=== PATIENT | female | born 2005 | race Caucasian/White ===

== ENCOUNTER 2025-05-15 12:20 | Emergency (ER) | payer MEDICAID, SELFPAY ==
[2025-05-15 12:20] VITALS: BP 133/92; PULSE 106; RESP 14; TEMP 36.6; O2SAT 98; BMI 38.2
--- NOTE | 2025-05-15 12:46 | EX.ED.DYSGE1 ---
HPI History of Present Illness Chief Complaint: Complaint Detail of Chief Complaint: Abdominal pain and dysuria Informant: patient Narrative Narrative: Patient presents to the emergency department complaint of abdominal pain that started 2 days ago while having intercourse with her fianc?. She describes pain to the right side of her abdomen. She denies vaginal bleeding associated with this. She denies abnormal vaginal discharge. Patient states that she had similar episode last October and went to the ER and was told that maybe her ovaries had twisted and she remembers having a CAT scan at that time. She did not require any type of intervention or surgery. Patient states that she has had 4 miscarriages and is currently trying to get . Her last menstrual period was May 02. No history of kidney stones. She does describe some dysuria. She has been having nausea and vomiting x [address] [facility] Medical History (Updated 05/15/25 @ 15:[address] 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) Social History Smoking Status: Unknown if ever smoked ROS ROS ED Review of Systems ROS Unobtainable: other Constitutional Constitutional ED: Reports lethargy; Denies chills, fever(s), sweats or weight loss Eyes Eyes: Denies blurry vision, change in vision or diplopia ENT ENT ED: Denies rhinorrhea or sore throat Cardiovascular Cardiovascular: Denies chest pain, orthopnea or racing heartbeat Respiratory/Chest Respiratory/Chest: Denies cough, dyspnea, dyspnea on exertion, orthopnea or sputum Gastrointestinal Gastrointestinal: Reports abdominal pain, nausea and vomiting; Denies diarrhea Genitourinary Genitourinary ED: Reports dysuria; Denies hematuria or urinary frequency Musculoskeletal Musculoskeletal: Denies arthralgias, back pain, myalgias or neck pain Integumentary Denies abscess, Abrasions or rash Neurologic Neurologic: Denies headache(s) or weakness Psychiatric Psychiatric: Denies anxiety, depression or suicidal thoughts Endocrine Endocrinology: Denies polydipsia, polyphagia or polyuria Hematologic/Lymphatic Hematologic/Lymphatic: Denies easy bleeding, easy bruising or lymphadenopathy Allergic/Immunologic Allergic/Immunologic ED: Denies mouth swelling, tongue swelling or urticaria EXAM Physical Exam Const Vital Signs: 05/15/25 12:20 Temperature 98 F Temperature Source Temporal Pulse Rate 106 H Respiratory Rate 14 Blood Pressure 133/92 H Blood Pressure Mean 105 Pulse Ox 98 Oxygen Delivery Method Room Air Positive well nourished and well developed General Appearance ED: well developed and NAD HEENT Reports TM's clear and moist mucous membranes normocephalic and atraumatic; Negative for trauma or tenderness Tympanic Membrane ED: Yes TM's clear Eyes PERRL and EOMs intact bilaterally General Eye ED: Negative for pale conjunctiva or scleral icterus Neck no lymphadenopathy, supple and no JVD General: Negative for tenderness Chest Wall inspection of chest normal and palpation of chest normal Chest: Negative for tenderness Resp normal respiratory effort and clear to auscultation bilaterally Effort and Inspection: Negative for respiratory distress or pain with movement Auscultation: Negative for rhonchi, wheezes or diminished lung sounds Cardio regular rate, regular rhythm, S1 normal heart sound, S2 normal heart sound and no murmurs Peripheral Pulses: pulses 2+ throughout GI normal to inspection, nondistended, normoactive bowel sounds, soft to palpation, non-distended and no masses GI Narrative: Tenderness palpation over the right lower quadrant and suprapubic region. There are some mild guarding. There is no rebound or rigidity. No masses palpated. Back/Spine no CVA tenderness and no thoracic nor lumbar tenderness Extremity normal to inspection General Extremety ED: Negative for edema General Extremity: Negative for edema Neuro oriented x3, CN's II-XII intact bilaterally, no sensory deficits noted and gait normal Sensorium / Orientation: awake, alert, oriented to person, oriented to place and oriented to time Motor Exam: strength 5/5 throughout and strength abnormal Psych mental status grossly normal Skin no rashes or lesions noted and no wounds MDM MDM MDM Narrative Medical decision making narrative: Patient presents with right-sided abdominal pain after intercourse. Similar pain in the past and was told she might have torsion and apparently. She states she did not require any surgery. Clinically she looks well. IV line established. CBC with differential obtained showing a 7.0 with hemoglobin 11.2 and platelet count of 290. Chemistries unremarkable. LFTs were normal. hCG was negative. Urinalysis was normal. CT scan of the abdomen pelvis showed an enlarged right ovary otherwise nothing acute and they recommended obtaining ultrasound. I did order an ultrasound of the pelvis and discussed results with technologist which did show a right ovarian cyst with no evidence of torsion. Discussed results with patient. Will refer to [facility] on-call. Patient will use ibuprofen for discomfort as she had good pain relief here with Toradol. Lab Data Attestation: I reviewed the patient's lab results. Labs: Laboratory Results - last 24 hr 05/15/25 05/15/25 13:02 13:41 WBC 7.0 RBC 3.83 L Hgb 11.2 L Hct 33.7 L MCV 88.0 MCH 29.2 MCHC 33.2 RDW Std Deviation 45.6 H RDW Coeff of Edu 14.2 Plt Count 290 MPV 9.6 Immature Gran % (Auto) 0.300 Neut % (Auto) 56.3 Lymph % (Auto) 34.2 [place] % (Auto) 7.8 Eos % (Auto) 1.0 Baso % (Auto) 0.4 Absolute Neuts (auto) 3.9 Absolute Lymphs (auto) 2.38 Nucleated RBC % 0 Sodium 139 Potassium 3.8 Chloride 104 Carbon Dioxide 23.9 Anion Gap 11 BUN 11 Creatinine 0.59 L Estim Creat Clear Calc 156.94 Est GFR (MDRD) Non-Af 132 BUN/Creatinine Ratio 17.8 Glucose 93 Lactic Acid 1.0 Calcium 9.1 Total Bilirubin 0.38 AST 15 ALT 11 Alkaline Phosphatase 70 Total Protein 7.1 Albumin 4.1 Globulin 3.0 Albumin/Globulin Ratio 1.4 Serum , Qual NEGATIVE Urine Color Yellow Urine Clarity Clear Urine pH 7.0 Ur Specific [place] 1.010 Urine Protein Negative Urine Glucose (UA) Normal Urine Ketones Negative Urine Occult Blood Negative Urine Nitrite Negative Urine Bilirubin Negative Urine Urobilinogen Normal Ur Leukocyte Esterase 100 H Urine RBC 0 SEEN Urine WBC 0-5 SEEN Ur Squamous Epith Cells 0-5 SEEN Urine Bacteria RARE Urine Mucus 0 SEEN Radiography Diagnostic Testing: Clinical Impression(s) from Imaging Studies Abdomen/Pelvis CT 05/15/25 13:40 IMPRESSION: I suspect an enlarged right ovary. Correlation ultrasound recommended. Reading Location: [place] [address] Discharge Plan Triage Chief Complaint: Complaint ED Provider: Lawrence Finnegan Dx/Rx/DC Orders Clinical Impression: Cyst of right ovary Instructions: ED Ovarian Cyst Primary Care Provider: Care Physician,No Primary Referrals: Alba Hadley MD [Med Staff - Active Staff] - 3-5 Days Care Physician,No Primary [Primary Care Provider] - Print Language: Omani Disposition Disposition: Home, Self Care
[2025-05-15] MEDS: 0.9% Normal Saline (1000mL) 1,000 ML 125 ML IV (12:58)
[2025-05-15] MEDS: Ketorolac 15 MG/ML Vial IV (12:58)
[2025-05-15] MEDS: Ondansetron 4 MG/2 ML Vial IV (12:58)
[2025-05-15 13:16] LABS: Absolute Lymphocyte Count 2.38 X10^3/uL (0.83-4.51); Absolute Neutrophil Count 3.9 X10^3/uL (2.0-7.7); Basophil# 0.03 X10^3/uL; Basophil% 0.4 % (0-1); Eosinophil# 0.07 X10^3/uL; Hematocrit 33.7 % (37-47); Hemoglobin 11.2 g/dL (12.0-15.0); Lymphocyte # 2.38 X10^3/ul (0.83-4.51); Lymphocyte % 34.2 % (19-41); Mean Corp Hgb Conc 33.2 g/dL (32-36); Mean Corpuscular Hgb 29.2 pg (27.0-32.0); Mean Platelet Vol. 9.6 fl (6.2-12.0); Monocyte# 0.54 X10^3/uL; Monocyte% 7.8 % (0-10); NRBC Flagged by Analyzer 0 % (0-5); Neutrophil # 3.92 X10^3/uL (2.7-7.7); Neutrophil % 56.3 % (47-70); Platelet Count 290 K/mm3 (150-450); RBC Distribution Width CV 14.2 % (11.6-14.6); RBC Distribution Width SD 45.6 fl (35.1-43.9); Red Blood Count 3.83 M/mm3 (4.2-5.4)
[2025-05-15 13:29] LABS: Internal QC Validated? YES +Cl - CLEAR BKGD; Pregnancy, Serum, hCG Quali. NEGATIVE Negative
[2025-05-15 13:38] LABS: ALB/GLOB Ratio 1.4 RATIO (0.9-2.4); AST(SGOT) 15 U/L (<=31); Alanine Aminotransfer ALT/SGPT 11 U/L (<=34); Albumin, Serum 4.1 g/dL (3.5-5.0); Alkaline Phosphatase 70 U/L (35-104); Anion Gap 11 (5-15); BUN 11 mg/dL (4-19); BUN/Creat Ratio 17.8 RATIO (10-20); Calcium,Total 9.1 mg/dL (7.6-11.0); Carbon Dioxide 23.9 mmol/L (21.0-32.0); Chloride 104 mmol/L (98-108); Creatinine, Serum 0.59 mg/dL (0.70-1.20); EST Glomerular Filtration Rate 132 (>60); Estimated Creatinine Clearance 156.94 ml/min (50-250); Glucose 93 mg/dL (70-99); Potassium 3.8 mmol/L (3.3-5.1); Protein, Total 7.1 g/dL (5.9-8.4); Sodium Level 139 mmol/L (133-145); Total Bilirubin 0.38 mg/dL (0.00-1.30)
--- NOTE | 2025-05-15 13:40 | CT_ITS ---
PROCEDURE: ABDOMEN/PELVIS WITHOUT CONT 05/15/2025 REASON FOR EXAM: RLQ ABDOMINAL PAIN TECHNIQUE: ABDOMEN/PELVIS WITHOUT CONT Noncontrast technique limits evaluation of the abdominal and pelvic viscera. Coronal and Sagittal reconstruction series were provided. One or more dose reduction techniques were used (e.g., Automated exposure control, adjustment of the mA and/or kV according to patient size, use of iterative reconstruction technique). Dose report: CTDI L volume 16.9. DLP: 897.94 ORAL CONTRAST TYPE: None. COMPARISON: None FINDINGS: Lung bases: Unremarkable Liver: Normal size. No obvious mass. Gallbladder: Mildly distended gallbladder. No definite gallstone is seen. Spleen: Normal size. Pancreas: Normal size. No surrounding inflammation. Adrenals: Unremarkable Kidneys: No urolithiasis. No hydronephrosis. Bladder: Unremarkable Reproductive Organs: I suspect an enlarged right ovary. Correlation with ultrasound recommended. Bowel: Mild degree of sigmoid diverticulosis. Appendix: Unremarkable Lymph nodes: Unremarkable. Vasculature: The abdominal aorta and IVC contours are normal. Noncontrast technique limits evaluation. Peritoneum / Retroperitoneum: Unremarkable Bones: Unremarkable CT/Abdomen/Pelvis without Cont IMPRESSION: I suspect an enlarged right ovary. Correlation ultrasound recommended. Reading [facility]
[2025-05-15 13:46] LABS: Mucous, Urine 0 SEEN /hpf (<or=2+); Red Blood Cells-Urine 0 SEEN /hpf (0-5)
[2025-05-15 13:47] LABS: Color, Urine Yellow (Yellow); Glucose, Dipstick Normal (Normal); Ketone-Dipstick Negative (Negative); Leukocyte Esterase-Dipstick 100 /ul (Negative); Nitrite-Dipstick Negative (Negative); Occult Blood-Urine Negative /ul (Negative); Protein-Dipstick Negative (Negative); Urine Bilirubin Dipstick Negative (Negative); Urine Clarity Clear (Clear); Urine Urobilinogen Normal (Normal)
[2025-05-15 13:54] LABS: Bacteria RARE /hpf (None Seen); Squamous Epithelial Cells - UA 0-5 SEEN /hpf (5-10); White Blood Cells 0-5 SEEN /hpf (0-5)
--- NOTE | 2025-05-15 14:03 | US_ITS ---
PROCEDURE: TRANSVAGINAL NON- 05/15/2025 REASON FOR EXAM: RIGHT LOWER ABD PAIN, RULE OUT TORSION TECHNIQUE: TRANSVAGINAL NON- COMPARISON: CT abdomen pelvis today. FINDINGS: Measurements: Uterus: 9.1 cm x 4.1 cm AP x 5.6 cm T Endometrial Thickness: 7 mm Right Ovary: 3.6 cm x 2.6 cm x 3.4 cm Left Ovary: 3.2 cm x 2.7 cm x 1.1 cm Uterus: Unremarkable. Endometrium: Unremarkable. Ovarian blood flow: Bilateral arterial and venous waveforms and normal color Doppler. Normal follicles are present. Other: Trace fluid in the cul-de-sac, most frequently physiologic, but nonspecific US/Transvaginal Non- IMPRESSION: No evidence of torsion. Reading [facility]
[2025-05-15 15:44] VITALS: BP 110/70; PULSE 73; RESP 14; TEMP 36.4; O2SAT 94
== END 2025-05-15 15:48 | disposition home or self-care (01) ==
PROVIDERS: Emergency Provider Emergency Medicine; Visit Provider Emergency Medicine
DX: N83.201 Unspecified ovarian cyst, right side (principal); R30.0 Dysuria; R10.9 Unspecified abdominal pain
CPT/HCPCS: 74176; 76830; 80053; 81001; 83605; 84703; 85025; 96361; 96374; 96375; 99283; A4216; J2405

== ENCOUNTER 2025-07-30 15:18 | Emergency (ER) | payer MEDICAID, SELFPAY ==
[2025-07-30 15:19] VITALS: BP 124/82; PULSE 89; RESP 18; TEMP 36.6; O2SAT 98; BMI 38.4
--- NOTE | 2025-07-30 15:54 | EDS_ITS ---
HPI HPI - URI History of Present Illness Chief Complaint: Cold Sx Informant: patient Narrative Narrative: 3-4 days of cough, runny nose, congestion, and wheezing/asthma symptoms in this 20-year-old female she states she has 3 kids, none of which are sick right now, but she feels like she has a cold and would have been fine if she had an inhaler but she cannot find it. She feels like it is making her asthma worse. She denies any major headaches although she has a mild one, no nausea or vomiting. Mild sore throat/odynophagia but she can eat soft foods and liquids without difficulty. ROS ROS ED Constitutional Constitutional ED: Reports fatigue and malaise; Denies chills or fever(s) ENT ENT ED: Reports headache(s), loss taste/smell, nasal congestion, rhinorrhea and sore throat; Denies ear pain or vertigo Cardiovascular Cardiovascular: Denies chest pain or palpitations Respiratory/Chest Respiratory/Chest: Reports cough, dyspnea and wheezing Gastrointestinal Gastrointestinal: Denies abdominal pain, diarrhea, nausea or vomiting Genitourinary Genitourinary ED: Denies dysuria or hematuria Musculoskeletal Musculoskeletal: Denies myalgias or neck pain Integumentary Denies abscess or rash Neurologic Neurologic: Reports headache(s); Denies paresthesias or weakness Psychiatric Psychiatric: Denies depression or suicidal thoughts Endocrine Endocrinology: Denies polydipsia or polyuria [facility] Medical History (Updated 07/30/25 @ 17:[address] Alexis Mejia MD) Marijuana use Asthma Physical exam, pre-employment Miscarriage Ovarian torsion Home Medications ?Medication ?Instructions ?Recorded ?Last Taken ?Type acetaminophen 325 mg tablet 650 mg PO Q4H PRN fever or pain 07/30/25 Unknown History (Aminofen) albuterol sulfate 90 mcg/actuation 1 - 2 puff inhalati on Q4H PRN PRN 07/30/25 Unknown Rx aerosol inhaler (Ventolin HFA) Wheezing ##1 prednisone 20 mg tablet 40 mg (2 x 20 mg) PO DAILY 5 days 07/30/25 Unknown Rx #10 tabs Allergy/AdvReac Type Severity Reaction Status Date / Time lavender (Lavandula Allergy Anaphylaxis Verified 07/30/25 15:20 angustifolia) Social History Smoking Status: Current every day smoker tobacco type: cigarettes and e- cigarettes Smokeless tobacco user: other alcohol intake: current alcohol intake frequency: other Alcohol type: hard liquor EXAM Physical Exam Const Vital Signs: 07/30/25 15:19 07/30/25 15:59 07/30/25 16:31 Temperature 97.8 F Temperature Source Temporal Pulse Rate 89 82 Respiratory Rate 18 14 Respiratory Effort Normal Non-Labored Respiratory Pattern Normal Blood Pressure 124/82 H 116/70 Blood Pressure Mean 96 85 Pulse Ox 98 99 Oxygen Delivery Method Room Air Room Air Positive well nourished and well developed General Appearance ED: well developed and NAD HEENT Reports moist mucous membranes normocephalic and atraumatic Face and Sinus: Negative for sinus tenderness Throat: Negative for tonsils abnormal or posterior oropharynx abnormal Eyes PERRL and EOMs intact bilaterally Neck no lymphadenopathy, supple and no meningeal signs Resp normal respiratory effort Resp Narrative: Conversive in full sentences. Very mild end-expiratory wheezes otherwise lungs clear. Cardio no murmurs Rate: regular rate Rhythm: regular rhythm Neuro oriented x3, CN's II-XII intact bilaterally and no sensory deficits noted Sensorium / Orientation: alert Motor Exam: strength 5/5 throughout Psych mental status grossly normal Skin Lesions: no lesions Rashes: no rashes MDM MDM MDM Narrative Medical decision making narrative: Given the patient has had loss of taste and smell with this, I recommend testing for COVID so that she knows. She is amenable to that we will, and it returned negative for all. Also given an inhaler with 4 puffs, she declined an aerosol, that helped and she was given the inhaler to use at home for rescue. She was also offered a prescription for short course of prednisone for her asthma exacerbation. Do not think she needs antibiotics here, do not think she has pneumonia her oxygen levels are 90% on room air lungs are clear and her vital signs are normal. Discharge Plan Triage Chief Complaint: Cold Sx ED Provider: Alexis Mejia Dx/Rx/DC Orders Clinical Impression: Acute asthma exacerbation, Viral URI with cough Instructions: ED Asthma, Acute (Adult), ED URI, Viral, No Abx (Adult) Prescriptions: New prednisone 20 mg tablet 40 mg PO DAILY 5 Days Qty: 10 0RF albuterol sulfate [Ventolin HFA] 90 mcg/actuation HFA aerosol inhaler 1 - 2 puff inhalation Q4H PRN PRN (Reason: Wheezing) Qty: 1 0RF No Action acetaminophen [Aminofen] 325 mg tablet 650 mg PO Q4H PRN (Reason: fever or pain) Primary Care Provider: Care Physician,No Primary Referrals: Doctor,Your [Non-Staff] - 1 Week if not improving Print Language: Japanese Disposition Disposition: Home, Self Care
[2025-07-30] MEDS: Albuterol Sulfate 8 gm Inhaler (60 puffs) 4 PUFF INHALATION (15:57)
[2025-07-30 16:31] VITALS: BP 116/70; PULSE 82; RESP 14; O2SAT 99
[2025-07-30 17:43] VITALS: BP 110/60; PULSE 71; RESP 14; TEMP 36.6; O2SAT 99
--- OUTSIDE RECORDS SUMMARY | 2025-07-30 23:31 | XMS RPT_ITS | CCD ---
Author Organization [facility] CliniSyoh Care Team Providers Care Bioinformatics Team Member Name Role Phone EZ DEJESUS Unavailable Unavailable SHANIKA HUGGINS Unavailable UnavailELIZABETH Obregon Attending Unavail able NATHANAEL LOVING Attending Unavailable KAYLA VILLARREAL Attending Unavaila ble Shivers, R Ignacia Primary Care Unavailable SHIVERS, R IGNACIA Consulting Unavailable HERMILLECINDI Brito Attending Unavailable Shivers, R Ignacia Primary Care Unavailable HERMILLECINDI Brito Attending Unavailable Shivers, R Ignacia Primary Care Unavailable HERMKARON, CINDI Brito Attending Unavailable Shivers, R Ignacia Primary Care Unavailable Shivers, R Ignacia Primary Care Unavailable NATHANAEL LOVING Attending Unavailable HERMILLER, CINDI Brito Attending Unavailable Shivers, R Ignacia Primary Care Unavailable Guerda Dotson Attending Unava ilable Shivers, Daryl Ignacia Primary Care Unavailable Shivers, R Ignacia Primary Care Unavailable Tye Anders Attending Unavailable SHIVERS, R IGNACIA Consulting Unavailable Siva Rincon Primary Care Provider Unavailable Primary Care Provider UnavailSiva Fernandez Primary Care Provider Unavailable Primary Care Provider Unavailabl e Daryl Huggins [facility] Keisha Primary Care Provider Unavailable Primary Care Provider Unavailvicky weeks [facility] Referring Unavailable [facility] KEISHA Referring Unavailable [facility] Referring Unavailable [facility] Referring Unavailable Katrin Olson APRN, CNP Primary Care Pro vider Katrin Olson APRN, CNP Primary Care Pro vider Katrin Olson APRN, CNP Primary Care Pro vider KATRIN DUPONT Primary Care Unavailable ALEX DAWSON Referring Unavailable LISA GANN Referring Unavailable KATRIN DUPONT Primary Care Unavailable KATRIN DUPONT Primary Care Unavailable LISA GANN Referring Unavailable KATRIN DUPONT Primary Care Unavailable KATRIN DUPONT Referring Unavailable KATRIN DUPONT Primary Care Unavailable KATRIN DUPONT Referring Unavailable PCP, No Primary Care Unavailable Octaviano Whittaker Attending Unavailable Cresencio ALUMINUM MOLDING MACHINE OPERATOR - SUPERVISOR PUMPING STATIONKatrin Primary Care Pro vider AKTRIN DUPONT Primary Care Unavailable MELVIN LEON Attending Unavailable Pcp ALUMINUM MOLDING MACHINE OPERATOR, No Primary Care Provider Unavailabl e Pcp ALUMINUM MOLDING MACHINE OPERATOR, No Primary Care Provider Unavailabl e SELF Referring Unavailable CLARA SINGH Attending Unavailable Unavailable Primary Care Provider Unavailabl e Dr. Lawrence Finnegan DO Emergency Provider Care Physician, No Primary Primary Care Provider Unavailable Dr. Lawrence Finnegan DO Attending Provider Care Physician, No Primary Referring Provider Un available Rosa Birch Attending Provider Rosa Birch Referring Provider Rudy Sousa Attending Provider Oswald RIDDLE, Dr. Carrasco Attending Provider Rudy Sousa Attending Unavailable Care Physician, No Primary Referring Unava ilable Care Physician, No Primary Primary Care Unava ilable Danilo Akers Attending Unavailable Care Physician, No Primary Primary Care Unava ilable Rudy Sousa Attending Unavailable Care Physician, No Primary Referring Unava ilable Care Physician, No Primary Primary Care Unava ilable Rosa Birch Attending Unavailable Rosa Birch Referring Unavailable Care Physician, No Primary Primary Care Unava ilable Rudy Sousa Attending Unavailable Care Physician, No Primary Referring Unava ilable Care Physician, No Primary Primary Care Unava ilable Lawrence Finnegan Attending Unavailable Care Physician, No Primary Primary Care Unava ilable Rosa Birch Attending Unavailable Care Physician, No Primary Primary Care Unava ilable Care Physician, No Primary Referring Unava ilable Care Physician, No Primary Referring Unava ilable Care Physician, No Primary Primary Care Rosa Caban Unavailable Roberto RIDDLE, Dr. Espinoza Emergency Provider Allergies Allergy Classification Reported Allergen(s) Allergy Type Date of Onset Reaction(s) Facility Lactose (3 sources) Lactose (non-medical use) Food Allergy 0 [facility] Work Phone: (1 source) No Known Medication Allergies; Translations: [No Known Medication Allergies] Propensity to adverse reactions to drug (disorder) [facility] Repository (16 sources) Lactose (non-medical use) Allergy to substance 0 [facility] Work Phone: (4 sources) Seasonal allergy Allergy to substance 1 Seasonal allergies [facility] Work Phone: (1 source) Lactose Drug Allergy 0 [facility] Repository (14 sources) Lavender (Lavandula Angustifolia); Translations: [LAVENDER (LAVANDULA ANGUSTIFOLIA)] Drug Allergy 4 [facility] (1 source) lavender (Lavandula angustifolia) Drug allergy (disorder) 5 [facility] Repository Medications Current Medications Medication Drug Class(es) Dates Sig (Normalized) Sig (Original) acetaminophen 325 mg oral tablet (5 sources) Start: 07-30-2025 Acetaminophen (Aminofen) 325 mg tablet Active 650 mg PO Q4H as needed for fever or pain July 30, 2025 12:00am Start: 09-03-2021 Tylenol 325 MG Oral Tablet 09/03/2021 Provider: [id number] 200 actuat albuterol 0.09 mg/actuat metered dose inhaler (1 source) beta2-Adrenergic Agonist Start: 07-30-2025 Albuterol Sulfate (Ventolin Hfa) 90 mcg/actuation HFA aerosol inhaler Active 1 - 2 NMA INHALATION EVERY 4 HOURS NEEDED as needed for Wheezing 1 0 July 30, 2025 12:00am amphetamine sulfate 10 mg oral tablet (16 sources) Central Nervous System Stimulant Start: 09-17-2020 Amphetamine Sulfate 10 MG Oral Tablet 09/17/2020 Provider: cephalexin 500 mg oral capsule (4 sources) Cephalosporin Antibacterial Start: 12-28-2024 End: 01-02-2025 take 1 capsule by mouth twice daily cephALEXin (KEFLEX) 500 mg capsule Take 1 capsule by mouth two times a day for 5 days. 10 capsule 12/28/2024 01/02/2025 Active Start: 09-09-2024 End: 12-28-2024 take 1 capsule by mouth three times daily cephALEXin (KEFLEX) 500 mg capsule Take 1 capsule by mouth three times a day. 15 capsule 09/09/2024 12/28/2024 Discontinued (Course of therapy completed) Start: 07-05-2022 End: 07-12-2022 take 1 capsule by mouth in the morning cephALEXin (KEFLEX) 500 MG capsule Take 1 capsule by mouth in the morning and 1 capsule before bedtime. Do all this for 7 days. 14 capsule 0 07/05/2022 07/12/2022 Active cetirizine hydrochloride 10 mg oral capsule (20 sources) Histamine-1 Receptor Antagonist Start: 03-21-2023 End: 03-20-2024 Cetirizine HCl (ZYRTEC ALLERGY) 10 MG CAPS Indications: Seasonal allergies Take 10 mg by mouth as needed (allergy symptoms) 30 capsule 5 03/21/2023 03/20/2024 Active Start: 03-05-2020 End: 09-03-2021 Cetirizine HCl 10 MG Oral Ta blet 03/02/2021 - 09/03/2021 Provider: Keisha Tapia PA-C Start: 02-28-2020 End: 02-28-2020 Cetirizine HCl 10 MG Oral Ta blet 02/28/2020 - 02/28/2020 Provider: Cetirizine HCl ( ZYRTEC ALLERGY) 10 MG CAPS Take by mouth as needed 0 Active clotrimazole 10 mg/ml vaginal cream (1 source) Azole Antifungal Start: 09-17-2022 End: 09-24-2022 clotrimazole (GYNE-LOTRIMIN) 1 % vaginal cream Place vaginally 2 times daily. 45 g 1 09/17/2022 09/24/2022 Active EQL Vitamin D3 125 MCG (5000 UT) Oral Capsule (1 source) Start: 03-02-2021 EQL Vitamin D3 125 MCG (5000 UT) Oral Capsule 03/02/2021 Provider: FLUoxetine 40 mg oral capsule (20 sources) Serotonin Reuptake Inhibitor Start: 09-17-2020 End: 09-03-2021 FLUoxetine HCl 40 MG Oral Capsule 09/03/2021 Provider: Start: 03-05-2020 End: 06-26-2020 PROzac 40 MG Oral Capsule - 06/26/2020 Provider: Siva Rincon MD Start: 02-28-2020 End: 02-28-2020 PROzac 40 MG Oral Capsule - 02/28/2020 Provider: hydrOXYzine hydrochloride 25 mg oral tablet (20 sources) Antihistamine Start: 09-17-2020 End: 09-03-2021 hydrOXYzine HCl 25 MG Oral Tablet 09/03/2021 Provider: ibuprofen 600 mg oral tablet (5 sources) Nonsteroidal Anti-inflammatory Drug take 1 tablet by mouth every six hours as needed for pain ibuprofen (ADVIL;MOTRIN) 600 MG tablet Take 1 tablet by mouth every 6 hours as needed for Pain 0 Active lisdexamfetamine dimesylate 50 mg oral capsule (20 sources) Central Nervous System Stimulant Start: 03-02-2021 Vyvanse 50 MG Oral Capsule 03/02/2021 Provider: Start: 03-02-2021 End: 03-02-2021 Vyvanse 40 MG Oral Capsule 0 03/02/2021 - 03/02/2021 Provider: 1 ml medroxyPROGESTERone acetate 150 mg/ml injection (20 sources) Progestin Start: 03-21-2023 medroxyPROGEST ERone (DEPO-PROVERA) injection 150 mg Start: 03-11-2023 End: 09-08-2024 medroxyPROGESTERone (DEPO-NM OVERA) 150 MG/ML injection Indications: Menorrhagia with irregular cycle Inject 1 mL into the muscle every 3 months 1 mL 1 09/08/2023 09/08/2024 Active Start: 08-13-2022 medroxyPROGEST ERone (DEPO-PROVERA) 150 MG/ML injection Indications: Menorrhagia with irregular cycle Inject 1 mL into the muscle every 3 months 1 mL 1 08/13/2022 Active Start: 03-11-2022 medroxyPROGEST ERone (DEPO-PROVERA) 150 MG/ML injection Indications: Menorrhagia with irregular cycle Inject 1 mL into the muscle every 3 months 1 mL 1 03/11/2022 Active Start: 06-26-2020 Depo-Provera 1 50 MG/ML IM SUSP 12/10/2020 Keisha Tapia PA-C Comment on above: Patient tolerated th erapy well. No signs or symptoms of adverse reactions. Patient tolerated th erapy well. No signs or symptoms of adverse reactions. Patient waited in clinic for 15 minutes after administration. melatonin 3 mg oral tablet (20 sources) Start: 03-11-2022 take 3 tablets by mouth once daily melatonin 3 MG TABS tablet Indications: Difficulty sleeping Take 3 tablets by mouth daily 270 tablet 1 03/11/2022 Active Start: 09-17-2020 End: 09-03-2021 [facility] Melatonin 3 MG Oral Tabl et 09/03/2021 Provider: Metamucil Fiber 51.7% Oral Packet (1 source) Start: 03-02-2021 Metamucil Fiber 51.7% Oral Packet 03/02/2021 Provider: Keisha Tapia PA-C ondansetron 4 mg disintegrating oral tablet (1 source) Serotonin-3 Receptor Antagonist Start: 03-12-2025 take 1 tablet by mouth every eight hours as needed ondansetron orally disintegrating (ZOFRAN ODT) 4 mg disintegrating tablet Take 1 tablet by mouth every 8 hours as needed for nausea/vomiting. 9 tablet 03/12/2025 Active phenazopyridine hydrochloride 200 mg delayed release oral tablet (15 sources) Start: 07-05-2022 End: 07-07-2022 take 1 tablet by mouth three times daily as needed for pain phenazopyridine (PYRIDIUM) 200 MG tablet Take 1 tablet by mouth 3 times daily as needed for Pain 6 tablet 0 07/05/2022 07/07/2022 Active Start: 11-10-2020 End: 11-26-2020 Phenazopyridine HCl 100 MG O ral Tablet 11/10/2020 - 11/26/2020 Provider: Keisha Tapia PA-C prazosin 2 mg oral capsule (20 sources) alpha-Adrenergic Jennifer Start: 02-11-2023 take 1 capsule by mouth once daily prazosin (MINIPRESS) 2 MG capsule Take 1 capsule by mouth nightly 0 02/11/2023 Active Start: 09-03-2021 Prazosin HCl 1 MG Oral Capsule 09/03/2021 Provider: Start: 09-17-2020 End: 09-03-2021 Prazosin HCl 2 MG Oral Capsu le 09/17/2020 - 09/03/2021 Provider: Start: 03-05-2020 End: 06-26-2020 Prazosin HCl 2 MG Oral Capsu le 03/05/2020 - 06/26/2020 Provider: Siva Rincon MD Start: 02-28-2020 End: 02-28-2020 Prazosin HCl 2 MG Oral Capsu le 02/28/2020 - 02/28/2020 Provider: predniSONE 20 mg oral tablet (1 source) Start: 07-30-2025 take 2 tablets by mouth once daily Prednisone 20 mg tablet Active 40 mg PO DAILY 10 5 0 July 30, 2025 12:00am QUEtiapine 25 mg oral tablet (16 sources) Atypical Antipsychotic Start: 02-11-2023 take 1 tablet by mouth once daily in the morning QUEtiapine (SEROQUEL) 25 MG tablet Take 1 tablet by mouth every morning 0 02/11/2023 Active Start: 03-02-2021 SEROquel 100 M G Oral Tablet 03/02/2021 Provider: QUEtiapine Fumar ate 150 MG TABS Take by mouth 0 Active Up4 Probiotics Womens Oral Capsule (4 sources) Start: 11-26-2020 Up4 Probiotics Womens Oral Capsule 11/26/2020 Provider: valACYclovir 1000 mg oral tablet (7 sources) Herpesvirus Nucleoside Analog DNA Polymerase Inhibitor, Herpes Simplex Virus Nucleoside Analog DNA Polymerase Inhibitor, Herpes Zoster Virus Nucleoside Analog DNA Polymerase Inhibitor Start: 05-12-2021 Valtrex 1 GM Oral Tablet 05/12/2021 Provider: Keisha Tapia PA-C Completed/Discontinued Medications Medication Drug Class(es) Dates Sig (Normalized) Sig (Original) Acidophilus Probiotic Blend Oral Capsule (20 sources) Start: 03-05-2020 End: 04-07-2020 Acidophilus Probiotic Blend Oral Capsule 03/05/2020 - 04/07/2020 Provider: Siva Rincon MD Start: 03-05-2020 Acidophilus Pr obiotic Blend Oral Capsule 03/05/2020 Provider: Siva Rincon MD Start: 02-28-2020 End: 02-28-2020 Acidophilus Probiotic Blend Oral Capsule 02/28/2020 - 02/28/2020 Provider: Start: 02-28-2020 Acidophilus Pr obiotic Blend Oral Capsule 02/28/2020 Provider: Acidophilus Probiotic Blend Oral Capsule (14 sources) Start: 03-05-2020 End: 04-07-2020 Acidophilus Probiotic Blend Oral Capsule 03/05/2020 - 04/07/2020 Provider: Siva Rincon MD Start: 02-28-2020 End: 02-28-2020 Acidophilus Probiotic Blend Oral Capsule 02/28/2020 - 02/28/2020 Provider: amoxicillin 875 mg / clavulanate 125 mg oral tablet (12 sources) Penicillin-class Antibacterial Start: 09-03-2021 End: 10-16-2021 Amoxicillin-Pot Clavulanate 875-125 MG Oral Tablet 09/03/2021 - 10/16/2021 Provider: Keisha Tapia PA-C Start: 03-02-2021 End: 05-12-2021 Amoxicillin-Pot Clavulanate 875-125 MG Oral Tablet 03/02/2021 - 05/12/2021 Provider: Keisha Tapia PA-C ARIPiprazole 2 mg oral tablet (20 sources) Atypical Antipsychotic Start: 03-05-2020 End: 06-26-2020 Abilify 2 MG Oral Tablet 03/05/2020 - 06/26/2020 Provider: Siva Rincon MD Start: 02-28-2020 End: 02-28-2020 Abilify 2 MG Oral Tablet 12/2019 - 02/28/2020 Provider: azithromycin 500 mg oral tablet (7 sources) Macrolide Antimicrobial Start: 05-12-2021 End: 09-03-2021 Azithromycin 500 MG Oral Tablet 05/12/2021 - 09/03/2021 Provider: Keisha Tapia PA-C carbamide peroxide 65 mg/ml otic solution (8 sources) Start: 03-02-2021 Debrox 6.5% OT SOLN 03/02/2021 Keisha Tapia PA-C Comment on above: Patient tolerated th erapy well. No signs or symptoms of adverse reactions. ciprofloxacin 500 mg oral tablet (14 sources) Quinolone Antimicrobial Start: 11-10-2020 End: 11-26-2020 Ciprofloxacin HCl 500 MG Oral Tablet 11/10/2020 - 11/26/2020 Provider: Keisha Tapia PA-C Dairy Digest Fast Acting 9000 UNIT Oral Tablet (20 sources) Start: 02-28-2020 End: 09-17-2020 Dairy Digest Fast Acting 9000 UNIT Oral Tablet 02/28/2020 - 09/17/2020 Provider: Start: 02-28-2020 Dairy Digest F ast Acting 9000 UNIT Oral Tablet 02/28/2020 Provider: Dairy Digest Fast Acting 900 0 UNIT Oral Tablet (7 sources) Start: 02-28-2020 End: 09-17-2020 Dairy Digest Fast Acting 900 0 UNIT Oral Tablet 02/28/2020 - 09/17/2020 Provider: Dialyvite Vitamin D 5000 125 MCG (5000 UT) Oral Capsule (20 sources) Start: 05-19-2020 End: 11-15-2020 Dialyvite Vitamin D 5000 125 MCG (5000 UT) Oral Capsule 05/19/2020 - 11/15/2020 Provider: Siva Rincon MD Start: 03-05-2020 End: 05-19-2020 Dialyvite Vitamin D 5000 125 MCG (5000 UT) Oral Capsule 03/05/2020 - 05/19/2020 Provider: Siva Rincon MD Start: 03-05-2020 Dialyvite Hedy min D 5000 125 MCG (5000 UT) Oral Capsule 03/05/2020 Provider: Siva Rincon MD Start: 02-28-2020 End: 02-28-2020 Dialyvite Vitamin D 5000 125 MCG (5000 UT) Oral Capsule 02/28/2020 - 02/28/2020 Provider: Start: 02-28-2020 Dialyvite Hedy min D 5000 125 MCG (5000 UT) Oral Capsule 02/28/2020 Provider: Dialyvite Vitamin D 5000 125 MCG (5000 UT) Oral Capsule (20 sources) Start: 05-19-2020 End: 05-12-2021 Dialyvite Vitamin D 5000 125 MCG (5000 UT) Oral Capsule 05/19/2020 - 05/12/2021 Provider: Siva Rincon MD Start: 03-05-2020 End: 05-19-2020 Dialyvite Vitamin D 5000 125 MCG (5000 UT) Oral Capsule 03/05/2020 - 05/19/2020 Provider: Siva Rincon MD Start: 02-28-2020 End: 02-28-2020 Dialyvite Vitamin D 5000 125 MCG (5000 UT) Oral Capsule 02/28/2020 - 02/28/2020 Provider: doxycycline monohydrate 100 mg oral tablet (4 sources) Tetracycline-class Drug Start: 09-09-2024 End: 03-12-2025 take 1 tablet by mouth twice daily doxycycline monohydrate 100 mg tablet Take 1 tablet by mouth two times a day. 20 tablet 09/09/2024 03/12/2025 Discontinued (Course of therapy completed) EQL Vitamin D3 125 MCG (5000 UT) Oral Capsule (7 sources) Start: 03-02-2021 End: 10-16-2021 EQL Vitamin D3 125 MCG (5000 UT) Oral Capsule 03/02/2021 - 10/16/2021 Provider: Start: 03-02-2021 EQL Vitamin D3 125 MCG (5000 UT) Oral Capsule 03/02/2021 Provider: {21 (ethinyl estradiol 0.035 MG / norgestimate 0.25 MG Oral Tablet) / 7 (inert ingredients 1 MG Oral Tablet) } Pack [Sprintec 28 Day] (20 sources) Progestin, Estrogen Start: 06-17-2020 End: 06-26-2020 Sprintec 28 0.25-35 MG-MCG Oral Tablet 06/17/2020 - 06/26/2020 Provider: Siva Rincon MD Start: 02-28-2020 End: 06-26-2020 Sprintec 28 0.25-35 MG-MCG O ral Tablet 02/28/2020 - 06/26/2020 Provider: Start: 02-28-2020 Sprintec 28 0. 25-35 MG-MCG Oral Tablet 02/28/2020 Provider: fluconazole 150 mg oral tablet (4 sources) Azole Antifungal Start: 09-03-2021 End: 10-16-2021 Diflucan 150 MG Oral Tablet 09/03/2021 - 10/16/2021 Provider: Keisha Tapia PA-C lactase 9000 unt oral tablet (16 sources) Start: 09-17-2020 End: 09-03-2021 take 1 tablet by mouth every twenty-four hours Lactase 9000 UNIT Oral Tablet 09/17/2020 - 09/03/2021 Provider: lurasidone hydrochloride 120 mg oral tablet (20 sources) Atypical Antipsychotic Start: 09-17-2020 End: 03-02-2021 Latuda 120 MG Oral Tablet 09/17/2020 - 03/02/2021 Provider: Start: 03-05-2020 End: 09-17-2020 Latuda 80 MG Oral Tablet 06/2020 - 09/17/2020 Provider: Siva Rincon MD Start: 03-05-2020 End: 09-17-2020 Latuda 20 MG Oral Tablet 06/2020 - 09/17/2020 Provider: Siva Rincon MD Start: 02-28-2020 End: 02-28-2020 Latuda 80 MG Oral Tablet 12/2019 - 02/28/2020 Provider: Start: 02-28-2020 End: 02-28-2020 Latuda 20 MG Oral Tablet 12/2019 - 02/28/2020 Provider: Metamucil Fiber 51.7% Oral Packet (7 sources) Start: 03-02-2021 End: 09-03-2021 Metamucil Fiber 51.7% Oral Packet 03/02/2021 - 09/03/2021 Provider: Keisha Tapia PA-C Start: 03-02-2021 Metamucil Fibe r 51.7% Oral Packet 03/02/2021 Provider: Keisha Tapia PA-C metroNIDAZOLE 500 mg oral tablet (16 sources) Nitroimidazole Antimicrobial Start: 05-12-2021 End: 09-03-2021 Flagyl 500 MG Oral Tablet 05/12/2021 - 09/03/2021 Provider: Keisha Tapia PA-C Start: 12-12-2020 End: 03-02-2021 Flagyl 500 MG Oral Tablet - 03/02/2021 Provider: Keisha Tapia PA-C nitrofurantoin, macrocrystals 25 mg / nitrofurantoin, monohydrate 75 mg oral capsule (2 sources) Nitrofuran Antibacterial Start: 09-09-2021 End: 10-16-2021 Macrobid 100 MG Oral Capsule 09/09/2021 - 10/16/2021 Provider: Renu Fournier HYDROLOGY TEACHER sulfamethoxazole 800 mg / trimethoprim 160 mg oral tablet (14 sources) Dihydrofolate Reductase Inhibitor Antibacterial, Sulfonamide Antimicrobial Start: 10-21-2020 End: 11-10-2020 Bactrim DS 800-160 MG Oral Tablet 10/21/2020 - 11/10/2020 Provider: traZODone hydrochloride 150 mg oral tablet (20 sources) Serotonin Reuptake Inhibitor Start: 06-26-2020 End: 09-17-2020 traZODone HCl 150 MG Oral Tablet 06/26/2020 - 09/17/2020 Provider: Start: 03-05-2020 End: 06-26-2020 traZODone HCl 100 MG Oral Ta blet 03/05/2020 - 06/26/2020 Provider: Siva Rincon MD Start: 02-28-2020 End: 02-28-2020 traZODone HCl 100 MG Oral Ta blet 02/28/2020 - 02/28/2020 Provider: triamcinolone acetonide 1 mg/ml topical cream (4 sources) Corticosteroid Start: 06-03-2021 End: 10-16-2021 Triamcinolone Acetonide 0.1% External Cream 06/03/2021 - 10/16/2021 Provider: Keisha Tapia PA-C Up4 Probiotics Womens Oral Capsule (7 sources) Start: 11-26-2020 End: 09-03-2021 Up4 Probiotics Womens Oral Capsule 11/26/2020 - 09/03/2021 Provider: Start: 11-26-2020 Up4 Probiotics Womens Oral Capsule 11/26/2020 Provider: Problems Active Problems Problem Classification Problem Date Documented Da te Episodic/Chronic Abdominal pain (20 sources) Renal angle tenderness; Translations: [Unspecified abdominal pain] Onset: 11-13-2020 Resolved: 03-02-2021 Episodic Administrative/social admission (2 sources) Encounter for pre-employment examination; Translations: [Encounter for pre-employment examination] Onset: 06-11-2025 Episodic Anxiety disorders (20 sources) Posttraumatic stress disorder; Translations: [Post-traumatic stress disorder, unspecified] Onset: 02-28-2020 Chronic Asthma (1 source) Exacerbation of asthma; Translations: [Unspecified asthma with (acute) exacerbation] 07-30-2025 Chronic Esophageal disorders (20 sources) Gastro-esophageal reflux disease without esophagitis; Translations: [Gerd] Onset: 11-26-2020 Chronic Immunizations and screening for infectious disease (20 sources) Exposure to communicable disease; Translations: [Contact with and (suspected) exposure to other viral communicable diseases] Onset: 09-09-2020 Episodic Menstrual disorders (18 sources) Menorrhagia; Translations: [Excessive or frequent menstruation] Onset: 06-26-2020 Chronic Mood disorders (20 sources) Depressive disorder; Translations: [Recurrent major depression] Onset: 02-28-2020 Chronic Nausea and vomiting (1 source) Nausea and vomiting; Translations: [Nausea with vomiting, unspecified] 03-12-2025 Episodic Nutritional deficiencies (3 sources) Vitamin deficiency; Translations: [Unspecified vitamin deficiency] Onset: 12-02-2021 Chronic Other female genital disorders (1 source) Vaginal bleeding; Translations: [Abnormal uterine and vaginal bleeding, unspecified] 12-26-2024 Chronic Other female genital disorders (1 source) Abnormal uterine and vaginal bleeding, unspecified; Translations: [Vaginal bleeding] Onset: 12-26-2024 Chronic Other female genital disorders (1 source) Vaginal discharge; Translations: [Other specified noninflammatory disorders of vagina] Episodic Other gastrointestinal disorders (16 sources) Diarrhea; Translations: [Diarrhea] Onset: 08-15-2020 Episodic Other lower respiratory disease (20 sources) Cough; Translations: [Cough] Onset: 08-15-2020 Episodic Other nutritional; endocrine; and metabolic disorders (20 sources) Lactose intolerance, unspecified; Translations: [Lactose Intolerance] Onset: 03-18-2020 Chronic Other nutritional; endocrine; and metabolic disorders (20 sources) Simple obesity ; 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] Onset: 03-18-2020 Chronic Other nutritional; endocrine; and metabolic disorders (14 sources) Body mass index (BMI) pediatric, 85th percentile to less than 95th percentile for age; Translations: [Assessment of Bmi Percentile = 85% To < 95% For Age Z68.53] Onset: 03-02-2021 Episodic Other upper respiratory disease (3 sources) Seasonal allergy; Translations: [Other seasonal allergic rhinitis] Onset: 03-21-2023 03-21-2023 Chronic Other upper respiratory infections (1 source) Viral upper respiratory tract infection; Translations: [Acute upper respiratory infection, unspecified] 07-30-2025 Episodic Otitis media and related conditions (3 sources) Acute left otitis media; Translations: [Unspecified otitis media] Onset: 09-03-2021 Episodic Ovarian cyst (8 sources) Cyst of ovary; Translations: [Unspecified ovarian cyst, right side] 05-15-2025 Episodic Residual codes; unclassified (1 source) Body mass index (BMI) pediatric, 5th percentile to less than 85th percentile for age; Translations: [Assessment of Bmi Percentile = 5% To < 85% For Age Z68.52] Onset: 12-02-2021 Episodic Residual codes; unclassified (11 sources) Patient encounter status; Translations: [Procedure and treatment not carried out due to patient leaving prior to being seen by health care provider] 05-11-2024 Episodic Residual codes; unclassified (1 source) Procedure and treatment not carried out due to patient leaving prior to being seen by health care provider; Translations: [Procedure and treatment not carried out due to patient leaving prior to being seen by health care provider] Onset: 05-11-2024 Episodic Superficial injury; contusion (13 sources) Right lower leg contusion; Translations: [Contusion of right lower leg, initial encounter] Onset: 07-25-2025 07-04-2025 Episodic Unclassified (20 sources) Adolescent care; Translations: [Routine History and Physical Adolescent (12 - 17 Yrs)] Onset: 02-28-2020 Unclassified (13 sources) Surveillance of depot contraception; Translations: [Visit For: Surveillance of Injectable Contraceptive] Onset: 09-17-2020 Past or Other Problems Problem Classification Problem Date Documented Da te Episodic/Chronic Allergic reactions (8 sources) Allergic contact dermatitis; Translations: [Allergic contact dermatitis, unspecified cause] Onset: 06-03-2021 Episodic Contraceptive and procreative management (20 sources) Surveillance of depot contraception; Translations: [Encounter for surveillance of injectable contraceptive] Onset: 12-10-2020 Episodic Fever of unknown origin (15 sources) Fever symptoms; Translations: [Fever, unspecified] Onset: 09-09-2020 Episodic Genitourinary symptoms and ill-defined conditions (18 sources) Hematuria syndrome; Translations: [Hematuria, unspecified] Onset: 11-13-2020 Episodic Inflammatory diseases of female pelvic organs (11 sources) Bacterial vaginosis; Translations: [Vaginitis and vulvovaginitis, unspecified] Onset: 12-12-2020 Episodic Mood disorders (20 sources) Mood disorders; Translations: [Questionnaires Phq-9 Total Score] Onset: 02-28-2020 Other female genital disorders (10 sources) Vaginal odor; Translations: [Other specified symptoms associated with female genital organs] Onset: 12-10-2020 Episodic Other female genital disorders (1 source) Other specified noninflammatory disorders of vagina; Translations: [Other specified noninflammatory disorders of vagina] Onset: 07-05-2022 Episodic Other gastrointestinal disorders (16 sources) Constipation; Translations: [Constipation, unspecified] Onset: 03-02-2021 Episodic Other nutritional; endocrine; and metabolic disorders (20 sources) Body mass index (BMI) pediatric, greater than or equal to 95th percentile for age; Translations: [Assessment of Bmi Percentile => 95% For Age Z68.54] Onset: 02-28-2020 Episodic Residual codes; unclassified (3 sources) Difficulty sleeping ; Translations: [Sleep disorder, unspecified] Onset: 03-21-2023 03-21-2023 Episodic Spondylosis; intervertebral disc disorders; other back problems (20 sources) Lumbar ache - renal; Translations: [Renal angle tenderness] Onset: 11-10-2020 Episodic Unclassified (20 sources) Patient status finding; Translations: [Assessment [use For S.o.a.p. Note Free Text]] Onset: 03-18-2020 Unclassified (20 sources) Finding of body mass index; Translations: [Body Mass Index] Onset: 03-18-2020 Unclassified (11 sources) Covid-19; Translations: [Covid-19] Onset: 08-15-2020 Urinary tract infections (13 sources) Pyelonephritis; Translations: [Pyelonephritis, unspecified] Onset: 11-10-2020 Episodic Viral infection (3 sources) COVID-19; Translations: [Covid-19] Onset: 08-15-2020 Results Test Name Value Interpretation Reference Range Facility Influenza virus A and B and SARS-CoV-2 (COVID-19) and Respiratory syncytial virus RNAOrdered By: Alexis Mejia on 07-30-2025 SARS-CoV-2 (COVID-19) RNA TICO+probe Ql (Unsp spec) [facility] Urgent Care Visit Reporton 0 07-25-2025 Urgent Care Visit Report [facility] [address] , [address] [place], [place] [id number] OFFICE VISIT Date of Service: 07/25/25 MR#: [id number] Acct: [id number] Name: ADRIANA GREGG Rep #: [id number] : 2005 Provider: [place] Gabriel Age/Sex: 19/F Location: [facility] Status: Signed Intake Vital Signs 07/04/25 08:08 07/25/25 15:18 Height 5 ft 1 in BP 112/60 Blood Pressure Location Lt brachial Position Sitting Respiration 16 Pulse 110 H Pulse Source NIBP Temp 98.4 F Temp Source Oral Pulse Oximetry (%) 98 Oxygen Delivery Method room air Intake Visit Reasons: BWC- Right ankle Chief Complaint: WC f/u right ankle Preschool Director Required: No Allergies lavender (Lavandula angustifolia) Allergy (Verified 07/25/25 15:19) Anaphylaxis Medications ???Medication ???Instructions ???Recorded ???Confirmed ???Type NK 06/11/25 07/25/25 History Is last menstrual period known: No Post menopausal: No Patient : No Have you fallen in the past year?: Yes PFSH Medical History (Updated 07/04/25 @ 08:07 by OH Owens) Physical exam, pre-employment Miscarriage Ovarian torsion Social History (Updated 06/11/25 @ 14:18 by Cathy Singh MA) Smoking Status: Current every day smoker Smokeless tobacco user: other alcohol intake: current alcohol intake frequency: other Alcohol type: hard liquor HPI HPI Chief Complaint: WC f/u right ankle Details: ADRIANA GREGG, is a 19 F who presents to the office today for follow-up of a right ankle injury. Patient was seen here on 07/04/2025 after having a food cart hit her in the back of the right ankle. Patient states that her right ankle pain has mostly resolved other than every once in a while she gets a sharp pain and wears the boot thereafter. Patient states she is able to do all of her normal tasks without issue. Patient is not wearing the boot during the visit today. She denies numbness, tingling or loss of range of motion to the ankle or foot. Patient states she is no longer working for the [employer] that this occurred. No other associated symptoms or alleviating/aggravating factors. ROS Const Constitutional: No other (6 system ROS completed with pertinent findings in the HPI otherwise normal.) Exam Const General: cooperative and healthy appearing Neuro General: patient alert Extrem General: full ROM and capillary refill normal Other: Patient in normal shoes without pain to palpation of right ankle with no ecchymosis or deformity upon palpation. Psych Appearance: grossly normal Mental Status: mental status grossly normal Coding Level of Care Code Off vis,est,level 3 Diagnoses Contusion of right lower leg, initial encounter S80.11XA Assessment and Plan Assessment and Plan (1) Contusion of right lower leg, initial encounter: Status: Acute Plan: [employer] 14 filled out releasing patient back without restrictions. Patient given a ankle brace for when she does have pain. Patient advised about home stretching exercises and to use ibuprofen or Tylenol as needed for pain unless contraindicated. Patient advised to no longer needs to follow-up. Unless she is to have exacerbation of symptoms or new concerns. Patient verbalized understanding and agreement with all the above. Clinical Quality Measures Falls Risk Screening/Assistive Devices Have you fallen in the past year?: Yes 07/25/25 1545 Date Rudy CASIANO [facility] Signature: Date (if applicable) CC: Normal [facility] Office Visit Reporton 2024 Office Visit Report [facility] [address] 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/[facility] Allergies lavender (Lavandula angustifolia) Allergy (Verified 07/04/25 08:09) Anaphylaxis Office Procedures [facility] Billing Sheet Testing Post-Accident NON-DOT Drug Screen in [facility]: Yes 07/11/25 4400 Date Rudy CASIANO Cosigner Signature: Date (if applicable) CC: Normal [facility] Ankle min 3 Viewson 07-04-20 25 Ankle min 3 Views [facility] [address] [place], [place] [address] Ankle min 3 Views MR#: [id number] Acct: [id number] Name: ADRIANA GREGG MONTSERRAT Rep #: [id number] : 2005 F 19 From: Manuel Theodore PCP: Care Physician,No Primary Status: DEP AMB Study: Ankle min 3 Views Date of Exam: 07/04/25 Exam# [id number] Ordering Dr: Rudy Franco PROCEDURE: ANKLE MIN 3 VIEWS; TIBIA FIBULA 2 VIEWS 07/04/2025 REASON FOR EXAM: RIGHT HEEL PAIN, PT GOT BACK OF HEEL CAUGHT UNDER A CART TECHNIQUE: ANKLE MIN 3 VIEWS; TIBIA FIBULA 2 VIEWS COMPARISON: None. RAD/Ankle min 3 Views IMPRESSION: No radiopaque foreign body is seen. On lateral views, normal contour of the Achilles tendon is noted. No ankle joint effusion is seen. Satisfactory osseous alignment is seen throughout. No fracture, dislocation, or other significant osseous or joint space abnormality is seen. If clinical concern persists, short-term follow-up imaging may be obtained to rule out a currently occult fracture. Reading Location: [facility] CC: [place] Gabriel; No Primary Care Physician Green Building Energy Engineer: Signed Normal [facility] Tibia Fibula 2 Viewson 07-04 Tibia Fibula 2 Views [facility] [address] [place], [place] [address] Tibia Fibula 2 Views MR#: [id number] Acct: [id number] Name: ADRIANA GREGG Rep #: [id number] : 2005 F 19 From: Manuel Theodore PCP: Care Physician,No Primary Status: DEP AMB Study: Tibia Fibula 2 Views Date of Exam: 07/04/25 Exam# [id number] Ordering Dr: Rudy Franco PROCEDURE: ANKLE MIN 3 VIEWS; TIBIA FIBULA 2 VIEWS 07/04/2025 REASON FOR EXAM: RIGHT HEEL PAIN, PT GOT BACK OF HEEL CAUGHT UNDER A CART TECHNIQUE: ANKLE MIN 3 VIEWS; TIBIA FIBULA 2 VIEWS COMPARISON: None. RAD/Tibia Fibula 2 Views IMPRESSION: No radiopaque foreign body is seen. On lateral views, normal contour of the Achilles tendon is noted. No ankle joint effusion is seen. Satisfactory osseous alignment is seen throughout. No fracture, dislocation, or other significant osseous or joint space abnormality is seen. If clinical concern persists, short-term follow-up imaging may be obtained to rule out a currently occult fracture. Reading Location: [place] [address] CC: OH Gabriel; No Primary Care Physician Green Building Energy Engineer: Signed Normal [facility] Urgent Care Visit Reporton 0 07-04-2025 Urgent Care Visit Report [facility] [address], [address] [place] [address] OFFICE VISIT Date of Service: 07/04/25 MR#: [id number] Acct: [id number] Name: ADRIANA GREGG Rep #: [id number] : 2005 Provider: [place] Gabriel Age/Sex: 19/F Location: [facility] Status: Signed Intake Vital Signs 05/15/25 12:20 07/04/25 07:56 07/04/25 08:10 Height 5 ft 1 in 5 ft 1 in BP 102/68 Position Sitting Respiration 18 Pulse 90 Temp 98.1 F Temp Source Oral Pulse Oximetry (%) 98 Oxygen Delivery Method room air Intake Visit Reasons: PA/R BACK HEEL/[facility] Accompanied by: Self Is patient in pain?: Yes Pain scale (1-10): 8 Allergies lavender (Lavandula angustifolia) Allergy (Verified 07/04/25 08:09) Anaphylaxis Medications ???Medication ???Instructions ???Recorded ???Confirmed ???Type NK 06/11/25 07/04/25 History Nurse's Note: Patient here for [facility]. Patient hurt her Right heal. [facility] Medical History (Updated 07/04/25 @ 08:07 by OH Owens) Physical exam, pre-employment Miscarriage Ovarian torsion Social History (Updated 06/11/25 @ 14:18 by Cathy Singh MA) Smoking Status: Current every day smoker Smokeless tobacco user: other alcohol intake: current alcohol intake frequency: other Alcohol type: hard liquor HPI HPI Details: ADRIANA GREGG, is a 19 F who presents to the office today for complaint of right lower leg/heel pain. Patient states that she ran over her foot with a cart yesterday hitting her right heel. She states that since then she has had 8-10 out of 10 pain to the area. She denies numbness, tingling or loss of range of motion however states that range of motion of the ankle makes the pain worse. She denies any previous injuries to the same. No other associated symptoms or alleviating/aggravating factors. ROS Const Constitutional: No other (6 system ROS completed with pertinent findings in the HPI otherwise normal.) Exam Const General: cooperative and healthy appearing Neuro General: patient alert Extrem Other: Pain to palpation right posterior heel without deformity upon palpation. Achilles appears to be intact without disruption. Psych Appearance: grossly normal Mental Status: mental status grossly normal Coding Level of Care Code Off vis,new,level 4 Diagnoses Contusion of right lower leg, initial encounter S80.11XA Assessment and Plan Assessment and Plan (1) Contusion of right lower leg, initial encounter: Status: Acute Plan: Three-view x-ray of the right ankle and 2 view x-ray of the right tibia and fibula read and interpreted by myself find no acute osseous abnormalities, awaiting radiology interpretation at time of patient discharge. First report of injury form as well as [employer] 14 filled out releasing patient back to work with restrictions of seated duties only tomorrow with the rest of the shift off today. Form C9 filled out requesting orthopedic referral. Patient placed in a walking boot. Advised to use ibuprofen or Tylenol as needed for pain was contraindicated. Patient advised of RICE techniques. Patient advised other symptomatic management techniques as well as potential red flags and when appropriate to report to the ED. Patient advised to follow-up with orthopedics once the authorization has been given to follow-up. Orders: Orders Ankle min 3 Views Today S80.11XA - Contusion of right lower leg, initial encounter Tibia Fibula 2 Views Today S80.11XA - Contusion of right lower leg, initial encounter 07/04/25 1003 Date Rudy Posada Signature: Date (if applicable) CC: Normal [facility] Office Visit Reporton 2024 Office Visit Report [facility] [address] [place] [address] OFFICE VISIT Date of Service: 06/11/25 MR#: [id number] Acct: [id number] Patient: ADRIANA GREGG Rep #: [id number] : 2005 Provider: [place] Arredondo Age/Sex: 19/F Location: [facility] Status: Signed Intake Vital Signs 05/15/25 12:20 Height 5 ft 1 in Weight: 202 lb 2.622 oz BMI 38.2 BP 133/92 H Respiration 14 Pulse 106 H Temp 98 F Temp Source Temporal Pulse Oximetry (%) 98 Intake Visit Reasons: QUANTIFERON, FIT TEST Allergies lavender (Lavandula angustifolia) Allergy (Verified 06/11/25 14:31) Anaphylaxis Office Procedures [facility] Billing Sheet Testing Pre-Employment PE: Yes Respirator Fit Testing: Yes Occquant-Quantiferon: Yes 06/24/25 06 Date Rosa Posada Signature: Date (if applicable) CC: Normal [facility] Quantiferon TB-Gold+on 06-13 QFT MITOGEN JOJO > 10.00 Normal . [facility] Comment on above: Performed By: #### L 3400.8000 ####[facility] [address] [place], [place], [address] QFT NIL VALUE 0.05 IU/mL Normal . [facility] Comment on above: Performed By: #### L 3400.8000 ####[facility] [address] [place], [place], [id number] QFT TB GOLD+ Comment Normal . [facility] Comment on above: Result Comment: Kirby tiFERON-TB Gold Plus is a qualitative indirect test for M tuberculosis infection (including disease) and is intended for use in conjunction with risk assessment, radiography, and other medical and diagnostic evaluations. The QuantiFERON-TB Gold Plus result is determined by subtracting the Nil value from either TB antigen (Ag) value. The Mitogen tube serves as a control for the test. Performed By: #### L 3400.8000 ####[facility] [address] [place], [place], [address] QFT TB POS CRIT Negative Normal Negative [facility] Comment on above: Result Comment: No r esponse to M tuberculosis antigens detected. Infection with M tuberculosis is unlikely, but high risk individuals should be considered for additional testing (ATS/IDSA/CDC Clinical Practice Guidelines, 2017). The reference range is an Antigen minus Nil result of <0.35 IU/mL. The specimen received for QuantiFERON testing was incubated by the ordering institution. Specific procedures outlined in our Directory of Services and in the package insert for the QuantiFERON Gold (In Tube) test must be followed to enable for proper stimulation of cells for the production of interferon gamma. Chemiluminescence immunoassay methodology Performed at: [address] [id number] [employer] Director: Gagandeep Lynn PhD, Phone: [phone] Performed By: #### L 3400.8000 ####[facility] [address] [place], [place], [address] QFT TB1+ AG JOJO 0.07 IU/mL Normal . [facility] Comment on above: Performed By: #### L 3400.8000 ####[facility] [address] [place], [address] QFT TB2+ AG JOJO 0.09 IU/mL Normal . [facility] Comment on above: Performed By: #### L 3400.8000 ####[facility] [address] [place], [address] Qualitative QuantiFERON-TB g old in tube testOrdered By: Rosa Orta on 06-11-2025 M. tuberculosis tuberculin stim IFN-g Ql (Bld) 0.07 IU/mL . [facility] Urgent Care Visit Reporton 0 06-11-2025 Urgent Care Visit Report [facility] [address], [address] [place], [place] [id number] OFFICE VISIT Date of Service: 06/11/25 MR#: [id number] Acct: [id number] Name: ADRIANA GREGG Rep #: [id number] : 2005 Provider: [place] Arredondo Age/Sex: 19/F Location: [facility] Status: Signed Intake Vital Signs 05/15/25 12:20 Height 5 ft 1 in Intake Visit Reasons: PE NON DOT PHYSICAL/ [place] [place] Accompanied by: Self Allergies lavender (Lavandula angustifolia) Allergy (Verified 06/11/25 14:31) Anaphylaxis Medications ???Medication ???Instructions ???Recorded ???Confirmed ???Type NK 06/11/25 06/11/25 History Nurse's Note: Patient here for a [facility] physical. [facility] Medical History (Updated 06/11/25 @ 15:25 by OH Thompson) Physical exam, pre-employment Miscarriage Ovarian torsion Social History (Updated 06/11/25 @ 14:18 by Cathy Singh MA) Smoking Status: Current every day smoker Smokeless tobacco user: other alcohol intake: current alcohol intake frequency: other Alcohol type: hard liquor HPI HPI Details: ADRIANA GREGG is a 19 F who presents to the office today for Office Procedures Physical Exam Coding PE Coding Pre-employment PE: Yes Coding Level of Care Code Attention Edger Liner Diagnoses Physical exam, pre-employment Z02.1 Assessment and Plan Assessment and Plan (1) Physical exam, pre-employment: Status: Acute Orders: Orders Quantiferon TB-Gold+ Today Z02.1 - Encounter for pre-employment examination, Z11.1 - Encounter for screening for respiratory tuberculosis 06/11/25 1526 Date Rosa Posada Signature: Date (if applicable) CC: Normal [facility] Abdomen/Pelvis without Conto n 05-15-2025 Abdomen/Pelvis without Cont [facility] [address] [place] [id number] Abdomen/Pelvis without Cont MR#: [id number] Acct: [id number] Name: ADRIANA GREGG Rep #: [id number] : 2005 F 19 From: Randy hale MD PCP: Care Physician,No Primary Status: REG ER Study: Abdomen/Pelvis without Cont Date of Exam: 04/28 07/22 Exam# [id number] Ordering Dr: Lawrence Finnegan DO PROCEDURE: ABDOMEN/PELVIS WITHOUT CONT 05/15/2025 REASON FOR EXAM: RLQ ABDOMINAL PAIN TECHNIQUE: ABDOMEN/PELVIS WITHOUT CONT Noncontrast technique limits evaluation of the abdominal and pelvic viscera. Coronal and Sagittal reconstruction series were provided. One or more dose reduction techniques were used (e.g., Automated exposure control, adjustment of the mA and/or kV according to patient size, use of iterative reconstruction technique). Dose report: CTDI L volume 16.9. DLP: 897.94 ORAL CONTRAST TYPE: None. COMPARISON: None FINDINGS: Lung bases: Unremarkable Liver: Normal size. No obvious mass. Gallbladder: Mildly distended gallbladder. No definite gallstone is seen. Spleen: Normal size. Pancreas: Normal size. No surrounding inflammation. Adrenals: Unremarkable Kidneys: No urolithiasis. No hydronephrosis. Bladder: Unremarkable Reproductive Organs: I suspect an enlarged right ovary. Correlation with ultrasound recommended. Bowel: Mild degree of sigmoid diverticulosis. Appendix: Unremarkable Lymph nodes: Unremarkable. Vasculature: The abdominal aorta and IVC contours are normal. Noncontrast technique limits evaluation. Peritoneum / Retroperitoneum: Unremarkable Bones: Unremarkable CT/Abdomen/Pelvis without Cont IMPRESSION: I suspect an enlarged right ovary. Correlation ultrasound recommended. Reading Location: [place] [address] CC: Dr. Lawrence Finnegan DO; No Primary Care Physician Green Building Energy Engineer: Signed Normal [facility] Absolute lymphocyte countOrd ered By: Lawrence Finnegan on 05-15-2025 Lymphocytes Auto (Unsp spec) [#/Vol] 2.38 10*3/uL 0.83-4.51 [facility] Absolute neutrophil countOrd ered By: Lawrence Finnegan on 05-15-2025 Neutrophils (Bld) [#/Vol] 3.9 10*3/uL 2.0-7.7 [facility] Anion gap in Serum or Plasma Ordered By: Lawrence Finnegan on 05-15-2025 Anion gap [Moles/Vol] 11 mmol/L 5-15 [place] Automated lymphocyte count a s percentage of total leukocytesOrdered By: Lawrence Finnegan on 05-15-2025 Lymphocytes/100 WBC Auto (Unsp spec) 34.2 % 19-41 [facility] BUN/creatinine ratioOrdered By: Lawrence Finnegan on 05-15-2025 Urea nitrogen/Creatinine [Mass ratio] 17.8 mg/mg 10-20 [facility] Basophil percentageOrdered B y: Lawrence Finnegan on 05-15-2025 Basophils/100 WBC (Bld) 0.4 % 0-1 [facility] Bilirubin Test strip Ql (U)O rdered By: Lawrence Finnegan on 05-15-2025 Bilirubin Ql (U) Negative Negative [facility] Bilirubin, totalOrdered By: Lawrence Artjing on 05-15-2025 Bilirubin [Mass/Vol] 0.38 mg/dL 0.00-1.30 [facility] CBC W/Diff, Automatedon 04-28 Absolute Lymph 2.38 X10 3/uL Normal 0.83-4.51 [facility] Comment on above: Performed By: #### L 100.0100, L503.6005, L500.4050, L700.6800 #### [facility] [address] [place], [address] Absolute Neut 3.9 X10 3/uL Normal 2.0-7.7 [facility] Comment on above: Performed By: #### L 100.0100, L503.6005, L500.4050, L700.6800 #### [facility] [address] [place], [address] Basophils/100 WBC (Bld) 0.4 % Normal 0-1 [facility] Comment on above: Performed By: #### L 100.0100, L503.6005, L500.4050, L700.6800 #### [facility] [address] [place], [address] Eosinophils/100 WBC (Bld) 1.0 % Normal 0-5 [facility] Comment on above: Performed By: #### L 100.0100, L503.6005, L500.4050, L700.6800 #### [facility] [address] [place], [address] Erythrocyte distribution width (RBC) [Ratio] 14.2 % Normal 11.6-14.6 [facility] Comment on above: Performed By: #### L 100.0100, L503.6005, L500.4050, L700.6800 #### [facility] [address] [place], [address] Hematocrit (Bld) [Volume fraction] 33.7 % Low 37-47 [facility] Comment on above: Performed By: #### L 100.0100, L503.6005, L500.4050, L700.6800 #### [facility] [address] [place], [address] Hemoglobin (Bld) [Mass/Vol] 11.2 g/dL Low 12.0-15.0 [facility] Comment on above: Performed By: #### L 100.0100, L503.6005, L500.4050, L700.6800 #### [facility] [address] [place], [address] IG% 0.300 Normal 0.0-0.9 [facility] Comment on above: Result Comment: IG% - Immature Granulocytes (promyelocytes, myelocytes and metamyelocytes) > 1% indicates that a LEFT SHIFT is Present. Performed By: #### L 100.0100, L503.6005, L500.4050, L700.6800 #### [facility] [address] [place], [address] Lymphocytes/100 WBC (Bld) 34.2 % Normal 19-41 [facility] [facility] Comment on above: Performed By: #### L 100.0100, L503.6005, L500.4050, L700.6800 #### [facility] [address] [place], [address] MCH (RBC) [Entitic mass] 29.2 pg Normal 27.0-32.0 [facility] Comment on above: Performed By: #### L 100.0100, L503.6005, L500.4050, L700.6800 #### [facility] [address] [place], [address] MCHC (RBC) [Mass/Vol] 33.2 g/dL Normal 32-36 [place] Comment on above: Performed By: #### L 100.0100, L503.6005, L500.4050, L700.6800 #### [facility] [address] [place], [address] MCV (RBC) [Entitic vol] 88.0 fL Normal 81-99 [facility] Comment on above: Performed By: #### L 100.0100, L503.6005, L500.4050, L700.6800 #### [facility] [address] [place], [address] Monocytes/100 WBC (Bld) 7.8 % Normal 0-10 [facility] Comment on above: Performed By: #### L 100.0100, L503.6005, L500.4050, L700.6800 #### [facility] [address] [place], [address] Neutrophils/100 WBC (Bld) 56.3 % Normal 47-70 [facility] Comment on above: Performed By: #### L 100.0100, L503.6005, L500.4050, L700.6800 #### [facility] [address] [place], [address] Nucleated RBC (Bld) [#/Vol] 0 10*3/uL Normal 0-5 [facility] Comment on above: Performed By: #### L 100.0100, L503.6005, L500.4050, L700.6800 #### [facility] [address] [place], [address] Platelet mean volume (Bld) [Entitic vol] 9.6 fL Normal 6.2-12.0 [facility] Comment on above: Performed By: #### L 100.0100, L503.6005, L500.4050, L700.6800 #### [facility] [address] [place], [address] Platelets (Bld) [#/Vol] 290 10*3/uL Normal 150-450 [facility] Comment on above: Performed By: #### L 100.0100, L503.6005, L500.4050, L700.6800 #### [facility] [address] [place], [address] RBC (Bld) [#/Vol] 3.83 10*6/uL Low 4.2-5.4 [place] Comment on above: Performed By: #### L 100.0100, L503.6005, L500.4050, L700.6800 #### [facility] [address] [place], [address] RDW SD 45.6 fl High 35.1-43.9 [facility] Comment on above: Performed By: #### L 100.0100, L503.6005, L500.4050, L700.6800 #### [facility] [address] [place], [address] WBC (Bld) [#/Vol] 7.0 10*3/uL Normal 4.4-11.0 [facility] Comment on above: Performed By: #### L 100.0100, L503.6005, L500.4050, L700.6800 #### [facility] [address] [place], [address] Carbon dioxide, total [Moles /volume] in Central venous bloodOrdered By: Lawrence Finnegan on 05-15-2025 CO2 [Moles/Vol] 23.9 mmol/L 21.0-32.0 [facility] Chloride assayOrdered By: Jenae Finnegan on 05-15-2025 Chloride [Moles/Vol] 104 mmol/L 98-108 [facility] Comprehensive Metabolic Prof ilon 05-15-2025 Albumin [Mass/Vol] 4.1 g/dL Normal 3.5-5.0 [facility] Comment on above: Performed By: #### L 100.0100, L503.6005, L500.4050, L700.6800 #### [facility] [address] [place], [address] Albumin/Globulin [Mass ratio] 1.4 {ratio} Normal 0.9-2.4 [facility] Comment on above: Performed By: #### L 100.0100, L503.6005, L500.4050, L700.6800 #### [facility] [address] [place], [address] ALK PHOS 70 U/L Normal 35-104 [facility] Comment on above: Performed By: #### L 100.0100, L503.6005, L500.4050, L700.6800 #### [facility] [address] [place], [address] ALT [Catalytic activity/Vol] 11 U/L Normal <=34 [facility] Comment on above: Performed By: #### L 100.0100, L503.6005, L500.4050, L700.6800 #### [facility] [address] [place], [address] AST [Catalytic activity/Vol] 15 U/L Normal <=31 [facility] Comment on above: Performed By: #### L 100.0100, L503.6005, L500.4050, L700.6800 #### [facility] [address] [place], [address] Bilirubin [Mass/Vol] 0.38 mg/dL Normal 0.00-1.30 [facility] Comment on above: Performed By: #### L 100.0100, L503.6005, L500.4050, L700.6800 #### [facility] [address] [place], [address] BUN/CRE 17.8 RATIO Normal 10-20 [facility] Comment on above: Performed By: #### L 100.0100, L503.6005, L500.4050, L700.6800 #### [facility] [address] [place], [address] Calcium [Mass/Vol] 9.1 mg/dL Normal 7.6-11.0 [facility] Comment on above: Performed By: #### L 100.0100, L503.6005, L500.4050, L700.6800 #### [facility] [address] [place], [address] Chloride [Moles/Vol] 104 mmol/L Normal 98-108 [facility] Comment on above: Performed By: #### L 100.0100, L503.6005, L500.4050, L700.6800 #### [facility] [address] [place], [address] CO2 [Moles/Vol] 23.9 mmol/L Normal 21.0-32.0 [facility] Comment on above: Performed By: #### L 100.0100, L503.6005, L500.4050, L700.6800 #### [facility] [address] [place], [address] Creatinine [Mass/Vol] 0.59 mg/dL Low 0.70-1.20 [place] Comment on above: Performed By: #### L 100.0100, L503.6005, L500.4050, L700.6800 #### [facility] [address] [place], [address] ECRCL 156.94 ml/min Normal 50-250 [facility] Comment on above: Performed By: #### L 100.0100, L503.6005, L500.4050, L700.6800 #### [facility] [address] [place], [address] GAP 11 Normal 5-15 [facility] Comment on above: Performed By: #### L 100.0100, L503.6005, L500.4050, L700.6800 #### [facility] [address] [place], [address] GFR/1.73 sq M.predicted among non-blacks MDRD (S/P/Bld) [Vol rate/Area] 132 mL/min/{1.73_m2} Normal >60 [facility] Comment on above: Result Comment: mL/m in/1.73m2 CKD-EPI Creatinine Equation (2020) Performed By: #### L 100.0100, L503.6005, L500.4050, L700.6800 #### [facility] [address] [place], [address] Globulin (S) [Mass/Vol] 3.0 g/dL Normal 2.2-4.2 [facility] Comment on above: Performed By: #### L 100.0100, L503.6005, L500.4050, L700.6800 #### [facility] [address] [place], [address] Glucose [Mass/Vol] 93 mg/dL Normal 70-99 [facility] Comment on above: Performed By: #### L 100.0100, L503.6005, L500.4050, L700.6800 #### [facility] [address] [place], [address] Potassium [Moles/Vol] 3.8 mmol/L Normal 3.3-5.1 [place] Comment on above: Performed By: #### L 100.0100, L503.6005, L500.4050, L700.6800 #### [facility] [address] [place], [address] Sodium [Moles/Vol] 139 mmol/L Normal 133-145 [facility] Comment on above: Performed By: #### L 100.0100, L503.6005, L500.4050, L700.6800 #### [facility] [address] [place], [address] T PROT 7.1 g/dL Normal 5.9-8.4 [facility] Comment on above: Performed By: #### L 100.0100, L503.6005, L500.4050, L700.6800 #### [facility] [address] [place], [address] Urea nitrogen [Mass/Vol] 11 mg/dL Normal 4-19 [facility] Comment on above: Performed By: #### L 100.0100, L503.6005, L500.4050, L700.6800 #### [facility] [address] [place], [address] Emergency Department Summary on 05-15-2025 Emergency Department Summary [facility] Medical Records Department [address] [place] [address] Emergency Department Summary 05/15/25 MR#: [id number] Acct: [id number] Name: ADRIANA GREGG Rep #: [id number] : 2005 19 From: Lawrence Finnegan DO PCP: Care Physician,No Primary Status:REG ER Location: ED HPI History of Present Illness Chief Complaint: Complaint Detail of Chief Complaint: Abdominal pain and dysuria Informant: patient Narrative Narrative: Patient presents to the emergency department complaint of abdominal pain that started 2 days ago while having intercourse with her fianc???. She describes pain to the right side of her abdomen. She denies vaginal bleeding associated with this. She denies abnormal vaginal discharge. Patient states that she had similar episode last October and went to the ER and was told that maybe her ovaries had twisted and she remembers having a CAT scan at that time. She did not require any type of intervention or surgery. Patient states that she has had 4 miscarriages and is currently trying to get . Her last menstrual period was May 02 through . No history of kidney stones. She does describe some dysuria. She has been having nausea and vomiting x 2 today. [facility] Medical History (Updated 05/15/25 @ 15:[address] 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 12:21 angustifolia) Social History Smoking Status: Unknown if ever smoked ROS ROS ED Review of Systems ROS Unobtainable: other Constitutional Constitutional ED: Reports lethargy; Denies chills, fever(s), sweats or weight loss Eyes Eyes: Denies blurry vision, change in vision or diplopia ENT ENT ED: Denies rhinorrhea or sore throat Cardiovascular Cardiovascular: Denies chest pain, orthopnea or racing heartbeat Respiratory/Chest Respiratory/Chest: Denies cough, dyspnea, dyspnea on exertion, orthopnea or sputum Gastrointestinal Gastrointestinal: Reports abdominal pain, nausea and vomiting; Denies diarrhea Genitourinary Genitourinary ED: Reports dysuria; Denies hematuria or urinary frequency Musculoskeletal Musculoskeletal: Denies arthralgias, back pain, myalgias or neck pain Integumentary Denies abscess, Abrasions or rash Neurologic Neurologic: Denies headache(s) or weakness Psychiatric Psychiatric: Denies anxiety, depression or suicidal thoughts Endocrine Endocrinology: Denies polydipsia, polyphagia or polyuria Hematologic/Lymphatic Hematologic/Lymphatic: Denies easy bleeding, easy bruising or lymphadenopathy Allergic/Immunologic Allergic/Immunologic ED: Denies mouth swelling, tongue swelling or urticaria EXAM Physical Exam Const Vital Signs: 05/15/25 12:20 Temperature 98 F Temperature Source Temporal Pulse Rate 106 H Respiratory Rate 14 Blood Pressure 133/92 H Blood Pressure Mean 105 Pulse Ox 98 Oxygen Delivery Method Room Air Positive well nourished and well developed General Appearance ED: well developed and NAD HEENT Reports TM's clear and moist mucous membranes normocephalic and atraumatic; Negative for trauma or tenderness Tympanic Membrane ED: Yes TM's clear Eyes PERRL and EOMs intact bilaterally General Eye ED: Negative for pale conjunctiva or scleral icterus Neck no lymphadenopathy, supple and no JVD General: Negative for tenderness Chest Wall inspection of chest normal and palpation of chest normal Chest: Negative for tenderness Resp normal respiratory effort and clear to auscultation bilaterally Effort and Inspection: Negative for respiratory distress or pain with movement Auscultation: Negative for rhonchi, wheezes or diminished lung sounds Cardio regular rate, regular rhythm, S1 normal heart sound, S2 normal heart sound and no murmurs Peripheral Pulses: pulses 2+ throughout GI normal to inspection, nondistended, normoactive bowel sounds, soft to palpation, non-distended and no masses GI Narrative: Tenderness palpation over the right lower quadrant and suprapubic region. There are some mild guarding. There is no rebound or rigidity. No masses palpated. Back/Spine no CVA tenderness and no thoracic nor lumbar tenderness Extremity normal to inspection General Extremety ED: Negative for edema General Extremity: Negative for edema Neuro oriented x3, CN's II-XII intact bilaterally, no sensory deficits noted and gait normal Sensorium / Orientation: awake, alert, oriented to person, oriented to place and oriented to time Motor Exam: strength 5/5 throughout and strength abnormal Psych mental status grossly normal Skin no rashes or lesions noted and no wounds MDM MDM MDM Narrative Medical decision making narrative: Patient presents with right-sided ab (more content not included)... Normal [facility] Eosinophil percentageOrdered By: Lawrence Finnegan on 05-15-2025 Eosinophils/100 WBC (Bld) 1.0 % 0-5 [facility] Erythrocyte distribution wid th ratioOrdered By: Lawrence Finnegan on 05-15-2025 Erythrocyte distribution width (RBC) [Ratio] 14.2 % 11.6-14.6 [facility] Erythrocyte distribution wid th standard deviationOrdered By: Lawrence Finnegan on 05-15-2025 Erythrocyte distribution width (RBC) [Ratio] 45.6 fl High 35.1-43.9 [facility] Glomerular filtration rate ( GFR) estimation/1.73 sq m using serum, plasma, or whole bOrdered By: Lawrence Finnegan on 05-15-2025 GFR/1.73 sq M.predicted among non-blacks MDRD (S/P/Bld) [Vol rate/Area] 132 mL/min/{1.73_m2} >60 [facility] Comment on above: mL/min/1.73m2 CKD-EP I Creatinine Equation (2020) Hematocrit Auto (Bld) [Volum e fraction]Ordered By: Lawrence Finnegan on 05-15-2025 Hematocrit (Bld) [Volume fraction] 33.7 % Low 37-47 [facility] Hemoglobin measurementOrdere d By: Lawrence Finnegan on 05-15-2025 Hemoglobin (Bld) [Mass/Vol] 11.2 g/dL Low 12.0-15.0 [facility] Immature granulocytes/100 WB C Auto (Bld)Ordered By: Lawrence Finnegan on 05-15-2025 Immature granulocytes/100 WBC (Bld) 0.300 % 0.0-0.9 [facility] Comment on above: IG% - Immature Granu locytes (promyelocytes, myelocytes and metamyelocytes) > 1% indicates that a LEFT SHIFT is Present. Ketones Test strip Ql (U)Ord ered By: Lawrence Finnegan on 05-15-2025 Ketones Ql (U) Negative Negative [facility] - Chemistry and C hemistry - challengeOrdered By: Lawrence Finnegan on 05-15-2025 AST [Catalytic activity/Vol] 15 U/L <32 [facility] Lactic Acidon 05-15-2025 Lactate [Moles/Vol] 1.0 mmol/L Normal 0.0-2.0 [place] Comment on above: Order Comment: Y Performed By: #### L 100.0100, L503.6005, L500.4050, L700.6800 #### [facility] [address] [place], [place] [address]. [place], [place], [id number] Lactic acid measurementOrder ed By: Lawrence Finnegan on 05-15-2025 Lactate [Moles/Vol] 1.0 mmol/L 0.0-2.0 [place] MCV (mean corpuscular volume ) determinationOrdered By: Lawrence Finnegan on 05-15-2025 MCV (RBC) [Entitic vol] 88.0 fL 81-99 [facility] Mean corpuscular hemoglobin (MCH) determinationOrdered By: Lawrence Finnegan on 05-15-2025 MCH (RBC) [Entitic mass] 29.2 pg 27.0-32.0 [facility] Mean corpuscular hemoglobin concentration (MCHC) determinationOrdered By: Lawrence Finnegan on 05-15-2025 MCHC (RBC) [Mass/Vol] 33.2 g/dL 32-36 [place] Mean platelet volume determi nationOrdered By: Lawrence Finnegan on 05-15-2025 Platelet mean volume (Bld) [Entitic vol] 9.6 fL 6.2-12.0 [facility] Microscopic analysis of urin e for red blood cells (RBC)Ordered By: Lawrence Finnegan on 05-15-2025 Microscopic analysis of urine for red blood cells (RBC) 0 SEEN /hpf 0-5 [facility] Monocyte percentageOrdered B y: Lawrence Finnegan on 05-15-2025 Monocytes/100 WBC (Bld) 7.8 % 0-10 [facility] Mucus LM Ql (Urine sed)Order ed By: Lawrence Finnegan on 05-15-2025 Mucus Ql (Urine sed) 0 SEEN /hpf [place] Neutrophil percentageOrdered By: Lawrence Finnegan on 05-15-2025 Neutrophils/100 WBC (Bld) 56.3 % 47-70 [facility] Nitrite Test strip Ql (U)Ord ered By: Lawrence Finnegan on 05-15-2025 Nitrite Ql (U) Negative Negative [facility] Nucleated red blood cell per centageOrdered By: Lawrence Finnegan on 05-15-2025 Nucleated RBC/100 WBC (Bld) [Ratio] 0 % 0-5 [facility] Platelet countOrdered By: Jenae Finnegan on 05-15-2025 Platelets (Bld) [#/Vol] 290 10*3/uL 150-450 [facility] Potassium measurement (mass/ volume)Ordered By: Lawrence Finnegan on 05-15-2025 Potassium (Unsp spec) [Mass/Vol] 3.8 mmol/L 3.3-5.1 [facility] ,Serum,hCG Quali.on 05-15-2025 HCG, SERUM QUAL Negative Normal [facility] Comment on above: Performed By: #### L 100.0100, L503.6005, L500.4050, L700.6800 #### [facility] [address] [place], [address] Protein Test strip Ql (U)Ord ered By: Lawrence Finnegan on 05-15-2025 Protein Ql (U) Negative Negative [facility] RBC Auto (Bld) [#/Vol]Ordere d By: Lawrence Finnegan on 05-15-2025 RBC (Bld) [#/Vol] 3.83 10*6/uL Low 4.2-5.4 [place] Serum beta-hCG test, qualita tiveOrdered By: Lawrence Finnegan on 05-15-2025 Beta HCG ( test) Ql Negative [facility] Serum creatinine measurement (mass/volume)Ordered By: Lawrence Finnegan on 05-15-2025 Creatinine [Mass/Vol] 0.59 mg/dL Low 0.70-1.20 [place] Serum globulin measurementOr dered By: Lawrence Finnegan on 05-15-2025 Globulin (S) [Mass/Vol] 3.0 g/dL 2.2-4.2 [facility] Serum glucose measurement (m ass/volume)Ordered By: Lawrence Finnegan on 05-15-2025 Glucose [Mass/Vol] 93 mg/dL 70-99 [facility] Serum or plasma alanine felton otransferase (ALT) measurementOrdered By: Lawrence Finnegan on 05-15-2025 ALT [Catalytic activity/Vol] 11 U/L <35 [facility] Serum or plasma albumin estephania urement (mass/volume)Ordered By: Lawrence Finnegan on 05-15-2025 Albumin [Mass/Vol] 4.1 g/dL 3.5-5.0 [facility] Serum or plasma albumin/glob ulin mass ratioOrdered By: Lawrence Finnegan on 05-15-2025 Albumin/Globulin [Mass ratio] 1.4 {ratio} 0.9-2.4 [facility] Serum or plasma alkaline pearl sphatase measurementOrdered By: Lawrence Finnegan on 05-15-2025 ALP [Catalytic activity/Vol] 70 U/L 35-104 [facility] Serum or plasma calcium estephania urement (mass/volume)Ordered By: Lawrence Finnegan on 05-15-2025 Calcium [Mass/Vol] 9.1 mg/dL 7.6-11.0 [facility] Serum or plasma urea nitroge n measurement (mass/volume)Ordered By: Lawrence Finnegan on 05-15-2025 Urea nitrogen [Mass/Vol] 11 mg/dL 4-19 [facility] Sodium levelOrdered By: Naida Finnegan on 05-15-2025 Sodium [Moles/Vol] 139 mmol/L 133-145 [facility] Squamous epithelial cells de tection in urine sediment by light microscopyOrdered By: Lawrence Finnegan on 05-15-2025 Epithelial cells.squamous LM Ql (Urine sed) 0-5 SEEN /hpf 5-10 [facility] Total proteinOrdered By: Viky Finnegan on 05-15-2025 Protein [Mass/Vol] 7.1 g/dL 5.9-8.4 [facility] Transvaginal Non-on 05-15-2025 Transvaginal Non- [facility] [address] [place], [place] [address] Transvaginal Non- MR#: [id number] Acct: [id number] Name: ADRIANA GREGG Rep #: [id number] : 2005 F 19 From: Fawad Sumner DO PCP: Care Physician,No Primary Status: ON LICENSE OF [facility] Study: Transvaginal Non- Date of Exam: Exam# [id number] Ordering Dr: Lawrence Finnegan DO PROCEDURE: TRANSVAGINAL NON- 05/15/2025 REASON FOR EXAM: RIGHT LOWER ABD PAIN, RULE OUT TORSION TECHNIQUE: TRANSVAGINAL NON- COMPARISON: CT abdomen pelvis today. FINDINGS: Measurements: Uterus: 9.1 cm x 4.1 cm AP x 5.6 cm T Endometrial Thickness: 7 mm Right Ovary: 3.6 cm x 2.6 cm x 3.4 cm Left Ovary: 3.2 cm x 2.7 cm x 1.1 cm Uterus: Unremarkable. Endometrium: Unremarkable. Ovarian blood flow: Bilateral arterial and venous waveforms and normal color Doppler. Normal follicles are present. Other: Trace fluid in the cul-de-sac, most frequently physiologic, but nonspecific US/Transvaginal Non- IMPRESSION: No evidence of torsion. Reading [facility] CC: Dr. Lawrence Finnegan, DO; No Primary Care Physician [employer] Engineer: Signed Normal [facility] Urinalysis, Completeon 05-15 BACTERIA RARE Normal None Seen [facility] Comment on above: Order Comment: CLEAN CATCH Performed By: #### L 400.0001 #### [facility] [address] [place], [address] EPI,SQUAMOUS 0-5 SEEN Normal 5-10 [facility] Comment on above: Order Comment: CLEAN CATCH Performed By: #### L 400.0001 #### [facility] [address] [place], [address] WBC 0-5 SEEN Normal 0-5 [facility] Comment on above: Order Comment: CLEAN CATCH Performed By: #### L 400.0001 #### [facility] [address] [place], [address] Mucus Ql (Urine sed) 0 SEEN Normal [facility] Comment on above: Order Comment: CLEAN CATCH Performed By: #### L 400.0001 #### [facility] [address] [place], [address] RBC 0 SEEN Normal 0-5 [facility] Comment on above: Order Comment: CLEAN CATCH Performed By: #### L 400.0001 #### [facility] [address] [place], [address] Urine clarityOrdered By: Viky Finnegan on 05-15-2025 Clarity (U) Clear Clear [facility] Urine color determinationOrd ered By: Lawrence Finnegan on 05-15-2025 Color (U) Yellow Yellow [facility] Urine glucose detectionOrder ed By: Lawrence Finnegan on 05-15-2025 Glucose Ql (U) Normal mg/dl Normal [facility] Urine leukocyte esterase det ection by dipstickOrdered By: Lawrence Finnegan on 05-15-2025 Leukocyte esterase Test strip Ql (U) 100 /ul High Negative [facility] Urine pHOrdered By: Lawrence Un gur on 05-15-2025 pH (U) 7.0 [pH] 5.0 - 8.0 [facility] Urine sediment bacteria coun t by microscopy (number/high power field)Ordered By: Lawrence Finnegan on 05-15-2025 Bacteria LM.HPF (Urine sed) [#/Area] RARE /hpf None Seen [facility] Urine specific gravity measu rementOrdered By: Lawrence Finnegan on 05-15-2025 Specific gravity (U) [Rel density] 1.010 1.002-1.030 [facility] Urine urobilinogen measureme ntOrdered By: Lawrence Finnegan on 05-15-2025 Urobilinogen Ql (U) Normal mg/dl Normal [place] White blood cell (WBC) count Ordered By: Lawrence Finnegan on 05-15-2025 WBC (Bld) [#/Vol] 7.0 10*3/uL 4.4-11.0 [facility] White blood cell countOrdere d By: Lawrence Finnegan on 05-15-2025 White blood cell count 0-5 SEEN /hpf 0-5 [facility] CNOVon 03-12-2025 CN Office Visit (WSTR ) ----- ADRIANA GREGG ([id number]) 3 F Date Time Provider Department 03/12/25 6:30 PM ZOFIA SMITH [facility] During your visit today, we recorded the following information about you: Temperature Pulse Respiration Blood pressure 98.4 degrees 105/minute 14/minute 118/72 Weight Last Period 91.2 kg 02/18/25 Zofia Smith, PA 03/12/2025 6:40 PM Signed [facility] Subjective Adriana Gregg is a 19 year old female. Patient presents with: Vomiting: Nausea x 1 week HPI 19-year-old female presents for nausea and vomiting x 1 week. Patient states she is been nauseous and had vomiting on and off for the past week. Last episode of vomiting was this afternoon. She has had 2 episodes of vomiting total today. She denies any GERD symptoms or indigestion. No diarrhea. No abdominal pain. She is still passing gas and having normal BMs. States she recently started a second job, unsure if the nausea/vomiting is from stress and overworking. She has no sick contacts at home. Did not eat anything out of the ordinary prior to symptoms starting. She has not had fevers, cough or congestion. She is still able to keep down fluids. She has not taken anything for symptoms. She has no dysuria or hematuria. LMP was last month sometime, patient thinks around 02/18. She is unsure if any concern for . No other complaint. No past medical history on file. No past surgical history on file. ALLERGIES Lavender (Lavandula Angustifolia) MEDICATIONS No prescriptions on file. No family history on file. Social History Tobacco Use Smoking status: Never Smokeless tobacco: Never Vaping Use Vaping status: current everyday user Substances: Nicotine Substance Use Topics Alcohol use: Yes Review of Systems Constitutional: Negative for chills and fever. HENT: Negative for congestion, ear pain and sore throat. Respiratory: Negative for cough and shortness of breath. Cardiovascular: Negative for chest pain. Gastrointestinal: Positive for nausea and vomiting. Negative for abdominal pain, blood in stool, constipation and diarrhea. Objective BP 118/72 Pulse 105 Temp 36.9 ?C (98.4 ?F) (Tympanic) Resp 14 Wt 91.2 kg (201 lb 1 oz) LMP 02/18/2025 (Approximate) SpO2 99% BMI 35.06 kg/m? Physical Exam Vitals and nursing note reviewed. Constitutional: General: She is not in acute distress. Appearance: Normal appearance. She is not toxic-appearing. HENT: Nose: Nose normal. Mouth/Throat: Mouth: Mucous membranes are moist. Eyes: Conjunctiva/sclera: Conjunctivae normal. Cardiovascular: Rate and Rhythm: Normal rate and regular rhythm. Pulmonary: Effort: Pulmonary effort is normal. Breath sounds: Normal breath sounds. Abdominal: General: Abdomen is flat. Palpations: Abdomen is soft. Tenderness: There is no abdominal tenderness. There is no guarding or rebound. Skin: General: Skin is warm and dry. Neurological: Mental Status: She is alert. {ASSESSMENT/PLAN: 1. Nausea and vomiting, unspecified vomiting type - ICD9: 787.01, ICD10: R11.2 - UA DIP,URINE HCG (POC)- negative - Rx for Zofran -Broome diet, follow-up with PCP for persistent symptoms Diagnosis and treatment plan were discussed and questions were answered to the patient's satisfaction. Pt acknowledged understanding of concepts and follow up plan. Specific signs and symptoms that would indicate the need for higher level of care were discussed in detail warranting prompt ER evaluation. [place] Valadez History and Record Review External record(s) reviewed: prior outpatient record. Differential Diagnoses - Nausea/vomiting is more likely for the following reason(s): suggested by HANDP - is less likely for the following reason(s): laboratory studies not suggestive - Acute surgical abdomen is less likely for the following reason(s): HANDP not suggestive Disposition The patient was discharged. Procedures Allergies As of Date: 03/12/2025 Noted Allergy Reaction LAVENDER (LAVANDULA ANGUSTIFOLIA) 09/09/2024 4 - Hives Date Reviewed: 03/12/2025 Reviewed by: Lizbeth Nails MA - Fully Assessed Reason for Visit: Vomiting [120] Cmt: Nausea x 1 week Primary Visit Diagnosis:Nausea and vomiting, unspecified vomiting type [R11.2] Order(s):UA DIP,URINE HCG (POC) [[id number]] Order #: [id number]. #:[id number] ondansetron orally disintegrating (ZOFRAN ODT) 4 mg disintegrating tabletTake 1 tablet by mouth every 8 hours as needed for nausea/vomiting.Disp: 9 tabletRfl: 0 Prescriptions as of 03/12/2025 - ondansetron orally disintegrating (ZOFRAN ODT) 4 mg disintegrating tablet Take 1 tablet by mouth every 8 hours as needed for nausea/vomiting. Problem List As Of Date: 03/12/2025 (None) Prescriptions ordered this encounter Disp Refills Start End OND (more content not included)... 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 [place] ----- ADRIANA GREGG ([id number]) 3 F Date Time Provider Department 01/08/25 YVETTE CLEMENTS NIGEL During your visit today, we recorded the following information about you: Kassandra Bryant MA 01/08/2025 12:49 PM Signed Patient did call back in since she received a letter in the mail. I gave her the results and also told her a med at that time was sent to the pharmacy but I was unsure if the pharmacy would still have it. She was going to call the pharmacy. Kassandra Bryant MA Allergies As of Date: 01/08/2025 Noted Allergy Reaction LAVENDER (LAVANDULA ANGUSTIFOLIA) 09/09/2024 4 - Hives Date Reviewed: 12/26/2024 Reviewed by: Gail Dong MA - Fully Assessed Reason for Visit: Results [95] Prescriptions as of 01/08/2025 - doxycycline monohydrate 100 mg tablet Take 1 tablet by mouth two times a day. Problem List As Of Date: 01/08/2025 (None) Encounter Status:Closed by KASSANDRA BRYANT on 01/08/25 [facility] 12-28-2024 [facility] ([facility] ----- ADRIANA GREGG ([id number]) 3 F Date Time Provider Department 12/28/24 YVETTE CLEMENTS During your visit today, we recorded the following information about you: Yvette Clements APRN.[employer]PER[employer] 12/28/2024 12:47 PM Signed Please let the patient know her urine culture shows a small amount of E.Coli bacterial growth. Keflex has been sent to [facility] in [facility] for treatment. Begin taking as prescribed and follow up with PCP if symptoms persist. Adina Suero MLT 12/29/2024 10:21 AM Signed Said phone is not in service KAVITA Maki Wendi J, MLT 12/29/2024 11:09 AM Signed Again not a working number. Needs a letter sent out KAVITA Maki Lisa, MA 12/31/2024 3:26 PM Signed I generated a letter to be sent to the patient by mail. Kassandra Bryant MA Allergies As of Date: 12/28/2024 Noted Allergy Reaction LAVENDER (LAVANDULA ANGUSTIFOLIA) 09/09/2024 4 - Hives Date Reviewed: 12/26/2024 Reviewed by: Gail Dong MA - Fully Assessed Reason for Visit: Results [95] Order(s):cephALEXin (KEFLEX) 500 mg capsuleTake 1 capsule by mouth two times a day for 5 days.Disp: 10 capsuleRfl: 0 Prescriptions as of 12/31/2024 - cephALEXin (KEFLEX) 500 mg capsule Take 1 capsule by mouth two times a day for 5 days. - doxycycline monohydrate 100 mg tablet Take 1 tablet by mouth two times a day. Problem List As Of Date: 12/28/2024 (None) Prescriptions ordered this encounter Disp Refills Start End CEPHALEXIN 500 MG CAPSULE 10 c* 0 12/28/2024 01/02/2025 Route: ORAL Sig: Take 1 capsule by mouth two times a day for 5 days. Medications Discontinued During This Encounter Prescriptions - cephALEXin (KEFLEX) 500 mg capsule (Discontinued) Reported on 12/26/2024 Letter Text Encounter Status:Closed by YVETTE CLEMENTS on 12/28/24 [facility] Bacteria Ur Culton Bacteria identified Cx Nom (U) ORGANISM ID: 1 10,000 -<50,000 CFU/ml Escherichia coli ORGANISM ID: 2 >=100,000 CFU/ml Normal urogenital sma ORGANISM ID: 1 (ESCHERICHIA COLI) ANTIBIOTIC INTERPRETATION ISAIAH STATUS REFERENCE RANGE Ampicillin S <=2 F Susceptible <=8 , Intermediate >8 , Resistant >16 Cefazolin S <=4 F Susceptible 0-16 , Intermediate <0 or >16 , Resistant >16 For uncomplicated urinary tract infections, cefazolin results can be used to predict susceptibility or resistance to cephalexin. Ceftriaxone S <=1 F Susceptible <=1 , Intermediate >1 , Resistant >=4 Cefepime S <=1 F Susceptible <=2 , Susceptible-Dose Dependent >2 , Resistant >=16 Ertapenem S <=0.5 F Susceptible <=0.5 , Intermediate >.5 , Resistant >1 Meropenem S <=0.25 F Susceptible <=1 , Intermediate >1 , Resistant >2 Ampicillin/Sulbact S <=2 F Susceptible <=8 , Intermediate >8 , Resistant >16 Piperacillin/Tazobac S <=4 F Susceptible <16 , Susceptible-Dose Dependent >=16 , Resistant >=32 Gentamicin S <=1 F Susceptible <=2 , Intermediate >2 , Resistant >=8 Tobramycin S <=1 F Susceptible <4 , Intermediate >=4 , Resistant >=8 Trimeth sulfameth S <=20 F Susceptible <=40 , Resistant >40 Ciprofloxacin S <=0.25 F Susceptible <0.5 , Intermediate >=.5 , Resistant >=1 Nitrofurantoin S <=16 F Susceptible <=32 , Intermediate >32 , Resistant >64 [facility] Comment on above: Performed By: #### 6 30-4 #### [facility] CLIA [id number] [address] [place] [address] [place] CNOVon 12-26-2024 [facility] Office Visit ([facility] ) ----- ADRIANA GREGG ([id number]) 3 F Date Time Provider Department 12/26/24 8:35 AM CLARA SINGH During your visit today, we recorded the following information about you: Temperature Pulse Respiration Blood pressure 98.3 degrees 117/minute 14/minute 122/71 Weight Last Period 90 kg 11/27/24 Clara Singh, QUE.[employer]PER[employer] 12/26/2024 9:05 AM Signed December 26, 2024 Subjective Chief Complaint: test request (Pt is requesting a test for . Pt vomited this morning and it had blood in it and slight vaginal blood. Pt has concern for miscarriage ) HPI: Adriana Gregg is a 19 year old female who presents today for concern for . Patient states she has abnormal menses and has her period every other week. States she was supposed to start her period on November 27 but didn't. States she took 3 home tests. Two were faint positive but the one yesterday was definetly positive. Reports that she has had morning sickness. Today, started having vaginal bleeding. Concern for miscarriage. 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 No fever. No cold/flu like symptoms. History reviewed. No pertinent past medical history. History reviewed. No pertinent surgical history. History reviewed. No pertinent family history. Social History Tobacco Use Smoking status: Never Smokeless tobacco: Never Vaping Use Vaping status: current everyday user Substances: Nicotine Substance Use Topics Alcohol use: Yes ALLERGIES Allergen Reactions Lavender (Lavandula* Hives There is no immunization history on file for this patient. Current Medications: cephALEXin (KEFLEX) 500 mg capsule Take 1 capsule by mouth three times a day. (Patient not taking: Reported on 12/26/2024) doxycycline monohydrate 100 mg tablet Take 1 tablet by mouth two times a day. (Patient not taking: Reported on 12/26/2024) Review of Systems Constitutional: Negative. HENT: Negative. Eyes: Negative. Respiratory: Negative. Cardiovascular: Negative. Gastrointestinal: Positive for vomiting. Negative for abdominal pain and diarrhea. Genitourinary: +vaginal bleeding Skin: Negative. Objective BP 123/83 Pulse 117 Temp (Src) 98.3 (Oral) Resp 14 Wt 198 lb 6.6 oz (90.0kg) SpO2 97% LMP 11/27/2024 Physical Exam Vitals reviewed. Constitutional: General: She is not in acute distress. Appearance: Normal appearance. She is obese. She is not ill-appearing, toxic-appearing or diaphoretic. HENT: Head: Normocephalic and atraumatic. Cardiovascular: Rate and Rhythm: Regular rhythm. Tachycardia present. Heart sounds: Normal heart sounds. No murmur heard. No friction rub. No gallop. Pulmonary: Effort: Pulmonary effort is normal. No respiratory distress. Breath sounds: Normal breath sounds. No stridor. No wheezing, rhonchi or rales. Chest: Chest wall: No tenderness. Skin: General: Skin is warm and dry. Capillary Refill: Capillary refill takes less than 2 seconds. Neurological: Mental Status: She is alert and oriented to person, place, and time. Psychiatric: Mood and Affect: Affect is tearful. ASSESSMENT/PLAN: 1. Vaginal bleeding - ICD9: 623.8, ICD10: N93.9 -If you start having more vomiting - go to Emergency Department -Your urine test completed at [facility] [place] today is Negative -Local [employer] office with [facility] is [phone] - UA DIP,URINE HCG (POC) - UA DIP, URINE (POC) - BACTERIAL CULTURE, URINE Clara Singh APRN.CNP The above reflects my independent exam and review of the patient's medical record. I saw and examined the patient myself personally. Parts of the HPI, ROS, exam, impression/plan, and testing results may have been copied from the current or previous clinical notes and remain pertinent to today's visit. Current changes have been made and documented today. Other parts or data may have been deleted if not relevant for today. Plan as outlined above. Patient advised if symptoms do not improve or if symptoms worsen sooner, to contact their primary care physician. Potential red flag symptoms discussed with the patient. Reviewed appropriate action plan to take if red flag symptoms occur. Patient agreeable to treatment plan. Voice recognition software utilized. Minor grammatical and/or spelling errors may exist. Portions of this note have been entered by ancillary staff. I have reviewed and when necessary edited, so that they are an adequate record of my encounter with this patient. Clara Singh APRN.CARLOS 12/26/2024 8:58 AM Addendum -If you start having more vomiting - go to Emergency Department -Your urine test completed at [facility] today is Negative -Local [employer] office with [facility] is [phone] Referring Provider: SELF [200] Allergies As of Date: 12/26/2024 Noted (more content not included)... Normal [facility] [place] [place] UA DIP, URINE (POC)on 2024 BILIRUBIN UA (POCT) Negative Negative [facility] CLARITY UA (POCT) Cloudy [facility] COLOR UA (POCT) Yellow [facility] GLUCOSE UA (POCT) Negative Negative mg/dL [facility] Hemoglobin Ql (U) Negative Negative [facility] Interpretation and review of laboratory results Abnormal [facility] KETONE UA (POCT) 15 mg/dL Abnormal Negative [facility] LEUKOCYTES UA (POCT) Small Abnormal Negative [facility] NITRITE UA (POCT) Negative Negative [facility] PH UA (POCT) 5.5 4.5 - 8.0 [facility] Protein Ql (U) Negative Negative mg/dL [facility] SPECIFIC GRAVITY UA (POCT) >=1.030 1.005 - 1.030 [facility] UROBILINOGEN UA (POCT) 1.0 Daisy l E.U./dL [facility] Location:[facility], [address] [place] [address], [address] [place] [address] POINT OF CARE [facility] UA DIP,URINE HCG (POC)on Beta HCG ( test) Ql (U) Negative Negative [facility] Comment on above: Location:[facility], [address] [place] [address], [facility] Laundry [employer] Dry Clean[employer] Counter Clerk (POCT) Internal QC [place] [facility] Location:[facility], [address] [place] [address], [address] [place] [address] POINT OF CARE [facility] CBC W Auto Differential pane l (Bld)on 09-09-2024 Basophils (Bld) [#/Vol] 0.03 10*3/uL Normal <0.[address] [facility] [place] [place] Comment on above: Order Comment: Speci men Type: BLOOD SPECIMENOrdering Facility: [facility] Address: [address] [place] [address] Performed By: #### 5 7021-8 ####[facility] [id number] [place] [address] [place] Basophils/100 WBC (Bld) 0.4 % Normal [facility] [place] Comment on above: Order Comment: Speci men Type: BLOOD SPECIMENOrdering Facility: [facility] Address: [address] [place] [address] Performed By: #### 5 7021-8 ####[facility] LABCLIA [id number] [place] [address] [place] Differential cell count method Nom (Bld) Auto Normal [facility] [place] Comment on above: Order Comment: Speci men Type: BLOOD SPECIMENOrdering Facility: [facility] Address: [address] [place] [address] Performed By: #### 5 7021-8 ####[facility] LABCLIA [id number] [place] [address] [place] Eosinophils (Bld) [#/Vol] 0.17 10*3/uL Normal <0.[address] [facility] [place] Comment on above: Order Comment: Speci men Type: BLOOD SPECIMENOrdering Facility: [facility] Address: [address] [place] [address] Performed By: #### 5 7021-8 ####[facility]IA [id number] [place] [address] [place] Eosinophils/100 WBC (Bld) 2.5 % Normal [facility] [place] Comment on above: Order Comment: Speci men Type: BLOOD SPECIMENOrdering Facility: [facility] Address: [address] [place] [address] Performed By: #### 5 7021-8 ####[facility] [id number] [place] [address] [place] Erythrocyte distribution width (RBC) [Ratio] 12.6 % Normal 11.5-15.[address] [facility] [place] [place] Comment on above: Order Comment: Speci men Type: BLOOD SPECIMENOrdering Facility: [facility] Address: [address] [place] [address] Performed By: #### 5 7021-8 ####[facility] [id number] [place] [address] [place] Hematocrit (Bld) [Volume fraction] 33.4 % Low 36.0-46.[address] [facility] [place] [place] Comment on above: Order Comment: Speci men Type: BLOOD SPECIMENOrdering Facility: [facility] Address: [address] [place] [address] Performed By: #### 5 7021-8 ####[facility]IA [id number] [place] [address] [place] Hemoglobin (Bld) [Mass/Vol] 11.0 g/dL Low 11.5-15.[address] [facility] [place] Comment on above: Order Comment: Speci men Type: BLOOD SPECIMENOrdering Facility: [facility] Address: [address] [place] [address] Performed By: #### 5 7021-8 ####[facility]IA [id number] [place] [address] [place] Immature granulocytes (Bld) [#/Vol] 10*3/uL Normal <0.[address] [facility] [place] Comment on above: Order Comment: Speci men Type: BLOOD SPECIMENOrdering Facility: [facility] Address: [address] [place] [address] Performed By: #### 5 7021-8 ####[facility] LABIA [id number] [place] [address] [place] Immature granulocytes/100 WBC (Bld) 0.1 % Normal [facility] [place] [place] Comment on above: Order Comment: Speci men Type: BLOOD SPECIMENOrdering Facility: [facility] Address: [address] [place] [address] Performed By: #### 5 7021-8 ####[facility] [id number] [place] [address] [place] Lymphocytes (Bld) [#/Vol] 2.91 10*3/uL Normal 1.00-4.[address] [facility] [place] Comment on above: Order Comment: Speci men Type: BLOOD SPECIMENOrdering Facility: [facility] Address: [address] [place] [address] Performed By: #### 5 7021-8 ####[facility] [id number] [address] [place] Lymphocytes/100 WBC (Bld) 42.4 % Normal [facility] [place] Comment on above: Order Comment: Speci men Type: BLOOD SPECIMENOrdering Facility: [facility] Address: [address] [place] [address] Performed By: #### 5 7021-8 ####[facility] LABIA [id number] [place] [address] [place] MCH (RBC) [Entitic mass] 28.6 pg Normal 26.0-34.[address] [facility] [place] Comment on above: Order Comment: Speci men Type: BLOOD SPECIMENOrdering Facility: [facility] Address: [address] [place] [address] Performed By: #### 5 7021-8 ####[facility] [id number] [place] [address] [place] MCHC (RBC) [Mass/Vol] 32.9 g/dL Normal 30.5-36.0 [facility] Comment on above: Order Comment: Speci men Type: BLOOD SPECIMENOrdering Facility: [facility] Address: [address] [place] [address] Performed By: #### 5 7021-8 ####[facility] [id number] [address] MCV (RBC) [Entitic vol] 86.8 fL Normal 80.0-100.[address] [facility] [place] Comment on above: Order Comment: Speci men Type: BLOOD SPECIMENOrdering Facility: [facility] Address: [address] [place] [address] Performed By: #### 5 7021-8 ####[facility] [id number] [place] [address] [place] Monocytes (Bld) [#/Vol] 0.55 10*3/uL Normal <0.[address] [facility] [place] Comment on above: Order Comment: Speci men Type: BLOOD SPECIMENOrdering Facility: [facility] Address: [address] [place] [address] Performed By: #### 5 7021-8 ####[facility] [id number] [address] Monocytes/100 WBC (Bld) 8.0 % Normal [facility] [place] Comment on above: Order Comment: Speci men Type: BLOOD SPECIMENOrdering Facility: [facility] Address: [address] [place] [address] Performed By: #### 5 7021-8 ####[facility] [id number] [address] [place] Neutrophils (Bld) [#/Vol] 3.19 10*3/uL Normal 1.45-7.[address] [facility] [place] Comment on above: Order Comment: Speci men Type: BLOOD SPECIMENOrdering Facility: [facility] Address: [address] [place] [address] Performed By: #### 5 7021-8 ####[facility] LABCLIA [id number] [place] [address] [place] Neutrophils/100 WBC (Bld) 46.6 % Normal [facility] [place] Comment on above: Order Comment: Speci men Type: BLOOD SPECIMENOrdering Facility: [facility] Address: [address] [place] [address] Performed By: #### 5 7021-8 ####[facility]IA [id number] [place] [address] [place] Nucleated RBC (Bld) [#/Vol] 10*3/uL Normal <0.[address] [facility] [place] [place] Comment on above: Order Comment: Speci men Type: BLOOD SPECIMENOrdering Facility: [facility] Address: [address] [place] [address] Performed By: #### 5 7021-8 ####[facility] [id number] [place] [address] [place] Nucleated RBC/100 WBC (Bld) [Ratio] 0.0 /[address] [facility] [place] Comment on above: Order Comment: Speci men Type: BLOOD SPECIMENOrdering Facility: [facility] Address: [address] [place] [address] Performed By: #### 5 7021-8 ####[facility] [id number] [place] [address] [place] Platelet mean volume (Bld) [Entitic vol] 9.0 fL Normal 9.0-12.[address] [facility] [place] Comment on above: Order Comment: Speci men Type: BLOOD SPECIMENOrdering Facility: [facility] Address: [address] [place] [address] Performed By: #### 5 7021-8 ####[facility] [id number] [place] [address] [place] Platelets (Bld) [#/Vol] 460 10*3/uL High 150-[address] [facility] [place] Comment on above: Order Comment: Speci men Type: BLOOD SPECIMENOrdering Facility: [facility] Address: [address] [place] [address] Performed By: #### 5 7021-8 ####[facility] [facility] [id number] [place] [address] [place] RBC (Bld) [#/Vol] 3.85 10*6/uL Low 3.90-5.[address] [facility] Comment on above: Order Comment: Speci men Type: BLOOD SPECIMENOrdering Facility: [facility] Address: [address] [place] [address] Performed By: #### 5 7021-8 ####[facility]IA [id number] [place] [address] [place] WBC (Bld) [#/Vol] 6.86 10*3/uL Normal 3.70-11.[address] [facility] [place] Comment on above: Order Comment: Speci men Type: BLOOD SPECIMENOrdering Facility: [facility] Address: [address] [place] [address] Performed By: #### 5 7021-8 ####[facility]IA [id number] [place] [address] [employer] OF [place] CT ABD/PEL W IVCONon 10-13-[address] ABD/PEL W IVCON * * *Final Report* * * DATE OF EXAM: Sep 09 2024 9:42PM [facility] 0530 - CT ABD/PEL W IVCON / PROCEDURE REASON: Abdominal pain, acute, nonlocalized * * * * Physician Interpretation * * * * EXAMINATION: CT CHEST W IVCON PE, CT ABD/PEL W IVCON CLINICAL HISTORY: LEFT lower quadrant abdominal pain. Elevated d-dimer. TECHNIQUE: Spiral CT acquisition of the chest from the thoracic inlet to the upper abdomen following IV contrast. Axial 1 and 3 mm thick slices plus coronal and sagittal reformatted images. MQ: CTCP_[address] of the abdomen and pelvis was performed using standard technique, scanning from just above the dome of the diaphragm to the symphysis pubis. MQ: CTAP_3 Contrast: IV: 100 ml of Omnipaque 350 CT Radiation dose: Integrated Dose-length product (DLP) for this visit = 309.8 496.1 mGy*cm. CT Dose Reduction Employed: Automated exposure control(AEC) and iterative recon COMPARISON: None. RESULT: Limitations: Moderately degraded by respiratory motion artifact. Pulmonary arteries: No large central pulmonary embolism identified within limitation of moderate respiratory motion artifact. Lines, tubes, and devices: None. Lungs and Pleura: Mild bibasilar atelectasis. Mediastinum: Unremarkable. Liver/Biliary: Hydropic gallbladder without gallbladder thickening or pericholecystic edema. No radiopaque cholelithiasis. Pancreas and Spleen: Normal. Kidneys and Adrenals: Normal. GI tract/Mesentery/Peritoneu m: No bowel wall thickening or dilated bowel. Normal appendix. Retroperitoneum and Lymph Nodes: No lymphadenopathy. Vasculature: Unremarkable. Pelvis: Tubular fluid-filled structure in the LEFT adnexa measuring 7.4 x 4.6 x 4.0 cm. Bones/Soft Tissues: No significant finding. Localizer images: No significant findings. IMPRESSION: 1. No large central pulmonary embolism identified within limitation of moderate respiratory motion artifact. 2. Tubular fluid-filled structure in the LEFT adnexa favoring hydrosalpinx. Recommend pelvic ultrasound if there is clinical concern for ovarian torsion or tubo-ovarian abscess. Green Building Energy Engineer: PSCTrae Transcribe Date/Time: Sep 09 2024 10:37P Dictated by : ROSA MENDOZA MD This examination was interpreted and the report reviewed and electronically signed by: ROSA MENDOZA MD on Sep 09 2024 10:41PM EST [id number] [facility] CT CHEST W IVCON PEon 2023 CT CHEST W IVCON PE * * *Final Report* * * DATE OF EXAM: Sep 09 2024 9:42PM [facility] 0540 - CT CHEST W IVCON PE / PROCEDURE REASON: Pulmonary embolism (PE) suspected, high prob * * * * Physician Interpretation * * * * EXAMINATION: CT CHEST W IVCON PE, CT ABD/PEL W IVCON CLINICAL HISTORY: LEFT lower quadrant abdominal pain. Elevated d-dimer. TECHNIQUE: Spiral CT acquisition of the chest from the thoracic inlet to the upper abdomen following IV contrast. Axial 1 and 3 mm thick slices plus coronal and sagittal reformatted images. MQ: CTCP_[address] of the abdomen and pelvis was performed using standard technique, scanning from just above the dome of the diaphragm to the symphysis pubis. MQ: CTAP_3 Contrast: IV: 100 ml of Omnipaque 350 CT Radiation dose: Integrated Dose-length product (DLP) for this visit = 309.8 496.1 mGy*cm. CT Dose Reduction Employed: Automated exposure control(AEC) and iterative recon COMPARISON: None. RESULT: Limitations: Moderately degraded by respiratory motion artifact. Pulmonary arteries: No large central pulmonary embolism identified within limitation of moderate respiratory motion artifact. Lines, tubes, and devices: None. Lungs and Pleura: Mild bibasilar atelectasis. Mediastinum: Unremarkable. Liver/Biliary: Hydropic gallbladder without gallbladder thickening or pericholecystic edema. No radiopaque cholelithiasis. Pancreas and Spleen: Normal. Kidneys and Adrenals: Normal. GI tract/Mesentery/Peritoneu m: No bowel wall thickening or dilated bowel. Normal appendix. Retroperitoneum and Lymph Nodes: No lymphadenopathy. Vasculature: Unremarkable. Pelvis: Tubular fluid-filled structure in the LEFT adnexa measuring 7.4 x 4.6 x 4.0 cm. Bones/Soft Tissues: No significant finding. Localizer images: No significant findings. IMPRESSION: 1. No large central pulmonary embolism identified within limitation of moderate respiratory motion artifact. 2. Tubular fluid-filled structure in the LEFT adnexa favoring hydrosalpinx. Recommend pelvic ultrasound if there is clinical concern for ovarian torsion or tubo-ovarian abscess. Green Building Energy Engineer: LAZ Transcribe Date/Time: Sep 09 2024 10:37P Dictated by : ROSA MENDOZA MD This examination was interpreted and the report reviewed and electronically signed by: ROSA MENDOZA MD on Sep 09 2024 10:41PM EST [id number] Normal [facility] Comprehensive metabolic 2000 panelon 09-09-2024 Albumin [Mass/Vol] 3.9 g/dL Normal 3.9-4.[address] [facility] Comment on above: Order Comment: Speci men Type: BLOOD SPECIMEN [facility] Address: [address] [place] [address] Performed By: #### 3 040-3, 94402-1, [id number] #### [facility] CLIA [id number] [address] [place] [address] [place] ALP [Catalytic activity/Vol] 75 U/L Normal 34-[address] [facility] [place] Comment on above: Order Comment: Speci men Type: BLOOD SPECIMEN [facility] Address: [address] [place] [address] Performed By: #### 3 040-3, 71914-8, [id number] #### [facility] CLIA [id number] [address] [place] [address] [place] ALT [Catalytic activity/Vol] 7 U/L Normal 7-[address] [facility] [place] Comment on above: Order Comment: Speci men Type: BLOOD SPECIMEN [facility] Address: [address] [place] [address] Performed By: #### 3 040-3, , [id number] #### [facility] CLIA [id number] [address] [place] [address] [place] Anion gap [Moles/Vol] 17 mmol/L High 8-15 [facility] Comment on above: Order Comment: Speci men Type: BLOOD SPECIMEN [facility] Address: [address] [place] [address] Performed By: #### 3 040-3, , [id number] #### [facility] CLIA [id number] [address] [place] [address] [place] AST [Catalytic activity/Vol] 12 U/L Low 13-[address] [facility] [place] Comment on above: Order Comment: Speci men Type: BLOOD SPECIMEN [facility] Address: [address] [place] [address] Performed By: #### 3 040-3, 14829-4, [id number] #### [facility] CLIA [id number] [address] [place] [address] [place] Bilirubin [Mass/Vol] 0.3 mg/dL Normal 0.2-1.3 [facility] Comment on above: Order Comment: Speci men Type: BLOOD SPECIMEN [facility] Address: [address] [place] [id number] Performed By: #### 3 040-3, , [id number] #### [facility] CLIA [id number] [address] [place] [address] [place] Calcium [Mass/Vol] 9.3 mg/dL Normal 8.5-10.[address] [facility] Comment on above: Order Comment: Speci men Type: BLOOD SPECIMEN [facility] Address: [address] [place], [place] [address] [address] Performed By: #### 3 040-3, , [id number] #### [facility] CLIA [id number] [address] [place] [address] [place] Chloride [Moles/Vol] 103 mmol/L Normal 98-107 [facility] Comment on above: Order Comment: Speci men Type: BLOOD SPECIMEN [facility] Address: [facility] [place] [address] Performed By: #### 3 040-3, , [id number] #### [facility] CLIA [id number] [address] [place] [address] [place] CO2 [Moles/Vol] 25 mmol/L Normal 22-[address] [facility] [place] Comment on above: Order Comment: Speci men Type: BLOOD SPECIMEN [facility] Address: [facility] [place] [address] Performed By: #### 3 040-3, , [id number] #### [facility] CLIA [id number] [address] [place] [address] [place] Creatinine [Mass/Vol] 0.64 mg/dL Normal 0.58-0.96 [facility] Comment on above: Order Comment: Speci men Type: BLOOD SPECIMEN [facility] Address: [facility] [place] [address] Performed By: #### 3 040-3, 39113-4, [id number] #### [facility] CLIA [id number] [address] [place] [address] [place] Creatinine and Glomerular filtration rate.predicted panel (S/P/Bld) 130 mL/min/1.73m??? Normal >=[address] [facility] Comment on above: Order Comment: Octavia sanchez Type: BLOOD SPECIMEN [facility]: [facility] Address: [address] [place] [address] Result Comment: Sunshine mated Glomerular Filtration Rate (eGFR) is calculated using the 2020 CKD-EPI creatinine equation. This equation utilizes serum creatinine, sex, and age as parameters. The creatinine assay has traceable calibration to isotope dilution-mass spectrometry. Refer to KDIGO guidelines for clinical interpretation. In patients with unstable renal function, e.g. those with acute kidney injury, the eGFR may not accurately reflect actual GFR. Performed By: #### 3 040-3, 44082-5, [id number] #### [facility] CLIA [id number] [address] [place] [address] [place] Glucose [Mass/Vol] 115 mg/dL High 74-[address] [facility] [place] Comment on above: Order Comment: Octavia sanchez Type: BLOOD SPECIMEN [facility] Address: [address] [place] [address] Result Comment: The [place] Diabetes Association (ADA) provides guidance for cutoff values for fasting glucose and random glucose. The ADA defines fasting as no caloric intake for at least 8 hours. Fasting plasma glucose results between 100 to 125 mg/dL indicate increased risk for diabetes (prediabetes). Fasting plasma glucose results greater than or equal to 126 mg/dL meet the criteria for diagnosis of diabetes. In the absence of unequivocal hyperglycemia, results should be confirmed by repeat testing. In a patient with classic symptoms of hyperglycemia or hyperglycemic crisis, random plasma glucose results greater than or equal to 200 mg/dL meet the criteria for diagnosis of diabetes. Reference: Standards of Medical Care in Diabetes 2016, [place] Diabetes Association. Diabetes Care. 2016.39(Suppl 1). Performed By: #### 3 040-3, 63061-0, [id number] #### [facility] CLIA [id number] [address] [place] [address] [place] Potassium [Moles/Vol] 3.7 mmol/L Normal 3.7-5.1 [facility] Comment on above: Order Comment: Speci men Type: BLOOD SPECIMEN [facility] Address: [address] [place] [address] Performed By: #### 3 040-3, 78451-8, [id number] #### [facility] CLIA [id number] [address] [place] [address] [place] Protein [Mass/Vol] 8.2 g/dL High 6.3-8.[address] [facility] [place] Comment on above: Order Comment: Speci men Type: BLOOD SPECIMEN [facility] Address: [address] [place] [address] Performed By: #### 3 040-3, , [id number] #### [facility] CLIA [id number] [address] [place] [address] [place] Sodium [Moles/Vol] 145 mmol/L High 136-[address] [facility] Comment on above: Order Comment: Speci men Type: BLOOD SPECIMEN [facility] Address: [address] [place] [address] Performed By: #### 3 040-3, , [id number] #### [facility] CLIA [id number] [address] [place] [address] [place] Urea nitrogen [Mass/Vol] 8 mg/dL Normal 7-[address] [facility] Comment on above: Order Comment: Speci men Type: BLOOD SPECIMEN [facility] Address: [address] [place] [address] Performed By: #### 3 040-3, 76494-0, [id number] #### [facility] CLIA [id number] [address] [place] [address] [place] ECG COMPLETEon 09-09-2024 ECG COMPLETE Ventricular Rate : 8 6 BPM Atrial Rate : 86 BPM P-R Interval : 120 ms QRS Duration : 76 ms Q-T Interval : 364 ms QTC Calculation(Bazett) : 435 ms Calculated P [place] : 18 degrees Calculated R [place] : 63 degrees Calculated T [place] : 8 degrees Normal sinus rhythm Normal ECG No previous ECGs available Confirmed by ANGELICA LUNDBERG MD ([id number]) on 09/11/2024 7:31:34 AM NAME : ADRIANA GREGG PID : [id number] : 2005 Gender : Female Race : Other ORD : [id number] Procedure Date : Sep 09 2024 19:49:56 Edit Date : Sep 11 2024 07:31:38 Diagnosis: Normal sinus rhythm Normal ECG No previous ECGs available Confirmed by ANGELICA LUNDBERG MD ([id number]) on 09/11/2024 7:31:34 AM Test Reason : HCS Location : 3 : ED ED Overread By : ANGELICA LUNDBERG MD Edited By : ANGELICA LUNDBERG MD Referred By : , Acquired by : GINGER CACERES [facility] ED NOTEon 09-09-2024 ED NOTE HNO ID: [id number] Author: JEMIMA TOSCANO RN Service: ? Author Type: Registered Nurse Type: ED Notes Filed: 09/09/2024 23:23 Note Text: Patient leaving AMA, ED provider discussed risks/benefits to patient, patient verbalized understanding. Patient signed AMA form. Patient given paperwork/work note and instructed on medications she needs to get filled. Patient alert and oriented and self ambulatory upon leaving. [facility] ED NOTE HNO ID: [id number] Author: GINGER CACERES CT Service: ? Author Type: Clinical Coffee Sampler Type: ED Notes Filed: 09/09/2024 22:27 Note Text: THIS TECH ASSISTED PT TO AMBULATE TO AND FROM THE RESTROOM W/O INCIDENT. PT BACK IN BED RESTING, ON THE HEART MONITOR, CALL LIGHT IN REACH. [facility] ED PROV NOTEon 09-09-2024 ED PROV NOTE HNO ID: [id number] Author: SETH ROCHA DO Service: ? Author Type: Physician Type: ED Provider Notes Filed: 09/09/2024 23:06 Note Text: ED Provider Note Patient Name: Adriana Gregg : 2005 SERVICE DATE: 09/09/24 History Patient presents with: Back Pain Vomiting: Patient states that she noticed bruising to left ribs and back pain within the last week. She states she is a week late on her period and has vaginal discharge that is not normal. Also started with vomiting up blood clots yesterday. Patient is a 19-year-old female presenting to the emergency department with multiple complaints. First patient states yesterday she was vomiting blood. She states that happened about 3 times yesterday. She states that has not happened again. She denies any blood in her stools. She is not on any blood thinners. She denies any fevers or chills. She does admit to some occasional alcohol use. She does not drink alcohol daily. She denied any stomach pain. She says that also she has a couple weeks late on her menstrual cycle. She states she has had some thin clear vaginal discharge as well. She states she has no concern for STDs. She denies any pelvic pain. She also states that she has got some pain around her left ribs . Patient states that hurts to lie on that side it hurts to move, she denies any known injury. She states a few weeks ago the entire right side of her body hurt however her boyfriend massaged it and it got better but the pain now moved to the left side of her body. She states that this pain on the left side has been for a couple weeks. She denies any injury. She states she did have some bruising on her left ribs a few days ago but says that they are not there any longer. She denies any falls. 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 No past surgical history on file. No family history on file. Social History Tobacco Use Smoking status: Not on file Smokeless tobacco: Not on file Substance and Sexual Activity Alcohol use: Not on file Drug use: Not on file Sexual activity: Not on file ALLERGIES Allergen Reactions Lavender (Lavandula* Hives Review of Systems All other systems reviewed and are negative. Physical Exam Vitals [09/09/241925] BP Pulse Temp Temp src Resp SpO2 Weight Height 134/78 (!) 95 36.8 ?C (98.3 ?F) Oral 18 97 % 89.5 kg (197 lb 5 oz) 1.613 m (5' 3.5) Physical Exam Vitals and nursing note reviewed. Constitutional: General: She is not in acute distress. Appearance: Normal appearance. She is not ill-appearing, toxic-appearing or diaphoretic. HENT: Head: Normocephalic and atraumatic. Mouth/Throat: Mouth: Mucous membranes are moist. Pharynx: Oropharynx is clear. Eyes: General: No scleral icterus. Conjunctiva/sclera: Conjunctivae normal. Cardiovascular: Rate and Rhythm: Normal rate and regular rhythm. Pulses: Normal pulses. Heart sounds: No murmur heard. No gallop. Pulmonary: Effort: Pulmonary effort is normal. Breath sounds: Normal breath sounds. No stridor. No wheezing or rhonchi. Abdominal: General: Abdomen is flat. There is no distension. Palpations: Abdomen is soft. Tenderness: There is abdominal tenderness. There is no guarding or rebound. Comments: Left-sided tenderness to palpation. Musculoskeletal: General: No swelling. Cervical back: No rigidity. Right lower leg: No edema. Left lower leg: No edema. Comments: Diffuse left-sided tenderness to palpation along the ribs low back as well as the left side of her abdomen. Patient states the entire left side hurts. The pain seems to be very reproducible. No midline tenderness or vertebral step-offs. Worse with movement, there is no bruising over the ribs no hepatosplenomegaly. The abdomen is soft. Patient had tenderness to very light touch Skin: General: Skin is warm and dry. Capillary Refill: Capillary refill takes less than 2 seconds. Findings: No rash. Neurological: General: No focal deficit present. Mental Status: She is alert. Mental status is at baseline. Psychiatric: Mood and Affect: Mood normal. Behavior: Behavior normal. Diagnostic Testing ED Labs Ordered and Reviewed COMPREHENSIVE METABOLIC PANEL - Abnormal; Notable for the following components: Result Value Ref Range Protein, Total 8.2 (*) 6.3 - 8.0 g/dL AST 12 (*) 13 - 35 U/L Glucose 115 (*) 74 - 99 mg/dL Sodium 145 (*) 136 - 144 mmol/L Anion Gap 17 (*) 8 - 15 mmol/L All other components within normal limits D-DIMER - Abnormal; Notable for the following components: D Dimer 901 (*) <=230 ng/mL DDU All other components within normal limits Narrative: The cut-off level recommended for the exclusion of pulmonary embolism (PE) or deep vein thrombosis (DVT) is <= 230 ng/mL DDU. COMPLETE BLOOD COUNT AND DIFFERENTIAL - Abnormal; Notable for the following components: RBC 3.85 (* (more content not included)... Normal [facility] Fibrin D-dimer FEU (PPP) [Ma ss/Vol]on 09-09-2024 Fibrin D-dimer DDU IA (Bld) [Mass/Vol] 901 ng/mL DDU High <=[address] [facility] [place] Comment on above: Order Comment: Speci men Type: BLOOD SPECIMENOrdering Facility: [facility] Address: [address] [place] [address] Performed By: #### 4 8065-7 ####[facility] [id number] [place] [address] [place] HCG QUALITATIVEon 09-09-2024 HCG, QUALITATIVE Negative Normal Negative [facility] Comment on above: Order Comment: Speci men Type: BLOOD SPECIMENOrdering Facility: [facility] Address: [address] [place] [address] Performed By: #### H CG ####[facility] [id number] [place] [address] [place] HIGH SENSITIVITY TROPONIN T (INITIAL)on 09-09-2024 Troponin T.cardiac High sensitivity method [Mass/Vol] <6 Normal <[address] [facility] Comment on above: Order Comment: Speci men Type: BLOOD SPECIMEN [facility] Address: [address] [place] [address] Performed By: #### 3 040-3, 28769-2, [id number] #### [facility] CLIA [id number] [address] [place] HIGH SENSITIVITY TROPONIN T (SECOND)on 09-09-2024 Troponin T.cardiac High sensitivity method [Mass/Vol] <6 Normal <[address] [facility] Comment on above: Order Comment: Speci men Type: BLOOD SPECIMENOrdering Facility: [facility] Address: [address] [place] [address] Performed By: #### L [id number] ####[facility] [id number] [place] [address] [place] Lipase SerPl-cCncon 09-09-20 24 Lipase [Catalytic activity/Vol] 22 U/L Normal 16-[address] [facility] Comment on above: Order Comment: Speci men Type: BLOOD SPECIMEN [facility] Address: [address] [place] [address] Performed By: #### 3 040-3, 17215-1, [id number] #### [facility] CLIA [id number] [address] [place] [address] [place] Urinalysis complete panel (U )on 09-09-2024 Bacteria LM.HPF (Urine sed) [#/Area] Moderate Abnormal None Seen [facility] Comment on above: Order Comment: Speci men Type: URINE SPECIMEN [facility] Address: [address] [place] [address] Performed By: #### 2 4356-8 #### [facility] CLIA [id number] [address] [place] [address] [place] [facility] CLIA [id number] [address] [place] [address] [place] Bilirubin Ql (U) Negative Normal Negative [facility] Comment on above: Order Comment: Speci men Type: URINE SPECIMEN [facility] Address: [address] [place] [address] Performed By: #### 2 4356-8 #### [facility] CLIA [id number] [address] [place] [address] [place] [facility] CLIA [id number] [address] [place] [address] [place] Clarity (Unsp spec) Slightly Cloudy Abnormal Clear [facility] Comment on above: Order Comment: Speci men Type: URINE SPECIMEN [facility] Address: [address] [place] [address] Performed By: #### 2 4356-8 #### [facility] CLIA [id number] [address] [place] [address] [place] [facility] CLIA [id number] [address] [place] [address] [place] Color (U) Yellow Normal Yellow [facility] [facility] [place] Comment on above: Order Comment: Speci men Type: URINE SPECIMEN Ordering Facility: [facility] Address: [address] [place] [address] Performed By: #### 2 4356-8 #### [facility] CLIA [id number] [address] [place] [address] [place] [facility] CLIA [id number] [address] [place] [address] [place] Epithelial cells LM.HPF (Urine sed) [#/Area] Moderate Normal [facility] [place] Comment on above: Order Comment: Speci men Type: URINE SPECIMEN Ordering Facility: [facility] Address: [address] [place] [address] Performed By: #### 2 4356-8 #### [facility] CLIA [id number] [address] [place] [address] [place] [facility] CLIA [id number] [address] [place] [address] [place] Glucose Test strip (U) [Mass/Vol] Negative Normal Negative [facility] [place] Comment on above: Order Comment: Speci men Type: URINE SPECIMEN Ordering Facility: [facility] Address: [address] [place] [address] Performed By: #### 2 4356-8 #### [facility] CLIA [id number] [address] [place] [address] [place] [facility] CLIA [id number] [address] [place] [address] [place] Hemoglobin Ql (U) 3+ Abnormal Negative [facility] [place] Comment on above: Order Comment: Speci men Type: URINE SPECIMEN Ordering Facility: [facility] Address: [address] [place] [address] Performed By: #### 2 4356-8 #### [facility] CLIA [id number] [address] [place] [address] [place] [facility] CLIA [id number] [address] [place] [address] [place] Ketones Ql (U) Negative Normal Negative [facility] [place] Comment on above: Order Comment: Speci men Type: URINE SPECIMEN Ordering Facility: [facility] Address: [address] [place] [address] Performed By: #### 2 4356-8 #### [facility] CLIA [id number] [address] [place] [address] [place] [facility] CLIA [id number] [address] [place] [address] [place] Leukocyte esterase Test strip Ql (U) 1+ Abnormal Negative [facility] [place] Comment on above: Order Comment: Speci men Type: URINE SPECIMEN Ordering Facility: [facility] Address: [address] [place] [address] Performed By: #### 2 4356-8 #### [facility] CLIA [id number] [address] [place] [address] [place] [facility] CLIA [id number] [address] [place] [address] [place] Nitrite Ql (U) Positive Abnormal Negative [facility] [place] Comment on above: Order Comment: Speci men Type: URINE SPECIMEN Ordering Facility: [facility] Address: [address] [place] [address] Performed By: #### 2 4356-8 #### [facility] CLIA [id number] [address] [place] [address] [place] [facility] CLIA [id number] [address] [place] [address] [place] pH (U) 7.5 [pH] Normal 5.0-8.[address] [facility] [place] Comment on above: Order Comment: Speci men Type: URINE SPECIMEN Ordering Facility: [facility] Address: [address] [place] [address] Performed By: #### 2 4356-8 #### [facility] CLIA [id number] [address] [place] [address] [place] [facility] CLIA [id number] [address] [place] [address] [place] Protein (U) [Mass/Vol] 1+ Abnormal Negative [facility] Comment on above: Order Comment: Speci men Type: URINE SPECIMEN Ordering Facility: [facility] Address: [address] [place] [address] Performed By: #### 2 4356-8 #### [facility] CLIA [id number] [address] [place] [address] [place] [facility] CLIA [id number] [address] [place] [address] [place] RBC LM.HPF (Urine sed) [#/Area] 11-25 /HPF Abnormal 0-3 /HPF [facility] [place] Comment on above: Order Comment: Speci men Type: URINE SPECIMEN Ordering Facility: [facility] Address: [address] [place] [address] Performed By: #### 2 4356-8 #### [facility] CLIA [id number] [address] [place] [address] [place] [facility] CLIA [id number] [address] [place] [address] [place] Specific gravity (U) [Rel density] 1.025 Normal 1.005-1.[address] [facility] [place] Comment on above: Order Comment: Speci men Type: URINE SPECIMEN Ordering Facility: [facility] Address: [address] [place] [address] Performed By: #### 2 4356-8 #### [facility] CLIA [id number] [address] [place] [address] [place] [facility] CLIA [id number] [address] [place] [address] [place] Urobilinogen Ql (U) 1.0 EU/dL Normal 0.2-1.0 EU/dL [facility] [place] Comment on above: Order Comment: Speci men Type: URINE SPECIMEN Ordering Facility: [facility] Address: [address] [place] [address] Performed By: #### 2 4356-8 #### [facility] CLIA [id number] [address] [place] [address] [place] [facility] CLIA [id number] [address] [place], [place] [address] [place] [address] [place] WBC LM.HPF (Urine sed) [#/Area] 11-25 /HPF Abnormal 0-5 /HPF [facility] [place] Comment on above: Order Comment: Speci men Type: URINE SPECIMEN Ordering Facility: [facility] Address: [address] [place] [address] Performed By: #### 2 4356-8 #### [facility] CLIA [id number] [address] [place] [address] [place] [facility] CLIA [id number] [address] [place] [address] [place] Urinalysis complete pnl Uron 09-09-2024 Urinalysis complete panel (U) COLOR: Yellow CLARITY: Slightly Cloudy GLUCOSE, URINE: Negative BILIRUBIN, URINE: Negative KETONES, URINE: Negative SPECIFIC GRAVITY, UR: 1.025 HEMOGLOBIN/BLOOD, UR: 3+ PH, URINE: 7.5 PROTEIN, URINE: 1+ UROBILINOGEN: 1.0 EU/dL NITRITES: Positive LEUKEST: 1+ WBC, URINE: 11-25 /HPF RBC, URINE: 11-25 /HPF BACTERIA: Moderate SQUAMOUS EPITHELIAL CELLS: Moderate CULTURE, URINE: Mixed microbiota, including predominantly: ORGANISM ID: 1 50,000-<100,000 CFU/ml Escherichia coli ORGANISM ID: 1 (ESCHERICHIA COLI) ANTIBIOTIC INTERPRETATION ISAIAH STATUS REFERENCE RANGE Ampicillin R >=32 F Susceptible <=8 , Intermediate >8 , Resistant >16 Cefazolin S <=4 F Susceptible 0-16 , Intermediate <0 or >16 , Resistant >16 For uncomplicated urinary tract infections, cefazolin results can be used to predict susceptibility or resistance to cephalexin. Ceftriaxone S <=1 F Susceptible <=1 , Intermediate >1 , Resistant >=4 Cefepime S <=1 F Susceptible <=2 , Susceptible-Dose Dependent >2 , Resistant >=16 Ertapenem S <=0.5 F Susceptible <=0.5 , Intermediate >.5 , Resistant >1 Meropenem S <=0.25 F Susceptible <=1 , Intermediate >1 , Resistant >2 Ampicillin/Sulbact R >=32 F Susceptible <=8 , Intermediate >8 , Resistant >16 Piperacillin/Tazobac S <=4 F Susceptible <16 , Susceptible-Dose Dependent >=16 , Resistant >=32 Gentamicin S <=1 F Susceptible <=2 , Intermediate >2 , Resistant >=8 Tobramycin S <=1 F Susceptible <4 , Intermediate >=4 , Resistant >=8 Trimeth sulfameth R >=320 F Susceptible <=40 , Resistant >40 Ciprofloxacin S <=0.25 F Susceptible <0.5 , Intermediate >=.5 , Resistant >=1 Nitrofurantoin S <=16 F Susceptible <=32 , Intermediate >32 , Resistant >[address] [facility] [place] Comment on above: Order Comment: Speci men Type: URINE SPECIMEN Ordering Facility: [facility] Address: [address] [place] [address] Performed By: #### 2 4356-8 #### [facility] CLIA [id number] [address] [place] [address] [place] [facility] CLIA [id number] [address] [facility] [address] [place] XR RIB/CHST 3V AP RIB/OBL/CH ST Ja 09-09-2024 XR RIB/CHST 3V AP RIB/OBL/CHST L * * *Final Report* * * DATE OF EXAM: Sep 09 2024 8:32PM UDX 5243 - XR RIB/CHST 3V AP RIB/OBL/CHST L / PROCEDURE REASON: Other * * * * Physician Interpretation * * * * HISTORY: pt states generalized LT rib pain x 2 weeks. RESULT: Frontal view of the chest and frontal and oblique views of the left ribs. Three images are provided for interpretation. The frontal chest shows diminished lung volumes and streaky opacities in the lung bases, suggestive of atelectasis. No pneumothorax is appreciated. Frontal and oblique views of the left ribs show no acute fracture. IMPRESSION: Diminished lung volumes, with basilar atelectasis. No acute osseus injury demonstrated in the left ribs. Green Building Energy Engineer: LAZ Transcribe Date/Time: Sep 09 2024 9:14P Dictated by : GAGANDEEP SHIRLEY MD This examination was interpreted and the report reviewed and electronically signed by: GAGANDEEP SHIRLEY MD on Sep 09 2024 9:15PM EST [id number] [facility] Urine Cultureon 10-28-2023 Bacteria identified Cx Nom (U) Urine Culture STASAPStaphylococcus saprophyticusStaphylococc us saprophyticus CCColony Count >100,000 ORGANISM ID: 1.1 ANTIBIOTIC INTERPRETATION ISAIAH STATUS S <=0.5 F S <=0.12 F - NEG F S 0.5 F S <=0.5 F S 0.5 F S <=16 F R 2 F S <=0.5 F S <=1 F S <=10 F S <=0.5 F Normal [facility] Comment on above: Performed By: #### U R #### ML , EDon 10-26-2023 ED [facility] [address] [place] [id number] Emergency Department Note Signed Patient Name: Adriana Gregg Medical Recor d #: [id number] Date of : 2005 Account #: [id number] Age/Sex: 18 / F Location: ED Attending physician: HPI - General Adult General Date of Visit: 10/26/23 Chief complaint: Abdominal Pain Time Seen by Provider: 10/26/23 14:29 History of Present Illness HPI narrative: The patient is a 18 year old F who presented to the Emergency Department with the complaint of lower back pain. States that it started couple days ago when she woke up. Denies any injury, denies any numbness or tingling, denies any radiation of symptoms. Denies any urinary symptoms, denies any . Denies chest pain shortness of breath fevers or chills Mode of Arrival: Ambulatory Home Meds and Allergies Home Medications Medication Instructions Recorded Confirmed fluoxetine 40 mg capsule 40 mg PO DAILY 10/26/23 10/26/23 prazosin 2 mg capsule 2 mg PO BEDTIME 10/26/23 10/26/23 quetiapine 100 mg tablet 150 mg PO BEDTIME 10/26/23 10/26/23 quetiapine 25 mg tablet 25 mg PO DAILY 10/26/23 10/26/23 Previous Rx's Medication Instructions Recorded cyclobenzaprine 10 mg tablet 10 mg PO BEDTIME PRN muscle spasm 10/26/23 #7 tabs ibuprofen 800 mg tablet 800 mg PO Q8H PRN pain #14 tabs 10/26/23 Allergies Allergy/AdvReac Type Severity Reaction Status Date / Time lactose Allergy Unknown Verified 11/13/20 14:06 Review of Systems Status of ROS: Reports: 10 or more systems reviewed and unremarkable except as noted in History and below History PFSH Social History Preferred Language: Kenyan Usual Living Arrangement: With Spouse/Significant Other Smoking Status: Never Smoker Other Form of Tobacco Used: Never Used Second Hand Tobacco Smoke Exposure: No How Often do you Have a Drink Containing Alcohol: Never How Many Standard Drinks Containing Alcohol do you Have on a Typical Day: None How Often do you Have Six or More Drinks on One Occasion: Never AUDIT-C Alcohol Total Score: 0 Non-Prescribed Substance Use: Denies Use Has Patient Ever Been Admitted to Treatment Facility for Alcohol/Drug Abuse: No History of Physical Abuse: No History of Emotional Abuse: No History of Sexual Abuse: No Suspect/Identified Abuse: No Provider Notified of Abuse or Suspected Abuse: No Physical Exam Narrative: Vital signs, click to edit/add: Vital Signs - 24 hr 10/26/23 14:07 Temperature 97.9 F Pulse Rate [Left] 88 Respiratory Rate 18 Blood Pressure [Le ft Arm] 124/74 Pulse Oximetry 98 Oxygen Delivery Me thod Room Air Constitutional: Alert, oriented x 4, vital signs reviewed HENT: Normocephalic, atraumatic, nose is midline, external ears normal Eyes: equal, round and reactive, extra ocular muscles intact Neck: full range of motion Respiratory: No distress, clear to auscultation bilaterally Cardiovascular: regular rhythm and rate, no extra heart sounds, cap refill less than 3 seconds GI: Non-tender, non-distended, no rebound or guarding. Skin: no rashes or concerning lesions on exposed skin Neuro: Cranial nerves II through X intact, gag reflex not tested Musculoskeletal: Full range of motion all extremities, no deformity noted. Patient is ambulatory, able to stand on toes and heels. There is a mild tenderness palpation bilateral paraspinal muscles of the lumbar spine Medical Decision Making MDM Narrative Medical decision making narrative: Patient presents with low back pain axial, will discharge with muscle relaxers and anti- inflammatories. Instructed on heating pad and following up with family doctor. Lab Data Abnormal Labs: Abnormal Labs 10/26/23 15:20 Urine Protein 30 (1+) A Urine Occult Blood Small (1+) A Prot Sulfosalicylic Acd 1+ A Ur Leukocyte Esterase Small (1+) A Labs: Lab Results 10/26/23 Range/Units 15:20 Urine Color Yellow (YELLOW) Urine Appearance Cloudy (CLEAR) Urine pH 8.0 (5.5-8.0) Ur Specific [place] 1.025 (1.005-1.030) Urine Protein 30 (1+) A (Negative) mg/dL Urine Glucose (UA) Negative (Negative) mg/dL Urine Ketones Negative (Negative) mg/dL Urine Occult Blood Small (1+) A (Negative) Urine Nitrite Negative (Negative) Urine Bilirubin Negative (Negative) Prot Sulfosalicylic Acd 1+ A (Negative) Urine Urobilinogen 0.2 (0.2-1.0) EU/dL Ur Leukocyte Esterase Small (1+) A (Negative) Ur Microscopic Not Reportable Urine RBC 6-10 /hpf Urine WBC 21-50 /hpf Urine Bacteria 1+ /hpf Urine Test Negative 10/26/23 15:20 Urine Culture - Pending Urine,Clean Catch Procedures Procedural Sedation Performed Procedural Sedation P (more content not included)... Normal [facility] ED [facility] [address] [place] [address] Emergency Department Note Signed Patient Name: Adriana Gregg Recor d #: [id number] Date of : 2005 Account #: [id number] Age/Sex: 18 / F Location: ED Attending physician: EQUITY DIRECTOR/PA Attestation MDM Narrative Date of Visit: 10/26/23 Chief Complaint: Abdominal Pain Medical decision making narrative: I performed a history and physical examination of the patient and discussed management with the EQUITY DIRECTOR/PA. I reviewed the EQUITY DIRECTOR/PA's note and agree with the documented findings and plan of care. Any areas of disagreement are noted on the chart. I was personally present for the redd portions of any procedures. I have documented in the chart those procedures where I was not present during the redd portions. I have reviewed the emergency nurses triage note. I agree with the chief complaint, past medical history, past surgical history, allergies, medications, social and family history as documented unless otherwise noted below. Documentation of the HPI, Physical Exam and Medical Decision Making performed by the EQUITY DIRECTOR/PA is based on my personal performance of the HPI, PE and MDM. For EQUITY DIRECTOR/PA cases/ documentation I have personally evaluated this patient and have completed at least one if not all redd elements of the E/M (history, physical exam, and MDM). Patient presents with low back pain. No trauma. She arrived via EMS. No neurologic symptoms. Benign exam other than some mild lower paraspinal tenderness. Neurologic exam is within normal notes. Ambulating appropriately. Will disposition based on workup Discharge Plan Discharge (Provider) Referrals: PCP,No [Primary Care Provider] - ` Dictated By: Octaviano Whittaker DO 10/26/23 1504 Signed By: 10/26/23 1504 Cosigned By (if applicable): [id number] cc: Normal [facility] UA with Reflex Cultureon Bacteria Urine 1+ /hpf Normal [facility] Comment on above: Performed By: #### U PREG, UAREFLEX #### [facility] [address] [place] [address] RBC Urine 6-10 Normal [facility] Comment on above: Performed By: #### U PREG, UAREFLEX #### [facility] [address] [place] [address] WBC Urine 21-50 Normal [facility] Comment on above: Performed By: #### U PREG, UAREFLEX #### [facility] [address] [place] [address] Sulfosalicylic Acid Urine 1+ Abnormal Negative [facility] Comment on above: Performed By: #### U PREG, UAREFLEX #### [facility] [address] [place] [address] Appearance (U) CLOUDY Normal CLEAR [facility] Comment on above: Performed By: #### U PREG, UAREFLEX #### [facility] [address] [place] [address] Bilirubin Urine Negative Normal Negative [facility] Comment on above: Performed By: #### U PREG, UAREFLEX #### [facility] [address] [place] [address] Color (U) YELLOW Normal YELLOW [facility] Comment on above: Performed By: #### U PREG, UAREFLEX #### [facility] [address] [place] [address] Glucose Urine UA Negative Normal Negative [facility] Comment on above: Performed By: #### U PREG, UAREFLEX #### [facility] [address] [place] [address] Ketones Ql (U) Negative Normal Negative [facility] Comment on above: Performed By: #### U PREG, UAREFLEX #### [facility] [address] [place] [address] Leukocyte esterase Test strip Ql (U) Small (1+) Abnormal Negative [facility] Comment on above: Performed By: #### U PREG, UAREFLEX #### [facility] [address] [place] [address] Nitrite Urine Negative Normal Negative [facility] Comment on above: Performed By: #### U PREG, UAREFLEX #### [facility] [address] [place] [address] Occult Blood Urine Small (1+) Abnormal Negative [facility] Comment on above: Performed By: #### U PREG, UAREFLEX #### [facility] [address] [place] [place] [address] pH (U) 8.0 [pH] Normal 5.5-8.0 [facility] Comment on above: Performed By: #### U PREG, UAREFLEX #### [facility] [address] [place] [address] Protein Urine (Multistix) 30 (1+) Abnormal Negative [facility] Comment on above: Performed By: #### U PREG, UAREFLEX #### [facility] [address] [place] [address] Specific [place] Urine 1.025 Normal 1.005-1.030 [facility] Comment on above: Performed By: #### U PREG, UAREFLEX #### [facility] [address] [place] [address] Urobilinogen Urine 0.2 EU/dL Normal 0.2-1.0 [facility] Comment on above: Performed By: #### U PREG, UAREFLEX #### [facility] [address] [place] [address] Urine Teston 10-26 HCG ( test) Ql (U) Negative Normal [facility] Comment on above: Performed By: #### U PREG, UAREFLEX #### [facility] [address] [place] [address] Basic Metabolic Profon 03-22 Anion gap [Moles/Vol] 11 mmol/L Normal 9-17 [facility] Comment on above: Performed By: #### A HCV, VD25, HIVCMB, BMP #### [facility] [address] [place], [place] [id number] Children'S Ministry Director: Storm Selby MD Calcium [Mass/Vol] 9.5 mg/dL Normal 8.6-10.4 [facility] Comment on above: Performed By: #### A HCV, VD25, HIVCMB, BMP #### [employer] [address] [place] [address] Children'S Ministry Director: Storm Selby MD Chloride [Moles/Vol] 109 mmol/L High 98-107 [facility] Comment on above: Performed By: #### A HCV, VD25, HIVCMB, BMP #### [facility] [address] [place] [address] Children'S Ministry Director: Storm Selby MD CO2 [Moles/Vol] 22 mmol/L Normal 20-31 [facility] Comment on above: Performed By: #### A HCV, VD25, HIVCMB, BMP #### [facility] [address] [place] [address] Children'S Ministry Director: Storm Selby MD Creatinine [Mass/Vol] 0.61 mg/dL Normal 0.50-0.90 [facility] Comment on above: Performed By: #### A HCV, VD25, HIVCMB, BMP #### [facility] [address] [place] [address] Children'S Ministry Director: Storm Selby MD GFR/1.73 sq M.predicted among non-blacks MDRD (S/P/Bld) [Vol rate/Area] mL/min/{1.73_m2} Normal >60 [facility] Comment on above: Result Comment: These results are not intended for use in patients <18 years of age. eGFR results are calculated without a race factor using the 2020 CKD-EPI equation. Careful clinical correlation is recommended, particularly when comparing to results calculated using previous equations. The CKD-EPI equation is less accurate in patients with extremes of muscle mass, extra-renal metabolism of creatine, excessive creatine ingestion, or following therapy that affects renal tubular secretion. Performed By: #### A HCV, VD25, HIVCMB, BMP #### [address] [address] Children'S Ministry Director: Storm Selby MD Glucose [Mass/Vol] 83 mg/dL Normal 70-99 [facility] Comment on above: Performed By: #### A HCV, VD25, HIVCMB, BMP #### [address] [address] Children'S Ministry Director: Storm Selby MD Potassium [Moles/Vol] 4.4 mmol/L Normal 3.7-5.3 [facility] Comment on above: Performed By: #### A HCV, VD25, HIVCMB, BMP #### [address] [address] Children'S Ministry Director: Storm Selby MD Sodium [Moles/Vol] 142 mmol/L Normal 135-144 [facility] Comment on above: Performed By: #### A HCV, VD25, HIVCMB, BMP #### [address] [address] Children'S Ministry Director: Storm Selby MD Urea nitrogen [Mass/Vol] 11 mg/dL Normal 6-20 [facility] Comment on above: Performed By: #### A HCV, VD25, HIVCMB, BMP #### [address] [address] Children'S Ministry Director: Storm Selby MD Chlamydia/GC DNA, Uron 03-22 Chlamydia Probe, Ur Negative Normal NEG [facility] Comment on above: Result Comment: CHLA MYDIA TRACHOMATIS DNA not detected by nucleic acid amplification. This test is intended for medical purposes only and is not valid for the evaluation of suspected sexual abuse or for other forensic purposes. In certain contexts, culture may be required to meet applicable laws and regulations for diagnosis of C. trachomatis and N. gonorrhoeae infections. Per 2014 CDC recommendations, this test does not include confirmation of positive results by an alternative nucleic acid target. Performed By: #### U CGP #### [address] [id number] Children'S Ministry Director: Storm Selby MD Gonorrhea Probe, Ur Negative Normal NEG [facility] Comment on above: Result Comment: NEIS SERIA GONORRHOEAE DNA not detected by nucleic acid amplification. This test is intended for medical purposes only and is not valid for the evaluation of suspected sexual abuse or for other forensic purposes. In certain contexts, culture may be required to meet applicable laws and regulations for diagnosis of C. trachomatis and N. gonorrhoeae infections. Per 2014 CDC recommendations, this test does not include confirmation of positive results by an alternative nucleic acid target. Performed By: #### U CGP #### [address] [address] [employer] Director: Storm Selby MD HIV Ag/Abon 03-22-2023 HIV Ag/Ab Non-Reactive Normal NR [facility] Comment on above: Result Comment: No l aboratory evidence of HIV infection. If acute HIV infection is suspected, consider testing for HIV-1 RNA. Performed By: #### A HCV, VD25, HIVCMB, BMP #### [address] [id number] [employer] Director: Storm Selby MD Hep C Abon 03-22-2023 Hep C Ab Non-Reactive Normal NR [facility] Comment on above: Result Comment: The hepatitis C procedure used in our laboratory is a Chemiluminescent test specific for three recombinant HCV antigens. A negative anti-HCV result indicates that the antibodies to hepatitis C virus are not present at this time. Individuals with reactive anti-HCV should be considered infected and infectious until proven otherwise. Confirmation of all equivocal or reactive results is recommended by ordering HCV RNA by PCR. Performed By: #### A HCV, VD25, HIVCMB, BMP #### [address] [id number] [employer] Director: Storm Selby MD Hepatitis C Antibodyon 03-22 HCV Ab Ql (S) Non-Reactive NONREACTIVE [facility] Comment on above: The hepatitis C procedure used in our laboratory is a Chemiluminescent test specific for three recombinant HCV antigens. A negative anti-HCV result indicates that the antibodies to hepatitis C virus are not present at this time. Individuals with reactive anti-HCV should be considered infected and infectious until proven otherwise. Confirmation of all equivocal or reactive results is recommended by ordering HCV RNA by PCR. [facility] Vitamin D 25 OHon 03-22-2023 Vitamin D 25 OH 24.9 ng/mL Low >29.9 [facility] Comment on above: Result Comment: Reference Range: Vitamin D status Range Deficiency <20 ng/mL Mild Deficiency 20-30 ng/mL Sufficiency 30-100 ng/mL Toxicity >100 ng/mL Performed By: #### A HCV, VD25, HIVCMB, BMP #### [facility] [address] [place] [address] [employer] Director: Storm Selby MD Basic Metabolic Panelon 02-27 Anion gap [Moles/Vol] 11 mmol/L 9 - 17 mmol/L [facility] Calcium [Mass/Vol] 9.5 mg/dL 8.6 - 10. 4 mg/dL [facility] [employer] Chloride [Moles/Vol] 109 mmol/L High 98 - 10 7 mmol/L [facility] CO2 [Moles/Vol] 22 mmol/L 20 - 31 mmol/L [facility] [employer] Creatinine [Mass/Vol] 0.61 mg/dL 0.50 - 0.90 mg/dL [facility] GFR/1.73 sq M.predicted MDRD (S/P/Bld) [Vol rate/Area] - PINF [facility] [employer] Comment on above: These results are not intended for use in patients <18 years of age. eGFR results are calculated without a race factor using the 2020 CKD-EPI equation. Careful clinical correlation is recommended, particularly when comparing to results calculated using previous equations. The CKD-EPI equation is less accurate in patients with extremes of muscle mass, extra-renal metabolism of creatine, excessive creatine ingestion, or following therapy that affects renal tubular secretion. Glucose [Mass/Vol] 83 mg/dL 70 - 99 mg/dL [facility] Interpretation and review of laboratory results Abnormal [facility] [employer] [facility] Potassium [Moles/Vol] 4.4 mmol/L 3.7 - 5.3 mmol/L [facility] Sodium [Moles/Vol] 142 mmol/L 135 - 144 mmol/L [facility] Urea nitrogen [Mass/Vol] 11 mg/dL 6 - 20 mg/dL [facility] HIV Screenon 03-21-2023 HIV 1+2 Ab+HIV1 p24 Ag IA Ql Non-Reactive NONREACTIVE [facility] Comment on above: No laboratory eviden ce of HIV infection. If acute HIV infection is suspected, consider testing for HIV-1 RNA. [facility] Vitamin D 25 Hydroxyon 03-21 25-hydroxyvitamin D3 [Mass/Vol] 24.9 ng/mL Low 29.9 - PINF ng/mL [facility] Comment on above: Reference Range: Vitamin D status Range Deficiency <20 ng/mL Mild Deficiency 20-30 ng/mL Sufficiency 30-100 ng/mL Toxicity >100 ng/mL Interpretation and review of laboratory results Abnormal [facility] Cult,Urineon 03-10-2023 Cult,Urine Specimen Description .CLEAN CATCH URINE Culture NO SIGNIFICANT GROWTH Report Status FINAL 03/10/2023 Normal [facility] Comment on above: Performed By: #### U CGP #### [facility] [address] [place] [address] [employer] Director: Storm Selby MD Vaginitis DNA Probeon 2022 Diego Negative Normal NEG [facility] Comment on above: Result Comment: for Diego sp. Method of testing is a DNA probe intended for detection and identification of Diego species, Gardnerella vaginalis, and Trichomonas vaginalis nucleic acid in vaginal fluid specimens from patients with symptoms of vaginitis/vaginosis. Performed By: #### V AGP #### [facility] [address] [place], [place] [id number] [employer]: Storm Selby MD Gardnerella Negative Normal NEG [facility] Comment on above: Result Comment: for Gardnerella vaginalis Performed By: #### V AGP #### [address] [address] [employer] Director: Storm Selby MD Trichomonas Negative Normal NEG [facility] Comment on above: Result Comment: for Trichomonas Vaginalis Performed By: #### V AGP #### [address] [address] [employer] Director: Storm Selby MD Source .VAGINAL SWAB Normal [facility] Comment on above: Performed By: #### V AGP #### [address] [phone] [employer] Director: Storm Selby MD Cult,Genitalon 09-20-2022 Cult,Genital Specimen Description .VAGINA Culture STREPTOCOCCI, BETA HEMOLYTIC GROUP B LIGHT GROWTH NORMAL URO-GENITAL SAM NEGATIVE FOR NEISSERIA GONORRHOEAE Report Status FINAL 09/20/2022 Abnormal [facility] Comment on above: Performed By: #### G EC #### [address] [address] [employer] Director: Storm Selby MD Vaginitis DNA Probeon 2021 Diego Negative Normal NEG [facility] Comment on above: Result Comment: for Diego sp. Method of testing is a DNA probe intended for detection and identification of Diego species, Gardnerella vaginalis, and Trichomonas vaginalis nucleic acid in vaginal fluid specimens from patients with symptoms of vaginitis/vaginosis. Performed By: #### V AGP #### [address] [address] [employer] Director: Storm Selby MD Gardnerella Negative Normal NEG [facility] Comment on above: Result Comment: for Gardnerella vaginalis Performed By: #### V AGP #### [address] [address] [employer] Director: Stomr Selby MD Trichomonas Negative Normal NEG [facility] Comment on above: Result Comment: for Trichomonas Vaginalis Performed By: #### V AGP #### [facility] [place] [address] [employer] Director: Storm Selby MD Source .VAGINAL SWAB Normal [facility] Comment on above: Performed By: #### V AGP #### [facility] [place], [place] [phone] [employer] Director: Storm Selby MD Cult,Urineon 07-07-2022 Cult,Urine Specimen Description .CLEAN CATCH URINE Culture ESCHERICHIA COLI >190900 CFU/ML STREPTOCOCCI, BETA HEMOLYTIC GROUP B <37249 CFU/ML Group B strep is identified at any colony count in a female who could potentially be based on age only. Group B strep isolated in urine at any colony count is considered a surrogate for vaginal rectal colonization in the context of determining jaclyn-darrin therapy. Treatment for UTI or asymptomatic bacteriuria should be based on colony count and clinical symptoms and not on the presence of the organism alone. Report Status FINAL 07/07/2022 SUSCEPTIBILITY Organism ESCHERICHIA COLI Method ISAIAH Ampicillin 8 SUSCEPTIBLE Aztreonam <=1 SUSCEPTIBLE Cefazolin <=4 SUSCEPTIBLE Cefazolin sensitivity results can be used to predict the effectiveness of oral cephalosporins (eg. Cephalexin) in uncomplicated Urinary Tract Infections due to E. coli, K. pneumoniae, and P. mirabilis Ceftriaxone <=1 SUSCEPTIBLE Ciprofloxacin <=0.25 SUSCEPTIBLE ESBL NEGATIVE Gentamicin <=1 SUSCEPTIBLE Nitrofurantoin <=16 SUSCEPTIBLE Tobramycin <=1 SUSCEPTIBLE Trimethoprim/Sulfa <=20 SUSCEPTIBLE Piperacillin/Tazobactam <=4 SUSCEPTIBLE Susceptible [facility] Comment on above: Performed By: #### U RC #### [facility] [place], [place] [address] [employer]: Storm Selby MD Vaginitis DNA Probeon 2021 Diego Negative Normal NEG [facility] Comment on above: Result Comment: for Diego sp. Method of testing is a DNA probe intended for detection and identification of Diego species, Gardnerella vaginalis, and Trichomonas vaginalis nucleic acid in vaginal fluid specimens from patients with symptoms of vaginitis/vaginosis. Performed By: #### V AGP #### [address] [place] [address] [employer] Director: Storm Selby MD Gardnerella Negative Normal NEG [facility] Comment on above: Result Comment: for Gardnerella vaginalis Performed By: #### V AGP #### [address] [address] [employer] Director: Storm Selby MD Trichomonas Negative Normal NEG [facility] Comment on above: Result Comment: for Trichomonas Vaginalis Performed By: #### V AGP #### [address] [address] [employer] Director: Storm Selby MD Vaginitis DNA Probeon 2021 Source .VAGINAL SWAB Normal [facility] Comment on above: Performed By: #### V AGP #### [address] [address] [employer] Director: Storm Selby MD Comp Metabolic Profon 2021 AST [Catalytic activity/Vol] 22 U/L Normal <32 [facility] Comment on above: Performed By: #### T DEVON DUARTE, VD25 #### [address] [address] [employer] Director: Storm Selby MD (cont.) Normal [facility] Comment on above: Result Comment: Aver age GFR for <20 years old not available. Chronic Kidney Disease: <60 mL/min/1.73sq m Kidney failure: <15 mL/min/1.73sq m eGFR calculated using average adult body mass. Additional eGFR calculator available at: http://www.Sqoot.com/multiple_crcl_2012.htm Performed By: #### T GERALD CP, VD25 #### [facility] [address] [place] [phone] [employer] Director: Storm Selby MD Albumin [Mass/Vol] 4.7 g/dL High 3.2-4.5 [facility] Comment on above: Performed By: #### T MARIA ISABELX, CP, VD25 #### [facility] [address] [place] [address] [employer] Director: Storm Selby MD Albumin/Glob Ratio 1.5 Normal 1.0-2.5 [facility] Comment on above: Performed By: #### T SHX, CP, VD25 #### [facility] [address] [place] [address] [employer] Director: Storm Selby MD Alkaline Phos 85 U/L Normal 47-119 [facility] Comment on above: Performed By: #### T MARIA ISABELX, CP, VD25 #### [facility] [address] [place] [address] [employer] Director: Storm Selby MD ALT [Catalytic activity/Vol] 17 U/L Normal 5-33 [facility] Comment on above: Performed By: #### T MARIA ISABELX, CP, VD25 #### [facility] [address] [place] [address] [employer] Director: Storm Selby MD Anion gap [Moles/Vol] 18 mmol/L High 9-17 [facility] Comment on above: Performed By: #### T MARIA ISABELX, CP, VD25 #### [facility] [address] [place] [address] [employer] Director: Storm Selby MD Bilirubin [Mass/Vol] 0.48 mg/dL Normal 0.3-1.2 [facility] Comment on above: Performed By: #### T SHX, CP, VD25 #### [facility] [address] [place] [address] [employer] Director: Storm Selby MD Calcium [Mass/Vol] 9.8 mg/dL Normal 8.4-10.2 [facility] Comment on above: Performed By: #### T SHX, CP, VD25 #### [facility] [address] [place] [address] [employer] Director: Storm Selby MD Chloride [Moles/Vol] 103 mmol/L Normal 98-107 [facility] Comment on above: Performed By: #### T SHX, CP, VD25 #### [address] [address] [employer] Director: Storm Selby MD CO2 [Moles/Vol] 19 mmol/L Low 20-31 [facility] Comment on above: Performed By: #### T MARIA ISABELX CP, VD25 #### [facility] [address] [place] [address] [employer] Director: Storm Selby MD Creatinine [Mass/Vol] 0.51 mg/dL Normal 0.50-0.90 [facility] Comment on above: Performed By: #### T MARIA ISABELX CP, VD25 #### [facility] [address] [place] [address] [employer] Director: Storm Selby MD GFR,non Amer Pediatric GFR requi res additional information. Refer to NKDEP website for Normal >60 [facility] Comment on above: Result Comment: calc ulator. Performed By: #### T GERALD, CP, VD25 #### [facility] [address] [place] [address] [employer] Director: Storm Selby MD Glucose [Mass/Vol] 84 mg/dL Normal 60-100 [facility] Comment on above: Performed By: #### T MARIA ISABELX, CP, VD25 #### [facility] [address] [place] [address] [employer] Director: Storm Selby MD Potassium [Moles/Vol] 4.5 mmol/L Normal 3.6-4.9 [facility] Comment on above: Performed By: #### T SHX, CP, VD25 #### [facility] [address] [place] [address] [employer] Director: Storm Selby MD Protein [Mass/Vol] 7.8 g/dL Normal 6.0-8.0 [facility] Comment on above: Performed By: #### T DEVON DUARTE, VD25 #### [facility] [address] [place] [address] [employer] Director: Storm Selby MD Sodium [Moles/Vol] 140 mmol/L Normal 135-144 [facility] Comment on above: Performed By: #### Jose Antonio DUARTE CP, VD25 #### [facility] [address] [place] [address] [employer] Director: Storm Selby MD Urea nitrogen [Mass/Vol] 13 mg/dL Normal 5-18 [facility] Comment on above: Performed By: #### Jose Antonio DUARTE CP, VD25 #### [facility] [address] [place] [address] [employer] Director: Storm Selby MD Comprehensive Metabolic Pane [facility] 12-03-2021 Albumin [Mass/Vol] 4.7 g/dL High 3.2 - 4.5 g/dL [facility] Albumin/Globulin [Mass ratio] 1.5 {ratio} [facility] ALP (Bld) [Catalytic activity/Vol] 85 U/L 47 - 119 U/L [facility] ALT [Catalytic activity/Vol] 17 U/L 5 - 33 U/L [facility] Anion gap [Moles/Vol] 18 mmol/L High 9 - 17 mmol/L [facility] AST [Catalytic activity/Vol] 22 U/L <32 [facility] Bilirubin [Mass/Vol] 0.48 mg/dL 0.3 - 1 .2 mg/dL [facility] Calcium [Mass/Vol] 9.8 mg/dL 8.4 - 10. 2 mg/dL [facility] Chloride [Moles/Vol] 103 mmol/L 98 - 10 7 mmol/L [facility] CO2 [Moles/Vol] 19 mmol/L Low 20 - 31 mmol/L [facility] Creatinine [Mass/Vol] 0.51 mg/dL 0.50 - 0.90 mg/dL [facility] Free PSA/Total PSA [Mass fraction] 7.8 g/dL 6.0 - 8.0 g/dL [facility] GFR NOT REPORTED >60 mL/min [facility] GFR Non- Pediatric GFR requires additional information. Refer to NKDEP website for calculator. >60 mL/min [facility] GFR/1.73 sq M.predicted MDRD (S/P/Bld) [Vol rate/Area] [facility] Comment on above: Average GFR for <20 years old not available. Chronic Kidney Disease: <60 mL/min/1.73sq m Kidney failure: <15 mL/min/1.73sq m eGFR calculated using average adult body mass. Additional eGFR calculator available at: http://www.Encap/multiple_crcl_2012.htm GFR/1.73 sq M.predicted MDRD (S/P/Bld) [Vol rate/Area] NOT REPORTED [facility] Glucose [Mass/Vol] 84 mg/dL 60 - 100 mg/dL [facility] Interpretation and review of laboratory results Abnormal [facility] Potassium [Moles/Vol] 4.5 mmol/L 3.6 - 4.9 mmol/L [facility] Sodium [Moles/Vol] 140 mmol/L 135 - 144 mmol/L [facility] Urea nitrogen (BldV) [Mass/Vol] 13 mg/dL 5 - 18 mg/dL [facility] Urea nitrogen/Creatinine (Bld) [Mass ratio] NOT REPORTED [facility] TSH w/reflex to FT4on 2021 TSH Qn 2.76 m[IU]/L Normal 0.30-5.00 [facility] Comment on above: Performed By: #### T GERALD, DEVON, VD25 #### [facility] [address] [place] [address] [employer] Director: Storm Selby MD TSH with Reflexon 12-03-2021 TSH Qn 2.76 m[IU]/L [facility] Vitamin D 25 Hydroxyon 12-03 Vit D, 25-Hydroxy 56.9 ng/mL 30.0 - 100 .0 ng/mL [facility] Comment on above: Reference Range: Vitamin D status Range Deficiency <20 ng/mL Mild Deficiency 20-30 ng/mL Sufficiency 30-100 ng/mL Toxicity >100 ng/mL [facility] Vitamin D 25 OHon 12-03-2021 Vitamin D 25 OH 56.9 ng/mL Normal 30.0-100.0 [facility] Comment on above: Result Comment: Reference Range: Vitamin D status Range Deficiency <20 ng/mL Mild Deficiency 20-30 ng/mL Sufficiency 30-100 ng/mL Toxicity >100 ng/mL Performed By: #### V AGDNA #### [address] [address] [employer] Director: Sotrm Selby MD Comp Metabolic Profon 2021 BUN/CRE Ratio NOT REPORTED Normal 08-17 [facility] Comment on above: Performed By: #### T SHX, CP, VD25 #### [address] [address] [employer] Director: Storm Selby MD GFR, Amer NOT REPORTED Normal >60 [facility] Comment on above: Performed By: #### T SHX, CP, VD25 #### [facility] [address] [place] [address] [employer] Director: Storm Selby MD Staging: NOT REPORTED Normal [facility] Comment on above: Performed By: #### T SHX, CP, VD25 #### [facility] [address] [place] [address] [employer] Director: Storm Selby MD UA w/Reflex Cultureon 2020 Bilirubin, SemiQt,Ur Negative Normal NEG [facility] Comment on above: Performed By: #### U MICAO, UAX #### [address] [address] [employer] Director: Storm Selby MD Blood, Urine Negative Normal NEG [facility] Comment on above: Performed By: #### U MICAO, UAX #### [address] [address] [employer] Director: Storm Selby MD Clarity (U) Clear Normal CLEAR [facility] Comment on above: Performed By: #### U MICAO, UAX #### [address] [address] [employer] Director: Storm Selby MD Color (U) Yellow Normal YEL [facility] Comment on above: Performed By: #### U MICAO, UAX #### [address] [address] [employer] Director: Storm Selby MD Glucose Ql (U) Negative Normal NEG [facility] Comment on above: Performed By: #### U MICAO, UAX #### [address] [address] [employer] Director: Storm Selby MD Ketones Ql (U) Negative Normal NEG [facility] Comment on above: Performed By: #### U MICAO, UAX #### [address] [address] [employer] Director: Storm Selby MD Leukocyte esterase Test strip Ql (U) SMALL Abnormal NEG [facility] Comment on above: Performed By: #### U MICAO, UAX #### [address] [address] [employer] Director: Storm Selby MD Nitrite,Ur Negative Normal NEG [facility] Comment on above: Performed By: #### U MICAO, UAX #### [address] [address] [employer] Director: Storm Selby MD PH,Ur 6.5 Normal 5.0-8.0 [facility] Comment on above: Performed By: #### U MICAO, UAX #### [facility] [address] [place] [address] [employer] Director: Storm Selby MD Protein Ql (U) Negative Normal NEG [facility] Comment on above: Performed By: #### U MICAO, UAX #### [facility] [address] [place] [address] [employer] Director: Storm Selby MD Spec. [place],Ur 1.016 Normal 1.005-1.030 [facility] Comment on above: Performed By: #### U MICAO, UAX #### [facility] [address] [place] [address] [employer] Director: Storm Selby MD Urobilinogen,Ur Normal Normal NORM [facility] Comment on above: Performed By: #### U MICAO, UAX #### [facility] [address] [place] [phone] [employer] Director: Storm Selby MD Comment NOT REPORTED Normal [facility] Comment on above: Performed By: #### U MICAO, UAX #### [facility] [address] [place] [address] [employer] Director: Storm Selby MD Urinalysis,Microon 1 ----- Normal [facility] Comment on above: Performed By: #### U MICAO, UAX #### [facility] [address] [place] [address] [employer] Director: Storm Selby MD Bacteria MODERATE Abnormal NONE [facility] Comment on above: Performed By: #### U MICAO, UAX #### [facility] [address] [place] [address] [employer] Director: Storm Selby MD Casts 5 TO 10 HYALINE Normal 0-8 [facility] Comment on above: Result Comment: Refe rence range defined for non-centrifuged specimen. Performed By: #### U MICAO, UAX #### [facility] [address] [place] [phone] [employer] Director: Storm Selby MD Epithelial cells LM Ql (Urine sed) 5 TO 10 Normal 0-5 [facility] Comment on above: Performed By: #### U MICAO, UAX #### [facility] [address] [place] [address] [employer] Director: Storm Selby MD Urine RBC's 0 TO 2 Normal 0-4 [facility] Comment on above: Result Comment: Refe rence range defined for non-centrifuged specimen. Performed By: #### U MICAO, UAX #### [address] [address] [employer] Director: Storm Selby MD Urine WBC's 5 TO 10 Normal 0-5 [facility] Comment on above: Performed By: #### U MICAO, UAX #### [address] [address] [employer] Director: Storm Selby MD Amorphous sediment LM Ql (Urine sed) NOT REPORTED Normal NONE [facility] Comment on above: Performed By: #### U MICAO, UAX #### [facility] [address] [place] [phone] [employer]: Storm Selby MD Crystals LM Nom (Urine sed) NOT REPORTED Normal NONE [facility] Comment on above: Performed By: #### U MICAO, UAX #### [facility] [address] [place] [phone] Children'S Ministry Director: Storm Selby MD Epithelial, Renal NOT REPORTED Normal 0 [facility] Comment on above: Performed By: #### U MICAO, UAX #### [facility] [address] [place] [phone] Children'S Ministry Director: Storm Selby MD Mucus Strands NOT REPORTED Normal NONE [facility] Comment on above: Performed By: #### U MICAO, UAX #### [facility] [address] [place] [phone] Children'S Ministry Director: Storm Selby MD Other Observations NOT REPORTED Normal NREQ [facility] Comment on above: Performed By: #### U MICAO, UAX #### [facility] [address] [place] [phone] Children'S Ministry Director: Storm Selby MD Trichomonas NOT REPORTED Normal NONE [facility] Comment on above: Performed By: #### U MICAO, UAX #### [facility] [address] [place] [address] Children'S Ministry Director: Storm Selby MD Yeast NOT REPORTED Normal NONE [facility] Comment on above: Performed By: #### U MICAO, UAX #### [facility] [address] [place] [phone] Children'S Ministry Director: Storm Selby MD Laboratory - Chemistry and C hemistry - challengeOrdered By: Keisha Tapia on 10-16-2021 Ketones Ql (U) Negative (NEG ) [facility] Work Phone: Comment on above: Note: Responsible Ob meteorological observer: SETH ANSARI ([id number]) Laboratory - Microbiology an d Antimicrobial susceptibilityOrdered By: Keisha Tapia on 10-16-2021 Bacteria identified Cx Nom (Unsp spec) MODERATE Abnormal (NONE ) [facility] Work Phone: Comment on above: Note: Responsible Ob meteorological observer: SETH ANSARI ([id number]) Laboratory - Specimen inform ationOrdered By: Keisha Tapia on 10-16-2021 Clarity (U) Clear (CLEAR ) [facility] Work Phone: Comment on above: Note: Responsible Ob meteorological observer: SETH ANSARI ([id number]) Color (U) Yellow (YEL ) [facility] Work Phone: Comment on above: Note: Responsible Ob meteorological observer: SETH ANSARI ([id number]) Laboratory - UrinalysisOrder ed By: Keisha Tapia on 10-16-2021 Amorphous sediment LM Ql (Urine sed) NOT REPORTED (NONE ) [facility] Work Phone: Crystals LM Nom (Urine sed) NOT REPORTED /HPF (NONE ) [facility] Work Phone: Epithelial cells LM Ql (Urine sed) 5 TO 10 /HPF (0-5 ) [facility] Work Phone: Comment on above: Note: Responsible Ob meteorological observer: SETH ANSARI ([id number]) Yeast LM Ql (Urine sed) NOT REPORTED (NONE ) [facility] Work Phone: Microscopic Urinalysison - IT MOVES IT Amorphous, UA NOT REPORTED None IT MOVES IT Bacteria, UA MODERATE Abnormal None IT MOVES IT Casts UA 5 TO 10 HYALINE Refe rence range defined for non-centrifuged specimen. IT MOVES IT Crystals, UA NOT REPORTED None /HPF IT MOVES IT Epithelial Cells UA 5 TO 10 IT MOVES IT Interpretation and review of laboratory results Abnormal IT MOVES IT Mucus, UA NOT REPORTED None IT MOVES IT Other Observations UA NOT REPORTED NOT REQ. [facility] RBC, UA 0 TO 2 IT MOVES IT Comment on above: Reference range defi lyle for non-centrifuged specimen. Renal Epithelial, UA NOT REPORTED 0 /HPF [facility] Trichomonas, UA NOT REPORTED None IT MOVES IT WBC, UA 5 TO 10 IT MOVES IT Yeast, UA NOT REPORTED None [facility] No Panel InformationOrdered By: Keisha Tapia on 10-16-2021 ----- See Note [facility] Work Phone: Comment on above: Note: Responsible Ob meteorological observer: SETH ANSARI ([id number]) Bilirubin, SemiQt,Ur Negative (NEG ) [facility] Work Phone: Comment on above: Note: Responsible Ob meteorological observer: SETH ANSARI (306) Blood, Urine Negative (NEG ) [facility] Work Phone: Comment on above: Note: Responsible Ob meteorological observer: SETH ANSARI ([id number]) Casts 5 TO 10 HYALINE /LPF (0-8 ) [facility] Work Phone: Comment on above: Note: Reference rang e defined for non-centrifuged specimen.Responsible Observer: SETH ANSARI ([id number]) Comment NOT REPORTED [facility] Work Phone: Epithelial, Renal NOT REPORTED /HPF (0 ) [facility] Work Phone: Glucose,Semi-qnt,Ur Negative (NEG ) [facility] Work Phone: Comment on above: Note: Responsible Ob meteorological observer: SETH ANSARI ([id number]) Leuckocyte Esterase SMALL Abnormal (NEG ) [facility] Work Phone: Comment on above: Note: Responsible Ob meteorological observer: SETH ANSARI (306) Mucus Strands NOT REPORTED (NONE ) [facility] Work Phone: Nitrite,Ur Negative (NEG ) [facility] Work Phone: Comment on above: Note: Responsible Ob meteorological observer: SETH ANSARI (306) Other Observations NOT REPORTED (NREQ ) [facility] Work Phone: PH,Ur 6.5 (5.0-8.0 ) [facility] Work Phone: Comment on above: Note: Responsible Ob meteorological observer: SETH ANSARI (306) Protein, Semi-qnt,Ur Negative (NEG ) [facility] Work Phone: Comment on above: Note: Responsible Ob meteorological observer: SETH ANSARI ([id number]) Reported Physicians See Note [facility] Work Phone: Comment on above: Note: Reported Physi cians:Ordering: Keisha TapiaAttending: Keisha TapiaReferring: Keisha Tapia Spec. [place],Ur 1.016 (1.005-1.03 0 ) [facility] Work Phone: Comment on above: Note: Responsible Ob meteorological observer: SETH ANSARI ([id number]) Trichomonas NOT REPORTED (NONE ) [facility] Work Phone: Urine RBC's 0 TO 2 /HPF (0-4 ) [facility] Work Phone: Comment on above: Note: Reference rang e defined for non-centrifuged specimen.Responsible Observer: SETH ANSARI ([id number]) Urine WBC's 5 TO 10 /HPF (0-5 ) [facility] Work Phone: Comment on above: Note: Responsible Ob meteorological observer: SETH ANSARI ([id number]) Urobilinogen,Ur Normal (NORM ) [facility] Work Phone: Comment on above: Note: Responsible Ob meteorological observer: SETH ANSARI ([id number]) Urinalysis Reflex to Culture on 10-16-2021 Bilirubin Urine Negative NEGATIVE IT MOVES IT Color, UA Yellow Yellow IT MOVES IT Glucose, Ur Negative NEGATIVE IT MOVES IT Interpretation and review of laboratory results Abnormal [facility] Ketones Ql (U) Negative NEGATIVE IT MOVES IT Leukocyte esterase Test strip Ql (U) SMALL Abnormal NEGATIVE [facility] Nitrite, Urine Negative NEGATIVE [facility] pH, UA 6.5 [facility] Protein, UA Negative NEGATIVE [facility] Specific [place], UA 1.016 [facility] Turbidity UA Clear Clear [facility] Urinalysis Comments NOT REPORTED [facility] Urine Hgb Negative NEGATIVE [facility] Urobilinogen, Urine Normal Normal [facility] - Chemistry and C hemistry - challengeOrdered By: Keisha Tapia on 09-03-2021 Ketones Ql (U) SMALL Abnormal (NEG ) [facility] Work Phone: Comment on above: Note: Responsible Ob meteorological observer: EITAN WILLSON ([id number]) Laboratory - Microbiology an d Antimicrobial susceptibilityOrdered By: Keisha Tapia on 09-03-2021 Bacteria identified Cx Nom (Unsp spec) MODERATE Abnormal (NONE ) [facility] Work Phone: Comment on above: Note: Responsible Ob meteorological observer: EITAN WILLSON ([id number]) Laboratory - Specimen inform ationOrdered By: Keisha Tapia on 09-03-2021 Clarity (U) Turbid Abnormal (CLEAR ) [facility] Work Phone: Comment on above: Note: Responsible Ob meteorological observer: EITAN WILLSON ([id number]) Color (U) Yellow (YEL ) [facility] Work Phone: Comment on above: Note: Responsible Ob meteorological observer: EITAN WILLSON ([id number]) Laboratory - UrinalysisOrder ed By: Keisha Tapia on 09-03-2021 Amorphous sediment LM Ql (Urine sed) 3+ Abnormal (NONE ) [facility] Work Phone: Comment on above: Note: Responsible Ob meteorological observer: EITAN WILLSON ([id number]) Crystals LM Nom (Urine sed) CALCIUM OXALATE /HPF Abnormal (NONE ) [facility] Work Phone: Comment on above: Note: FEWResponsible Observer: EITAN WILLSON ([id number]) Epithelial cells LM Ql (Urine sed) 20 TO 50 /HPF (0-5 ) [facility] Work Phone: Comment on above: Note: Responsible Ob meteorological observer: EITAN WILLSON ([id number]) Yeast LM Ql (Urine sed) NOT REPORTED (NONE ) [facility] Work Phone: Microscopic UrinalysisOrdere d By: Keisha Tapia on 09-03-2021 - [facility] Phone: Amorphous, UA 3+ Abnormal None [facility] Phone: Bacteria, UA MODERATE Abnormal None [facility] Phone: Casts UA NOT REPORTED [facility] Phone: Crystals, UA CALCIUM OXALATE Abnormal None /HPF [facility] Phone: Crystals, UA FEW Abnormal None /HPF [facility] Phone: Epithelial Cells UA 20 TO 50 [facility] Work Phone: Interpretation and review of laboratory results Abnormal [facility] Phone: Mucus, UA 2+ Abnormal None [facility] Work Phone: Other Observations UA NOT REPORTED NOT REQ. [facility] Work Phone: RBC, UA 2 TO 5 [facility] Phone: Renal Epithelial, UA NOT REPORTED 0 /HPF [facility] Work Phone: Trichomonas, UA NOT REPORTED None [facility] Phone: WBC, UA 5 TO 10 [facility] Phone: Yeast, UA NOT REPORTED None [facility] Work Phone: [facility]: No Panel InformationOrdered By: Keisha Tapia on 09-03-2021 ----- See Note [facility] Work Phone: Comment on above: Note: Responsible Ob meteorological observer: EITAN WILLSON ([id number]) Bilirubin, SemiQt,Ur Negative (NEG ) [facility] Work Phone: Comment on above: Note: Responsible Ob meteorological observer: EITAN WILLSON ([id number]) Blood, Urine Negative (NEG ) [facility] Work Phone: Comment on above: Note: Responsible Ob meteorological observer: EITAN WILLSON ([id number]) Casts NOT REPORTED /LPF (0-2 ) [facility] Work Phone: Comment NOT REPORTED [facility] Work Phone: Epithelial, Renal NOT REPORTED /HPF (0 ) [facility] Work Phone: Glucose,Semi-qnt,Ur Negative (NEG ) [facility] Work Phone: Comment on above: Note: Responsible Ob meteorological observer: EITAN WILLSON ([id number]) Leuckocyte Esterase TRACE Abnormal (NEG ) [facility] Work Phone: Comment on above: Note: Responsible Ob meteorological observer: EITAN WILLSON ([id number]) Mucus Strands 2+ Abnormal (NONE ) [facility] Work Phone: Comment on above: Note: Responsible Ob meteorological observer: EITAN WILLSON ([id number]) Nitrite,Ur Negative (NEG ) [facility] Work Phone: Comment on above: Note: Responsible Ob meteorological observer: EITAN WILLSON ([id number]) Other Observations NOT REPORTED (NREQ ) [facility] Work Phone: PH,Ur 6.5 (5.0-8.0 ) [facility] Work Phone: Comment on above: Note: Responsible Ob meteorological observer: EITAN WILLSON ([id number]) Protein, Semi-qnt,Ur TRACE Abnormal (NEG ) [facility] Work Phone: Comment on above: Note: Responsible Ob meteorological observer: EITAN WILLSON ([id number]) Reported Physicians See Note [facility] Work Phone: Comment on above: Note: Reported Physi cians:Ordering: Keisha TapiaAttending: Keisha TapiaReferring: Keisha Tapia Spec. [place],Ur 1.028 (1.005-1.03 0 ) [facility] Work Phone: Comment on above: Note: Responsible Ob meteorological observer: EITAN WILLSON ([id number]) Trichomonas NOT REPORTED (NONE ) [facility] Work Phone: Urine RBC's 2 TO 5 /HPF (0-2 ) [facility] Work Phone: Comment on above: Note: Responsible Ob meteorological observer: EITAN CORNELLGUILLERMINAJanna ([id number]) Urine WBC's 5 TO 10 /HPF (0-5 ) [facility] Work Phone: Comment on above: Note: Responsible Ob meteorological observer: EITAN ANAMIKA ([id number]) Urobilinogen,Ur Normal (NORM ) [facility] Work Phone: Comment on above: Note: Responsible Ob meteorological observer: EITAN WILLSON ([id number]) UA w/Reflex Cultureon 2020 Bilirubin, SemiQt,Ur Negative Normal NEG [facility] Comment on above: Performed By: #### U SADIO, UAX #### [facility] [address] [place] [address] [phone] Children'S Ministry Director: Storm Selby MD Blood, Urine Negative Normal NEG [facility] Comment on above: Performed By: #### U MICAO, UAX #### [facility] [address] [place] [address] [phone] Children'S Ministry Director: Storm Selby MD Clarity (U) Turbid Abnormal CLEAR [facility] Comment on above: Performed By: #### U MICAO, UAX #### [facility] [address] [place] [address] [phone] Children'S Ministry Director: Storm Selby MD Color (U) Yellow Normal YEL [facility] Comment on above: Performed By: #### U MICAO, UAX #### [facility] [address] [place] [address] 73729 Children'S Ministry Director: Storm Selby MD Glucose Ql (U) Negative Normal NEG [facility] Comment on above: Performed By: #### U MICAO, UAX #### [facility] [address] [place] [address] Children'S Ministry Director: Storm Selby MD Ketones Ql (U) SMALL Abnormal NEG [facility] Comment on above: Performed By: #### U MICAO, UAX #### [facility] [address] [place] [phone] Children'S Ministry Director: Storm Selby MD Leukocyte esterase Test strip Ql (U) TRACE Abnormal NEG [facility] Comment on above: Performed By: #### U MICAO, UAX #### [facility] [address] [place] [phone] Children'S Ministry Director: Storm Selby MD Nitrite,Ur Negative Normal NEG [facility] Comment on above: Performed By: #### U MICAO, UAX #### [address] [address] Children'S Ministry Director: Storm Selby MD PH,Ur 6.5 Normal 5.0-8.0 [facility] Comment on above: Performed By: #### U MICAO, UAX #### [address] [address] Children'S Ministry Director: Storm Selby MD Protein Ql (U) TRACE Abnormal NEG [facility] Comment on above: Performed By: #### U MICAO, UAX #### [facility] [address] [place] [address] 8[address]81 Children'S Ministry Director: Storm Selby MD Spec. [place],Ur 1.028 Normal 1.005-1.030 [facility] Comment on above: Performed By: #### U MICAO, UAX #### [facility] [address] [place] [phone] Children'S Ministry Director: Storm Selby MD Urobilinogen,Ur Normal Normal NORM [facility] Comment on above: Performed By: #### U MICAO, UAX #### [facility] [address] [place] [address] Children'S Ministry Director: Storm Selby MD Comment NOT REPORTED Normal [facility] Comment on above: Performed By: #### U MICAO, UAX #### [facility] [address] [place], [place] [phone] Children'S Ministry Director: Storm Selby MD Urinalysis Reflex to Culture Ordered By: Keisha Tapia on 09-03-2021 Bilirubin Urine Negative NEGATIVE [facility] Work Phone: Color, UA Yellow Yellow [facility] Work Phone: Glucose, Ur Negative NEGATIVE [facility] Work Phone: Interpretation and review of laboratory results Abnormal [facility] Work Phone: Ketones Ql (U) SMALL Abnormal NEGATIVE [facility] Work Phone: Leukocyte esterase Test strip Ql (U) TRACE Abnormal NEGATIVE [facility] Work Phone: Nitrite, Urine Negative NEGATIVE [facility] Work Phone: pH, UA 6.5 [facility] Work Phone: [phone] Protein, UA TRACE Abnormal NEGATIVE [facility] Work Phone: Specific [place], UA 1.028 [employer] Work Phone: Turbidity UA Turbid Abnormal Clear [facility] Work Phone: Urinalysis Comments NOT REPORTED [facility] Work Phone: Urine Hgb Negative NEGATIVE [facility] Work Phone: Urobilinogen, Urine Normal Normal [facility] Work Phone: [facility] Work Phone: Urinalysis,Microon 1 ----- Normal [facility] Comment on above: Performed By: #### U MICAO, UAX #### [facility] [address] [place] [phone] Children'S Ministry Director: Storm Selby MD Amorphous sediment LM Ql (Urine sed) 3+ Abnormal NONE [facility] Comment on above: Performed By: #### U MICAO, UAX #### [facility] [address] [place] [phone] Children'S Ministry Director: Storm Selby MD Bacteria MODERATE Abnormal NONE [facility] Comment on above: Performed By: #### U MICAO, UAX #### [facility] [address] [place] [phone] Children'S Ministry Director: Sotrm Selby MD Crystals LM Nom (Urine sed) CALCIUM OXALATE Abnormal NONE [facility] Comment on above: Result Comment: FEW Performed By: #### U MICAO, UAX #### [facility] [address] [place] [address] Children'S Ministry Director: Storm Selby MD Epithelial cells LM Ql (Urine sed) 20 TO 50 Normal 0-5 [facility] Comment on above: Performed By: #### U MICAO, UAX #### [facility] [address] [place] [phone] Children'S Ministry Director: Storm Selby MD Mucus Strands 2+ Abnormal [facility] Comment on above: Performed By: #### U MICAO, UAX #### [facility] [address] [place] [address] Children'S Ministry Director: Storm Selby MD Urine RBC's 2 TO 5 Normal 0-2 [facility] Comment on above: Performed By: #### U MICAO, UAX #### [facility] [address] [place] [address] Children'S Ministry Director: Storm Selby MD Urine WBC's 5 TO 10 Normal 0-5 [facility] Comment on above: Performed By: #### U MICAO, UAX #### [facility] [place] [address] Children'S Ministry Director: Storm Selby MD Casts NOT REPORTED Normal 0-2 [facility] Comment on above: Performed By: #### U MICAO, UAX #### [facility] [address] [place] [phone] Children'S Ministry Director: Storm Selby MD Epithelial, Renal NOT REPORTED Normal 0 [facility] Comment on above: Performed By: #### U MICAO, UAX #### [facility] [address] [place] [phone] Children'S Ministry Director: Storm Selby MD Other Observations NOT REPORTED Normal NREQ [facility] Comment on above: Performed By: #### U MICAO, UAX #### [facility] [address] [place] [address] Children'S Ministry Director: Storm Selby MD Trichomonas NOT REPORTED Normal NONE [facility] Comment on above: Performed By: #### U MICAO, UAX #### [facility] [address] [place] [phone] Children'S Ministry Director: Storm Selby MD Yeast NOT REPORTED Normal NONE [facility] Comment on above: Performed By: #### U MICAO, UAX #### [facility] [address] [place] [address] Children'S Ministry Director: Storm Selby MD Chlamydia/GC,DNA Ampon 05-13 Chlamydia Probe Negative Normal NEG [facility] Comment on above: Result Comment: CHLA MYDIA TRACHOMATIS DNA not detected by nucleic acid amplification. This test is intended for medical purposes only and is not valid for the evaluation of suspected sexual abuse or for other forensic purposes. In certain contexts, culture may be required to meet applicable laws and regulations for diagnosis of C. trachomatis and N. gonorrhoeae infections. Per 2014 CDC recommendations, this test does not include confirmation of positive results by an alternative nucleic acid target. Performed By: #### S WCGP #### [address] [address] Children'S Ministry Director: Storm Selby MD Gonorrhea Probe Negative Normal NEG [facility] Comment on above: Result Comment: NEIS SERIA GONORRHOEAE DNA not detected by nucleic acid amplification. This test is intended for medical purposes only and is not valid for the evaluation of suspected sexual abuse or for other forensic purposes. In certain contexts, culture may be required to meet applicable laws and regulations for diagnosis of C. trachomatis and N. gonorrhoeae infections. Per 2014 CDC recommendations, this test does not include confirmation of positive results by an alternative nucleic acid target. Performed By: #### S WCGP #### [address] [address] Children'S Ministry Director: Storm Selby MD Herpes 1+2 Molecularon 05-13 HSV-1, NAAT Negative Normal NEG [facility] Comment on above: Result Comment: HSV- 1 DNA not detected by nucleic acid amplification Performed By: #### H SVDNA #### [facility] [address] [place] [phone] Children'S Ministry Director: Storm Selby MD HSV-2, NAAT Negative Normal [facility] Comment on above: Result Comment: HSV- 2 DNA not detected by nucleic acid amplification Performed By: #### H SVDNA #### [address] [address] Children'S Ministry Director: Storm Selby MD Cult,Aerobeon 05-12-2021 Cult,Aerobe Specimen Description .CERVIX Special Requests NOT REPORTED Direct Exam NOT REPORTED Culture DUE TO THE SPECIMEN TYPE, THE ORDER WAS CANCELED AND REORDERED. PLEASE REFER TO: HERPES 1+2 MOLECULAR Report Status FINAL 05/12/2021 [facility] Comment on above: Performed By: #### M ISCU #### [address] [address] Children'S Ministry Director: Storm Selby MD Culture, AerobicOrdered By: Keisha Tapia on 05-12-2021 Bacteria identified Cx Nom (Unsp spec) DUE TO THE SPECIMEN TYPE, THE ORDER WAS CANCELED AND REORDERED. PLEASE REFER TO: HERPES 1+2 MOLECULAR [facility] Work Phone: Direct Exam NOT REPORTED [facility] Phone: Special Requests NOT REPORTED [facility] Phone: Specimen Description .CERVIX [facility] Work Phone: [facility] Work Phone: Herpes 1+2 Molecularon 05-12 Source: .CERVIX Normal [facility] Comment on above: Performed By: #### H SVDNA #### [facility] [place], [place] [phone] Children'S Ministry Director: Storm Selby MD No Panel InformationOrdered By: Keisha Tapia on 05-12-2021 HSV-1, NAAT Negative (NEG ) [facility] Work Phone: Comment on above: Note: HSV-1 DNA not detected by nucleic acid amplificationResponsible Observer: BETTY ROMERO ([id number]) HSV-2, NAAT Negative (NEG ) [facility] Work Phone: Comment on above: Note: HSV-2 DNA not detected by nucleic acid amplificationResponsible Observer: BETTY ROMERO ([id number]) Reported Physicians See Note [facility] Work Phone: Comment on above: Note: Reported Physi cians:Ordering: Keisha TapiaAttending: Keisha TapiaReferring: Keisha Tapia Source: .CERVIX [facility] Work Phone: Comment on above: Note: Responsible Ob meteorological observer: ALFONSO ROCHA ([id number]) Chlamydia Probe Negative (NEG ) [facility] Work Phone: Comment on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 3.8 mmol/L (3.5-5.1) Chloride Level 105 mmol/L (98-107) Carbon Dioxide Level 20 mmol/L (22-29) Anion Gap 11 mEq/L (5-13) Blood Urea Nitrogen 7 mg/dL (7-18) Creatinine 0.82 mg/dL Estimat Glomerular Filtration Rate Glucose Level 134 mg/dL (70-99) Calcium Level 8.9 mg/dL (8.4-10.2) Total Bilirubin 0.5 mg/dL (0.0-1.0) Aspartate Amino Transf (AST/SGOT) 19 U/L (5-34) Alanine Aminotransferase (ALT/SGPT) 21 U/L (0-55) Alkaline Phosphatase 90 U/L (40-150) Total Protein 7.7 g/dL (6.4-8.2) Albumin 4.2 g/dL (3.2-4.5) Lipase 16 U/L (8-78) Serum Test, Qualitative Negative (NEG) Microbiology Date/Time Source Procedure Growth Status 11/13/20 13:30 Nasopharyngeal Coronavirus COVID-19 PCR (ISAIAH) Pending Received Abnormal Results Test 11/13/20 13:24 Mean Corpuscular Volume 81.5 fL Mean Corpuscular Hemoglobin 26.9 pg Absolute Basophils (auto) 0.0 10'3/uL Carbon Dioxide Level 20 mmol/L Glucose Level 134 mg/dL Radiology/CT/US CT Exams: Abdomen/Pelvis CT - Interpretation: Radiologist - Final Progress #1 Repeat Vital Signs Vital Signs Date Time Temp Pulse Resp B/P (MAP) Pulse Ox O2 Delivery O2 Flow Rate FiO2 11/13/20 15:32 98.1 64 20 134/82 (99) 97 Room Air 11/13/20 13:40 18 11/13/20 13:10 18 11/13/20 13:00 96.7 130 18 130/78 (95) 97 Room Air Departure Departure Disposition: Home Diagnosis: Primary Impression: Abdominal pain Qualified Codes: R10.84 - Generalized abdominal pain Additional Impression: Back pain Qualified Codes: M54.5 - Low back pain Condition: Improved Patient Instructions: Abdominal Pain (ED) Additional Instructions: Please call your doctor for close follow-up appointment. If symptoms worsen or new concerns develop return to emergency room Referrals: UNKNOWN (PCP) 2-3 Days Home Medications: Reviewed, No Changes JOSEFINA CHADWICK C.N.P. Nov 13, 2020 13:39 (Please note that portions of this note were completed with a voice recognition program. Efforts were made to edit the dictations but occasionally words are mis-transcribed.) Electronically Signed by: JOSEFINA CHADWICK C.N.P. 11/13/20 1820 JOSEFINA CHADWICK C.N.P. [phone] cc: UNKNOWN Normal [facility] LIPASEon 11-13-2020 Lipase [Catalytic activity/Vol] 16 U/L Normal 8-78 [facility] Comment on above: Performed By: #### C M, LIP, PREG #### [facility] CLIA # [id number] [address] [place] [address] TESTon 11-13-2020 TEST Negative Normal NEG [facility] Comment on above: Result Comment: THE MONOCLONAL ANTIBODY BASED IMMUNOASSAY USED BY OUR LABORATORY FOR THE QUALITATIVE DETECTION OF hCG HAS BEEN SHOWN TO HAVE A 99.5% SENSITIVITY SPECIFICITY FOR hCG. PLEASE NOTE THAT HCG LEVELS MAY CONTINUE TO BE DETECTED FOLLOWING , NORMAL DELIVERY, OR . IN THE EVENT OF A NEGATIVE TEST WHEN CLINICAL INDICATIONS STRONGLY SUGGEST , THE PHYSICIAN IS ENCOURAGED TO REQUEST A QUANTITATIVE B-HCG TITER. Performed By: #### C M, LIP, PREG #### [facility] CLIA # [id number] [address] [place] [address] Otheron 11-10-2020 Cult,Urine See Note [facility] Work Phone: Comment on above: Note: Specimen Descr iption .CLEAN CATCH URINESpecial Requests NOT REPORTEDCulture NO SIGNIFICANT GROWTHReport Status FINAL 11/12/2020Responsible Observer: LYNSEY CHÁVEZ (1915) OtherOrdered By: Keisha guido on 11-10-2020 Reported Physicians See Note [facility] Work Phone: Comment on above: Note: Reported Physi cians:Ordering: Keisha TapiaAttending: Keisha TapiaReferring: Keisha Tapia UrinalysisOrdered By: Keisha Tapia on 11-10-2020 Bacteria identified Cx Nom (U) See Note [facility] Work Phone: Comment on above: Note: Specimen Descr iption .CLEAN CATCH URINESpecial Requests NOT REPORTEDCulture NO SIGNIFICANT GROWTHReport Status FINAL 11/12/2020Responsible Observer: LYNSEY CHÁVEZ (1915) Laboratory - Microbiology an d Antimicrobial susceptibilityOrdered By: Idalmis Dong on 10-28-2020 SARS-CoV-2 (COVID-19) RNA TICO+probe Ql (Resp) Not detected (Not Detected ) [facility] Work Phone: Comment on above: Note: This nucleic a steff amplification test was developed and itsperformance characteristics determined by [employer]. Nucleic acid amplification tests include PCRand TMA. This test has not been FDA cleared or approved.This test has been authorized by FDA under an Emergency UseAuthorization (EUA). This test is only authorized forthe duration of time the declaration that circumstancesexist justifying the authorization of the emergency use ofin vitro diagnostic tests for detection of SARS-CoV-2 virusand/or diagnosis of COVID-19 infection under mhqdqok439(b)(1) of the Act, 21 U.S.C. 360bbb-3(b) (1), unless theauthorization is terminated or revoked sooner.When diagnostic testing is negative, the possibility of afalse negative result should be considered in the contextof a patient's recent exposures and the presence ofclinical signs and symptoms consistent with COVID-19. Anindividual without symptoms of COVID-19 and who is notshedding SARS-CoV-2 virus would expect to have a negative(not detected) result in this assay. Otheron 10-28-2020 SARS-CoV-2, TICO Not Detected (Not Detected) [facility] Work Phone: Comment on above: Note: This nucleic a steff amplification test was developed and itsperformance characteristics determined by [employer]. Nucleic acid amplification tests include PCRand TMA. This test has not been FDA cleared or approved.This test has been authorized by FDA under an Emergency UseAuthorization (EUA). This test is only authorized forthe duration of time the declaration that circumstancesexist justifying the authorization of the emergency use ofin vitro diagnostic tests for detection of SARS-CoV-2 virusand/or diagnosis of COVID-19 infection under nvifctp438(b)(1) of the Act, 21 U.S.C. 360bbb-3(b) (1), unless theauthorization is terminated or revoked sooner.When diagnostic testing is negative, the possibility of afalse negative result should be considered in the contextof a patient's recent exposures and the presence ofclinical signs and symptoms consistent with COVID-19. Anindividual without symptoms of COVID-19 and who is notshedding SARS-CoV-2 virus would expect to have a negative(not detected) result in this assay. Laboratory - Microbiology an d Antimicrobial susceptibilityOrdered By: Paula Lockett on 09-09-2020 SARS-CoV-2 (COVID-19) RNA TICO+probe Ql (Resp) Not detected (Not Detected ) [facility] Work Phone: Comment on above: Note: This nucleic a stfef amplification test was developed and itsperformance characteristics determined by [employer]. Nucleic acid amplification tests include PCRand TMA. This test has not been FDA cleared or approved.This test has been authorized by FDA under an Emergency UseAuthorization (EUA). This test is only authorized forthe duration of time the declaration that circumstancesexist justifying the authorization of the emergency use ofin vitro diagnostic tests for detection of SARS-CoV-2 virusand/or diagnosis of COVID-19 infection under (b)(1) of the Act, 21 U.S.C. 360bbb-3(b) (1), unless theauthorization is terminated or revoked sooner.When diagnostic testing is negative, the possibility of afalse negative result should be considered in the contextof a patient's recent exposures and the presence ofclinical signs and symptoms consistent with COVID-19. Anindividual without symptoms of COVID-19 and who is notshedding SARS-CoV-2 virus would expect to have a negative(not detected) result in this assay. Otheron 09-09-2020 SARS-CoV-2, TICO Not Detected (Not Detected) [facility] Work Phone: Comment on above: Note: This nucleic a steff amplification test was developed and itsperformance characteristics determined by [employer]. Nucleic acid amplification tests include PCRand TMA. This test has not been FDA cleared or approved.This test has been authorized by FDA under an Emergency UseAuthorization (EUA). This test is only authorized forthe duration of time the declaration that circumstancesexist justifying the authorization of the emergency use ofin vitro diagnostic tests for detection of SARS-CoV-2 virusand/or diagnosis of COVID-19 infection under spdpioi967(b)(1) of the Act, 21 U.S.C. 360bbb-3(b) (1), unless theauthorization is terminated or revoked sooner.When diagnostic testing is negative, the possibility of afalse negative result should be considered in the contextof a patient's recent exposures and the presence ofclinical signs and symptoms consistent with COVID-19. Anindividual without symptoms of COVID-19 and who is notshedding SARS-CoV-2 virus would expect to have a negative(not detected) result in this assay. POC GLUCOSE LABon 08-30-2020 Glucose [Mass/Vol] 96 mg/dL Normal 70-100 [facility] Comment on above: Performed By: #### [id number] #### [facility] [address] [place] [address], [facility] LIPID PROFILEon 08-28-2020 Cholesterol [Mass/Vol] 150 mg/dL Normal 120-170 [facility] Comment on above: Order Comment: No: D o not add to previous draw Result Comment: CHOL ESTEROL REFERENCE RANGE: 20 YEARS AND OLDER CARDIOVASCULAR RISK Less than 200 mg/dl Low Risk 200 to 239 mg/dl Borderline Risk 240 mg/dl and greater High Risk Performed By: #### [id number] #### [facility] [address] [place] [address], [facility] Cholesterol in HDL [Mass/Vol] 41 mg/dL Normal 23-92 [facility] Comment on above: Order Comment: No: D o not add to previous draw Result Comment: Slig ht variation in normal range could be due to gender and/or age. HDL CHOLESTEROL REFERENCE RANGE: 20 years and older Cardiovascular Risk > or =60 mg/dL Desirable 40 TO 59 mg/dL Low Risk <40 mg/dL High Risk Performed By: #### [id number] #### [facility] [address] [place] [address], [facility] Cholesterol in LDL [Mass/Vol] 90 mg/dL Normal 0-130 [facility] Comment on above: Order Comment: No: D o not add to previous draw Result Comment: LDL IS A CALCULATION LDL IS ONLY VALID IF THE TRIG IS LESS THAN 400. Performed By: #### 4 [id number] #### [facility] [address] [place] [address], [facility] Cholesterol.total/Chol esterol in HDL [Mass ratio] 3.7 {ratio} Normal 0.0-4.5 [facility] Comment on above: Order Comment: No: D o not add to previous draw Performed By: #### [id number] #### [facility] [address] [place] [address], [facility] NON-HDL CHOLESTEROL 109 mg/dL Normal [facility] Comment on above: Order Comment: No: D o not add to previous draw Performed By: #### 4 [id number] #### [facility] [address] [place] [address], [facility] Triglyceride [Mass/Vol] 97 mg/dL Normal 37-148 [facility] Comment on above: Order Comment: No: D o not add to previous draw Result Comment: TRIG LYCERIDE REFERENCE RANGE: 20 YEARS AND OLDER CARDIOVASCULAR RISK LESS THAN 150 mg/dl LOW RISK 150 TO 199 mg/dl BORDERLINE RISK 200 mg/dl AND GREATER HIGH RISK Performed By: #### 4 [id number] #### [facility] [address] [place] [address], [facility] VLDL CHOL 19 mg/dL Normal 0-40 [facility] Comment on above: Order Comment: No: D o not add to previous draw Performed By: #### 4 [id number] #### [facility] [address] [place] [address], [place] ACETAMINOPHEN LEVELon 2019 Acetaminophen [Mass/Vol] < 1.0 Low 10.0-30.0 [facility] Comment on above: Order Comment: Colle cted by Care Area? Y Performed By: #### S AL, TSH, ALC, FT4, TUP, ACTM, CM #### [facility] CLIA # [id number] [address] [place] [address] ALCOHOL LEVEL (MEDICAL)on ALCOHOL LEVEL (MEDICAL) < 10.0 Normal 0-199 [facility] Comment on above: Order Comment: Colle cted by Care Area? Y Result Comment: BLOOD ALCOHOL INTERPRETATIONS 10 - 50 mg/dl ............NO EFFECT TO MILD EUPHORIA 50 - 100 mg/dl ...........MILD INFLUENCE ON VISION 100 - 150 mg/dl ..........EUPHORIA; PROLONGED REACTIONS 150 - 200 mg/dl ..........INTOXICATION; MODERATE POISONING 200 - 250 mg/dl ..........INTOXICATION; SEVERE POISONING 250 - 400 mg/dl ..........DEEP COMA POSSIBLE > 400 mg/dl ..............POSSIBLE FATAL CONCENTRATION Performed By: #### S AL, TSH, ALC, FT4, TUP, ACTM, CM #### [facility] CLIA # [id number] [address] [place] [place] [address] COMPLETE BLOOD COUNT W/DIFFo n 08-27-2020 Basophils (Bld) [#/Vol] 0.0 10'3/uL Low 0.1-0.2 [facility] Comment on above: Performed By: #### KENDALL Yoon PREG #### [facility] CLIA # [id number] [address] [place] [address] Basophils/100 WBC (Bld) 0.3 % Normal 0.0-1.7 [facility] Comment on above: Performed By: #### KENDALL Yoon PREG #### [facility] CLIA # [id number] [address] [place] [address] Eosinophils (Bld) [#/Vol] 0.0 10'3/uL Normal 0.0-0.4 [facility] Comment on above: Performed By: #### KENDALL Yoon, PREG #### [facility] CLIA # [id number] [address] [place] [address] Eosinophils/100 WBC (Bld) 0.1 % Normal 0.0-6.4 [facility] Comment on above: Performed By: #### KENDALL Yoon PREG #### [facility] CLIA # [id number] [address] [place] [address] Erythrocyte distribution width (RBC) [Ratio] 13.2 % Normal 12.2-15.8 [facility] Comment on above: Performed By: #### KENDALL Yoon PREG #### [facility] CLIA # [id number] [address] [place] [address] Hematocrit (Bld) [Volume fraction] 36.6 % Normal 36.0-46.0 [facility] Comment on above: Performed By: #### KENDALL Yoon PREG #### [facility] CLIA # [id number] [address] [place] [address] Hemoglobin (Bld) [Mass/Vol] 12.1 g/dL Normal 12.0-16.0 [facility] Comment on above: Performed By: #### KENDALL Yoon PREG #### [facility] CLIA # [id number] [address] [place] [address] Lymphocytes (Bld) [#/Vol] 1.7 10'3/uL Normal 0.5-3.5 [facility] Comment on above: Performed By: #### KENDALL Yoon, PREG #### [facility] CLIA # [id number] [address] [place] [address] Lymphocytes/100 WBC (Bld) 23.1 % Normal 17.4-45.9 [facility] Comment on above: Performed By: #### KENDALL Yoon, PREG #### [facility] CLIA # [id number] [address] [place] [address] MCH (RBC) [Entitic mass] 33.1 g/dL Normal 32.7-34.8 [facility] Comment on above: Performed By: #### KENDALL Yoon, PREG #### [facility] CLIA # [id number] [address] [place] [address] MCH (RBC) [Entitic mass] 27.4 pg Low 27.8-33.2 [facility] Comment on above: Performed By: #### KENDALL Yoon, PREG #### [facility] CLIA # [id number] [address] [place] [address] MCV (RBC) [Entitic vol] 83.0 fL Normal 83.0-97.4 [facility] Comment on above: Performed By: #### KENDALL Yoon, PREG #### [facility] CLIA # [id number] [address] [place] [address] Monocytes (Bld) [#/Vol] 0.7 10'3/uL Normal 0.2-0.8 [facility] Comment on above: Performed By: #### KENDALL Yoon, PREG #### [facility] CLIA # [id number] [address] [place] [address] Monocytes/100 WBC (Bld) 8.8 % Normal 4.4-12.0 [facility] Comment on above: Performed By: #### Nilsa Hoff, LIP, PREG #### [facility] CLIA # [id number] [address] [place] [address] Neutrophils (Bld) [#/Vol] 5.1 10'3/uL Normal 1.5-5.6 [facility] Comment on above: Performed By: #### Nilsa Hoff LIP, PREG #### [facility] CLIA # [id number] [address] [place] [address] Neutrophils/100 WBC (Bld) 67.7 % Normal 41.2-72.1 [facility] Comment on above: Performed By: #### Nilsa Hoff LIP, PREG #### [facility] CLIA # [id number] [address] [place] [address] Platelet mean volume (Bld) [Entitic vol] 9.0 fL Normal 7.6-10.6 [facility] Comment on above: Performed By: #### KENDALL Yoon, PREG #### [facility] CLIA # [id number] [address] [place] [address] Platelets (Bld) [#/Vol] 313 10'3/uL Normal 122-359 [facility] Comment on above: Performed By: #### KENDALL Yoon, PREG #### [facility] CLIA # [id number] [address] [place] [address] RBC (Bld) [#/Vol] 4.41 10'6/uL Normal 3.85-4.88 [facility] Comment on above: Performed By: #### Nilsa Hoff LIP, PREG #### [facility] CLIA # [id number] [address] [place] [address] WBC (Bld) [#/Vol] 7.5 10'3/uL Normal 3.2-9.3 [facility] Comment on above: Performed By: #### C M, LIP, PREG #### [facility] CLIA # [id number] [address] [place] [address] COMPREHENSIVE METABOLIC PROF on 08-27-2020 Albumin [Mass/Vol] 4.2 g/dL Normal 3.2-4.5 [facility] Comment on above: Order Comment: Colle cted by Care Area? Y Performed By: #### S AL, TSH, ALC, FT4, TUP, ACTM, CM #### [facility] CLIA # [id number] [address] [place] [address] ALP [Catalytic activity/Vol] 88 U/L Normal 40-150 [facility] Comment on above: Order Comment: Colle cted by Care Area? Y Performed By: #### S AL, TSH, ALC, FT4, TUP, ACTM, CM #### [facility] CLIA # [id number] [address] [place] [address] ALT/SGPT 57 U/L High 0-55 [facility] Comment on above: Order Comment: Colle cted by Care Area? Y Performed By: #### S AL, TSH, ALC, FT4, TUP, ACTM, CM #### [facility] CLIA # [id number] [address] [place] [address] Anion gap [Moles/Vol] 11 mmol/L Normal 5-[address] [facility] Comment on above: Order Comment: Colle cted by Care Area? Y Performed By: #### S AL, TSH, ALC, FT4, TUP, ACTM, CM #### [facility] CLIA # [id number] [address] [place] [address] AST/SGOT 45 U/L High 5-34 [facility] Comment on above: Order Comment: Colle cted by Care Area? Y Performed By: #### S AL, TSH, ALC, FT4, TUP, ACTM, CM #### [facility] CLIA # [id number] [address] [place] [address] Bilirubin [Mass/Vol] 0.7 mg/dL Normal 0.0-1.[address] [facility] Comment on above: Order Comment: Colle cted by Care Area? Y Performed By: #### S AL, TSH, ALC, FT4, TUP, ACTM, CM #### [facility] CLIA # [id number] [address] [place] [address] Calcium [Mass/Vol] 9.2 mg/dL Normal 8.4-10.2 [facility] Comment on above: Order Comment: Colle cted by Care Area? Y Performed By: #### S AL, TSH, ALC, FT4, TUP, ACTM, CM #### [facility] CLIA # [id number] [address] [place] [address] Chloride [Moles/Vol] 109 mmol/L High 98-[address] [facility] Comment on above: Order Comment: Colle cted by Care Area? Y Performed By: #### S AL, TSH, ALC, FT4, TUP, ACTM, CM #### [facility] CLIA # [id number] [address] [place] [address] CO2 [Moles/Vol] 20 mmol/L Low 22-29 [facility] Comment on above: Order Comment: Colle cted by Care Area? Y Performed By: #### S AL, TSH, ALC, FT4, TUP, ACTM, CM #### [facility] CLIA # [id number] [address] [place] [address] Creatinine [Mass/Vol] 0.81 mg/dL Normal [facility] Comment on above: Order Comment: Colle cted by Care Area? Y Performed By: #### S AL, TSH, ALC, FT4, TUP, ACTM, CM #### [facility] CLIA # [id number] [address] [place] [address] Glucose [Mass/Vol] 84 mg/dL Normal 70-99 [facility] Comment on above: Order Comment: Colle cted by Care Area? Y Performed By: #### S AL, TSH, ALC, FT4, TUP, ACTM, CM #### [facility] CLIA # [id number] [address] [place] [address] Potassium [Moles/Vol] 3.9 mmol/L Normal 3.5-5.[address] [facility] Comment on above: Order Comment: Colle cted by Care Area? Y Performed By: #### S AL, TSH, ALC, FT4, TUP, ACTM, CM #### [facility] CLIA # [id number] [address] [place] [address] Protein [Mass/Vol] 7.7 g/dL Normal 6.4-8.2 [facility] Comment on above: Order Comment: Colle cted by Care Area? Y Performed By: #### S AL, TSH, ALC, FT4, TUP, ACTM, CM #### [facility] CLIA # [id number] [address] [place] [address] Sodium [Moles/Vol] 140 mmol/L Normal 136-145 [facility] Comment on above: Order Comment: Colle cted by Care Area? Y Performed By: #### S AL, TSH, ALC, FT4, TUP, ACTM, CM #### [facility] CLIA # [id number] [address] [place] [address] Urea nitrogen [Mass/Vol] 12 mg/dL Normal 7-18 [facility] Comment on above: Order Comment: Colle cted by Care Area? Y Performed By: #### S AL, TSH, ALC, FT4, TUP, ACTM, CM #### [facility] CLIA # [id number] [address] [place] [address] FREE,T4on 08-27-2020 Free T4 [Mass/Vol] 0.91 ng/dL Normal 0.59-1.17 [facility] Comment on above: Order Comment: Colle cted by Care Area? Y Performed By: #### C M, LIP, PREG #### [facility] CLIA # [id number] [address] [place] [address] HISTORY PRESENT ILLNESSon HISTORY PRESENT ILLNESS Name: ADRIANA GREGG : 2005 Unit #: [id number] Age: 15 Family Physician: Pt Location: ER Arrival Date 08/27/20820 ER Physician: OCTAVIANO MEDINA M.D.-[facility] [facility] History of Present Illness History of Present Illness Time Seen: 08:34 History of Present Illness The patient is a 15 year old female who presented to the Emergency Department with the complaint of Suicidal thoughts. Patient with extensive history of depression, anxiety and PTSD presents for evaluation of threats to harm herself. Foster Mom notes that the child went away from school today with and older individual necessitating police involvement, refusal by the patient to return to school and threats to harm herself. She does have a history of suicidal ideation and some self harm. She uses medications but does not feel that they are helpful. She denies the use of illicit drugs. Past Medical History Past Medical History Pertinent Medical History: Allergies, Depression Pertinent Surgical History: No surgical history Family History Significant Family Medical Hx: No Significant History Social History Marital Status S Single Living Arrangments: Family Employment Status: Student Smoking Status: Never Smoker Alcohol Use: Denies Drug Use: Denies Allergies Allergies: Coded Allergies: lactose (Verified Allergy, Unknown, 08/27/20) Home Medications Home Medications See Reconcile Meds Review of Systems Review of Systems All Other Systems: Reviewed and Negative Constitutional: Fatigue, Weight gain Skin: Denies: Change in color, Lesions ENT: Denies: Sore throat, Hoarseness, Dysphagia Respiratory: Denies: Cough, Dyspnea Cardiovascular: Denies: Chest pain, Irregular heart rate Gastrointestinal: Denies: Constipation, Diarrhea, Nausea, Vomiting Musculoskeletal: Denies: Muscle cramps, Muscle pain Neurological: Denies: Headache Psychiatric: See HPI Endocrine: Other - First DepoProvera 1 - 2 months ago; was told TSH abnormal last eval, repeat labs done, results unk Physical Exam Physical Exam Initial Vital Signs Vital Signs Date Time Temp Pulse Resp B/P (MAP) Pulse Ox O2 Delivery O2 Flow Rate FiO2 08/27/20 09:00 97.5 94 16 113/57 (75) 98 Room Air General Appearance: No apparent distress HEENT: No acute lesions: eyelids, No acute lesions: face Neck: Normal Inspection, No Tenderness, No Thyromegaly, Trachea Midline Respiratory: Normal inspection, Easy effort, No rales, No rhonchi, No wheezes Cardiovascular: Regular rate and rhythm, No murmur Gastrointestinal: Soft, Non-tender, Active bowel sounds Musculoskeletal: No calf tenderness, No edema Neurologic/Psychiatric: Alert, Intact language/cognition, Other - Mostly cooperative. Answers most questions with, I don't know Skin: Normal color, Warm/dry Course of Treatment Nursing Notes Assessments Nursing Notes/Assessments: Reviewed Medical Decision Making Medical Decision Making Patient with history of depression, self harm and recent hospitalization for the same presents with threats of self harm. Plan for clearance and [facility] eval. Laboratory Labs Laboratory Tests Test 08/27/20 09:16 08/27/20 09:35 White Blood Count 7.5 10'3/uL (3.2-9.3) Red Blood Count 4.41 10'6/uL (3.85-4.88) Hemoglobin 12.1 g/dL (12.0-16.0) Hematocrit 36.6 % (36.0-46.0) Mean Corpuscular Volume 83.0 fL (83.0-97.4) Mean Corpuscular Hemoglobin 27.4 pg (27.8-33.2) Mean Corpuscular Hgb Concent Diff 33.1 g/dL (32.7-34.8) Red Cell Distribution Width 13.2 % (12.2-15.8) Platelet Count 313 10'3/uL (122-359) Mean Platelet Volume 9.0 fL (7.6-10.6) Neutrophils (%) (Auto) 67.7 % (41.2-72.1) Absolute Neutrophils (auto) 5.1 10'3/uL (1.5-5.6) Absolute Lymphocytes (auto) 1.7 10'3/uL (0.5-3.5) Absolute Monocytes (auto) 0.7 10'3/uL (0.2-0.8) Absolute Eosinophils (auto) 0.0 10'3/uL (0.0-0.4) Absolute Basophils (auto) 0.0 10'3/uL (0.1-0.2) Lymphocytes % 23.1 % (17.4-45.9) Monocytes % 8.8 % (4.4-12.0) Eosinophils % 0.1 % (0.0-6.4) Basophils % 0.3 % (0.0-1.7) Sodium Level 140 mmol/L (136-145) Potassium Level 3.9 mmol/L (3.5-5.1) Chloride Level 109 mmol/L (98-107) Carbon Dioxide Level 20 mmol/L (22-29) Anion Gap 11 mEq/L (5-13) Blood Urea Nitrogen 12 mg/dL (7-18) Creatinine 0.81 mg/dL Estimat Glomerular Filtration Rate Glucose Level 84 mg/dL (70-99) Calcium Level 9.2 mg/dL (8.4-10.2) Total Bilirubin 0.7 mg/dL (0.0-1.0) Aspartate Amino Transf (AST/SGOT) 45 U/L (5-34) Alanine Aminotransferase (ALT/SGPT) 57 U/L (0-55) Alkaline Phosphatase 88 U/L (40-150) Total Protein 7.7 g/dL (6.4-8.2) Albumin 4.2 g/dL (3.2-4.5) Free Thyroxine 0.91 ng/dL (0.59-1.17) Triiodothyronine (T3) Uptake 0.87 UNITS (0.69-1.41) TSH 3rd Generation 3.838 uIU/mL (0.463-3.98) Salicylates Level < 5.0 mg/dL (1.7-20.0) Acetaminophen Level < 1.0 ug/mL (10.0-30.0) Ethyl Alcohol Level < 10.0 mg/dL (0-199) Urine Color Yellow (YELLOW) Urine Appearance Sl cloudy (CLEAR) Urine pH 6.0 (5.5 - 8.0) Urine Specific [place] >= 1.030 (1.005-1.030) Urine Protein Negative mg/dL (NEGATIVE) Urine Glucose (UA) Negative g/dL (NEGATIVE) Urine Ketones Negative mg/dL (NEGATIVE) Urine Occult Blood Negative (NEGATIVE) Urine Nitrite Negative (NEGATIVE) Urine Bilirubin Negative (NEGATIVE) Urine Urobilinogen 0.2 EU/dl (0.1 - 1.0) Urine Leukocyte Esterase Negative (NEGATIVE) Microscopic Urinalysis (T) Urine Microscopic WBC Occasional /hpf (0) Urine Squamous Epithelial Cells 4+ /lpf (0) Urine Bacteria 1+ /hpf (0) Urine Mucus Occasional /lpf (OCC) Urine Test Negative (NEG) Urine Opiates Screen Negative QUAL. Urine Barbiturates Screen Negative QUAL. Phencyclidine (PCP) Screen Negative QUAL. Amphetamines Screen Negative QUAL. Benzodiazepines Screen Negative QUAL. Urine Cocaine Screen Negative QUAL. Marijuana (THC) Screen Negative QUAL. Abnormal Results Test 08/27/20 09:16 08/27/20 09:35 Mean Corpuscular Hemoglobin 27.4 pg Absolute Basophils (auto) 0.0 10'3/uL Chloride Level 109 mmol/L Carbon Dioxide Level 20 mmol/L Aspartate Amino Transf (AST/SGOT) 45 U/L Alanine Aminotransferase (ALT/SGPT) 57 U/L Acetaminophen Level < 1.0 ug/mL Laboratory Tests Test 08/27/20 09:16 08/27/20 09:35 White Blood Count 7.5 10'3/uL (3.2-9.3) Red Blood Count 4.41 10'6/uL (3.85-4.88) Hemoglobin 12.1 g/dL (12.0-16.0) Hematocrit 36.6 % (36.0-46.0) Mean Corpuscular Volume 83.0 fL (83.0-97.4) Mean Corpuscular Hemoglobin 27.4 pg (27.8-33.2) Mean Corpuscular Hgb Concent Diff 33.1 g/dL (32.7-34.8) Red Cell Distribution Width 13.2 % (12.2-15.8) Platelet Count 313 10'3/uL (122-359) Mean Platelet Volume 9.0 fL (7.6-10.6) Neutrophils (%) (Auto) 67.7 % (41.2-72.1) Absolute Neutrophils (auto) 5.1 10'3/uL (1.5-5.6) Absolute Lymphocytes (auto) 1.7 10'3/uL (0.5-3.5) Absolute Monocytes (auto) 0.7 10'3/uL (0.2-0.8) Absolute Eosinophils (auto) 0.0 10'3/uL (0.0-0.4) Absolute Basophils (auto) 0.0 10'3/uL (0.1-0.2) Lymphocytes % 23.1 % (17.4-45.9) Monocytes % 8.8 % (4.4-12.0) Eosinophils % 0.1 % (0.0-6.4) Basophils % 0.3 % (0.0-1.7) Sodium Level 140 mmol/L (136-145) Potassium Level 3.9 mmol/L (3.5-5.1) Chloride Level 109 mmol/L (98-107) Carbon Dioxide Level 20 mmol/L (22-29) Anion Gap 11 mEq/L (5-13) Blood Urea Nitrogen 12 mg/dL (7-18) Creatinine 0.81 mg/dL Estimat Glomerular Filtration Rate Glucose Level 84 mg/dL (70-99) Calcium Level 9.2 mg/dL (8.4-10.2) Total Bilirubin 0.7 mg/dL (0.0-1.0) Aspartate Amino Transf (AST/SGOT) 45 U/L (5-34) Alanine Aminotransferase (ALT/SGPT) 57 U/L (0-55) Alkaline Phosphatase 88 U/L (40-150) Total Protein 7.7 g/dL (6.4-8.2) Albumin 4.2 g/dL (3.2-4.5) Free Thyroxine 0.91 ng/dL (0.59-1.17) Triiodothyronine (T3) Uptake 0.87 UNITS (0.69-1.41) TSH 3rd Generation 3.838 uIU/mL (0.463-3.98) Salicylates Level < 5.0 mg/dL (1.7-20.0) Acetaminophen Level < 1.0 ug/mL (10.0-30.0) Ethyl Alcohol Level < 10.0 mg/dL (0-199) Urine Color Yellow (YELLOW) Urine Appearance Sl cloudy (CLEAR) Urine pH 6.0 (5.5 - 8.0) Urine Specific [place] >= 1.030 (1.005-1.030) Urine Protein Negative mg/dL (NEGATIVE) Urine Glucose (UA) Negative g/dL (NEGATIVE) Urine Ketones Negative mg/dL (NEGATIVE) Urine Occult Blood Negative (NEGATIVE) Urine Nitrite Negative (NEGATIVE) Urine Bilirubin Negative (NEGATIVE) Urine Urobilinogen 0.2 EU/dl (0.1 - 1.0) Urine Leukocyte Esterase Negative (NEGATIVE) Microscopic Urinalysis (T) Urine Microscopic WBC Occasional /hpf (0) Urine Squamous Epithelial Cells 4+ /lpf (0) Urine Bacteria 1+ /hpf (0) Urine Mucus Occasional /lpf (OCC) Urine Test Negative (NEG) Urine Opiates Screen Negative QUAL. Urine Barbiturates Screen Negative QUAL. Phencyclidine (PCP) Screen Negative QUAL. Amphetamines Screen Negative QUAL. Benzodiazepines Screen Negative QUAL. Urine Cocaine Screen Negative QUAL. Marijuana (THC) Screen Negative QUAL. Abnormal Results Test 08/27/20 09:16 08/27/20 09:35 Mean Corpuscular Hemoglobin 27.4 pg Absolute Basophils (auto) 0.0 10'3/uL Chloride Level 109 mmol/L Carbon Dioxide Level 20 mmol/L Aspartate Amino Transf (AST/SGOT) 45 U/L Alanine Aminotransferase (ALT/SGPT) 57 U/L Acetaminophen Level < 1.0 ug/mL Progress #1 Repeat Vital Signs Vital Signs Date Time Temp Pulse Resp B/P (MAP) Pulse Ox O2 Delivery O2 Flow Rate FiO2 08/27/20 09:00 97.5 94 16 113/57 (75) 98 Room Air Progress: Condition improved - Case discussed with [facility]. Reviewing plan given she has guardianship through [employer]. Plan pending. Progress #2 Progress #2: Condition improved - Patient remains stable, sleeping at intervals, cooperative. [facility] assists in placement at [facility]. Awaiting transport. Patient medically cleared for psychiatric admission. Departure Departure Disposition: Transferred Diagnosis: Primary Impression: Suicidal behavior Qualified Codes: R45.89 - Other symptoms and signs involving emotional state Additional Impression: Major depression Qualified Codes: F33.2 - Major depressive disorder, recurrent severe without psychotic features Condition: Fair Referrals: SIVA RINCON M.D. (PCP) Home Medications: Reviewed, No Changes OCTAVIANO MEDINA M.D.-ER Aug 27, 2020 08:56 (Please note that portions of this note were completed with a voice recognition program. Efforts were made to edit the dictations but occasionally words are mis-transcribed.) Electronically Signed by: OCTAVIANO MEDINA M.D. 08/29/20 0323 OCTAVIANO MEDINA M.D. [phone] cc: Normal [facility] SALICYLATE LEVELon 0 SALICYLATE LEVEL < 5.0 Normal 1.7-20.0 [facility] Comment on above: Order Comment: Colle cted by Care Area? Y Performed By: #### KENDALL Yoon, PREG #### [facility] CLIA # [id number] [address] [place] [address] T3 UPTAKEon 08-27-2020 T3 UPTAKE 0.87 UNITS Normal 0.69-1.41 [facility] Comment on above: Order Comment: Colle cted by Care Area? Y Performed By: #### KENDALL Yoon, PREG #### [facility] CLIA # [id number] [address] [place] [address] TRIAGE DRUG SCREENon 020 Amphetamines Ql (U) Negative Normal [facility] Comment on above: Order Comment: Colle cted by Care Area? YHas Specimen Been Collected? Y Performed By: #### KENDALL Yoon, PREG #### [facility] CLIA # [id number] [address] [place] [address] BARBITUATES SCREEN Negative Normal [facility] Comment on above: Order Comment: Colle cted by Care Area? YHas Specimen Been Collected? Y Performed By: #### C Luis Eduardo, LIP, PREG #### [facility] CLIA # [id number] [address] [place] [address] Benzodiazepines Ql (U) Negative Normal [facility] Comment on above: Order Comment: Colle cted by Care Area? YHas Specimen Been Collected? Y Performed By: #### C M, LIP, PREG #### [facility] CLIA # [id number] [address] [place] [address] COCAINE LEVEL Negative [facility] Comment on above: Order Comment: Colle cted by Care Area? YHas Specimen Been Collected? Y Performed By: #### C Luis Eduardo, LIP, PREG #### [facility] CLIA # [id number] [address] [place] [address] MARIJUANA (THC) Negative [facility] Comment on above: Order Comment: Colle cted by Care Area? YHas Specimen Been Collected? Y Performed By: #### C Luis Eduardo, LIP, PREG #### [facility] CLIA # [id number] [address] [place] [address] OPIATE URINE SCREEN Negative Normal [facility] Comment on above: Order Comment: Colle cted by Care Area? YHas Specimen Been Collected? Y Performed By: #### C M, LIP, PREG #### [facility] CLIA # [id number] [address] [place] [address] PHENCYCLIDINE SCREEN, URINE Negative Normal [facility] Comment on above: Order Comment: Colle cted by Care Area? YHas Specimen Been Collected? Y Performed By: #### C Luis Eduardo, LIP, PREG #### [facility] CLIA # [id number] [address] [place] [address] TSH 3RD GENERATIONon 020 TSH 3RD GENERATION 3.838 uIU/mL Normal 0.463-3.[address] [facility] Comment on above: Order Comment: Colle cted by Care Area? Y Performed By: #### Nilsa Hoff, LIP, PREG #### [facility] CLIA # [id number] [address] [place] [address] URINALYSISon 08-27-2020 Bacteria LM.HPF (Urine sed) [#/Area] 1+ /hpf Normal 0 [facility] Comment on above: Order Comment: Colle cted by Care Area? YHas Specimen Been Collected? Y Performed By: #### KENDALL Yoon, PREG #### [facility] CLIA # [id number] [address] [place] [address] MUCUS, URINE OCCASIONAL Normal OCC [facility] Comment on above: Order Comment: Colle cted by Care Area? YHas Specimen Been Collected? Y Performed By: #### KENDALL Yoon, PREG #### [facility] CLIA # [id number] [address] [place] [address] SQUAMOUS EPITHELIAL CELL URINE 4+ /lpf Normal 0 [facility] Comment on above: Order Comment: Colle cted by Care Area? YHas Specimen Been Collected? Y Performed By: #### Nilsa Hoff, LIP, PREG #### [facility] CLIA # [id number] [address] [place] [address] WBC LM.HPF (Urine sed) [#/Area] OCCASIONAL Normal 0 [facility] Comment on above: Order Comment: Colle cted by Care Area? YHas Specimen Been Collected? Y Performed By: #### Nilsa Hoff, LIP, PREG #### [facility] CLIA # [id number] [address] [place] [address] Appearance (U) SL CLOUDY Normal CLEAR [facility] Comment on above: Order Comment: Colle cted by Care Area? YHas Specimen Been Collected? Y Performed By: #### C M, LIP, PREG #### [facility] CLIA # [id number] [address] [place] [address] BILIRUBIN, URINE Negative Normal NEGATIVE [facility] Comment on above: Order Comment: Colle cted by Care Area? YHas Specimen Been Collected? Y Performed By: #### C M, LIP, PREG #### [facility] CLIA # [id number] [address] [place] [address] Color (U) YELLOW Normal YELLOW [facility] Comment on above: Order Comment: Colle cted by Care Area? YHas Specimen Been Collected? Y Performed By: #### C M, LIP, PREG #### [facility] CLIA # [id number] [address] [place] [address] Glucose Ql (U) Negative Normal NEGATIVE [facility] Comment on above: Order Comment: Colle cted by Care Area? YHas Specimen Been Collected? Y Performed By: #### C M, LIP, PREG #### [facility] CLIA # [id number] [address] [place] [address] KETONE, URINE Negative Normal NEGATIVE [facility] Comment on above: Order Comment: Colle cted by Care Area? YHas Specimen Been Collected? Y Performed By: #### C M, LIP, PREG #### [facility] CLIA # [id number] [address] [place] [address] Leukocyte esterase Test strip Ql (U) Negative Normal NEGATIVE [facility] Comment on above: Order Comment: Colle cted by Care Area? YHas Specimen Been Collected? Y Performed By: #### C M, LIP, PREG #### [facility] CLIA # [id number] [address] [place] [address] NITRITE, URINE Negative Normal NEGATIVE [facility] Comment on above: Order Comment: Colle cted by Care Area? YHas Specimen Been Collected? Y Performed By: #### Nilsa Hoff, LIP, PREG #### [facility] CLIA # [id number] [address] [place] [address] OCCULT BLOOD URINE Negative Normal NEGATIVE [facility] Comment on above: Order Comment: Colle cted by Care Area? YHas Specimen Been Collected? Y Performed By: #### Nilsa Hoff, LIP, PREG #### [facility] CLIA # [id number] [address] [place] [address] pH (U) 6.0 [pH] Normal 5.5 - 8.0 [facility] Comment on above: Order Comment: Colle cted by Care Area? YHas Specimen Been Collected? Y Performed By: #### Nlisa Hoff, LIP, PREG #### [facility] CLIA # [id number] [address] [place] [address] Protein (U) [Mass/Vol] Negative Normal NEGATIVE [facility] Comment on above: Order Comment: Colle cted by Care Area? YHas Specimen Been Collected? Y Performed By: #### Nilsa Hoff, LIP, PREG #### [facility] CLIA # [id number] [address] [place] [address] SPECIFIC GRAVITY,URINE >= 1.030 Normal 1.005-1.030 F [facility] Comment on above: Order Comment: Colle cted by Care Area? YHas Specimen Been Collected? Y Performed By: #### Nilsa Hoff, LIP, PREG #### [facility] CLIA # [id number] [address] [place] [address] UROBILINOGEN, URINE 0.2 EU/dl Normal 0.1 - 1.0 [facility] Comment on above: Order Comment: Colle cted by Care Area? YHas Specimen Been Collected? Y Performed By: #### C M, LIP, PREG #### [facility] CLIA # [id number] [address] [place] [address] URINE TESTon 08-27 HCG ( test) Ql (U) Negative Normal NEG [facility] Comment on above: Order Comment: Colle cted by Care Area? Y Has Specimen Been Collected? Y Result Comment: THE MONOCLONAL ANTIBODY BASED IMMUNOASSAY USED BY OUR LABORATORY FOR THE QUALITATIVE DETECTION OF hCG HAS BEEN SHOWN TO HAVE A 99.5% SENSITIVITY SPECIFICITY FOR hCG. PLEASE NOTE THAT HCG LEVELS MAY CONTINUE TO BE DETECTED FOLLOWING , NORMAL DELIVERY, OR . IN THE EVENT OF A NEGATIVE TEST WHEN CLINICAL INDICATIONS STRONGLY SUGGEST , THE PHYSICIAN IS ENCOURAGED TO REQUEST A QUANTITATIVE B-HCG TITER. Performed By: #### U CG #### [facility] CLIA # [id number] [address] [place] [address] Laboratory - Microbiology an d Antimicrobial susceptibilityOrdered By: Keisha Tapia on 08-15-2020 SARS-CoV-2 (COVID-19) RNA TICO+probe Ql (Resp) Not detected (Not Detected ) [facility] Work Phone: Comment on above: Note: This nucleic a steff amplification test was developed and itsperformance characteristics determined by [facility]. Nucleic acid amplification tests include PCRand TMA. This test has not been FDA cleared or approved.This test has been authorized by FDA under an Emergency UseAuthorization (EUA). This test is only authorized forthe duration of time the declaration that circumstancesexist justifying the authorization of the emergency use ofin vitro diagnostic tests for detection of SARS-CoV-2 virusand/or diagnosis of COVID-19 infection under vkkgopn618(b)(1) of the Act, 21 U.S.C. 360bbb-3(b) (1), unless theauthorization is terminated or revoked sooner.When diagnostic testing is negative, the possibility of afalse negative result should be considered in the contextof a patient's recent exposures and the presence ofclinical signs and symptoms consistent with COVID-19. Anindividual without symptoms of COVID-19 and who is notshedding SARS-CoV-2 virus would expect to have a negative(not detected) result in this assay. Otheron 08-15-2020 SARS-CoV-2, TICO Not Detected (Not Detected) [facility] Work Phone: Comment on above: Note: This nucleic a steff amplification test was developed and itsperformance characteristics determined by [facility]. Nucleic acid amplification tests include PCRand TMA. This test has not been FDA cleared or approved.This test has been authorized by FDA under an Emergency UseAuthorization (EUA). This test is only authorized forthe duration of time the declaration that circumstancesexist justifying the authorization of the emergency use ofin vitro diagnostic tests for detection of SARS-CoV-2 virusand/or diagnosis of COVID-19 infection under gaaiiye729(b)(1) of the Act, 21 U.S.C. 360bbb-3(b) (1), unless theauthorization is terminated or revoked sooner.When diagnostic testing is negative, the possibility of afalse negative result should be considered in the contextof a patient's recent exposures and the presence ofclinical signs and symptoms consistent with COVID-19. Anindividual without symptoms of COVID-19 and who is notshedding SARS-CoV-2 virus would expect to have a negative(not detected) result in this assay. URINE CULTUREon 07-24-2020 Bacteria identified Cx Nom (U) STAPHYLOCOCCUS SP COAG NEG STACN URINE CULTURE COLONY COUNT: >100,000 Normal [facility] Comment on above: Order Comment: SUSCE PTIBILITY WILL NOT BE PERFORMED BECAUSE THE CLINICALSIGNIFICANCE OF COAGULASE NEGATIVE STAPHYLOCOCCI ISOLATEDFROM A SINGLE CULTURE IS UNDETERMINED. PLEASE CONSULTMICROBIOLOGY IF FURTHER WORK-UP IS NEEDED. ACETAMINOPHEN LEVELon 2019 Acetaminophen [Mass/Vol] < 0.6 Low 10.0-30.0 [facility] Comment on above: Order Comment: Colle cted by Care Area? Y Performed By: #### KENDALL Yoon PREG #### [facility] CLIA # [id number] [address] [place] [address] ALCOHOL LEVEL (MEDICAL)on ALCOHOL LEVEL (MEDICAL) < 10.0 Normal 0-199 [facility] Comment on above: Order Comment: Colle cted by Care Area? Y Result Comment: BLOOD ALCOHOL INTERPRETATIONS 10 - 50 mg/dl ............NO EFFECT TO MILD EUPHORIA 50 - 100 mg/dl ...........MILD INFLUENCE ON VISION 100 - 150 mg/dl ..........EUPHORIA; PROLONGED REACTIONS 150 - 200 mg/dl ..........INTOXICATION; MODERATE POISONING 200 - 250 mg/dl ..........INTOXICATION; SEVERE POISONING 250 - 400 mg/dl ..........DEEP COMA POSSIBLE > 400 mg/dl ..............POSSIBLE FATAL CONCENTRATION Performed By: #### C KENDALL Hoff PREG #### [facility] CLIA # [id number] [address] [place] [address] COMPLETE BLOOD COUNT W/DIFFo n 07-22-2020 Basophils (Bld) [#/Vol] 0.0 10'3/uL Low 0.1-0.2 [facility] Comment on above: Performed By: #### C BCD #### [facility] CLIA # [id number] [address] [place] [address] Basophils/100 WBC (Bld) 0.3 % Normal 0.0-1.7 [facility] Comment on above: Performed By: #### C BCD #### [facility] CLIA # [id number] [address] [place] [address] Eosinophils (Bld) [#/Vol] 0.0 10'3/uL Normal 0.0-0.4 [facility] Comment on above: Performed By: #### C BCD #### [facility] CLIA # [id number] [address] [place] [address] Eosinophils/100 WBC (Bld) 0.1 % Normal 0.0-6.4 [facility] Comment on above: Performed By: #### C BCD #### [facility] CLIA # [id number] [address] [place] [address] Erythrocyte distribution width (RBC) [Ratio] 12.9 % Normal 12.2-15.8 [facility] Comment on above: Performed By: #### C BCD #### [facility] CLIA # [id number] [address] [place] [address] Hematocrit (Bld) [Volume fraction] 36.1 % Normal 36.0-46.0 [facility] Comment on above: Performed By: #### C BCD #### [facility] CLIA # [id number] [address] [place] [address] Hemoglobin (Bld) [Mass/Vol] 12.1 g/dL Normal 12.0-16.0 [facility] Comment on above: Performed By: #### C BCD #### [facility] CLIA # [id number] [address] [place] [address] Lymphocytes (Bld) [#/Vol] 3.3 10'3/uL Normal 0.5-3.5 [facility] Comment on above: Performed By: #### C BCD #### [facility] CLIA # [id number] [address] [place] [address] Lymphocytes/100 WBC (Bld) 46.6 % High 17.4-45.9 [facility] Comment on above: Performed By: #### C BCD #### [facility] CLIA # [id number] [address] [facility] [place] [address] MCH (RBC) [Entitic mass] 28.1 pg Normal 27.8-33.2 [facility] Comment on above: Performed By: #### C BCD #### [facility] CLIA # [id number] [address] [place] [address] MCH (RBC) [Entitic mass] 33.5 g/dL Normal 32.7-34.8 [facility] Comment on above: Performed By: #### C BCD #### [facility] CLIA # [id number] [address] [place] [address] MCV (RBC) [Entitic vol] 83.8 fL Normal 83.0-97.4 [facility] Comment on above: Performed By: #### C BCD #### [facility] CLIA # [id number] [address] [facility] [place] [address] Monocytes (Bld) [#/Vol] 0.7 10'3/uL Normal 0.2-0.8 [facility] Comment on above: Performed By: #### C BCD #### [facility] CLIA # [id number] [address] [place] [address] Monocytes/100 WBC (Bld) 9.8 % Normal 4.4-12.0 [facility] Comment on above: Performed By: #### C BCD #### [facility] CLIA # [id number] [address] [facility] [place] [address] Neutrophils (Bld) [#/Vol] 3.0 10'3/uL Normal 1.5-5.6 [facility] Comment on above: Performed By: #### C BCD #### [facility] CLIA # [id number] [address] [facility] [place] [address] Neutrophils/100 WBC (Bld) 43.2 % Normal 41.2-72.1 [facility] Comment on above: Performed By: #### C BCD #### [facility] CLIA # [id number] [address] [facility] [place] [address] Platelet mean volume (Bld) [Entitic vol] 9.4 fL Normal [facility] Comment on above: Performed By: #### C BCD #### [facility] CLIA # [id number] [address] [place] [address] Platelets (Bld) [#/Vol] 306 10'3/uL Normal 122-359 [facility] Comment on above: Performed By: #### C BCD #### [facility] CLIA # [id number] [address] [place] [address] RBC (Bld) [#/Vol] 4.31 10'6/uL Normal 3.85-4.88 [facility] Comment on above: Performed By: #### C BCD #### [facility] CLIA # [id number] [address] [place] [address] WBC (Bld) [#/Vol] 7.0 10'3/uL Normal 3.2-9.3 [facility] Comment on above: Performed By: #### C BCD #### [facility] CLIA # [id number] [address] [place] [address] COMPREHENSIVE METABOLIC PROF on 07-22-2020 Albumin [Mass/Vol] 4.0 g/dL Normal 3.2-4.5 [facility] Comment on above: Order Comment: Colle cted by Care Area? Y Performed By: #### C M, LIP, PREG #### [facility] CLIA # [id number] [address] [place] [address] ALP [Catalytic activity/Vol] 93 U/L Normal <500 [facility] Comment on above: Order Comment: Colle cted by Care Area? Y Performed By: #### C Luis Eduardo, LIP, PREG #### [facility] CLIA # [id number] [address] [place] [address] ALT/SGPT 50 U/L Normal [facility] Comment on above: Order Comment: Colle cted by Care Area? Y Performed By: #### Nilsa Hoff, LIP, PREG #### [facility] CLIA # [id number] [address] [place] [address] Anion gap [Moles/Vol] 9 mmol/L Normal 5-[address] [facility] Comment on above: Order Comment: Colle cted by Care Area? Y Performed By: #### Nilsa Hoff, LIP, PREG #### [facility] CLIA # [id number] [address] [place] [address] AST/SGOT 33 U/L Normal [facility] Comment on above: Order Comment: Colle cted by Care Area? Y Performed By: #### Nilsa Hoff, LIP, PREG #### [facility] CLIA # [id number] [address] [place] [address] Bilirubin [Mass/Vol] 0.2 mg/dL Normal 0.0-1.[address] [facility] Comment on above: Order Comment: Colle cted by Care Area? Y Performed By: #### Nilsa Hoff, LIP, PREG #### [facility] CLIA # [id number] [address] [place] [address] Calcium [Mass/Vol] 9.0 mg/dL Normal 8.4-10.2 [facility] Comment on above: Order Comment: Colle cted by Care Area? Y Performed By: #### Nilsa Hoff, LIP, PREG #### [facility] CLIA # [id number] [address] [place] [address] Chloride [Moles/Vol] 108 mmol/L High 98-[address] [facility] Comment on above: Order Comment: Colle cted by Care Area? Y Performed By: #### Nilsa Hoff, LIP, PREG #### [facility] CLIA # [id number] [address] [place] [address] CO2 [Moles/Vol] 22 mmol/L Normal 20-28 [facility] Comment on above: Order Comment: Colle cted by Care Area? Y Performed By: #### Nilsa Hoff, KENDALL, PREG #### [facility] CLIA # [id number] [address] [place] [address] Creatinine [Mass/Vol] 0.76 mg/dL Normal [facility] Comment on above: Order Comment: Colle cted by Care Area? Y Performed By: #### Nilsa Hoff, LIP, PREG #### [facility] CLIA # [id number] [address] [place] [address] Glucose [Mass/Vol] 91 mg/dL Normal 60-100 [facility] Comment on above: Order Comment: Colle cted by Care Area? Y Performed By: #### Nilsa Hoff, LIP, PREG #### [facility] CLIA # [id number] [address] [place] [address] Potassium [Moles/Vol] 4.3 mmol/L Normal 3.4-4.[address] [facility] Comment on above: Order Comment: Colle cted by Care Area? Y Performed By: #### Nilsa Hoff, LIP, PREG #### [facility] CLIA # [id number] [address] [place] [address] Protein [Mass/Vol] 7.3 g/dL Normal 6.4-8.2 [facility] Comment on above: Order Comment: Colle cted by Care Area? Y Performed By: #### Nilsa Hoff LIP, PREG #### [facility] CLIA # [id number] [address] [place] [address] Sodium [Moles/Vol] 139 mmol/L Normal 132-141 [facility] Comment on above: Order Comment: Colle cted by Care Area? Y Performed By: #### KENDALL Yoon, PREG #### [facility] CLIA # [id number] [address] [place] [address] Urea nitrogen [Mass/Vol] 11 mg/dL Normal 6-20 [facility] Comment on above: Order Comment: Colle cted by Care Area? Y Performed By: #### KENDALL Yoon, PREG #### [facility] CLIA # [id number] [address] [place] [address] FREE,T4on 07-22-2020 Free T4 [Mass/Vol] 0.82 ng/dL Low 0.89-1.20 [facility] Comment on above: Order Comment: Colle cted by Care Area? Y Performed By: #### KENDALL Yoon, PREG #### [facility] CLIA # [id number] [address] [place] [address] HISTORY PRESENT ILLNESSon HISTORY PRESENT ILLNESS Name: ADRIANA GREGG : 2005 Unit #: [id number] Age: 14 Family Physician: Pt Location: ER Arrival Date 07/22/20741 ER Physician: DAVID PADILLA MD-ER [facility] EMERGENCY ROOM History of Present Illness History of Present Illness Time Seen: 08:06 History of Present Illness The patient is a 14 year old female who presented to the Emergency Department with the complaint of suicidal ideation. She has a plan of cutting herself with a pencil for taking her that she is having pain herself from a tree. Thoughts of suicide started yesterday although she has had suicidal thoughts in the past. She is never acted on them. She reports that she is being bullied at school as well as his very upset that they male person at the foster house left about a week ago. When asked why he left, the female guardian who was in the room states that she cannot say much but that he is currently under investigation and is not allowed to return until the investigation as completed. According to the patient, he is very emotional support to her. She reports no change or appetite. Sleep patterns are unchanged. No fevers or chills. No constitutional symptoms. No other mitigating precipitating or exacerbating factors. Past Medical History Past Medical History Pertinent Medical History: Allergies, Depression Pertinent Surgical History: No surgical history Hx Last Menstrual Period: depo Family History Significant Family Medical Hx: No Significant History Social History Marital Status S Single Living Arrangments: Family Employment Status: Student Smoking Status: Never Smoker Alcohol Use: Denies Drug Use: Denies Allergies Allergies: Coded Allergies: lactose (Verified Allergy, Unknown, 07/22/20) Home Medications Home Medications See Reconcile Meds Review of Systems Review of Systems All Other Systems: Reviewed and Negative Physical Exam Physical Exam Initial Vital Signs Vital Signs Date Time Temp Pulse Resp B/P (MAP) Pulse Ox O2 Delivery O2 Flow Rate FiO2 07/22/20 08:00 96.9 97 18 136/76 (96) 99 Room Air General Appearance: No apparent distress HEENT: Atraumatic, PERRL, Pharynx normal Neck: Normal Inspection, Soft and Supple Respiratory: Normal inspection, Easy effort, No rales, No rhonchi, No wheezes, No respiratory distress Cardiovascular: Regular rate and rhythm, Normal S1 and S2 Gastrointestinal: Soft, Non-tender, Nondistended, No guarding Musculoskeletal: Normal inspection, No pedal edema, No swelling, No tenderness Neurologic/Psychiatric: Alert, Oriented x3, Normal mood/affect, Non-focal neuro exam Skin: Normal color, Warm/dry, No rash Course of Treatment Laboratory Laboratory Results: WNL except as listed Labs Laboratory Tests Test 07/22/20 08:00 8/25/20 08:21 Urine Color Yellow (YELLOW) Urine Appearance Clear (CLEAR) Urine pH 6.0 (5.5 - 8.0) Urine Specific [place] >= 1.030 (1.005-1.030) Urine Protein Negative mg/dL (NEGATIVE) Urine Glucose (UA) Negative g/dL (NEGATIVE) Urine Ketones Negative mg/dL (NEGATIVE) Urine Occult Blood Negative (NEGATIVE) Urine Nitrite Negative (NEGATIVE) Urine Bilirubin Negative (NEGATIVE) Urine Urobilinogen 0.2 EU/dl (0.1 - 1.0) Urine Leukocyte Esterase Negative (NEGATIVE) Microscopic Urinalysis (T) Urine Squamous Epithelial Cells 2+ /lpf (0) Urine Calcium Oxalate Crystals Occasional /hpf (0) Urine Bacteria 1+ /hpf (0) Urine Mucus 2+ /lpf (OCC) Urine Test Negative (NEG) Urine Opiates Screen Negative QUAL. Urine Barbiturates Screen Negative QUAL. Phencyclidine (PCP) Screen Negative QUAL. Amphetamines Screen Negative QUAL. Benzodiazepines Screen Negative QUAL. Urine Cocaine Screen Negative QUAL. Marijuana (THC) Screen Negative QUAL. White Blood Count 7.0 10'3/uL (3.2-9.3) Red Blood Count 4.31 10'6/uL (3.85-4.88) Hemoglobin 12.1 g/dL (12.0-16.0) Hematocrit 36.1 % (36.0-46.0) Mean Corpuscular Volume 83.8 fL (83.0-97.4) Mean Corpuscular Hemoglobin 28.1 pg (27.8-33.2) Mean Corpuscular Hgb Concent Diff 33.5 g/dL (32.7-34.8) Red Cell Distribution Width 12.9 % (12.2-15.8) Platelet Count 306 10'3/uL (122-359) Mean Platelet Volume 9.4 fL Neutrophils (%) (Auto) 43.2 % (41.2-72.1) Absolute Neutrophils (auto) 3.0 10'3/uL (1.5-5.6) Absolute Lymphocytes (auto) 3.3 10'3/uL (0.5-3.5) Absolute Monocytes (auto) 0.7 10'3/uL (0.2-0.8) Absolute Eosinophils (auto) 0.0 10'3/uL (0.0-0.4) Absolute Basophils (auto) 0.0 10'3/uL (0.1-0.2) Lymphocytes % 46.6 % (17.4-45.9) Monocytes % 9.8 % (4.4-12.0) Eosinophils % 0.1 % (0.0-6.4) Basophils % 0.3 % (0.0-1.7) Sodium Level 139 mmol/L (132-141) Potassium Level 4.3 mmol/L (3.4-4.7) Chloride Level 108 mmol/L (98-107) Carbon Dioxide Level 22 mmol/L (20-28) Anion Gap 9 mEq/L (5-13) Blood Urea Nitrogen 11 mg/dL (6-20) Creatinine 0.76 mg/dL Estimat Glomerular Filtration Rate Glucose Level 91 mg/dL (60-100) Calcium Level 9.0 mg/dL (8.4-10.2) Total Bilirubin 0.2 mg/dL (0.0-1.0) Aspartate Amino Transf (AST/SGOT) 33 U/L Alanine Aminotransferase (ALT/SGPT) 50 U/L Alkaline Phosphatase 93 U/L (<500) Total Protein 7.3 g/dL (6.4-8.2) Albumin 4.0 g/dL (3.2-4.5) Free Thyroxine 0.82 ng/dL (0.89-1.20) TSH 3rd Generation 5.740 uIU/mL (0.463-3.98) Salicylates Level < 5.0 mg/dL (1.7-20.0) Acetaminophen Level < 0.6 ug/mL (10.0-30.0) Ethyl Alcohol Level < 10.0 mg/dL (0-199) Microbiology Date/Time Source Procedure Growth Status 07/22/20 08:00 Urine,Clean Catch Urine Culture Pending Received Abnormal Results Test 07/22/20 08:00 07/22/20 08:21 Urine Bacteria 1+ /hpf Absolute Basophils (auto) 0.0 10'3/uL Lymphocytes % 46.6 % Chloride Level 108 mmol/L Free Thyroxine 0.82 ng/dL TSH 3rd Generation 5.740 uIU/mL Acetaminophen Level < 0.6 ug/mL Progress #1 Time Patient Reassessed: 14:40 Repeat Vital Signs Vital Signs Date Time Temp Pulse Resp B/P (MAP) Pulse Ox O2 Delivery O2 Flow Rate FiO2 07/22/20 08:00 96.9 97 18 136/76 (96) 99 Room Air Re-Evaluation Screener has come in evaluated this patient at feels that this patient would benefit from inpatient evaluation and management. He has tried to get this patient placed to a pediatric facility without success. I have discussed this patient with the peds ER attending at [facility] who has accepted this patient in transfer. Pediatric ER physician has been made aware of this patient being hypothyroid. She does not appear to be in severe distress secondary to that however. Departure Departure Disposition: Transferred - [facility] Diagnosis: Primary Impression: Suicidal ideation Additional Impressions: Depression Qualified Codes: F32.9 - Major depressive disorder, single episode, unspecified Hypothyroidism Qualified Codes: E03.9 - Hypothyroidism, unspecified Condition: Stable Referrals: SIVA IRNCON M.D. (PCP) Home Medications: Reviewed DAVID PADILLA MD-ER Jul 22, 2020 08:59 (Please note that portions of this note were completed with a voice recognition program. Efforts were made to edit the dictations but occasionally words are mis-transcribed.) Electronically Signed by: DAVID PADILLA MD 07/22/20 1444 DAVID PADILLA MD [phone] cc: [facility] EM[facility]GENCY [facility] ADDENDUM Name: ADRIANA GREGG : 2005 Unit #: [id number] Age: 14 Attending Physician: Pt Location: ER Date of Service: Addendum: DAVID PADILLA MD-ER on 07/22/20 @ 14:44 EKG as interpreted by myself as showing a normal sinus rhythm without any acute ST-segment changes. Rate axis and intervals are all normal. (Please note that portions of this note were completed with a voice recognition program. Efforts were made to edit the dictations but occasionally words are mis-transcribed.) 07/22/20 [phone] cc: Normal [facility] SALICYLATE LEVELon 0 SALICYLATE LEVEL < 5.0 Normal 1.7-20.0 [facility] Comment on above: Order Comment: Colle cted by Care Area? Y Performed By: #### C M, KENDALL, PREG #### [facility] CLIA # [id number] [address] [place] [address] TRIAGE DRUG SCREENon 020 Amphetamines Ql (U) Negative Normal [facility] Comment on above: Order Comment: Colle cted by Care Area? Y Has Specimen Been Collected? Y Does patient have any new or worsening URINARY symptoms? N Performed By: #### U ACS, TRIAGE #### [facility] CLIA # [id number] [address] [place] [address] BARBITUATES SCREEN Negative Normal [facility] Comment on above: Order Comment: Colle cted by Care Area? Y Has Specimen Been Collected? Y Does patient have any new or worsening URINARY symptoms? N Performed By: #### U ACS, TRIAGE #### [facility] CLIA # [id number] [address] [place] [address] Benzodiazepines Ql (U) Negative Normal [facility] Comment on above: Order Comment: Colle cted by Care Area? Y Has Specimen Been Collected? Y Does patient have any new or worsening URINARY symptoms? N Performed By: #### U ACS, TRIAGE #### [facility] CLIA # [id number] [address] [place] [address] COCAINE LEVEL Negative Normal [facility] Comment on above: Order Comment: Colle cted by Care Area? Y Has Specimen Been Collected? Y Does patient have any new or worsening URINARY symptoms? N Performed By: #### U ACS, TRIAGE #### [facility] CLIA # [id number] [address] [place] [address] MARIJUANA (THC) Negative Normal [facility] Comment on above: Order Comment: Colle cted by Care Area? Y Has Specimen Been Collected? Y Does patient have any new or worsening URINARY symptoms? N Performed By: #### U ACS, TRIAGE #### [facility] CLIA # [id number] [address] [place] [address] OPIATE URINE SCREEN Negative Normal [facility] Comment on above: Order Comment: Colle cted by Care Area? Y Has Specimen Been Collected? Y Does patient have any new or worsening URINARY symptoms? N Performed By: #### U ACS, TRIAGE #### [facility] CLIA # [id number] [address] [place] [address] PHENCYCLIDINE SCREEN, URINE Negative Normal [facility] Comment on above: Order Comment: Colle cted by Care Area? Y Has Specimen Been Collected? Y Does patient have any new or worsening URINARY symptoms? N Performed By: #### U ACS, TRIAGE #### [facility] CLIA # [id number] [address] [place] [address] TSH 3RD GENERATIONon 020 TSH 3RD GENERATION 5.740 uIU/mL High 0.463-3.[address] [facility] Comment on above: Order Comment: Colle cted by Care Area? Y Performed By: #### C M, LIP, PREG #### [facility] CLIA # [id number] [address] [place] [address] UA WITH REFLEX CULTUREon CALCIUM OXALATE CRYSTALS,URINE OCCASIONAL Normal 0 [facility] Comment on above: Order Comment: Colle cted by Care Area? Y Has Specimen Been Collected? Y Does patient have any new or worsening URINARY symptoms? N Performed By: #### U ACS, TRIAGE #### [facility] CLIA # [id number] [address] [place] [address] Bacteria LM.HPF (Urine sed) [#/Area] 1+ /hpf Abnormal 0 [facility] Comment on above: Order Comment: Colle cted by Care Area? Y Has Specimen Been Collected? Y Does patient have any new or worsening URINARY symptoms? N Performed By: #### U ACS, TRIAGE #### [facility] CLIA # [id number] [address] [place] [address] MUCUS, URINE 2+ /lpf Normal OCC [facility] Comment on above: Order Comment: Colle cted by Care Area? Y Has Specimen Been Collected? Y Does patient have any new or worsening URINARY symptoms? N Performed By: #### U ACS, TRIAGE #### [facility] CLIA # [id number] [address] [place] [address] SQUAMOUS EPITHELIAL CELL URINE 2+ /lpf Normal 0 [facility] Comment on above: Order Comment: Colle cted by Care Area? Y Has Specimen Been Collected? Y Does patient have any new or worsening URINARY symptoms? N Performed By: #### U ACS, TRIAGE #### [facility] CLIA # [id number] [address] [place] [address] Appearance (U) CLEAR Normal CLEAR [facility] Comment on above: Order Comment: Colle cted by Care Area? Y Has Specimen Been Collected? Y Does patient have any new or worsening URINARY symptoms? N Performed By: #### U ACS, TRIAGE #### [facility] CLIA # [id number] [address] [place] [address] BILIRUBIN, URINE Negative Normal NEGATIVE [facility] Comment on above: Order Comment: Colle cted by Care Area? Y Has Specimen Been Collected? Y Does patient have any new or worsening URINARY symptoms? N Performed By: #### U ACS, TRIAGE #### [facility] CLIA # [id number] [address] [place] [address] Color (U) YELLOW Normal YELLOW [facility] Comment on above: Order Comment: Colle cted by Care Area? Y Has Specimen Been Collected? Y Does patient have any new or worsening URINARY symptoms? N Performed By: #### U ACS, TRIAGE #### [facility] CLIA # [id number] [address] [place] [address] Glucose Ql (U) Negative Normal NEGATIVE [facility] Comment on above: Order Comment: Colle cted by Care Area? Y Has Specimen Been Collected? Y Does patient have any new or worsening URINARY symptoms? N Performed By: #### U ACS, TRIAGE #### [facility] CLIA # [id number] [address] [place] [address] KETONE, URINE Negative Normal NEGATIVE [facility] Comment on above: Order Comment: Colle cted by Care Area? Y Has Specimen Been Collected? Y Does patient have any new or worsening URINARY symptoms? N Performed By: #### U ACS, TRIAGE #### [facility] CLIA # [id number] [address] [place] [address] Leukocyte esterase Test strip Ql (U) Negative Normal NEGATIVE [facility] Comment on above: Order Comment: Colle cted by Care Area? Y Has Specimen Been Collected? Y Does patient have any new or worsening URINARY symptoms? N Performed By: #### U ACS, TRIAGE #### [facility] CLIA # [id number] [address] [place] [address] NITRITE, URINE Negative Normal NEGATIVE [facility] Comment on above: Order Comment: Colle cted by Care Area? Y Has Specimen Been Collected? Y Does patient have any new or worsening URINARY symptoms? N Performed By: #### U ACS, TRIAGE #### [facility] CLIA # [id number] [address] [place] [address] OCCULT BLOOD URINE Negative Normal NEGATIVE [facility] Comment on above: Order Comment: Colle cted by Care Area? Y Has Specimen Been Collected? Y Does patient have any new or worsening URINARY symptoms? N Performed By: #### U ACS, TRIAGE #### [facility] CLIA # [id number] [address] [place] [address] pH (U) 6.0 [pH] Normal 5.5 - 8.0 [facility] Comment on above: Order Comment: Colle cted by Care Area? Y Has Specimen Been Collected? Y Does patient have any new or worsening URINARY symptoms? N Performed By: #### U ACS, TRIAGE #### [facility] CLIA # [id number] [address] [place] [address] Protein (U) [Mass/Vol] Negative Normal NEGATIVE [facility] Comment on above: Order Comment: Colle cted by Care Area? Y Has Specimen Been Collected? Y Does patient have any new or worsening URINARY symptoms? N Performed By: #### U ACS, TRIAGE #### [facility] CLIA # [id number] [address] [place] [address] SPECIFIC GRAVITY,URINE >= 1.030 Normal 1.005-1.030 [facility] Comment on above: Order Comment: Colle cted by Care Area? Y Has Specimen Been Collected? Y Does patient have any new or worsening URINARY symptoms? N Performed By: #### U ACS, TRIAGE #### [facility] CLIA # [id number] [address] [place] [address] UROBILINOGEN, URINE 0.2 EU/dl Normal 0.1 - 1.0 [facility] Comment on above: Order Comment: Colle cted by Care Area? Y Has Specimen Been Collected? Y Does patient have any new or worsening URINARY symptoms? N Performed By: #### U ACS, TRIAGE #### [facility] CLIA # [id number] [address] [place] [address] URINE TESTon 07-22 HCG ( test) Ql (U) Negative Normal NEG [facility] Comment on above: Order Comment: Colle cted by Care Area? YHas Specimen Been Collected? Y Result Comment: THE MONOCLONAL ANTIBODY BASED IMMUNOASSAY USED BY OUR LABORATORY FOR THE QUALITATIVE DETECTION OF hCG HAS BEEN SHOWN TO HAVE A 99.5% SENSITIVITY SPECIFICITY FOR hCG. PLEASE NOTE THAT HCG LEVELS MAY CONTINUE TO BE DETECTED FOLLOWING , NORMAL DELIVERY, OR . IN THE EVENT OF A NEGATIVE TEST WHEN CLINICAL INDICATIONS STRONGLY SUGGEST , THE PHYSICIAN IS ENCOURAGED TO REQUEST A QUANTITATIVE B-HCG TITER. Performed By: #### C M, KENDALL, PREG #### [facility] CLIA # [id number] [address] [place] [address] HISTORY PRESENT ILLNESSon HISTORY PRESENT ILLNESS Name: ADRIANA GREGG : 2005 Unit #: [id number] Age: 14 Family Physician: Pt Location: ER Arrival Date 05/28/202325 ER Physician: DAVID PADILLA MD-ER [facility] History of Present Illness History of Present Illness Time Seen: 23:35 History of Present Illness The patient is a 13 year old female who presented to the Emergency Department with the complaint of snorted trazodone. Past Medical History Past Medical History Pertinent Medical History: Allergies, Depression Pertinent Surgical History: No surgical history Hx Last Menstrual Period: Current Family History Significant Family Medical Hx: No Significant History Social History Marital Status S Single Living Arrangments: Family Employment Status: Student Smoking Status: Never Smoker Alcohol Use: Denies Drug Use: Denies Home Medications Home Medications See Reconcile Meds Departure Departure Disposition: Home Diagnosis: Primary Impression: Inhalation of substance Condition: Good Referrals: UNKNOWN (PCP) 2-3 Days Home Medications: Reviewed DAVID PADILLA MD-ER May 29, 2020 00:22 (Please note that portions of this note were completed with a voice recognition program. Efforts were made to edit the dictations but occasionally words are mis-transcribed.) Electronically Signed by: DAVID PADILLA MD 05/29/20 0022 DAVID PADILLA MD [phone] cc: [facility] ADDENDUM Name: ADRIANA GREGG : 2005 Unit #: [id number] Age: 14 Attending Physician: Pt Location: ER Date of Service: Addendum: DAVID PADILLA MD-ER on 05/29/20 @ 00:23 (Please note that portions of this note were completed with a voice recognition program. Efforts were made to edit the dictations but occasionally words are mis-transcribed.) 05/29/20 [phone] cc: [facility] ADDENDUM Name: ADRIANA GREGG : 2005 Unit #: [id number] Age: 14 Attending Physician: Pt Location: ER Date of Service: Addendum: DAVID PADILLA MD-ER on 05/29/20 @ 00:26 Chart was signed prematurely . HPI 13-year-old female presents to the emergency department today after she started her normal dose of trazodone and hopes of going to sleep. She normally takes 100 mg orally but started at this e vening instead. It is unclear exactly why she did this. She was trying to go to sleep. She denies being homicidal or suicidal. She presents here in the custody of her foster father. He has no concerns otherwise. Heart is regular. Lungs are clear. Patient initially was hysterical because there was a report of overdose. When she is not engaged, heart is regular lungs are clear and she is appropriate and not toxic appearing. Integument is intact. I did not address this patient. Abdomen is soft and benign. HEENT is normal. Neck is soft and supple. Poison control has been contacted and there is no concern for poor outcome with this dose and this route. EKG was done in the interim and is interpreted by myself as showing a normal sinus rhythm without any acute ST-segment changes. Rate axis and intervals are all normal. Patient has been observed here for brief period of time. She is acting her normal self. I feel it is fine and safe for discharge. (Please note that portions of this note were completed with a voice recognition program. Efforts were made to edit the dictations but occasionally words are mis-transcribed.) 05/29/20 [phone] cc: [facility] ADDENDUM Name: ADRIANA GREGG : 2005 Unit #: [id number] Age: 14 Attending Physician: Pt Location: ER Date of Service: Addendum: DAVID PADILLA MD-ER on 06/05/20 @ 08:11 Please see HPI otherwise all systems are reviewed and negative. (Please note that portions of this note were completed with a voice recognition program. Efforts were made to edit the dictations but occasionally words are mis-transcribed.) 06/05/20 [id number] cc: Normal [facility] EKG 12 Leadon 05-13-2020 Atrial Rate 95 BPM [facility]- [place], [place] P [place] -[address] [facility] [place] P-R Interval [address] [facility] [place] Q-T Interval [address] [facility] [place] QRS Duration [address] [facility] [place] QTc Calculation (Bazett) [address] [facility] [place] R [place] 58 degrees [facility] [place] T [place] 15 degrees [facility] [place], [place] Ventricular Rate [address] [facility] [place], [place] Normal sinus rhythm Normal ECG [facility] [place] Cilf, Mhpn Incoming E kg Results From Outcome Referrals [place] - 05/13/2020 5:42 PM EDT Normal sinus rhythm Normal ECG [facility] [place], [place] C Urineon 11-29-2018 C Urine Order added by Roseannae rn rule. Final 30-50,000 cfu/ml Mixed gram positive sam isolated. This urine contains 3 or more organisms which is inconsistent with clean catch collection. Consider the possibility of contamination during collection. No identification or susceptibility performed as results would be misleading Normal [facility] Comment on above: Performed By: #### C [id number] #### [address] [address] .UA Microscp Aon 11-27-2018 UA Mucus Present Abnormal Absent [facility] Comment on above: Performed By: #### C [id number] #### [address] [address] UA RBC Quant 2 /HPF Normal 0-5 [facility] Comment on above: Performed By: #### C [id number] #### [address] [address] UA Squepi Cells Quant 3 /HPF Normal 0-29 [facility] Comment on above: Performed By: #### C [id number] #### [address] [address] UA WBC Quant 13 /HPF High 0-5 [facility] Comment on above: Performed By: #### C [id number] #### [address] [address] CBC w/ Diffon 11-27-2018 Erythrocyte distribution width Ratio (RBC) 15.4 % High 11.6-14.8 [facility] Comment on above: Performed By: #### U CI #### [address] [address] Hematocrit Volume Fraction (Bld) 31.8 % Low 37.0-45.0 [facility] Comment on above: Performed By: #### U CI #### [address] [address] Hemoglobin mass conc (Bld) 10.3 g/dL Low 12.0-16.0 [facility] Comment on above: Performed By: #### U CI #### [address] [address] MCH Entitic mass (RBC) 25.2 pg Normal 25.0-34.0 [facility] Comment on above: Performed By: #### U CI #### [address] [address] MCHC mass conc (RBC) 32.4 % Normal 31.0-37.[address] [facility] Comment on above: Performed By: #### U CI #### [address] [address] MCV Entitic volume (RBC) 77.9 fL Low 78.0-98.0 [facility] Comment on above: Performed By: #### U CI #### [address] [address] Platelet mean volume Entitic volume (Bld) 7.5 fL Normal 6.7-10.6 [facility] Comment on above: Performed By: #### U CI #### [address] [address] Platelets #/vol (Bld) 345 x10*3/mcL Normal 150-350 [facility] Comment on above: Performed By: #### U CI #### [address] [address] RBC #/vol (Bld) 4.09 x10*6/mcL Normal 3.80-5.60 [facility] Comment on above: Performed By: #### U CI #### [address] [address] WBC #/vol (Bld) 6.1 x10*3/mcL Normal 4.5-13.5 [facility] Comment on above: Performed By: #### U CI #### [place] [id number] CMPon 11-27-2018 Albumin mass conc 3.6 g/dL Normal 3.2-4.9 [facility] Comment on above: Result Comment: [facility] Laboratory updated the methodology used for albumin testing on 07/05/18. Albumin measurement was performed using a bromcresol purple dye-binding assay. Performed By: #### C [id number] #### [place] [id number] Albumin/Globulin mass ratio 1.0 {ratio} Low 1.1-2.2 [facility] Comment on above: Performed By: #### C D:[id number] #### [place] [id number] Alk Phos 57 IU/L Normal 40-195 [facility] Comment on above: Performed By: #### C [id number] #### [address] [address] ALT enzyme act/vol 11 U/L Low 14-54 [facility] Comment on above: Performed By: #### C [id number] #### [address] [address] Anion gap molar conc 10 mmol/L Normal 7-[address] [facility] Comment on above: Performed By: #### C [id number] #### [address] [address] AST enzyme act/vol 18 U/L Normal 15-41 [facility] Comment on above: Performed By: #### C D:[id number] #### [address] [address] Bili Total 0.3 mg/dL Normal 0.3-1.2 [facility] Comment on above: Performed By: #### C [id number] #### [address] [address] Calcium mass conc 8.8 mg/dL Normal 8.5-10.3 [facility] Comment on above: Performed By: #### C [id number] #### [address] [address] Chloride molar conc 105 mmol/L Normal 98-110 [facility] Comment on above: Performed By: #### C [id number] #### [address] [address] CO2 molar conc 23 mmol/L Normal 22-32 [facility] Comment on above: Performed By: #### C [id number] #### [address] [address] Creatinine mass conc 0.65 mg/dL Normal 0.44-1.[address] [facility] Comment on above: Performed By: #### C [id number] #### [address] [address] Glucose mass conc 129 mg/dL High 74-118 [facility] Comment on above: Performed By: #### C [id number] #### [address] [address] Potassium molar conc 3.8 mmol/L Normal 3.4-4.[address] [facility] Comment on above: Performed By: #### C [id number] #### [address] [address] Protein mass conc 7.2 g/dL Normal 6.5-8.1 [facility] Comment on above: Performed By: #### C [id number] #### [address] [address] Sodium molar conc 134 mmol/L Normal 133-142 [facility] Comment on above: Performed By: #### C D:[id number] #### [address] [address] Urea nitrogen mass conc 8 mg/dL Normal 8-26 [facility] Comment on above: Performed By: #### C D:[id number] #### [address] [address] Urea nitrogen/Creatinine mass ratio 12.3 mg/mg Normal 10.0-20.0 [facility] Comment on above: Performed By: #### C [id number] #### [address] [address] Diff Autoon 11-27-2018 Baso Absolute 0.0 x10*3/mcL Normal 0.0-0.2 [facility] Comment on above: Performed By: #### U CI #### [address] [address] Basophils/100 WBC (Bld) 0.4 % Normal 0.0-1.5 [facility] Comment on above: Performed By: #### U CI #### [address] [address] Eos Absolute 0.1 x10*3/mcL Normal 0.0-0.4 [facility] Comment on above: Performed By: #### U CI #### [address] [address] Eosinophils/100 WBC (Bld) 1.1 % Normal 0.0-5.4 [facility] Comment on above: Performed By: #### U CI #### [address] [address] Lymphocytes #/vol (Bld) 1.5 x10*3/mcL Normal 1.5-6.5 [facility] Comment on above: Performed By: #### U CI #### [address] [address] Lymphocytes/100 WBC (Bld) 25.1 % Low 30.4-45.6 [facility] Comment on above: Performed By: #### U CI #### [address] [address] [place] Absolute 0.4 x10*3/mcL Normal 0.1-1.1 [facility] Comment on above: Performed By: #### U CI #### [address] [address] Monocytes/100 WBC (Bld) 7.3 % Normal 3.7-11.9 [facility] Comment on above: Performed By: #### U CI #### [address] [address] Neutro Absolute 4.0 x10*3/mcL Normal 1.5-8.5 [facility] Comment on above: Performed By: #### U CI #### [address] [address] Neutro Auto 66.1 % High 43.2-64.8 [facility] Comment on above: Performed By: #### U CI #### [address] [address] ED Clinical Summaryon 2017 ED Clinical Summary (Inserted Image. Bhumi ble to display) [place] [address] [place], [place] [id number] ED Clinical Summary Person [facility] Age[facility] 13 Years : 2005 Sex: Female PCP: Daryl Huggins MD Marital Status: Single Phone: Race: White Ethnicity: Not or Language: Kenyan Visit Reason: Psychiatric screening exam; Suicidal ideation Acuity: 2 Enc Type: Emergency Med Service: Emergency Medicine Arrival: 11/27/2018 13:00:00 Discharge: 11/27/2018 17:01:00 LOS: 000 04:01 Checkin: 11/27/2018 13:00:00 Checkout: 11/27/2018 17:01:00 Dispo Type: Home or Self Care Address: [address] [place] [id number] Provider Notes: Diagnosis: 1:Defiant behavior Problems No Problems Documented Smoking Status: Smoking Status Never (less than 100 in lifetime) Functional Status: Sensory Deficits: History of Falls: Mobility Assistance Prior to Admission: ADLs: Current Level of Assistance for Self-Care/Mobility: Cognitive Status: Allergies No Known Medication Allergies Laboratory or Other Results This Visit (last charted value for your 11/27/2018 visit) Hematology 11/27/2018 1:22 PM WBC: 6.1 x10 RBC: 4.09 x10 Neutro Auto: 66.1 % -- Normal range between ( 43.2 and 64.8 ) Lymph Auto: 25.1 % -- Normal range between ( 30.4 and 45.6 ) [place] Auto: 7.3 % -- Normal range between ( 3.7 and 11.9 ) Eos Auto: 1.1 % -- Normal range between ( 0.0 and 5.4 ) Basophil Auto: 0.4 % -- Normal range between ( 0.0 and 1.5 ) Baso Absolute: 0.0 x10 MCV: 77.9 fL -- Normal range between ( 78.0 and 98.0 ) MCHC: 32.4 % -- Normal range between ( 31.0 and 37.0 ) Lymph Absolute: 1.5 x10 Hct: 31.8 % -- Normal range between ( 37.0 and 45.0 ) [place] Absolute: 0.4 x10 MCH: 25.2 pg -- Normal range between ( 25.0 and 34.0 ) Neutro Absolute: 4.0 x10 Hgb: 10.3 g/dL -- Normal range between ( 12.0 and 16.0 ) Mean Platelet Volume: 7.5 fL -- Normal range between ( 6.7 and 10.6 ) Platelet: 345 x10 Eos Absolute: 0.1 x10 RDW: 15.4 % -- Normal range between ( 11.6 and 14.8 ) Urinalysis 11/27/2018 2:05 PM UA Color: Yellow UA Urobilinogen: 0.2 mg/dL UA Bili: Negative UA Ketones: Negative mg/dL UA Leukocyte Esterase: Small UA Nitrite: Negative UA Glucose: Negative mg/dL UA Protein: Negative mg/dL UA Blood: Negative UA Spec Grav: 1.012 -- Normal range between ( 1.003 and 1.035 ) UA pH: 8.0 UA Clarity: Hazy UA Source: Clean Catch UA Mucus: Present /LPF UA WBC Quant: 13 /HPF -- Normal range between ( 0 and 5 ) UA RBC Quant: 2 /HPF -- Normal range between ( 0 and 5 ) UA Squepi Cells Quant: 3 /HPF -- Normal range between ( 0 and 29 ) Chemistry 11/27/2018 2:05 PM Urine Preg: Negative Ur Creatinine Tox Scrn: 74.6 mg/dL 11/27/2018 1:22 PM Creatinine Lvl: 0.65 mg/dL -- Normal range between ( 0.44 and 1.03 ) BUN: 8 mg/dL -- Normal range between ( 8 and 26 ) Glucose Lvl: 129 mg/dL -- Normal range between ( 74 and 118 ) Potassium Lvl: 3.8 mmol/L -- Normal range between ( 3.4 and 4.8 ) AST: 18 IU/L -- Normal range between ( 15 and 41 ) ALT: 11 IU/L -- Normal range between ( 14 and 54 ) Sodium Lvl: 134 mmol/L -- Normal range between ( 133 and 142 ) Calcium Lvl: 8.8 mg/dL -- Normal range between ( 8.5 and 10.3 ) Albumin Lvl: 3.6 g/dL -- Normal range between ( 3.2 and 4.9 ) Total Protein: 7.2 g/dL -- Normal range between ( 6.5 and 8.1 ) Bili Total: 0.3 mg/dL -- Normal range between ( 0.3 and 1.2 ) Alk Phos: 57 IU/L -- Normal range between ( 40 and 195 ) Chloride: 105 mmol/L -- Normal range between ( 98 and 110 ) CO2: 23 mmol/L -- Normal range between ( 22 and 32 ) Anion Gap: 10 -- Normal range between ( 7 and 17 ) BUN Crea Ratio: 12.3 -- Normal range between ( 10.0 and 20.0 ) AG Ratio: 1.0 -- Normal range between ( 1.1 and 2.2 ) T4 Total: 9.0 mcg/dL -- Normal range between ( 5.0 and 11.5 ) Toxicology 11/27/2018 2:05 PM Ur PCP Scrn: Negative ng/mL Ur Opiate Scrn: Negative ng/mL Ur Methadone Scn: Negative ng/mL Ur Cannab Scrn: Negative ng/mL Ur Amph Scrn: Negative ng/mL Ur Benzodia Scrn: Negative ng/mL Ur Christi Scrn: Negative ng/mL Ur Cocaine Scrn: Negative ng/mL Ur Oxy Screen: Negative ng/mL 11/27/2018 1:22 PM Ethanol Lvl: 0.006 g/dL Measurements: Height: Weight: Blood Pressure: /67 mmHg BMI: Procedures No Procedures Documented Immunizations No Immunizations Documented This Visit Final Med List: Medications That Were Updated - Follow Current Instructions Other Medications Current ARIPiprazole (ARIPiprazole 10 mg oral tablet) 1 Tabs Oral (given by mouth) every day for 14 Days. Refills: 0. Last Dose: Current prazosin (prazosin 2 mg oral capsule) 1 Capsules Oral (given by mouth) every day. Last Dose: Medications that have not changed Other Medications lithium (lithium 300 mg oral tablet, extended release) 1 Tabs Oral (given by mouth) 2 times a day. Last Dose: norgestimate-ethinyl estradiol ([place]-Linyah 0.25 mg-35 mcg oral tablet) 1 Tabs Oral (given by mouth) every day. Last Dose: norgestimate-ethinyl estradiol (Sprintec 0.25 mg-35 mcg oral tablet) 1 Tabs Oral (given by mouth) every day. Refills: 3. Last Dose: ondansetron (Zofran 4 mg oral tablet) 1 Tabs Oral (given by mouth) every 8 hours as needed as needed for nausea/vomiting. Refills: 0. Last Dose: No Longer Take the Following Medications citalopram (CeleXA 40 mg oral tablet) 1 Tabs Oral (given by mouth) every day. Stop Taking Reason: citalopram (citalopram 20 mg oral tablet) 1 Tabs Oral (given by mouth) every day. Stop Taking Reason: Other Medications ARIPiprazole (ARIPiprazole 10 mg oral tablet) 1 Tabs Oral (given by mouth) every day for 14 Days. Refills: 0. lithium (lithium 300 mg oral tablet, extended release) 1 Tabs Oral (given by mouth) 2 times a day. norgestimate-ethinyl estradiol ([place]-Linyah 0.25 mg-35 mcg oral tablet) 1 Tabs Oral (given by mouth) every day. norgestimate-ethinyl estradiol (Sprintec 0.25 mg-35 mcg oral tablet) 1 Tabs Oral (given by mouth) every day. Refills: 3. ondansetron (Zofran 4 mg oral tablet) 1 Tabs Oral (given by mouth) every 8 hours as needed as needed for nausea/vomiting. Refills: 0. prazosin (prazosin 2 mg oral capsule) 1 Capsules Oral (given by mouth) every day. Care Team Members: Attending Physician: Tye Anders MD Consulting Physician: Referring Physician: Provider Role Assigned Unassigned Tye Anders MD ED Provider 11/27/2018 13:03:08 Aliya Mcneil ED Nurse 11/27/2018 13:08:50 11/27/2018 15:41:36 Clara Prather ED Nurse 11/27/2018 15:41:37 Follow up: With: Address: When: [facility] [address] [place] [address] Within 1 to 2 days With: Address: When: Daryl Huggins [facility], [address] [place] [address] [phone] Business (1) Discharge Orders: Discharge Patient 11/27/18 16:53:00 EST, Discharge to Home, Self Patient Education Information: Recognizing Suicide Warning Signs in Others; Recognizing Suicide Warning Signs in Yourself [facility] Poison Help line: . [facility] Hotline: [place] Tobacco Quit Line: [facility] ([place], [place]) [address]: [phone] [place], [place]) [address]: [phone] [facility] [address], [place]: [phone] [facility] ED Note-Physicianon 11-27-20 ED Note-Physician Chief Complaint Pt brought in by PD called out by caregiver for pt saying that her grandma and counselor needed to because they were idiots and for pt saying she wanted to cut her throat. History of Present Illness Patient is a 13 year old female presenting to the emergency department by Randy BERRY complaining of suicidal ideations. Patient was caught stealing yesterday, became angry, and threatened suicide and that she was going to cut herself. Patient's past medical history includes self-harm by cutting. PCP: Dr. Huggins. Review of Systems GENERAL: [Negative for fevers] EYES: [Negative for eye pain] ENT: [Negative for sore throat] NECK: [Negative for pain] CARDIOVASCULAR: [Negative for chest pain] RESPIRATORY: [Negative for shortness of breath] ABDOMEN/GI: [Negative for abdominal pain] BACK: [Negative for injury] : [Negative for dysuria] MUSCULOSKELETAL: [Negative for arthralgias] SKIN: [Negative for rash] NEURO: [Negative for headache] PSYCH: [Positive for suicidal ideations with a plan] Physical Exam CONSTITUTIONAL: [well appearing in no acute distress] SKIN: [Warm, dry, and intact without rash] EYES: [clear conjunctiva] HENT: [Normocephalic, atraumatic, moist mucus membranes] NECK: [no obvious swelling, normal range of motion] PULMONARY: [normal chest rise and fall, no respiratory distress or stridor] CARDIOVASCULAR: [regular rate, distal extremities are warm and well perfused] GASTROINTESTINAL: [nondistended] NEUROLOGIC: [normal speech, moves all extremities] MUSCULOSKELETAL: [no gross deformities, atraumatic] PSYCHIATRIC: Depression] Vitals & Measurements T: 36.9 ?C (Oral) HR: 91 (Monitored) RR: 14 BP: 111/67 SpO2: 97% Additional Vitals No qualifying data available. Procedure No qualifying data available. ASA Documentation Medical Decision Making Asaf Fisher scribing for and in the presence of Dr. Tye Anders. Scribe Attestation: The information in this document, created by the medical claims specialist for me, accurately reflects the services I personally performed and the decisions made by me. On evaluation, patient is in no distress. Patient is calm. Patient states she was very irritated at her living situation but denies any true plan of suicide. Patient was seen and evaluated by [facility]. They felt patient is safe to be home as she is no longer suicidal and was acting out. They follow with her closely. Safety plan was established. I did discuss the safety plan with the patient and her guardian. He did agree to this and felt comfortable going home. Strict return precautions were given. Patient and guardian expressed understanding and agreed with the plan. Assessment/Plan 1. Defiant behavior Orders: Culture Urine Discharge Patient Patient Tray Problem List/Past Medical History Ongoing Anxiety Depression Multiple personality disorder PTSD (post-traumatic stress disorder) Historical No qualifying data Procedure/Surgical History None. Medications Home ARIPiprazole 10 mg oral tablet, 10 mg, 1 tabs, Oral, Daily CeleXA 40 mg oral tablet, 40 mg, 1 tabs, Oral, Daily citalopram 20 mg oral tablet, 20 mg, 1 tabs, Oral, Daily, Not taking prazosin 2 mg oral capsule, 2 mg, 1 caps, Oral, Daily prazosin 2 mg oral capsule, 2 mg, 1 caps, Oral, TID, Not taking Inpatient No active inpatient medications Prescriptions ARIPiprazole 10 mg oral tablet, 10 mg, 1 tabs, Oral, Daily Sprintec 0.25 mg-35 mcg oral tablet, 1 tabs, Oral, Daily, 3 refills Zofran 4 mg oral tablet, 4 mg, 1 tabs, Oral, q8hr, PRN Allergies No Known Medication Allergies Social History Alcohol Never Substance Abuse Denies All, Marijuana Tobacco Never (less than 100 in lifetime) Use:. Never (less than 100 in lifetime) Use:. Never smoker Family History Breast cancer: Father. Lab Results Automated Hematology LATEST RESULTS WBC 11/27/18 13:22 6.1 RBC 11/27/18 13:22 4.09 Hgb 11/27/18 13:22 10.3 Low Hct 11/27/18 13:22 31.8 Low MCV 11/27/18 13:22 77.9 Low MCH 11/27/18 13:22 25.2 MCHC 11/27/18 13:22 32.4 RDW 11/27/18 13:22 15.4 High Platelet 11/27/18 13:22 345 Mean Platelet Volume 11/27/18 13:22 7.5 Neutro Auto 11/27/18 13:22 66.1 High Lymph Auto 11/27/18 13:22 25.1 Low [place] Auto 11/27/18 13:22 7.3 Eos Auto 11/27/18 13:22 1.1 Basophil Auto 11/27/18 13:22 0.4 Neutro Absolute 11/27/18 13:22 4.0 Lymph Absolute 11/27/18 13:22 1.5 [place] Absolute 11/27/18 13:22 0.4 Eos Absolute 11/27/18 13:22 0.1 Baso Absolute 11/27/18 13:22 0.0 Routine Chemistry LATEST RESULTS Sodium Lvl 11/27/18 13:22 134 Potassium Lvl 11/27/18 13:22 3.8 Chloride 11/27/18 13:22 105 CO2 11/27/18 13:22 23 Anion Gap 11/27/18 13:22 10 Glucose Lvl 11/27/18 13:22 129 High BUN 11/27/18 13:22 8 Creatinine Lvl 11/27/18 13:22 0.65 BUN Crea Ratio 11/27/18 13:22 12.3 Bili Total 11/27/18 13:22 0.3 Alk Phos 11/27/18 13:22 57 AST 11/27/18 13:22 18 ALT 11/27/18 13:22 11 Low Total Protein 11/27/18 13:22 7.2 Albumin Lvl 11/27/18 13:22 3.6 AG Ratio 11/27/18 13:22 1.0 Low Calcium Lvl 11/27/18 13:22 8.8 Testing LATEST RESULTS HISTORICAL RESULTS Urine Preg 11/27/18 14:05 Negative 09/28/18 Negative Thyroid Studies LATEST RESULTS T4 Total 11/27/18 13:22 9.0 Random Urine Chemistry LATEST RESULTS HISTORICAL RESULTS Ur Creatinine Tox Scrn 11/27/18 14:05 74.6 09/28/18 82.8 Serum Toxicology LATEST RESULTS HISTORICAL RESULTS Ethanol Lvl 11/27/18 13:22 0.006 High 03/06/18 <0.005 Urine Toxicology LATEST RESULTS HISTORICAL RESULTS Ur Amph Scrn 11/27/18 14:05 Negative 09/28/18 Negative Ur Christi Scrn 11/27/18 14:05 Negative 09/28/18 Negative Ur Benzodia Scrn 11/27/18 14:05 Negative 09/28/18 Negative Ur Cannab Scrn 11/27/18 14:05 Negative 09/28/18 Negative Ur Cocaine Scrn 11/27/18 14:05 Negative 09/28/18 Negative Ur Methadone Scn 11/27/18 14:05 Negative 09/28/18 Negative Ur Oxy Screen 11/27/18 14:05 Negative 09/28/18 Negative Ur Opiate Scrn 11/27/18 14:05 Negative 09/28/18 Negative Ur PCP Scrn 11/27/18 14:05 Negative 09/28/18 Negative UA Macroscopic LATEST RESULTS HISTORICAL RESULTS UA Source 11/27/18 14:05 Clean Catch 09/28/18 Clean Catch UA Color 11/27/18 14:05 Yellow 09/28/18 Yellow UA Clarity 11/27/18 14:05 Hazy 09/28/18 Clear UA Spec Grav 11/27/18 14:05 1.012 09/28/18 1.017 UA pH 11/27/18 14:05 8.0 Abnormal 09/28/18 7.0 UA Protein 11/27/18 14:05 Negative 09/28/18 Negative UA Glucose 11/27/18 14:05 Negative 09/28/18 Negative UA Bili 11/27/18 14:05 Negative 09/28/18 Negative UA Urobilinogen 11/27/18 14:05 0.2 09/28/18 0.2 UA Leukocyte Esterase 11/27/18 14:05 Small Abnormal 09/28/18 Trace Abnormal UA Nitrite 11/27/18 14:05 Negative 09/28/18 Negative UA Ketones 11/27/18 14:05 Negative 09/28/18 Negative UA Blood 11/27/18 14:05 Negative 09/28/18 Negative UA Microscopic LATEST RESULTS HISTORICAL RESULTS UA RBC Quant 11/27/18 14:05 2 09/28/18 0 UA WBC Quant 11/27/18 14:05 13 High 09/28/18 2 UA Mucus 11/27/18 14:05 Present Abnormal 09/28/18 Present Abnormal UA Squepi Cells Quant 11/27/18 14:05 3 09/28/18 2 Diagnostic Results XRay No qualifying data available. Computerized Tomagraphy No qualifying data available. Ultrasound No qualifying data available. Magnetic Resonance Imaging No qualifying data available. Asaf Fisher Electronically signed by Tye Anders MD 11/27/2018 19:10 EST Normal [facility] Ethanolon 11-27-2018 Ethanol mass conc 0.006 g/dL High <=0.005 [facility] Comment on above: Performed By: #### U CI #### [facility] [address] [place] [address] Total T4on 11-27-2018 T4 Total 9.0 mcg/dL Normal 5.0-11.5 [facility] Comment on above: Performed By: #### C [id number] #### [address] [place] [address] UA w Culture if Indon 2017 Color Nom (U) Yellow Normal [facility] Comment on above: Performed By: #### C [id number] #### [address] [place] [address] Glucose mass conc (U) Negative Normal Negative [facility] Comment on above: Performed By: #### C [id number] #### [address] [place] [address] Ketones Ql (U) Negative Normal Negative [facility] Comment on above: Performed By: #### C [id number] #### [address] [place] [address] UA Blood Negative Normal Negative [facility] Comment on above: Performed By: #### C [id number] #### [address] [place] [address] UA Clarity Hazy Normal [facility] Comment on above: Performed By: #### C [id number] #### [address] [place] [address] UA Leukocyte Esterase Small Abnormal Negative [facility] Comment on above: Performed By: #### C [id number] #### [address] [place] [address] UA Nitrite Negative Normal Negative [facility] Comment on above: Performed By: #### C [id number] #### [address] [place] [address] UA pH 8.0 Abnormal 4.5 - 7.8 [facility] Comment on above: Performed By: #### C [id number] #### [address] [place] [address] UA Protein Negative Normal Negative [facility] Comment on above: Performed By: #### C [id number] #### [address] [place] [address] UA Source Clean Catch Normal [facility] Comment on above: Performed By: #### C [id number] #### [address] [address] UA Spec Grav 1.012 Normal 1.003-1.035 [facility] Comment on above: Performed By: #### C [id number] #### [address] [address] UA Urobilinogen 0.2 mg/dL Normal 0.2 - 1.0 [facility] Comment on above: Performed By: #### C [id number] #### [address] [address] Urobilinogen Qn (U) Negative Normal Negative [facility] Comment on above: Performed By: #### C [id number] #### [address] [address] UDS Compon 11-27-2018 UA pH 8.0 Abnormal 4.5 - 7.8 [facility] Comment on above: Performed By: #### C [id number] #### [address] [address] UA Spec Grav 1.012 Normal 1.003-1.035 [facility] Comment on above: Performed By: #### C [id number] #### [address] [address] Creatinine mass conc 74.6 mg/dL Normal [facility] Comment on above: Performed By: #### C [id number] #### [address] [address] Ur Amph Scrn Negative Normal NEG = <1000 [facility] Comment on above: Performed By: #### C [id number] #### [address] [address] Ur Christi Scrn Negative Normal NEG = <200 [facility] Comment on above: Performed By: #### C [id number] #### [address] [address] Ur Benzodia Scrn Negative Normal NEG = <200 [facility] Comment on above: Performed By: #### C [id number] #### [facility] [address] [place] [address] Ur Cannab Scrn Negative Normal NEG = <50 [facility] Comment on above: Performed By: #### C [id number] #### [facility] [address] [place] [address] Ur Cocaine Scrn Negative Normal NEG = <300 [facility] Comment on above: Performed By: #### C [id number] #### [address] [address] Ur Methadone Scn Negative Normal NEG = <300 [facility] Comment on above: Performed By: #### C [id number] #### [address] [address] Ur Opiate Scrn Negative Normal NEG = <300 [facility] Comment on above: Performed By: #### C [id number] #### [address] [address] Ur Oxy Screen Negative Normal NEG = <100 [facility] Comment on above: Performed By: #### C [id number] #### [address] [address] Ur Oxy Scrn Qnt 0 ng/mL Normal <=99 [facility] Comment on above: Performed By: #### C [id number] #### [address] [address] Ur PCP Scrn Negative Normal NEG = <25 [facility] Comment on above: Performed By: #### C [id number] #### [address] [address] ED Clinical Summaryon 2017 ED Clinical Summary (Inserted Image. Bhumi ble to display) [address] [address] ED Clinical Summary Person Information Name: Adriana Gregg/[facility] Age: 13 Years : 2005 Sex: Female PCP: Daryl Huggins MD Marital Status: Single Phone: Race: White Ethnicity: Not or Language: Kenyan Visit Reason: Medication refill; Medication refill Acuity: 4 Enc Type: Emergency Med Service: Emergency Medicine Arrival: 11/25/2018 13:33:00 Discharge: 11/25/2018 14:36:00 LOS: 000 01:03 Checkin: 11/25/2018 13:33:00 Checkout: 11/25/2018 14:36:00 Dispo Type: Home or Self Care Address: [facility] [address] [place] [id number] Provider Notes: History of Present Illness Patient is a 13-year-old female presenting to the ED for medication refill of Abilify, accompanied by her guardian. Patient's guardian reports that she recently got custody of the patient,?patient's?psychi atrist from the pharmacy won't be available until 12/06/18?and patient is?out of Abilify.?Patient was given 3 day?medication?trial from a pharmacy, but states that she doesn't have anymore left after this.?Patient denies suicidal ideations, homicidal ideations, anxiety, depression.?Denies any other symptoms. Addendum by Guerda Dotson CNP on November 25, 2018 14:24:21 EST Review of Systems GENERAL: [Negative for weakness, malaise, fever, chills, fatigue,?appetite change,?unintentional weight loss/gain] EYES: [Negative for injury, pain, redness, discharge] ENT: [Negative for injury, pain, sore throat, difficulty swallowing, hoarseness,?and discharge] NECK: [Negative for injury, pain, swelling, and stiffness] CARDIOVASCULAR: [Negative for fatigue, chest pain/pressure, palpitations] RESPIRATORY: [Negative for shortness of breath, cough, wheezing, and pleuritic chest pain] ABDOMEN/GI: [Negative for pain, nausea, vomiting] : [Negative for bleeding, discharge, dysuria, oliguria, frequency, hematuria, urgency] MUSCULOSKELETAL: [Negative for arthralgias, injury, deformity, back pain,?joint?pain,?joint stiffness] SKIN: [Negative for injury, itching,?rash, discoloration] NEURO: [Negative for focal weakness, numbness, tingling, headache or seizure] ALLERGY/IMMUNOLOGY: [Negative for hives, rash, and new allergies] ENDOCRINE: [Negative for neck swelling, polydipsia, polyuria, marked weight changes, heat/cold intolerance] HEMATOLOGIC/LYMPHATIC: [Negative for swollen lymph nodes, abnormal bleeding, and unusual bruising] PSYCHIATRIC: [Negative for anxiety,?depression,?suic idal ideation?or homicidal ideation] Physical Exam CONSTITUTIONAL: [Alert, interactive, and non-toxic in appearance.] HEAD: [Normocephalic, atraumatic.] MOUTH/THROAT: [Mucus membranes moist without lesions or exudates] RESPIRATORY: [Lungs clear to auscultation without distress.] CARDIOVASCULAR: [Regular rate and rhythm without murmurs, rubs, or gallops. Normal capillary refill centrally and peripherally.] GASTROINTESTINAL: [Abdomen is soft, non-tender, and non-distended without organomegaly.] MUSCULOSKELETAL: [No joint or extremity swelling. Moves all extremities symmetrically without pain.] SKIN: [No rashes or lesions] NEUROLOGIC: [Normal mental status, strength, and tone, with intact cranial nerves.] Medical Decision Making Patient here?for medication refill of Abilify.?She is accompanied by her guardian, who recently?had custody of her. Patient denies?suicidal ideations,?homicidal ideation, anxiety or depression at this time. Patient states that she is feeling better?and has no intent of hurting herself or others.?Patient's guardian states that she is the one who handles and administers the medication to the patient. Follow-up with primary care provider in?2-3 days. Follow-up with psychiatrist as scheduled, or earlier if needed. Patient is given a 2 week?worth of Abilify treatment, which will be sufficient until she sees her?psychiatrist on 12/06/18.?Patient advised to return to the ED for new concerning symptoms or if symptoms worsen despite outpatient treatment. The results of pertinent diagnostic studies and exam findings were discussed. The patient?s provisional diagnosis and plan of care were discussed with the patient. The patient expressed understanding of the diagnosis and plan. The nurse was instructed to provide written instructions and appropriate follow-up information. The patient understands their need and responsibility to obtain additional follow-up as instructed. The risks of medications administered and prescribed were discussed with the patient. Addendum by Guerda Dotson CNP on November 25, 2018 14:24:21 EST Diagnosis: 1:Medication refill Problems No Problems Documented Smoking Status: Smoking Status Never (less than 100 in lifetime) Functional Status: Sensory Deficits: History of Falls: Mobility Assistance Prior to Admission: ADLs: Current Level of Assistance for Self-Care/Mobility: Cognitive Status: Allergies No Known Medication Allergies Laboratory or Other Results This Visit (last charted value for your 11/25/2018 visit) No Laboratory or Other Results This Visit Measurements: Height: Weight: Blood Pressure: /76 mmHg BMI: Procedures No Procedures Documented Immunizations No Immunizations Documented This Visit Final Med List: Medications that have not changed [facility] [id number], [phone] ARIPiprazole (ARIPiprazole 10 mg oral tablet) 1 Tabs Oral (given by mouth) every day for 14 Days. Refills: 0. Last Dose: Other Medications ARIPiprazole (ARIPiprazole 10 mg oral tablet) 1 Tabs Oral (given by mouth) every day. Last Dose: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 #### U CI #### [address] [address] UA Nitrite Negative Normal Negative [facility] Comment on above: Performed By: #### U CI #### [address] [address] UA pH 7.0 Normal 4.5 - 7.8 [facility] Comment on above: Performed By: #### U CI #### [address] [address] UA Protein 30 mg/dL Abnormal Negative [facility] Comment on above: Performed By: #### U CI #### [address] [address] UA Source Clean Catch Normal [facility] Comment on above: Performed By: #### U CI #### [address] [address] UA Spec Grav 1.028 Normal 1.003-1.035 [facility] Comment on above: Performed By: #### U CI #### [address] [address] UA Urobilinogen 0.2 mg/dL Normal 0.2 - 1.0 [facility] Comment on above: Performed By: #### U CI #### [address] [address] Urobilinogen Qn (U) Negative Normal Negative [facility] Comment on above: Performed By: #### U CI #### [address] [address] Ur [id number] 03-06-2018 Creatinine mass conc 165.7 mg/dL Normal [facility] Comment on above: Result Comment: The reference range has not been established for this test on a random urine sample. The test result should be interpreted based on clinical context. Performed By: #### D RUG10 #### [address] [address] Protein mass conc Negative Normal NEG = <300 [facility] Comment on above: Performed By: #### D RUG10 #### [address] [address] Ur Amph Scrn Negative Normal NEG = <1000 [facility] Comment on above: Performed By: #### D RUG10 #### [address] [address] Ur Christi Scrn Negative Normal NEG = <200 [facility] Comment on above: Performed By: #### D RUG10 #### [address] [address] Ur Benzodia Scrn Negative Normal NEG = <200 [facility] Comment on above: Performed By: #### D RUG10 #### [address] [address] Ur Cannab Scrn Negative Normal NEG = <50 [facility] Comment on above: Performed By: #### D RUG10 #### [address] [address] Ur Cocaine Scrn Negative Normal NEG = <300 [facility] Comment on above: Performed By: #### D RUG10 #### [address] [address] Ur Methadone Scn Negative Normal NEG = <300 [facility] Comment on above: Performed By: #### D RUG10 #### [address] [address] Ur Methaqualone Scn Negative Normal NEG = <300 [facility] Comment on above: Performed By: #### D RUG10 #### [facility] [address] [place] [address] Ur Opiate Scrn Negative Normal NEG = <300 [facility] Comment on above: Performed By: #### D RUG10 #### [facility] [address] [place] [address] Ur PCP Scrn Negative Normal NEG = <25 [facility] Comment on above: Performed By: #### D RUG10 #### [facility] [address] [place] [address] UA pH 7.0 Normal 4.5 - 7.8 [facility] Comment on above: Performed By: #### D RUG10 #### [facility] [address] [place] [address] UA Spec Grav 1.028 Normal 1.003-1.035 [facility] Comment on above: Performed By: #### D RUG10 #### [facility] [address] [place] [address] Vital Signs Date Time Vital Sign Value Performing Clinician Facility 07-30-2025 17:43-0400 Body temperature 98 [degF] Dr. Lawrence Finnegan DO Work Phone: [facility] 07-30-2025 17:43-0400 Diastolic blood pressure 60 mm[Hg] Dr. Lawrence Finnegan DO Work Phone: [facility] 07-30-2025 17:43-0400 Heart rate 71 /min Dr. Lawrence Finnegan DO Work Phone: [facility] 07-30-2025 17:43-0400 Respiratory rate 14 /min Dr. Lawrence Finnegan DO Work Phone: [facility] 07-30-2025 17:43-0400 SaO2% (BldA) [Mass fraction] 99 % Dr. Lawrence Finnegan DO Work Phone: [facility] 07-30-2025 17:43-0400 Systolic blood pressure 110 mm[Hg] Dr. Lawrence Finnegan DO Work Phone: [phone])[phone] [place] [address] 07-30-2025 15:19-0400 Body height 154.[address] Lawrence Finnegan DO Work Phone: 1(912)[phone] [place] [address] 07-30-2025 15:19-0400 Body mass index (BMI) [Ratio] 38.4 kg/m2 Dr. Lawrence Finnegan DO Work Phone: 0(258)[phone] [place] [address] 07-30-2025 15:19-0400 Body weight 92.[address] Lawrence Finnegan DO Work Phone: 3(887)[phone] [place] [address] 07-25-2025 15:18-0400 Body temperature 98.4 [degF] Dr. Lawrence Finnegan DO Work Phone: 7(864)[phone] [place] [address] 07-25-2025 15:18-0400 Diastolic blood pressure 60 mm[Hg] Dr. Lawrence Finnegan DO Work Phone: 4(417)[phone] [place] [address] 07-25-2025 15:18-0400 Heart rate 110 /min Dr. Lawrence Finnegan DO Work Phone: [phone])[phone] [place] [address] 07-25-2025 15:18-0400 Respiratory rate 16 /min Dr. Lawrence Finnegan DO Work Phone: [phone])[phone] [place] [address] 07-25-2025 15:18-0400 SaO2% (BldA) [Mass fraction] 98 % Dr. Lawrence Finnegan DO Work Phone: 2(076)[phone] [place] [address] 07-25-2025 15:18-0400 Systolic blood pressure 112 mm[Hg] Dr. Lawrence Finnegan DO Work Phone: 1(564)[phone] [place] [address] 07-04-2025 08:10-0400 Body temperature 98.1 [degF] Dr. Lawrence Finnegan DO Work Phone: 3(598)433-382880 [place] [address] 07-04-2025 08:10-0400 Diastolic blood pressure 68 mm[Hg] Dr. Lawrence Finnegan DO Work Phone: 0(086)143-367880 [place] [address] 07-04-2025 08:10-0400 Heart rate 90 /min Dr. Lawrence Finnegan DO Work Phone: 6(953)214-269180 [place] [address] 07-04-2025 08:10-0400 Respiratory rate 18 /min Dr. Lawrence Finnegan DO Work Phone: 3(215)277-358380 [place] [address] 07-04-2025 08:10-0400 SaO2% (BldA) [Mass fraction] 98 % Dr. Lawrence Finnegan DO Work Phone: 6(350)467-881280 [place] [address] 07-04-2025 08:10-0400 Systolic blood pressure 102 mm[Hg] Dr. Lawrence Finnegan DO Work Phone: 5(451)310-680980 [place] [address] 07-04-2025 08:08-0400 Body height 154.[address] Lawrence Finnegan DO Work Phone: 6(563)019-399980 [place] [address] 05-15-2025 15:44-0400 Body temperature 97.5 [degF] Dr. Lawrence Finnegan DO Work Phone: 7(423)912-188780 [place] [address] 05-15-2025 15:44-0400 Diastolic blood pressure 70 mm[Hg] Dr. Lawrence Finnegan DO Work Phone: 0(578)862-470280 [place] [address] 05-15-2025 15:44-0400 Heart rate 73 /min Dr. Lawrence Finnegan DO Work Phone: 2(653)419-364880 [place] [address] 05-15-2025 15:44-0400 Respiratory rate 14 /min Dr. Lawrence Finnegan DO Work Phone: 6(176)[phone] [place] [address] 05-15-2025 15:44-0400 SaO2% (BldA) [Mass fraction] 94 % Dr. Lawrence Finnegan DO Work Phone: 9(594)347-396280 [place] [address] 05-15-2025 15:44-0400 Systolic blood pressure 110 mm[Hg] Dr. Lawrence Finnegan DO Work Phone: 7(626)708-078180 [place] [address] 05-15-2025 12:20-0400 Body height 154.[address] Lawrence Finnegan DO Work Phone: 9(580)982-881580 [place] [address] 05-15-2025 12:20-0400 Body mass index (BMI) [Ratio] 38.2 kg/m2 Dr. Lawrence Finnegan DO Work Phone: [facility] 05-15-2025 12:20-0400 Body weight 91.[address] Lawrence Finnegan DO Work Phone: [facility] 03-12-2025 18:18-0400 Body mass index (BMI) [Ratio] 35.06 kg/m2 Krislyn Aberegg PA Work Phone: [facility] 03-12-2025 18:18-0400 Body temperature 98.4 [degF] Krislyn Aberegg PA Work Phone: [facility] 03-12-2025 18:18-0400 Body weight 91.2 kg Krislyn Aberegg PA Work Phone: [facility] 03-12-2025 18:18-0400 Diastolic blood pressure 72 mm[Hg] Krislyn Aberegg PA Work Phone: [facility] 03-12-2025 18:18-0400 Heart rate 105 /min Krislyn Aberegg PA Work Phone: [facility] 03-12-2025 18:18-0400 Respiratory rate 14 /min Krislyn Aberegg PA Work Phone: [facility] 03-12-2025 18:18-0400 SaO2% (BldA) [Mass fraction] 99 % Krislyn Aberegg PA Work Phone: [facility] 03-12-2025 18:18-0400 Systolic blood pressure 118 mm[Hg] Krislyn Aberegg PA Work Phone: [facility] 12-26-2024 09:02-0500 Diastolic blood pressure 71 mm[Hg] Clara Singh APRN.[employer] Work Phone: [facility] 12-26-2024 09:02-0500 Systolic blood pressure 122 mm[Hg] Clara Singh APRN.[employer] Work Phone: [facility] 12-26-2024 08:37-0500 Body mass index (BMI) [Ratio] 34.6 kg/m2 Clara Singh APRN.[employer] Work Phone: [facility] 12-26-2024 08:37-0500 Body temperature 98.29 [degF] Clara Singh APRN.[employer] Work Phone: [facility] 12-26-2024 08:37-0500 Body weight 90 kg Clara Singh APRN.[employer] Work Phone: [facility] 12-26-2024 08:37-0500 Heart rate 117 /min Clara Singh APRN.[employer] Work Phone: [facility] 12-26-2024 08:37-0500 Respiratory rate 14 /min Clara Singh APRN.[employer] Work Phone: [facility] 12-26-2024 08:37-0500 SaO2% (BldA) [Mass fraction] 97 % Clara Singh APRN.[employer] Work Phone: [facility] 05-11-2024 23:06-0400 Body temperature 97.2 [degF] Melvin Leon MD Work Phone: [facility] [employer] 05-11-2024 23:06-0400 Diastolic blood pressure 78 mm[Hg] [facility] Leon [facility] 05-11-2024 23:06-0400 Heart rate 83 /min Melvin Leon MD Work Phone: [facility] [employer] 05-11-2024 23:06-0400 Respiratory rate 17 /min Melvin Leon MD [facility] 05-11-2024 23:06-0400 SaO2% (BldA) [Mass fraction] 97 % Melvin Leon MD Work Phone: [facility] [employer] 05-11-2024 23:06-0400 Systolic blood pressure 146 mm[Hg] Melvin Leon MD Work Phone: [facility] 12-02-2021 14:11-0500 Body height 157.48 cm Keisha Violadorf PA-C Work Phone: [facility] Work Phone: 12-02-2021 14:11-0500 Body mass index (BMI) [Percentile] 95 {percentile} Keisha Violadorf PA-C Work Phone: [facility] Work Phone: 12-02-2021 14:11-0500 Body mass index (BMI) [Ratio] 30.3 kg/m2 Keisha Roddorf PA-C Work Phone: [facility] Work Phone: 12-02-2021 14:11-0500 Body surface area Derived from formula 1.76 m2 Keisha Violadorf PA-C Work Phone: [facility] Work Phone: 12-02-2021 14:11-0500 Body temperature 96.8 [degF] Keisha Roddorf PA-C Work Phone: [facility] Work Phone: 12-02-2021 14:11-0500 Body weight 75.12 kg Keisha Roddorf PA-C Work Phone: [facility] Work Phone: 12-02-2021 14:11-0500 Diastolic blood pressure 76 mm[Hg] Keisha Roddorf PA-C Work Phone: [facility] Work Phone: 12-02-2021 14:11-0500 Heart rate 103 /min Keisha Roddoara PA-C Work Phone: [facility] Work Phone: 12-02-2021 14:11-0500 SaO2% (BldA) [Mass fraction] 97 % Keisha Tapia [employer] Work Phone: [facility] Work Phone: 12-02-2021 14:11-0500 Systolic blood pressure 120 mm[Hg] Keisha Tapia PA-C Work Phone: [facility] Work Phone: 10-16-2021 14:43-0500 Body height 157.48 cm Keisha Tapia PA-C Work Phone: [facility] Work Phone: 10-16-2021 14:43-0500 Body mass index (BMI) [Percentile] 96 {percentile} Keisha Tapia [employer] Work Phone: [facility] Work Phone: 10-16-2021 14:43-0500 Body mass index (BMI) [Ratio] 31.1 kg/m2 Keisha Tapia PA-C Work Phone: [facility] Work Phone: 10-16-2021 14:43-0500 Body surface area Derived from formula 1.78 m2 Keisha Tapia [employer] Work Phone: [facility] Work Phone: 10-16-2021 14:43-0500 Body weight 77.2 kg Keisha Tapia PA-C Work Phone: [facility] Work Phone: 10-16-2021 14:43-0500 Diastolic blood pressure 68 mm[Hg] Keisha Tapia PA-C Work Phone: [facility] Work Phone: 10-16-2021 14:43-0500 Heart rate 134 /min Keisha Tapia PA-C Work Phone: [facility] Work Phone: 10-16-2021 14:43-0500 SaO2% (BldA) [Mass fraction] 97 % Keisha Tapia PA-C Work Phone: [facility] Work Phone: 10-16-2021 14:43-0500 Systolic blood pressure 122 mm[Hg] Keisha Tapia PA-C Work Phone: [facility] Work Phone: 09-03-2021 09:30-0400 Body height 157.48 cm Keisha Tapia PA-C Work Phone: [facility] Work Phone: 09-03-2021 09:30-0400 Body mass index (BMI) [Percentile] 96 {percentile} Keisha Tapia PA-C Work Phone: [facility] Work Phone: 09-03-2021 09:30-0400 Body mass index (BMI) [Ratio] 32.2 kg/m2 Keisha Tapia PA-C Work Phone: [facility] Work Phone: 09-03-2021 09:30-0400 Body surface area Derived from formula 1.81 m2 Keisha Tapia PA-C Work Phone: [facility] Work Phone: 09-03-2021 09:30-0400 Body temperature 97 [degF] Keisha Redmondrf PA-C Work Phone: [facility] Work Phone: 09-03-2021 09:30-0400 Body weight 79.83 kg Keisha Hattendorf PA-C Work Phone: [facility] Work Phone: 09-03-2021 09:30-0400 Diastolic blood pressure 70 mm[Hg] Keisha Violadorf PA-C Work Phone: [facility] Work Phone: 09-03-2021 09:30-0400 Heart rate 104 /min Keisha Violadorf PA-C Work Phone: [facility] Work Phone: 09-03-2021 09:30-0400 Heart Rate Rhythm 1 1 Keisha Roddorf PA-C Work Phone: [facility] Work Phone: 09-03-2021 09:30-0400 Inhaled oxygen concentration 21 % Keisha Violadorf PA-C Work Phone: [facility] Work Phone: 09-03-2021 09:30-0400 Inhaled oxygen flow rate 0 L/min Keisha Violadorf PA-C Work Phone: [facility] Work Phone: 09-03-2021 09:30-0400 Respiratory rate 18 /min Keisha Roddorf PA-C Work Phone: [facility] Work Phone: 09-03-2021 09:30-0400 SaO2% (BldA) [Mass fraction] 98 % Keisha Rebecatendorf PA-C Work Phone: [facility] Work Phone: 09-03-2021 09:30-0400 Systolic blood pressure 110 mm[Hg] Keisha Violadorf PA-C Work Phone: [facility] Work Phone: 06-03-2021 13:46-0400 Body height 157.48 cm Keisha Tapia PA-C Work Phone: [facility] Work Phone: 06-03-2021 13:46-0400 Body mass index (BMI) [Percentile] 99 {percentile} Keisha Roddoara PA-C Work Phone: [facility] Work Phone: 06-03-2021 13:46-0400 Body mass index (BMI) [Ratio] 35.9 kg/m2 Keisha Tapia PA-C Work Phone: [facility] Work Phone: 06-03-2021 13:46-0400 Body surface area Derived from formula 1.9 m2 Keisha Tapia PA-C Work Phone: [facility] Work Phone: 06-03-2021 13:46-0400 Body temperature 97.7 [degF] Keisha Tapia PA-C Work Phone: [facility] Work Phone: 06-03-2021 13:46-0400 Body weight 89 kg Keisha Tapia PA-C Work Phone: [facility] Work Phone: 06-03-2021 13:46-0400 Diastolic blood pressure 68 mm[Hg] Keisha Redmondrf PA-C Work Phone: [facility] Work Phone: 06-03-2021 13:46-0400 Heart rate 110 /min Keisha Roddorf PA-C Work Phone: [facility] Work Phone: 06-03-2021 13:46-0400 SaO2% (BldA) [Mass fraction] 98 % Keisha Tapia PA-C Work Phone: [facility] Work Phone: 06-03-2021 13:46-0400 Systolic blood pressure 122 mm[Hg] Keisha Tapia PA-C Work Phone: [facility] Work Phone: 05-12-2021 10:41-0400 Body height 157.48 cm Keisha Tapia PA-C Work Phone: [facility] Work Phone: 05-12-2021 10:41-0400 Body mass index (BMI) [Percentile] 99 {percentile} Keisha Tapia PA-C Work Phone: [facility] Work Phone: 05-12-2021 10:41-0400 Body mass index (BMI) [Ratio] 36.7 kg/m2 Keisha Tapia PA-C Work Phone: [facility] Work Phone: 05-12-2021 10:41-0400 Body surface area Derived from formula 1.91 m2 Keisha Tapia PA-C Work Phone: [facility] Work Phone: 05-12-2021 10:41-0400 Body temperature 98.1 [degF] Keisha Tapia PA-C Work Phone: [facility] Work Phone: 05-12-2021 10:41-0400 Body weight 90.9 kg Keisha Tapia PA-C Work Phone: [facility] Work Phone: 05-12-2021 10:41-0400 Diastolic blood pressure 68 mm[Hg] Keisha Tapia PA-C Work Phone: [facility] Work Phone: 05-12-2021 10:41-0400 Heart rate 118 /min Keisha CASIANO-C Work Phone: [facility] Work Phone: 05-12-2021 10:41-0400 SaO2% (BldA) [Mass fraction] 99 % Keisha CASIANO-C Work Phone: [facility] Work Phone: 05-12-2021 10:41-0400 Systolic blood pressure 120 mm[Hg] Keisha CASIANO-C Work Phone: [facility] Work Phone: 03-02-2021 10:30-0400 BMI (Body Mass Index) 38.6 kg/m2 [facility] Work Phone: 03-02-2021 10:30-0400 Body mass index (BMI) [Percentile] 99 {percentile} [facility] Work Phone: 03-02-2021 10:30-0400 Body weight 95.71 kg [facility] Work Phone: 03-02-2021 10:30-0400 BP Diastolic 70 mm[Hg] [facility] Work Phone: 03-02-2021 10:30-0400 BP Systolic 102 mm[Hg] [facility] Work Phone: 03-02-2021 10:30-0400 BSA (Body Surface Area) 1.96 m2 [facility] Work Phone: 03-02-2021 10:30-0400 Flow Rate 0 L/min [facility] Work Phone: 03-02-2021 10:30-0400 Heart Rate Rhythm 1 1 [facility] Work Phone: 03-02-2021 10:30-0400 Height 157.48 cm [facility] Work Phone: 03-02-2021 10:30-0400 Inhaled Oxygen Concentration 21 % [facility] Work Phone: 03-02-2021 10:30-0400 Pulse (Heart Rate) 110 /min [facility] Work Phone: 03-02-2021 10:30-0400 Pulse Oximetry 98 % [facility] Work Phone: 03-02-2021 10:30-0400 Respiratory Rate 18 /min [facility] Work Phone: 03-02-2021 10:30-0400 SaO2% (BldA) [Mass fraction] 98 % Keisha Tapia PA-C Work Phone: [facility] Work Phone: 12-10-2020 14:35-0500 BMI (Body Mass Index) 38.6 kg/m2 [facility] Work Phone: 12-10-2020 14:35-0500 Body mass index (BMI) [Percentile] 99 {percentile} [facility] Work Phone: 12-10-2020 14:35-0500 Body weight 97.34 kg [facility] Work Phone: 12-10-2020 14:35-0500 BP Diastolic 76 mm[Hg] [facility] Work Phone: 12-10-2020 14:35-0500 BP Systolic 118 mm[Hg] [facility] Work Phone: 12-10-2020 14:35-0500 BSA (Body Surface Area) 1.98 m2 [facility] Work Phone: 12-10-2020 14:35-0500 Height 158.75 cm [facility] Work Phone: 12-10-2020 14:35-0500 Pulse (Heart Rate) 112 /min [facility] Work Phone: 12-10-2020 14:35-0500 Pulse Oximetry 99 % [facility] Work Phone: 12-10-2020 14:35-0500 SaO2% (BldA) [Mass fraction] 99 % Keisha Tapia PA-C Work Phone: [facility] Work Phone: 11-26-2020 11:57-0500 BMI (Body Mass Index) 39.5 kg/m2 [facility] Work Phone: 11-26-2020 11:57-0500 Body mass index (BMI) [Percentile] 99 {percentile} [facility] Work Phone: 11-26-2020 11:57-0500 Body weight 98.79 kg [facility] Work Phone: 11-26-2020 11:57-0500 BP Diastolic 74 mm[Hg] [facility] Work Phone: 11-26-2020 11:57-0500 BP Systolic 122 mm[Hg] [facility] Work Phone: 11-26-2020 11:57-0500 BSA (Body Surface Area) 1.99 m2 [facility] Work Phone: 11-26-2020 11:57-0500 Height 158.12 cm [facility] Work Phone: 11-26-2020 11:57-0500 Pulse (Heart Rate) 122 /min [facility] Work Phone: 11-26-2020 11:57-0500 Pulse Oximetry 98 % [facility] Work Phone: 11-26-2020 11:57-0500 SaO2% (BldA) [Mass fraction] 98 % Keisha Tapia PA-C Work Phone: [facility] Work Phone: 11-10-2020 10:14-0500 BMI (Body Mass Index) 39.7 kg/m2 [facility] Work Phone: 11-10-2020 10:14-0500 Body mass index (BMI) [Percentile] 99 {percentile} [facility] Work Phone: 11-10-2020 10:14-0500 Body weight 99.25 kg [facility] Work Phone: 11-10-2020 10:14-0500 BP Diastolic 68 mm[Hg] [facility] Work Phone: 11-10-2020 10:14-0500 BP Systolic 118 mm[Hg] [facility] Work Phone: 11-10-2020 10:14-0500 BSA (Body Surface Area) 1.99 m2 [facility] Work Phone: 11-10-2020 10:14-0500 Height 158.12 cm [facility] Work Phone: 11-10-2020 10:14-0500 Pulse (Heart Rate) 126 /min [facility] Work Phone: 11-10-2020 10:0500 Respiratory Rate 20 /min [facility] Work Phone: 09-17-2020 10:10-0400 BMI (Body Mass Index) 39.4 kg/m2 [facility] Work Phone: 09-17-2020 10:10-0400 Body mass index (BMI) [Percentile] 99 {percentile} [facility] Work Phone: 09-17-2020 10:10-0400 Body weight 98.52 kg [facility] Work Phone: 09-17-2020 10:10-0400 BP Diastolic 76 mm[Hg] [facility] Work Phone: 09-17-2020 10:10-0400 BP Systolic 128 mm[Hg] [facility] Work Phone: 09-17-2020 10:10-0400 BSA (Body Surface Area) 1.99 m2 [facility] Work Phone: 09-17-2020 10:10-0400 Flow Rate 0 L/min [facility] Work Phone: 09-17-2020 10:10-0400 Height 158.12 cm [facility] Work Phone: 09-17-2020 10:10-0400 Inhaled Oxygen Concentration 21 % [facility] Work Phone: 09-17-2020 10:10-0400 P[facility] ([facility] Rate) 111 /min [facility] Work Phone: 09-17-2020 10:10-0400 Pulse Oximetry 98 % [facility] Work Phone: 09-17-2020 10:10-0400 Respiratory Rate 20 /min [facility] Work Phone: 09-17-2020 10:10-0400 SaO2% (BldA) [Mass fraction] 98 % Keisha Tapia PA-C Work Phone: [facility] Work Phone: 07-03-2020 13:25-0400 BP Diastolic 68 mm[Hg] [facility] Work Phone: 07-03-2020 13:25-0400 BP Systolic 110 mm[Hg] [facility] Work Phone: 06-26-2020 11:33-0400 BP Diastolic 80 mm[Hg] [facility] Work Phone: 06-26-2020 11:33-0400 BP Systolic 118 mm[Hg] [facility] Work Phone: 06-26-2020 11:26-0400 BMI (Body Mass Index) 36.6 kg/m2 [facility] Work Phone: 06-26-2020 11:26-0400 Body mass index (BMI) [Percentile] 99 {percentile} [facility] Work Phone: 06-26-2020 11:26-0400 Body Temperature 98.3 [degF] [facility] Work Phone: 06-26-2020 11:26-0400 Body weight 91.45 kg [facility] Work Phone: 06-26-2020 11:26-0400 BP Diastolic 90 mm[Hg] [facility] Work Phone: 06-26-2020 11:26-0400 BP Systolic 124 mm[Hg] [facility] Work Phone: 06-26-2020 11:26-0400 BSA (Body Surface Area) 1.92 m2 [facility] Work Phone: 06-26-2020 11:26-0400 Flow Rate 0 L/min [facility] Work Phone: 06-26-2020 11:26-0400 Height 158.12 cm [facility] Work Phone: 06-26-2020 11:26-0400 Inhaled Oxygen Concentration 21 % [facility] Work Phone: 06-26-2020 11:26-0400 Pulse (Heart Rate) 117 /min [facility] Work Phone: 06-26-2020 11:26-0400 Pulse Oximetry 99 % [facility] Work Phone: 06-26-2020 11:26-0400 Respiratory Rate 24 /min [facility] Work Phone: 06-26-2020 11:26-0400 SaO2% (BldA) [Mass fraction] 99 % Keisha Tapia PA-C Work Phone: [facility] Work Phone: 05-08-2020 12:22-0400 BMI (Body Mass Index) 34.9 kg/m2 [facility] Work Phone: 05-08-2020 12:22-0400 Body mass index (BMI) [Percentile] 99 {percentile} [facility] Work Phone: 05-08-2020 12:22-0400 Body weight 86.64 kg [facility] Work Phone: 05-08-2020 12:22-0400 BSA (Body Surface Area) 1.87 m2 [facility] Work Phone: 05-08-2020 12:22-0400 Height 157.48 cm [facility] Work Phone: 04-01-2020 12:54-0400 BMI (Body Mass Index) 34.9 kg/m2 [facility] Work Phone: Comment on above: pt report 04-01-2020 12:54-0400 Body mass index (BMI) [Percentile] 99 {percentile} [facility] Work Phone: Comment on above: pt report 04-01-2020 12:54-0400 Body weight 86.64 kg [facility] Work Phone: Comment on above: pt report 04-01-2020 12:54-0400 BSA (Body Surface Area) 1.87 m2 [facility] Work Phone: Comment on above: pt report 04-01-2020 12:54-0400 Height 157.48 cm [facility] Work Phone: Comment on above: pt report 03-18-2020 13:58-0400 BMI (Body Mass Index) 34.9 kg/m2 [facility] Work Phone: Comment on above: pt report 03-18-2020 13:58-0400 Body mass index (BMI) [Percentile] 99 {percentile} [facility] Work Phone: Comment on above: pt report 03-18-2020 13:58-0400 Body weight 86.64 kg [facility] Work Phone: Comment on above: pt report 03-18-2020 13:58-0400 BSA (Body Surface Area) 1.87 m2 [facility] Work Phone: Comment on above: pt report 03-18-2020 13:58-0400 Height 157.48 cm [facility] Work Phone: Comment on above: pt report 02-28-2020 13:36-0400 BMI (Body Mass Index) 35 kg/m2 [facility] Work Phone: 02-28-2020 13:36-0400 Body mass index (BMI) [Percentile] 99 {percentile} [facility] Work Phone: 02-28-2020 13:36-0400 Body Temperature 98.2 [degF] [facility] Work Phone: 02-28-2020 13:36-0400 Body weight 86.73 kg [facility] Work Phone: 02-28-2020 13:36-0400 BP Diastolic 80 mm[Hg] [facility] Work Phone: 02-28-2020 13:36-0400 BP Systolic 100 mm[Hg] [facility] Work Phone: 02-28-2020 13:36-0400 BSA (Body Surface Area) 1.88 m2 [facility] Work Phone: 02-28-2020 13:36-0400 Height 157.48 cm [facility] Work Phone: 02-28-2020 13:36-0400 Pulse (Heart Rate) 80 /min [facility] Work Phone: 02-28-2020 13:36-0400 Pulse Oximetry 99 % [facility] Work Phone: 02-28-2020 13:36-0400 Respiratory Rate 16 /min [facility] Work Phone: Encounters Encounter Date Encounter Type Care Provider Facility Start: 07-30-2025 End: 07-30-2025 Emergency department patient visit Dr. Lawrence Finnegan DO Work Phone: -Emergency Department Work Phone: Start: 07-25-2025 End: 07-25-2025 Patient encounter procedure Rudy Franco [facility] Work Phone: Start: 07-25-2025 End: 07-25-[address] Lawrence Finnegan DO Work Phone: [facility] Start: 07-04-2025 End: 07-04-[address] Danilo Akers MD -[facility] Start: 07-04-2025 End: 07-04-[address] Lawrence Finnegan DO Work Phone: -[facility] Start: 06-11-2025 Registered Referred Rosa Cope -[facility] Work Phone: Start: 06-11-2025 End: 06-11-2025 Patient encounter procedure Rosa CASIANO -[facility] Work Phone: Start: 06-11-2025 End: 06-11-[address] Lawrence Finnegan DO Work Phone: -[facility] Start: 05-15-2025 End: 05-15-2025 Emergency department patient visit Dr. Lawrence Finnegan DO Work Phone: -Emergency Department Work Phone: Start: 03-12-2025 End: 03-12-2025 ambulatory Facility:[facility] Start: 03-12-2025 End: 03-12-2025 Patient encounter procedure Zofia CASIANO Work Phone: [facility] Comment on above: Nausea and vomiting, unspecified vomiting type (Primary Dx) Start: 01-08-2025 End: 01-08-2025 Telephone encounter Yvette Clements APRN.CNP Work Phone: [facility] Comment on above: Results Start: 12-28-2024 End: 12-28-2024 Telephone encounter Yvette Clements APRN.CNP Work Phone: [facility] Comment on above: Results Start: 12-26-2024 End: 12-26-2024 Patient encounter procedure Clara Singh SHANDRA Work Phone: [facility] Comment on above: Vaginal bleeding (Pr imary Dx) Start: 12-26-2024 End: 12-26-2024 ambulatory SELF Facility:[id number] Start: 09-09-2024 Emergency department patient visit Facility:[id number] Start: 05-11-2024 End: 05-11-2024 Emergency department patient visit Melvin Leon MD Work Phone: [facility] Comment on above: Eloped from emergenc y department (Primary Dx) Start: 10-26-2023 End: 10-26-2023 Emergency department patient visit No PCP Facility:[facility] Start: 03-21-2023 End: 03-22-2023 ambulatory [facility] Start: 03-21-2023 End: 03-21-2023 [facility]ulatory [facility] [facility] Start: 03-21-2023 Encounter for other specified special examinations [facility] Start: 03-21-2023 End: 03-21-2023 Subsequent hospital visit by physician Katrin Caballero CNP Work Phone: [facility] Comment on above: Routine screening fo r STI (sexually transmitted infection) Start: 03-21-2023 End: 03-21-2023 Patient encounter status Katrin Caballero CNP Work Phone: [facility] Start: 03-21-2023 End: 03-21-2023 Subsequent hospital visit by physician Katrin Caballero CNP Work Phone: [facility] Comment on above: Routine screening fo r STI (sexually transmitted infection); Need for hepatitis C screening test; Routine lab draw; Vitamin D deficiency Start: 03-10-2023 End: 03-10-2023 ambulatory KATRIN C [facility] Start: 09-18-2022 End: 09-18-2022 ambulatory LISA GANN [facility] Start: 09-17-2022 End: 09-17-2022 Subsequent hospital visit by physician Katrin Dupont APRN - SUPERVISOR [employer]ING [employer]ATION Work Phone: [facility] DOCTOR Comment on above: Acute vaginitis Start: 07-05-2022 End: 07-06-2022 ambulatory KATRIN Ash WAJUS [facility] Start: 07-05-2022 End: 07-05-2022 Subsequent hospital visit by physician Katrin Dupont ALUMINUM MOLDING MACHINE OPERATOR - SUPERVISOR PUMPING [employer]ATION Work Phone: [facility] DOCTOR Comment on above: Vaginal discharge; Urinary frequency Start: 12-02-2021 End: 12-02-2021 FQHC visit, estab pt Keisha Tapia PA-C Work Phone: [facility] Work Phone: Start: 12-02-2021 End: 12-03-2021 ambulatory [facility] Start: 12-02-2021 End: 12-02-2021 Subsequent hospital visit by physician MELANIE BAL [facility][NOTE 3] Start: 10-16-2021 End: 10-17-2021 ambulatory [facility] Start: 10-16-2021 End: 10-16-2021 Subsequent hospital visit by physician MELANIE BAL [facility] Start: 10-16-2021 End: 10-16-2021 FQHC visit, estab pt Maribel BOSS Work Phone: [facility] Work Phone: Start: 10-16-2021 End: 10-16-2021 FQHC visit, estab pt Keisha Tapia PA-C Work Phone: [facility] Work Phone: Start: 09-03-2021 End: 09-04-2021 ambulatory [facility] Start: 09-03-2021 End: 09-03-2021 Subsequent hospital visit by [facility] Start: 09-03-2021 End: 09-03-2021 General Maribel BOSS Work Phone: [facility] Work Phone: Start: 09-03-2021 End: 09-03-2021 FQHC visit, estab pt [facility] Willie PA-C Work Phone: [facility] Work Phone: Start: 07-29-2021 periodic oral evalua tion - established patient Melany Alonso DDS Work Phone: [facility] Work Phone: Start: 07-29-2021 End: 07-29-2021 General Jessica Siddiqui [facility] Work Phone: [facility] Work Phone: Start: 06-03-2021 End: 06-03-2021 ambulatory [facility] Willie PA-C Work Phone: [facility] Work Phone: Start: 05-12-2021 End: 05-13-2021 ambulatory [facility] Start: 05-12-2021 End: 05-12-2021 FQHC visit, estab pt Hawa Stark CYBER ENGINEER Work Phone: [facility] Work Phone: Start: 05-12-2021 End: 05-12-2021 Subsequent hospital visit by physician MELANIE BAL [facility] Start: 05-12-2021 End: 05-12-2021 FQHC visit, estab pt Hawa Stark CYBER ENGINEER Work Phone: [facility] Work Phone: Start: 05-12-2021 End: 05-12-2021 FQHC visit, estab pt Keisha Tapia PA-C Work Phone: [facility] Work Phone: Start: 03-02-2021 End: 03-02-2021 Established patient Maribel Banegas Work Phone: [facility] Work Phone: Start: 03-02-2021 End: 03-02-2021 Adolescent care Keisha Tapia PA-C Work Phone: [facility] Work Phone: Start: 03-02-2021 End: 03-02-2021 Established patient Keisha Tapia Work Phone: [facility] Work Phone: Start: 12-11-2020 End: 12-11-2020 Subsequent hospital visit by physician ALLAN NAVARRO [facility] Start: 12-10-2020 End: 12-10-2020 Established patient Keisha Tapia Work Phone: [facility] Work Phone: Start: 12-10-2020 End: 12-10-2020 Patient encounter procedure Keisha Tapia Work Phone: [facility] Work Phone: Start: 11-26-2020 End: 11-26-2020 Established patient Keisha Tapia Work Phone: [facility] Work Phone: Start: 11-10-2020 End: 11-10-2020 Established patient Lynsey Lala Work Phone: [facility] Work Phone: Start: 11-10-2020 End: 11-10-2020 Established patient Lynsey Lala Work Phone: [facility] Work Phone: Start: 11-10-2020 End: 11-10-2020 Patient encounter procedure Keisha Tapia Work Phone: [facility] Work Phone: Start: 11-10-2020 End: 11-10-2020 Subsequent hospital visit by physician MELANIE [facility] Start: 10-28-2020 End: 10-28-2020 Telemedicine consultation with patient Idalmis Dong Work Phone: [facility] Work Phone: Start: 09-17-2020 End: 09-17-2020 Established patient Maribel Banegas Work Phone: [facility] Work Phone: Start: 09-17-2020 End: 09-09-2020 Established patient Maribel Banegas Work Phone: [facility] Work Phone: Start: 09-17-2020 End: 09-17-2020 Established patient Keisha Tapia Work Phone: [facility] Work Phone: Start: 09-09-2020 End: 09-09-2020 Telemedicine consultation with patient Paula Lockett Work Phone: [facility] Work Phone: Start: 08-15-2020 End: 08-15-2020 Patient encounter procedure Siva Rincon [facility] Work Phone: Start: 08-15-2020 End: 08-15-2020 Telemedicine consultation with patient Keisha Tapia Work Phone: [facility] Work Phone: Start: 07-03-2020 Comprehensve oral evaluation Melany Celeset Work Phone: [facility] Work Phone: Start: 07-03-2020 End: 07-03-2020 Patient encounter procedure Melany Celeste Work Phone: [facility] Work Phone: Start: 06-26-2020 End: 07-03-2020 Patient encounter procedure Abbie Platt Work Phone: [facility] Work Phone: Start: 06-26-2020 End: 06-26-2020 Established patient Maribel Banegas Work Phone: [facility] Work Phone: Start: 05-13-2020 End: 05-13-2020 Subsequent hospital visit by physician MELANIE [facility] Start: 05-08-2020 End: 05-08-2020 Telemedicine consultation with patient Siva Rincon Work Phone: [facility] Work Phone: Start: 04-07-2020 End: 04-07-2020 Telemedicine consultation with patient Siva Rincon Work Phone: [facility] Work Phone: Start: 04-01-2020 End: 04-01-2020 Telemedicine consultation with patient Maximo Ash Salvador Work Phone: Dr.Gene Esquivel [facility] Work Phone: Start: 03-18-2020 End: 03-18-2020 Telemedicine consultation with patient Maximo C Salvador Work Phone: Dr.Gene Esquivel [facility] Work Phone: Start: 02-28-2020 End: 05-12-2021 Adolescent care Keisha Tapia PA-C Work Phone: [facility] Work Phone: Start: 02-28-2020 End: 02-28-2020 Established patient Maribel Banegas Work Phone: [facility] Work Phone: Start: 02-28-2020 End: 02-28-2020 New patient Siva Rincon Work Phone: [facility] Work Phone: Start: 11-27-2018 End: 11-27-2018 Emergency department patient visit Daryl Huggins Facility:[facility] Start: 11-25-2018 End: 11-25-2018 Emergency department patient visit Guerda Dotson Facility:[facility] Start: 09-28-2018 End: 09-29-2018 Emergency department patient visit Daryl Huggins Facility:[facility] Start: 09-27-2018 End: 09-28-2018 Patient encounter procedure CINDI R SELWYN Facility:[facility] Start: 08-28-2018 End: 08-29-2018 Patient encounter procedure CINDI CARTERKARON Facility:[facility] Start: 07-21-2018 End: 07-21-2018 Emergency department patient visit KAYLA VILLARREAL Facility:[facility] Start: 06-13-2018 End: 06-13-2018 Emergency department patient visit NATAHNAEL LOVING Facility:[facility] Start: 03-15-2018 End: 03-16-2018 [facility] Start: 03-06-2018 End: 03-07-2018 Emergency department patient visit ELIZABETH LEDEZMA Facility:[facility] Procedures Date Procedure Procedure Detail Performing Clinician Start: 07-30-2025 SARS-CoV-2, Influenza & RSV (PCR) Dr. Lawrence Finnegan DO Work Phone: Start: 07-04-2025 Plain X-ray of tibia and fibula Dr. Lawrence Finnegan DO Work Phone: Start: 07-04-2025 X-ray of ankle, three or more views Dr. Lawrence Finnegan DO Work Phone: Start: 06-11-2025 In-vitro immunologic test Dr. Lawrence Finnegan DO Work Phone: Comment on above: QuantiFERON-TB Gold Plus is a qualitative indirect test forM tuberculosis infection (including disease) and isintended for use in conjunction with risk assessment,radiography, and other medical and diagnostic evaluations.The QuantiFERON-TB Gold Plus result is determined bysubtracting the Nil value from either TB antigen (Ag)value. The Mitogen tube serves as a control for the test. No response to M tub erculosis antigens detected.Infection with M tuberculosis is unlikely, but high riskindividuals should be considered for additional testing(ATS/IDSA/CDC Clinical Practice Guidelines, 2017). Thereference range is an Antigen minus Nil result of <0.35IU/mL.The specimen received for QuantiFERON testing was incubatedby the ordering institution. Specific procedures outlinedin our Directory of Services and in the package insert forthe QuantiFERON Gold (In Tube) test must be followed toenable for proper stimulation of cells for the productionof interferon gamma. Chemiluminescence immunoassaymethodologyPerformed at: [facility] [id number] Director: Gagandeep Lynn PhD, Phone: [phone] Start: 05-15-[address] Lawrence Finnegan DO Work Phone: Start: 05-15-2025 Urnls dip stick/tabl et reagent auto microscopy Dr. Lawrence Finnegan DO Work Phone: Start: 05-15-2025 CT of abdomen and pe lvis without contrast Dr. Lawrence Finnegan DO Work Phone: Start: 05-15-[address] Lawrence Finnegan DO Work Phone: Start: 03-12-2025 UA DIP,URINE HCG (POC) Zofia Smith PA Work Phone: Start: 12-26-2024 Urnls dip stick/tabl et rgnt auto w/o microscopy Clara Singh APRN.SUPERVISOR [employer]ATION Work Phone: Start: 12-26-2024 UA DIP,URINE HCG (POC) Clara Singh APRN.SUPERVISOR [employer] Work Phone: Start: 03-21-2023 Antibody hiv-1&hiv-2 single result Katrin Dupont APRN - SUPERVISOR [employer] Work Phone: Start: 03-21-2023 Basic metabolic panel calcium total Katrin C Cresencio ALUMINUM MOLDING MACHINE OPERATOR - SUPERVISOR [employer]MPING [employer]ATION Work Phone: Start: 12-02-2021 Medroxyprogesterone acetate [facility] PA-C Work Phone: Start: 12-02-2021 Therapeutic prophyla ctic/dx injection subq/im [facility] PA-C Work Phone: Start: 12-02-2021 Comprehensive metabolic panel [facility] Work Phone: Start: 10-16-2021 Urinalysis microscopic only [facility] Work Phone: Start: 10-16-2021 Urnls dip stick/tabl et rgnt auto w/o microscopy [facility] Work Phone: Start: 10-16-2021 Psychotherapy w/patient 30 minutes Maribel BOSS Work Phone: Start: 09-03-2021 Urinalysis microscopic only [facility] Work Phone: Start: 09-03-2021 Urine test visual color cmprsn meths [facility] PA- Work Phone: Start: 09-03-2021 Medroxyprogesterone acetate [facility] PA-C Work Phone: Start: 09-03-2021 Therapeutic prophyla ctic/dx injection subq/im [facility] Work Phone: Start: 07-29-2021 bitewings - four radiographic images Melany Celeste S Work Phone: Start: 07-29-2021 panoramic radiographic image Melany Celeste S Work Phone: Start: 07-29-2021 prophylaxis - adult Debra na Celeste S Work Phone: Start: 07-29-2021 topical application of fluoride varnish Melany Celeste DDS Work Phone: Start: 06-03-2021 Medroxyprogesterone acetate [facility]- Work Phone: Start: 06-03-2021 Therapeutic prophyla ctic/dx injection subq/im [facility] Work Phone: Start: 06-03-2021 Urine test visual color cmprsn meths [facility] Work Phone: Start: 05-12-2021 Cul bact xcpt urine blood/stool aerobic isol [facility] Work Phone: Start: 05-12-2021 Antibody hiv-1&hiv-2 single result [facility] Work Phone: Start: 05-12-2021 Psychotherapy w/patient 30 minutes Hawa BOSS Work Phone: Start: 05-12-2021 Urine test visual color cmprsn meths [facility] Work Phone: Start: 05-12-2021 Venereal disease screening Vis it For: Screening Exam Std [facility] Work Phone: Start: 03-02-2021 Medroxyprogesterone acetate [facility] Work Phone: Start: 03-02-2021 Psychotherapy w/patient 30 minutes Maribel Banegas Work Phone: Start: 03-02-2021 Screening test pure tone air only [facility] Work Phone: Start: 03-02-2021 Screening test visua l acuity quantitative bilat [facility] Work Phone: Start: 03-02-2021 Therapeutic prophyla ctic/dx injection subq/im [facility] Work Phone: Start: 12-11-2020 Iadna diego species direct probe t q [facility] Work Phone: Start: 12-10-2020 Medroxyprogesterone acetate [facility] Work Phone: Start: 12-10-2020 Therapeutic prophyla ctic/dx injection subq/im [facility] Work Phone: Start: 11-10-2020 Psychotherapy w/patient 30 minutes Lynsey Lala Work Phone: Start: 11-10-2020 Urnls dip stick/tabl et rgnt non-auto w/o micrscp [facility] Work Phone: Start: 09-17-2020 Medroxyprogesterone acetate [facility] Work Phone: Start: 09-17-2020 Psychotherapy w/patient 30 minutes Maribel Banegas Work Phone: Start: 09-17-2020 Therapeutic prophyla ctic/dx injection subq/im [facility] Work Phone: Start: 07-22-2020 Electrocardiogram Start: 07-03-2020 Bitewings four images S ema Lc Work Phone: Start: 07-03-2020 Dental prophylaxis adult Abbie Platt Work Phone: Start: 07-03-2020 Topical fluoride varnish Abbiedorcas Platt Work Phone: Start: 06-26-2020 Medroxyprogesterone acetate [facility] Work Phone: Start: 06-26-2020 Psychotherapy w/patient 30 minutes Maribel Banegas Work Phone: Start: 06-26-2020 Therapeutic prophyla ctic/dx injection subq/im [facility] Work Phone: Start: 05-29-2020 Electrocardiogram Start: 05-13-2020 Ecg routine ecg w/least 12 lds w/i&r Irfan Laylamed Work Phone: Start: 05-13-2020 EKG REPORT [facility] Scanni ng Start: 04-07-2020 no recent change in medical history iSva Rincon Start: 04-01-2020 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 Siva Rincon Start: 04-01-2020 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 Siva Rincon Start: 02-28-2020 History of influenza vaccination Siva Rincon Start: 02-28-2020 past medical history [for Dx hist use Dx + H prefix] Siva Rincon Start: 02-28-2020 Psychotherapy w/patient 30 minutes Maribel Banegas Work Phone: Start: 02-28-2020 taking medication Suellen Rincon NEGATED: Highlighted row has not occurred!Start: 05-12-2021 H/O: surgery [employer] Work Phone: NEGATED: Highlighted row has not occurred!Start: 09-17-2020 H/O: surgery [employer] Work Phone: NEGATED: Highlighted row has not occurred!Start: 02-28-2020 previous hospitalizations Siva Rincon Plan of Treatment Date Care Activity Detail Author Start: 08-16-2028 DTaP/Tdap/Td vaccine (5 - Td or Tdap) DTaP/Tdap/Td vaccine (5 - Td or Tdap) [facility] Start: 08-16-2028 Urine microalbumin profile DTaP,Tdap,Td Vaccine (5 - Td or Tdap) [facility] Start: 07-30-2025 [facility] Start: 07-04-2025 Plain X-ray of tibia and fibula Tibia & Fibula 2 Views [facility] Start: 07-04-2025 X-ray of ankle, thre e or more views Ankle min 3 Views [facility] Start: 07-04-2025 XR Ankle GE 3 Views [place] Start: 07-04-2025 XR Tibia and Fibula 2 Views [facility] Start: 06-11-2025 In-vitro immunologic test [facility] Start: 05-15-2025 [facility] Start: 05-15-2025 Transvaginal echography Transv aginal Non- [facility] Start: 05-15-2025 US Pelvis transvaginal [facility] Start: 03-13-2025 COVID-19 Vaccine (4 - Booster for Pfizer series) COVID-19 Vaccine (4 - Booster for Pfizer series) [facility] Comment on above: Postponed from 07/16 (Not Indicated) Start: 07-29-2024 Covid-19 Vaccine ( season) Covid-19 Vaccine ( season) [facility] Start: 07-29-2024 Influenza vaccination Influenza Vacc ine (#1) [facility] Start: 06-28-2024 Influenza vaccination Flu vacc ine (Season Ended) [facility] Start: 03-21-2024 Depression Screen Depression Screen [facility] Start: 03-21-2024 Screening for Chlamy paola trachomatis Chlamydia/GC screen [facility] Start: 09-20-2023 Hepatitis A vaccine (2 of 2 - 2-dose series) Hepatitis A vaccine (2 of 2 - 2-dose series) [facility] Comment on above: Postponed from 09/01 (Not Indicated) Start: 07-29-2023 COVID-19 Vaccine ( season) COVID-19 Vaccine ( season) [facility] Start: 06-28-2023 Influenza vaccination Flu vacc ine (Season Ended) [facility] Start: 06-13-2023 End: 06-13-2023 Nursing evaluation of patient and report 06/13/2023 Nurse Only Family Medicine [facility] Start: 03-11-2023 Depression Screen Depression Screen [facility] Start: 09-30-2022 End: 09-30-2022 Patient encounter procedure 09/30/2022 Office Visit Family Medicine Katrin Dupont, ALUMINUM MOLDING MACHINE OPERATOR - SUPERVISOR PUMPING STATION [address] [place] [address] [facility] Start: 07-29-2022 Influenza vaccination Flu vaccine (# 1) [facility] Start: 2022 Anxiety Screening Anxiety Screening [facility] Start: 2022 Depression Screening Depression Scre ening [facility] Start: 2022 GC (Gonorrhea) Scree kierra () GC (Gonorrhea) Screening () [facility] Start: 2022 Hepatitis C screening [facility] Start: 2022 HIV screening HIV Screening [facility] Start: 2022 Screening for Chlamy paola trachomatis Chlamydia Screening () [facility] Start: 07-16-2022 COVID-19 Vaccine (4 - Booster for Pfizer series) COVID-19 Vaccine (4 - Booster for Pfizer series) [facility] Start: 06-28-2022 Influenza vaccination Flu vaccine (# 1) [facility] Start: 05-12-2022 Screening for Chlamy paola trachomatis [facility] Start: 02-24-2022 FQHC visit, estab pt Medical E stablished Patient [facility] Work Phone: Start: 01-27-2022 [facility] Work Phone: Start: 12-09-2021 CBC panel - Blood by Automated count [facility] Start: 12-02-2021 FQHC visit, estab pt Medical E stablished Patient [facility] Work Phone: Start: 11-15-2021 Urinalysis w/r eflex C&S (UAX) [facility] Start: 10-23-2021 [facility] Start: 10-03-2021 Urinalysis w/r eflex C&S (UAX) [facility] Start: 09-23-2021 [facility] Work Phone: Start: 09-01-2021 Hepatitis A vaccine (2 of 2 - 2-dose series) Hepatitis A vaccine (2 of 2 - 2-dose series) [facility] Start: 09-01-2021 Meningococcal B Vacc ine (2 of 2 - Bexsero SCDM 2-dose series) Meningococcal B Vaccine (2 of 2 - Bexsero SCDM 2-dose series) [facility] Start: 07-29-2021 Influenza vaccination [facility] Start: [facility]11-[facility]21 [facility] Start: 06-03-2021 [facility] Work Phone: Start: 05-13-2021 Urine Pregnanc y Test, In House [facility] Start: 03-30-2021 Meningococcal B Vacc ine: Consider Based On Risk (2 of 2 - Risk Bexsero 2-dose series) Meningococcal B Vaccine: Consider Based On Risk (2 of 2 - Risk Bexsero 2-dose series) [facility] Start: 03-03-2021 [facility] Work Phone: Start: 02-26-2021 Medical Establ ished Patient [facility] Work Phone: Start: 01-19-2021 Dental Comp Exam [facility] Work Phone: Start: 01-09-2021 [facility] Work Phone: Start: 12-13-2020 CT Abdomen & P nat w & W/O contrast (60930) [facility] Work Phone: Start: 12-10-2020 [facility] Work Phone: Start: 11-20-2020 CBC W Auto Different ial panel - Blood [facility] Work Phone: Start: 11-11-2020 Urinalysis Dip stick,In House [facility] Work Phone: Start: 09-16-2020 [facility] Work Phone: Start: 09-09-[address] up Testing [facility] Work Phone: Start: 08-22-2020 SARS-CoV-2, TICO [facility] Work Phone: Start: 08-18-[address] [facility] Work Phone: Start: 08-15-[address] up Testing [facility] Work Phone: Start: 07-29-2020 Influenza vaccination M [place], [place] Start: 2020 Meningococcal (ACWY) vaccine (1 - 2-dose series) Meningococcal (ACWY) vaccine (1 - 2-dose series) [facility] Start: 2020 Screening for Chlamy paola trachomatis Chlamydia screen [place] Start: 07-03-2020 Dental Comp Exam [facility] Work Phone: Start: 04-07-2020 Telemedicine [facility] Work Phone: Start: 04-01-[address]Gene Lowe [facility] Work Phone: Start: 03-06-2020 Lipid 1996 panel [facility] Work Phone: Start: 2019 HIV screening HIV screen [facility] Start: 2018 Peds To Adult Transi tion Annual Assessment Peds To Adult Transition Annual Assessment [facility] Start: 2016 COVID-19 Vaccine (1) COVID-19 Vaccin e (1) [facility] Work Phone: Start: 2016 Depression Screen Depression Screen [facility] Start: 2016 Peds To Adult Transi tion Initial Discussion Peds To Adult Transition Initial Discussion [facility] Start: 2015 HPV vaccine (1 - 2-d ose series) HPV vaccine (1 - 2-dose series) [facility] Start: 2011 DTaP/Tdap/Td vaccine (1 - Tdap) DTaP/Tdap/Td vaccine (1 - Tdap) [facility] Start: 2009 COVID-19 Vaccine (1) COVID-19 Vaccin e (1) [facility] Start: 2005 Hepatitis A vaccine (1 of 2 - 2-dose series) Hepatitis A vaccine (1 of 2 - 2-dose series) [facility] Start: 2005 Measles,Mumps,Rubell a (MMR) vaccine (1 of 2 - Standard series) Measles,Mumps,Rubella (MMR) vaccine (1 of 2 - Standard series) [facility] Start: 2005 Varicella vaccine (1 of 2 - 2-dose childhood series) Varicella vaccine (1 of 2 - 2-dose childhood series) [facility] Start: 2004 Polio vaccine (1 of 3 - 4-dose series) Polio vaccine (1 of 3 - 4-dose series) [facility] Start: 2004 Hepatitis B vaccine (1 of 3 - 3-dose primary series) Hepatitis B vaccine (1 of 3 - 3-dose primary series) [facility] Bacteria identified in Urine by Culture BACTERIAL CULTURE, URINE Microbiology Routine Vaginal bleeding 12/26/2024 8:58 AM EST [facility] [facility] Work Phone: End: 05-12-2021 C.trachomatis N.gonorrhoeae DNA C.trachomatis N.gonorrhoeae DNA Microbiology Routine Once for 1 Occurrences starting 05/12/2021 until 05/12/2021 IT MOVES IT Work Phone: Comment on above: Once for 1 Occurrenc es starting 05/12/2021 until 05/12/2021 C.trachomatis N.gonorrhoeae DNA C.trachomatis N.gonorrhoeae DNA Microbiology Routine 05/12/2021 4:27 PM EDT [employer] [facility] Phone: End: 03-21-2023 Chlamydia/GC DNA, Urine BON [employer] Work Phone: Comment on above: 1 Occurrences starti ng 03/21/2023 until 03/21/2023 End: 09-17-2022 Culture, Genital BON [employer] [facility] Phone: Comment on above: 1 Occurrences starti ng 09/17/2022 until 09/17/2022 End: 11-10-2020 Culture, Urine Culture, Urine Microbiology Routine Once for 1 Occurrences starting 11/10/2020 until 11/10/2020 [facility] [place], [place] Comment on above: Once for 1 Occurrenc es starting 11/10/2020 until 11/10/2020 Culture, Urine Culture, Urine Microbiology Routine 11/10/2020 7:31 AM EST [facility], [place] End: 07-05-2022 Culture, Urine BON [facility] Work Phone: Comment on above: 1 Occurrences starti ng 07/05/2022 until 07/05/2022 End: 05-12-2021 Herpes Simplex 1 & 2, Molecular Herpes Simplex 1 & 2, Molecular Lab Routine Once for 1 Occurrences starting 05/12/2021 until 05/12/2021 [facility] Work Phone: Comment on above: Once for 1 Occurrenc es starting 05/12/2021 until 05/12/2021 Herpes Simplex 1 & 2 , Molecular Herpes Simplex 1 & 2, Molecular Lab Routine 05/12/2021 5:[address] [facility] Work Phone: Mycobacterium tuberculosis tuberculin stimulated gamma interferon [Presence] in Blood [facility] Patient Education [facility] Work Phone: Patient referral [facility] Work Phone: End: 07-05-2022 Vaginitis DNA Probe [facility] Work Phone: Comment on above: 1 Occurrences starti ng 07/05/2022 until 07/05/2022 End: 09-17-2022 Vaginitis DNA Probe [facility] Work Phone: Comment on above: 1 Occurrences starti ng 09/17/2022 until 09/17/2022 Immunizations Immunization Date Immunization Notes Care Provider Fa davide 12-02-2021 influenza, injectabl e, quadrivalent, preservative free; Translations: [fluzone] Keisha Tapia PA-C Work Phone: [facility] Work Phone: Comment on above: Note: Patient tolera roselia well. No signs or symptoms of adverse reactions. Patient waited a minimum of 15 minutes. 12-02-2021 Human Papillomavirus 9-valent vaccine Katrin Caballero CNP Work Phone: [facility] Work Phone: 12-02-2021 influenza virus vacc ine, unspecified formulation Katrin Dupont ALUMINUM MOLDING MACHINE OPERATOR [employer] SUPERVISOR PU[employer]ING [employer]ATION Work Phone: [facility] Work Phone: 12-02-2021 Imm.Admin.Through [address] FIRST Injection Keisha Tapia PA-C Work Phone: [facility] Work Phone: 03-02-2021 Human Papillomavirus 9-valent vaccine [facility] Work Phone: 03-02-2021 meningococcal oligosaccharide (groups A, C, Y and W-135) diphtheria toxoid conjugate vaccine (MCV4O) Katrin Dupont ALUMINUM MOLDING MACHINE OPERATOR [employer] Work Phone: [facility] Work Phone: 03-02-2021 Ea.Addnl.Imm.Admin.T hroug h 18 yrs Any Route [facility] Work Phone: 03-02-2021 Imm.Admin.Through [address] FIRST Injection [facility] Work Phone: 03-02-2021 Ea.Addnl.Imm.Admin.T hroug h [address] (Physician Hospice Home Care Coordinator) Keisha Tapia PA-C Work Phone: [facility] Work Phone: 03-02-2021 Imm.Admin.Through [address]rs [address] FIRST Injection (Physician Hospice Home Care Coordinator) Keisha Tapia PA-C Work Phone: [facility] Work Phone: 03-02-2021 meningococcal B vacc ine, recombinant, OMV, adjuvanted; Translations: [BEXSERO] [facility] Work Phone: Comment on above: Note: Patient tolera roselia well. No signs or symptoms of adverse reactions. Patient waited a minimum of 15 minutes. 03-02-2021 hepatitis A vaccine, pediatric/adolescent dosage, 2 dose schedule; Translations: [Havrix] [facility] Work Phone: 03-02-2021 human papilloma viru s vaccine, quadrivalent; Translations: [GARDASIL9] [facility] Work Phone: 10-19-2019 influenza virus vacc ine, unspecified formulation Katrin Ctjus [facility] Work Phone: [facility] Work Phone: 10-19-2019 influenza, injectabl e, quadrivalent, contains preservative [facility] Work Phone: [facility] Work Phone: 10-19-2019 influenza, seasonal, injectable [facility] Work Phone: 08-16-2018 Human Papillomavirus 9-valent vaccine [facility] Work Phone: [facility] Work Phone: 08-16-2018 meningococcal oligosaccharide (groups A, C, Y and W-135) diphtheria toxoid conjugate vaccine (MCV4O) Keisha Tapia [facility] Work Phone: [facility] Work Phone: 08-16-2018 human papilloma viru s vaccine, quadrivalent [facility] Work Phone: 08-16-2018 measles, mumps and rubella virus vaccine [facility] Work Phone: 08-16-2018 meningococcal polysaccharide (groups A, C, Y and W-135) diphtheria toxoid conjugate vaccine (MCV4P) [facility] Work Phone: 08-16-2018 poliovirus vaccine, inactivated [facility] Work Phone: 08-16-2018 tetanus toxoid, redu karlo diphtheria toxoid, and acellular pertussis vaccine, adsorbed [facility] Work Phone: 11-05-2015 influenza virus vacc ine, unspecified formulation Katrin Dupont ALUMINUM MOLDING 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 OPERATOR - SUPERVISOR PUMPING STATION Work Phone: [employer] [facility] Work Phone: 11-05-2015 influenza, seasonal, injectable [facility] Work Phone: 08-27-2014 varicella virus vaccine Siva Jaredberkley [facility] Work Phone: 10-21-2009 novel Influenza-H1N1 -09, live virus for nasal administration Keisha Tapia PA-C Work Phone: [facility] Work Phone: 11-05-2005 influenza virus vacc ine, unspecified formulation Katrin SteveAproMed Corpberkley ALUMINUM MOLDING MACHINE OPERATOR - SUPERVISOR PUMPING STATION Work Phone: [employer] Work Phone: 11-05-2005 influenza virus vacc ine, whole virus Katrin Dupont ALUMINUM MOLDING MACHINE OPERATOR - SUPERVISOR PUMPING STATION Work Phone: [employer] [facility] Work Phone: 11-05-2005 influenza, high dose seasonal, preservative-free Kesiha Tapia PA-C Work Phone: [facility] Work Phone: 11-05-2005 pneumococcal conjuga te vaccine, 13 valent [facility] Work Phone: 11-05-2005 pneumococcal conjuga te vaccine, 7 valent [facility] Work Phone: 11-05-2005 varicella virus vaccine Siva daniels [facility] Work Phone: 09-01-2005 diphtheria, tetanus toxoids and acellular pertussis vaccine, Haemophilus influenzae type b conjugate, and poliovirus vaccine, inactivated ([id number]) Katrin Dupont APRN - SUPERVISOR [employer]ATION Work Phone: [facility] 09-01-2005 diphtheria, tetanus toxoids and acellular pertussis vaccine [facility] Work Phone: 09-01-2005 haemophilus influenz ae type b vaccine, PRP-T conjugate [facility] Work Phone: 09-01-2005 measles, mumps and rubella virus vaccine [facility] Work Phone: 09-01-2005 pneumococcal conjuga te vaccine, 13 valent [facility] Work Phone: 09-01-2005 pneumococcal conjuga te vaccine, 7 valent [facility] Work Phone: 09-01-2005 poliovirus vaccine, inactivated [facility] Work Phone: 09-01-2005 [facility]icella virus [facility] Work Phone: 04-29-2005 diphtheria, tetanus toxoids and acellular pertussis vaccine, Haemophilus influenzae type b conjugate, and poliovirus vaccine, inactivated ([id number]) Katrin Dupont APRN [employer] SUPERVISOR [employer]ING [employer]ATION Work Phone: [facility] Work Phone: 04-29-2005 DTaP-hepatitis B and poliovirus vaccine Keisha Tapia PA-C Work Phone: [facility] Work Phone: 04-29-2005 diphtheria, tetanus toxoids and acellular pertussis vaccine [facility] Work Phone: 04-29-2005 haemophilus influenz ae type b vaccine, PRP-T conjugate [facility] Work Phone: 04-29-2005 hepatitis B vaccine, unspecified formulation [facility] Work Phone: 04-29-2005 pneumococcal conjuga te vaccine, 13 valent [facility] Work Phone: 04-29-2005 pneumococcal conjuga te vaccine, 7 valent [facility] Work Phone: 04-29-2005 poliovirus vaccine, inactivated [facility] Work Phone: 2004 diphtheria, tetanus toxoids and acellular pertussis vaccine, Haemophilus influenzae type b conjugate, and poliovirus vaccine, inactivated ([id number]) Katrin Dupont APRN CARLOS Work Phone: [facility] Work Phone: 2004 DTaP-hepatitis B and poliovirus vaccine Keisha Tapia PA-C Work Phone: [facility] Work Phone: 2004 diphtheria, tetanus toxoids and acellular pertussis vaccine [facility] Work Phone: 2004 haemophilus influenz ae type b vaccine, PRP-T conjugate [facility] Work Phone: 2004 hepatitis B vaccine, unspecified formulation [facility] Work Phone: 2004 pneumococcal conjuga te vaccine, 13 valent [facility] Work Phone: 2004 pneumococcal conjuga te vaccine, 7 valent [facility] Work Phone: 2004 poliovirus vaccine, inactivated [facility] Work Phone: 2004 hepatitis B vaccine, pediatric or pediatric/adolescent dosage Keisha Tapia PA-C Work Phone: [facility] Work Phone: 2004 hepatitis B vaccine, unspecified formulation Siva Rincon [facility] Work Phone: Payers Date Payer Category Payer Unknown [id number] 2025 Unknown [id number] 2024 Medicaid [id number] 2024 Medicaid [id number] 2019 Unknown [id number] [id number] .[id number] 2018 Private Health Insurance 2014 Unknown [id number] 2.16.840.1.740882.3.140.1 .81060.5.10.6.3 2014 Unknown [facility] MEDICAID xxxxxxxxxxxx 2014-Present [phone] CLAIMS DEPARTMENT [address] [place] [address] xxxxxxxxxxxx [id number] 2004 Unknown [id number] 2.16.840.1.132455.3.579.2 .173 1984 Unknown [id number] 2.16.840.1.790992.3.579.2 .196 1984 Unknown [id number] 2.16.840.1.223431.3.579.2 .196 1984 Unknown [id number] 2.16.840.1.757415.3.579.2 .196 1984 Unknown [id number] 2.16.840.1.658073.3.579.2 .196 1984 Unknown [id number] 2.16.840.1.912447.3.579.2 .196 1984 Unknown [id number] 2.16.840.1.869692.3.579.2 .196 1984 Unknown [id number] 2.16.840.1.185466.3.579.2 .196 1984 Unknown [id number] 2.16.840.1.904726.3.579.2 .196 1948 Unknown [id number] 2.16.840.1.656625.3.579.2 .196 1948 Unknown [id number] 2.16.840.1.006695.3.579.2 .196 Unknown [id number] 2.16.840.1.124935.3.579.2 .175 Unknown [id number] 2.16.840.1.917936.3.579.2 .175 Unknown [id number] 2.16.840.1.859772.3.579.2 .175 Unknown [id number] 2.16.840.1.585919.3.579.2 .175 Unknown [id number] 2.16.840.1.132400.3.579.2 .175 Unknown [id number] 2.16.840.1.503101.3.579.2 .175 Unknown [id number] 2.16.840.1.232792.3.579.2 .175 Unknown [id number] 2.16.840.1.880534.3.579.2 .175 Unknown [id number] 2.16.840.1.979504.3.579.2 .175 11-28-1799 Self-pay Private Health Insurance [id number] Unknown [id number] 2.16.840.1.280722.3.579.2 .462 Unknown [id number] 2.16.840.1.066245.3.579.2 .462 Unknown [id number] 2.16.840.1.455093.3.579.2 .462 Unknown [id number] 2.16.840.1.618712.3.579.2 .462 Unknown [id number] 2.16.840.1.910457.3.579.2 .462 Unknown [id number] 2.16.840.1.934949.3.579.2 .462 Unknown [id number] 2.16.840.1.709288.3.579.2 .462 Unknown [id number] 2.16.840.1.457446.3.579.2 .462 Social History Date Type Detail Facility Assertion Emotional stress (finding) [facility] Work Phone: Assertion Attending school (finding) [facility] Work Phone: Assertion Gender identity finding (finding) [facility] Work Phone: Assertion Finding of life event (finding) [facility] Work Phone: Assertion Lives with paren ts (finding) [facility] Work Phone: Assertion Finding of sexua l orientation (finding) [facility] Work Phone: Assertion [facility] Work Phone: Assertion Finding of educa tional achievement (finding) [facility] Work Phone: Assertion Contraception (finding) [facility] Work Phone: Assertion Sexually active (finding) [facility] Work Phone: Start: 10-01-2013 End: 05-15-2025 Tobacco smoking status Unknown if ever smoked [facility] Start: 2004 Sex Assigned At Not on file [facility], [place] Assertion High fat diet (finding) [facility] Work Phone: Assertion Eats convenience foods (finding) [facility] Work Phone: Assertion Nutritional defi ciency disorder (disorder) [facility] Work Phone: Assertion Exposure to poll ution (event) [facility] Work Phone: Assertion Interpersonal relationship finding (finding) [facility] Work Phone: Start: 10-01-2013 End: 05-11-2024 Alcohol intake Current non-drinker of alcohol (finding) [facility] [place] Assertion At risk of sexua lly transmitted infection (finding) [facility] Work Phone: Assertion Currently not se xually active (finding) [facility] Work Phone: Start: 03-11-2022 End: 12-26-2024 Tobacco smoking status NHIS Never smoked tobacco [facility] Work Phone: Start: 03-11-2022 End: 12-26-2024 Tobacco use and exposure Smokeless tobacco [facility]-user [facility] Work [facility]: Start: 03-21-2023 End: 09-10-2024 History of Social function [facility] Start: 03-21-2023 End: 09-10-2024 Tobacco use panel [facility] Start: 12-26-2024 End: 03-12-2025 Alcoholic beverage intake Current drinker of alcohol (finding) [facility] Start: 2005 Sex Assigned At Female [facility] Start: 06-11-2025 End: 07-30-2025 Tobacco smoking status NHIS Smokes tobacco daily (finding) [facility] NEGATED: Highlighted row Assertion Current drinker of alcohol (finding) [facility] Work Phone: NEGATED: Highlighted row Assertion Finding relating to drug misuse behavior (finding) [facility] Work Phone: NEGATED: Highlighted row Assertion Exposure to pollution (event) [facility] Work Phone: NEGATED: Highlighted row Assertion Tobacco user (finding) [facility] Work Phone: NEGATED: Highlighted row Assertion Part-time employment (finding) [facility] Work Phone: Mental Status Date Assessment Result Facility 07-30-2025 Cognitive function Level Of Cons ciousness Awake;Alert;Appropriate;Follow s Commands [facility] Work Phone: Cognitive function Cognitive fun ctioning was normal Cognitive function finding (finding) [facility] Work Phone: Clinical Notes 05-12-2021 to 07-30-2025 Note Date & Type Note Facility 07-30-2025 Discharge summary [facility] 07-30-2025 Discharge summary Note Date/Time July 30, 2025 5:43pm [facility] Medical Records Department [address] [place] [address] Emergency Department Summary 07/30/25 MR#: [id number] Acct: [id number] Name: ADRIANA GREGG Rep #:[id number] : 2005 20 From: Alexis Mejia MD PCP: Care Physician,No Primary Status :REG ER Location: ED HPI HPI - URI History of Present Illness Chief Complaint: Cold Sx Informant: patient Narrative Narrative: 3-4 days of cough, runny nose, congestion, and wheezing/asthma symptoms in this 20-year-old female she states she has 3 kids, none of which are sick right now, but she feels like she has a cold and would have been fine if she had an inhalerbut she cannot find it. She feels like it is making her asthma worse. She denies any major headaches although she has a mild one, no nausea or vomiting. Mild sore throat/odynophagia but she can eat soft foods and liquids without difficulty. ROS ROS ED Constitutional Constitutional ED: Reports fatigue and malaise; Denies chills or fever(s) ENT ENT ED: Reports headache(s), loss taste/smell, nasal congestion, rhinorrhea and sore throat; Denies ear pain or vertigo Cardiovascular Cardiovascular: Denies chest pain or palpitations Respiratory/Chest Respiratory/Chest: Reports cough, dyspnea and wheezing Gastrointestinal Gastrointestinal: Denies abdominal pain, diarrhea, nausea or vomiting Genitourinary Genitourinary ED: Denies dysuria or hematuria Musculoskeletal Musculoskeletal: Denies myalgias or neck pain Integumentary Denies abscess or rash Neurologic Neurologic: Reports headache(s); Denies paresthesias or weakness Psychiatric Psychiatric: Denies depression or suicidal thoughts Endocrine Endocrinology: Denies polydipsia or polyuria [facility] Medical History (Updated 07/30/25 @ 17:[address] Alexis Mejia MD) Marijuana use Asthma Physical exam, pre-employment Miscarriage Ovarian torsion Home Medications ?Medication ?Instructions ?Recorded ?Last Taken ?Type acetaminophen 325 mg tablet 650 mg PO Q4H PRN fever or pain 07/30/25 Unknown History (Aminofen) albuterol sulfate 90 mcg/actuation 1 - 2 puff inhalati on Q4H PRN PRN 07/30/25 Unknown Rx aerosol inhaler (Ventolin HFA) Wheezing ##1 prednisone 20 mg tablet 40 mg (2 x 20 mg) PO DAILY 5 days 07/30/25 Unknown Rx #10 tabs Allergy/AdvReac Type Severity Reaction Status Date / Time lavender (Lavandula Allergy Anaphylaxis Verified 07/30/25 15:20 angustifolia) Social History Smoking Status: Current every day smoker tobacco type: cigarettes and e-cigarettes Smokeless tobacco user: other alcohol intake: current alcohol intake frequency: other Alcohol type: hard liquor EXAM Physical Exam Const Vital Signs: 07/30/25 15:19 07/30/25 15:59 07/30/25 16:31 Temperature 97.8 F Temperature Source Temporal Pulse Rate 89 82 Respiratory Rate 18 14 Respiratory Effort Normal Non-Labored Respiratory Pattern Normal Blood Pressure 124/82 H 116/70 Blood Pressure Mean 96 85 Pulse Ox 98 99 Oxygen Delivery Method Room Air Room Air Positive well nourished and well developed General Appearance ED: well developed and NAD HEENT Reports moist mucous membranes normocephalic and atraumatic Face and Sinus: Negative for sinus tenderness Throat: Negative for tonsils abnormal or posterior oropharynx abnormal Eyes PERRL and EOMs intact bilaterally Neck no lymphadenopathy, supple and no meningeal signs Resp normal respiratory effort Resp Narrative: Conversive in full sentences. Very mild end-expiratory wheezes otherwise lungs clear. Cardio no murmurs Rate: regular rate Rhythm: regular rhythm Neuro oriented x3, CN's II-XII intact bilaterally and no sensory deficits noted Sensorium / Orientation: alert Motor Exam: strength 5/5 throughout Psych mental status grossly normal Skin Lesions: no lesions Rashes: no rashes MDM MDM MDM Narrative Medical decision making narrative: Given the patient has had loss of taste and smell with this, I recommend testingfor COVID so that she knows. She is amenable to that we will, and it returned negative for all. Also given an inhaler with 4 puffs, she declined an aerosol, that helped and she was given the inhaler to use at home for rescue. She was also offered a prescription for short course of prednisone for her asthma exacerbation. Do not think she needs antibiotics here, do not think she has pneumonia her oxygen levels are 90% on room air lungs are clear and her vital signs are normal. Discharge Plan Triage Chief Complaint: Cold Sx ED Provider: Alexis Mejia Dx/Rx/DC Orders Clinical Impression: Acute asthma exacerbation, Viral URI with cough Instructions: ED Asthma, Acute (Adult), ED URI, Viral, No Abx (Adult) Prescriptions: New prednisone 20 mg tablet 40 mg PO DAILY 5 Days Qty: 10 0RF albuterol sulfate [Ventolin HFA] 90 mcg/actuation HFA aerosol inhaler 1 - 2 puff inhalation Q4H PRN PRN (Reason: Wheezing) Qty: 1 0RF No Action acetaminophen [Aminofen] 325 mg tablet 650 mg PO Q4H PRN (Reason: fever or pain) Primary Care Provider: Care Physician,No Primary Referrals: Doctor,Your [Non-Staff] - 1 Week if not improving Print Language: Kenyan Disposition Disposition: Home, Self Care What to do if you have Problems For any increased pain, shortness of breath, bleeding, nausea or vomiting, chestpain, or any unexpected problems, contact your Primary Care Provider. Call [facility] ([phone]) or report to the closest Emergency Room. Call 911 if necessary. 07/30/25 [id number] <Electronically signed by Alexis Mejia MD> Cosigner Signature (if applicable): CC: No Primary Care Physician ~ Signed [facility] Work Phone: 1(432) 233-516608-28-2025 [facility] [address], [address] [place] [address] OFFICE VISIT Date of Service: 07/25/25 MR#: [id number] Acct: [id number] Name: ADRIANA GREGG Rep #: [id number] : 2005 Provider: [place] Age/Sex: 19/F Location: [facility] Status: Signed Intake Vital Signs 07/04/25 08:08 07/25/25 15:18 Height 5 ft 1 in BP 112/60 Blood Pressure Location Lt brachial Position Sitting Respiration 16 Pulse 110 H Pulse Source NIBP Temp 98.4 F Temp Source Oral Pulse Oximetry (%) 98 Oxygen Delivery Method room air Intake Visit Reasons: BWC- Right ankle Chief Complaint: WC f/u right ankle Preschool Director Required: No Allergies lavender (Lavandula angustifolia) Allergy (Verified 07/25/25 15:19) Anaphylaxis Medications ?Medication ?Instructions ?Recorded ?Confirmed ?Type NK 06/11/25 07/25/25 History Is last menstrual period known: No Post menopausal: No Patient : No Have you fallen in the past year?: [facility] History (Updated 07/04/25 @ 08:07 by HO Owens) Physical exam, pre-employment Miscarriage Ovarian torsion Social History (Updated 06/11/25 @ 14:18 by Cathy Singh MA) Smoking Status: Current every day smoker Smokeless tobacco user: other alcohol intake: current alcohol intake frequency: other Alcohol type: hard liquor HPI HPI Chief Complaint: WC f/u right ankle Details: ADRIANA GREGG, is a 19 F who presents to the office today for follow-up of a right ankle injury. Patient was seen here on 07/04/2025 after having a food cart hit her in the back of the right ankle. Patient states that her right ankle pain has mostly resolved other than every once in a while she gets a sharp pain and wears the boot thereafter. Patient states she is able to do all of her normal taskswithout issue. Patient is not wearing the boot during the visit today. She denies numbness, tingling or loss of range of motion to the ankle orfoot. Patient states she is no longer working for the company that this occurred. No other associated symptoms or alleviating/aggravating factors. ROS Const Constitutional: No other (6 system ROS completed with pertinent findings in the HPI otherwise normal.) Exam Const General: cooperative and healthy appearing Neuro General: patient alert Extrem General: full ROM and capillary refill normal Other: Patient in normal shoes without pain to palpation of right ankle with no ecchymosis or deformity upon palpation. Psych Appearance: grossly normal Mental Status: mental status grossly normal Coding Level of Care Code Off vis,est,level 3 Diagnoses Contusion of right lower leg, initial encounter S80.11XA Assessment and Plan Assessment and Plan (1) Contusion of right lower leg, initial encounter: Status: Acute Plan: [employer] 14 filled out releasing patient back without restrictions. Patient given a ankle brace for when she does have pain. Patient advised about home stretching exercises and to use ibuprofen or Tylenol as needed for pain unless contraindicated. Patient advised to no longer needs to follow-up. Unless she is to have exacerbation of symptoms or new concerns. Patient verbalized understanding and agreement with all the above. Clinical Quality Measures Falls Risk Screening/Assistive Devices Have you fallen in the past year?: Yes 07/25/25 1545 A PA> Date _ Rudy CASIANO Cosigner Signature: Date (if applicable) CC: ~ [facility]08-28-2025 Progress note Author Rudy Franco [facility] Note Date/Time July 25, 2025 3: 45pm [facility] [address] , [address] [place] [address] OFFICE VISIT Date of Service: 07/25/25 MR#: [id number] Acct: [id number] Name: ADRIANA GREGG Rep #: [id number] : 2005 Provider: [place] Pet[place] Age/Sex: 19/F Location: [facility] Status: Signed Intake Vital Signs 07/04/25 08:08 07/25/25 15:18 Height 5 ft 1 in BP 112/60 Blood Pressure Location Lt brachial Position Sitting Respiration 16 Pulse 110 H Pulse Source NIBP Temp 98.4 F Temp Source Oral Pulse Oximetry (%) 98 Oxygen Delivery Method room air Intake Visit Reasons: BWC- Right ankle Chief Complaint: WC f/u right ankle Preschool Director Required: No Allergies lavender (Lavandula angustifolia) Allergy (Verified 07/25/25 15:19) Anaphylaxis Medications ?Medication ?Instructions ?Recorded ?Confirmed ?Type NK 06/11/25 07/25/25 History Is last menstrual period known: No Post menopausal: No Patient : No Have you fallen in the past year?: Yes [facility] Medical History (Updated 07/04/25 @ 08:07 by [place] Owens) Physical exam, pre-employment Miscarriage Ovarian torsion Social History (Updated 06/11/25 @ 14:18 by Cathy Singh MA) Smoking Status: Current every day smoker Smokeless tobacco user: other alcohol intake: current alcohol intake frequency: other Alcohol type: hard liquor HPI HPI Chief Complaint: WC f/u right ankle Details: ADRIANA GREGG, is a 19 F who presents to the office today for follow-up of a right ankle injury. Patient was seen here on 07/04/2025 after having a food cart hit her in the back of the right ankle. Patient states that her right ankle pain has mostly resolved other than every once in a while she gets a sharp pain and wears the boot thereafter. Patient states she is able to do all of her normal tasks without issue. Patient is not wearing the boot during the visit today. She denies numbness, tingling or loss of range of motion to the ankle orfoot. Patient states she is no longer working for the [employer] that this occurred. No other associated symptoms or alleviating/aggravating factors. ROS Const Constitutional: No other (6 system ROS completed with pertinent findings in the HPI otherwise normal.) Exam Const General: cooperative and healthy appearing Neuro General: patient alert Extrem General: full ROM and capillary refill normal Other: Patient in normal shoes without pain to palpation of right ankle with no ecchymosis or deformity upon palpation. Psych Appearance: grossly normal Mental Status: mental status grossly normal Coding Level of Care Code Off vis,est,level 3 Diagnoses Contusion of right lower leg, initial encounter S80.11XA Assessment and Plan Assessment and Plan (1) Contusion of right lower leg, initial encounter: Status: Acute Plan: [employer] 14 filled out releasing patient back without restrictions. Patient given a ankle brace for when she does have pain. Patient advised about home stretching exercises and to use ibuprofen or Tylenol as needed for pain unless contraindicated. Patient advised to no longer needs to follow-up. Unless she is to have exacerbation of symptoms or new concerns. Patient verbalized understanding and agreement with all the above. Clinical Quality Measures Falls Risk Screening/Assistive Devices Have you fallen in the past year?: Yes 07/25/25 1545 <Electronically signed by Rudy CASIANO> Date _ Rudy CASIANO Cosigner Signature: Date (if applicable) CC: ~ [facility] Work Phone: 1(885) 451-512307-15-2025 Evaluation note* Diagnosis Onset Date Resolution Status Admit Date Physical exam, pre-employment acute June 11, 2025 1:18pm Contusion of right lower leg , initial encounter acute July 04 8:02am [facility] Work Phone: 1([phone]) 243-577907-15-2025 Evaluation note* Diagnosis Onset Date Resolution Status Admit Date Physical exam, pre-employment acute June 11, 2025 1:18pm Contusion of right lower leg , initial encounter acute July 04 8:02am Contusion of right lower leg , initial encounter acute July 25, 2 025 3:14pm [facility] Work Phone: 1(327) 768-107206-18-2025 Discharge summary [facility] Medical Records Department [address] [place] [address] Emergency Department Summary 05/15/25 MR#: [id number] Acct: [id number] Name: ADRIANA GREGG Rep #:[id number] : 2005 19 From: Lawrence Finnegan DO PCP: Care Physician,No Primary Status :REG ER Location: ED HPI History of Present Illness Chief Complaint: Complaint Detail of Chief Complaint: Abdominal pain and dysuria Informant: patient Narrative Narrative: Patient presents to the emergency department complaint of abdominal pain that started 2 days ago while having intercourse with her fianc?. She describes painto the right side of her abdomen. She denies vaginal bleeding associated with this. She denies abnormal vaginal discharge. Patient states thatshe had similar episode last October and went to the ER and was told that maybe her ovaries had twisted and she remembers having a CAT scan at that time. She did not require any type of interventionor surgery. 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 No history of kidney stones. She does describe some dysuria. She has been having nausea and vomiting x 2 today. [facility] Medical History (Updated 05/15/25 @ 15:[address] Lawrence Finnegan DO) Miscarriage Ovarian torsion Allergy/AdvReac Type Severity Reaction Status Date / Time lavender (Lavandula Allergy Anaphylaxis Verified 05/15/25 12:21 angustifolia) Social History Smoking Status: Unknown if ever smoked ROS ROS ED Review of Systems ROS Unobtainable: other Constitutional Constitutional ED: Reports lethargy; Denies chills, fever(s), sweats or weight loss Eyes Eyes: Denies blurry vision, change in vision or diplopia ENT ENT ED: Denies rhinorrhea or sore throat Cardiovascular Cardiovascular: Denies chest pain, orthopnea or racing heartbeat Respiratory/Chest Respiratory/Chest: Denies cough, dyspnea, dyspnea on exertion, orthopnea or sputum Gastrointestinal Gastrointestinal: Reports abdominal pain, nausea and vomiting; Denies diarrhea Genitourinary Genitourinary ED: Reports dysuria; Denies hematuria or urinary frequency Musculoskeletal Musculoskeletal: Denies arthralgias, back pain, myalgias or neck pain Integumentary Denies abscess, Abrasions or rash Neurologic Neurologic: Denies headache(s) or weakness Psychiatric Psychiatric: Denies anxiety, depression or suicidal thoughts Endocrine Endocrinology: Denies polydipsia, polyphagia or polyuria Hematologic/Lymphatic Hematologic/Lymphatic: Denies easy bleeding, easy bruising or lymphadenopathy Allergic/Immunologic Allergic/Immunologic ED: Denies mouth swelling, tongue swelling or urticaria EXAM Physical Exam Const Vital Signs: 05/15/25 12:20 Temperature 98 F Temperature Source Temporal Pulse Rate 106 H Respiratory Rate 14 Blood Pressure 133/92 H Blood Pressure Mean 105 Pulse Ox 98 Oxygen Delivery Method Room Air Positive well nourished and well developed General Appearance ED: well developed and NAD HEENT Reports TM's clear and moist mucous membranes normocephalic and atraumatic; Negative for trauma or tenderness Tympanic Membrane ED: Yes TM's clear Eyes PERRL and EOMs intact bilaterally General Eye ED: Negative for pale conjunctiva or scleral icterus Neck no lymphadenopathy, supple and no JVD General: Negative for tenderness Chest Wall inspection of chest normal and palpation of chest normal Chest: Negative for tenderness Resp normal respiratory effort and clear to auscultation bilaterally Effort and Inspection: Negative for respiratory distress or pain with movement Auscultation: Negative for rhonchi, wheezes or diminished lung sounds Cardio regular rate, regular rhythm, S1 normal heart sound, S2 normal heart sound and no murmurs Peripheral Pulses: pulses 2+ throughout GI normal to inspection, nondistended, normoactive bowel sounds, soft to palpation,non-distended and no masses GI Narrative: Tenderness palpation over the right lower quadrant and suprapubic region. Thereare some mild guarding. There is no rebound or rigidity. No masses palpated. Back/Spine no CVA tenderness and no thoracic nor lumbar tenderness Extremity normal to inspection General Extremety ED: Negative for edema General Extremity: Negative for edema Neuro oriented x3, CN's II-XII intact bilaterally, no sensory deficits noted and gait normal Sensorium / Orientation: awake, alert, oriented to person, oriented to place andoriented to time Motor Exam: strength 5/5 throughout and strength abnormal Psych mental status grossly normal Skin no rashes or lesions noted and no wounds MDM MDM MDM Narrative Medical decision making narrative: Patient presents with right-sided abdominal pain after intercourse. Similar pain in the past and was told she might have torsion and apparently. She statesshe did not require any surgery. Clinically she looks well. IV line established. CBC with differential obtained showing a 7.0 with hemoglobin 11.2 and platelet count of 290. Chemistries unremarkable. LFTs were normal. hCG was negative. Urinalysis was normal. CT scan of the abdomen pelvis showed an enlarged right ovary otherwise nothing acute and they recommended obtaining ultrasound. I did order an ultrasound of the pelvis and discussed results with technologist which did show a right ovarian cyst with no evidence of torsion. Discussed results with patient. Will refer to [facility] INST[employer]ER on-call. Patient will useibuprofen for discomfort as she had good pain relief here with Toradol. Lab Data Attestation: I reviewed the patient's lab results. Labs: Laboratory Results - last 24 hr 05/15/25 05/15/25 13:02 13:41 WBC 7.0 RBC 3.83 L Hgb 11.2 L Hct 33.7 L MCV 88.0 MCH 29.2 MCHC 33.2 RDW Std Deviation 45.6 H RDW Coeff of Edu 14.2 Plt Count 290 MPV 9.6 Immature Gran % (Auto) 0.300 Neut % (Auto) 56.3 Lymph % (Auto) 34.2 [place] % (Auto) 7.8 Eos % (Auto) 1.0 Baso % (Auto) 0.4 Absolute Neuts (auto) 3.9 Absolute Lymphs (auto) 2.38 Nucleated RBC % 0 Sodium 139 Potassium 3.8 Chloride 104 Carbon Dioxide 23.9 Anion Gap 11 BUN 11 Creatinine 0.59 L Estim Creat Clear Calc 156.94 Est GFR (MDRD) Non-Af 132 BUN/Creatinine Ratio 17.8 Glucose 93 Lactic Acid 1.0 Calcium 9.1 Total Bilirubin 0.38 AST 15 ALT 11 Alkaline Phosphatase 70 Total Protein 7.1 Albumin 4.1 Globulin 3.0 Albumin/Globulin Ratio 1.4 Serum , Qual NEGATIVE Urine Color Yellow Urine Clarity Clear Urine pH 7.0 Ur Specific [place] 1.010 Urine Protein Negative Urine Glucose (UA) Normal Urine Ketones Negative Urine Occult Blood Negative Urine Nitrite Negative Urine Bilirubin Negative Urine Urobilinogen Normal Ur Leukocyte Esterase 100 H Urine RBC 0 SEEN Urine WBC 0-5 SEEN Ur Squamous Epith Cells 0-5 SEEN Urine Bacteria RARE Urine Mucus 0 SEEN Radiography Diagnostic Testing: Clinical Impression(s) from Imaging Studies Abdomen/Pelvis CT 05/15/25 13:40 IMPRESSION: I suspect an enlarged right ovary. Correlation ultrasound recommended. Reading Location: [place] [address] Discharge Plan Triage Chief Complaint: Complaint ED Provider: Lawrence Finnegan Dx/Rx/DC Orders Clinical Impression: Cyst of right ovary Instructions: ED Ovarian Cyst Primary Care Provider: Care Physician,No Primary Referrals: Alba Hadley MD [Med Staff - Active Staff] - 3-5 Days Care Physician,No Primary [Primary Care Provider] - Print Language: Kenyan Disposition Disposition: Home, Self Care What to do if you have Problems For any increased pain, shortness of breath, bleeding, nausea or vomiting, chestpain, or any unexpected problems, contact your Primary Care Provider. Call [facility] ([phone]) or report tothe closest Emergency Room. Call 911 if necessary. 05/15/25 1514 Cosigner Signature (if applicable): CC: No Primary Care Physician ~ Signed [facility]06-18-2025 Radiology Diagnostic study note [facility] Services [address] [place] [address] Abdomen/Pelvis without Cont MR#: [id number] Acct: [id number] Name: ADRIANA GREGG Rep #: [id number] : 2005 F 19 From: Antonio Healy MD PCP: Care Physician,No Primary Status: REG ER Study:Abdomen/Pelvis without Cont Date of Exa m: 05/15/25 Exam# [id number] Ordering Dr: Jenae Finnegan DO PROCEDURE: ABDOMEN/PELVIS WITHOUT CONT 05/15/2025 REASON FOR EXAM: RLQ ABDOMINAL PAIN TECHNIQUE: ABDOMEN/PELVIS WITHOUT CONT Noncontrast technique limits evaluation of the abdominal and pelvic viscera. Coronal and Sagittal reconstruction series were provided. One or more dose reduction techniques were used (e.g., Automated exposure control, adjustment of the mA and/or kV according to patient size, use of iterative reconstruction technique). Dose report: CTDI L volume 16.9. DLP: 897.94 ORAL CONTRAST TYPE: None. COMPARISON: None FINDINGS: Lung bases: Unremarkable Liver: Normal size. No obvious mass. Gallbladder: Mildly distended gallbladder. No definite gallstone is seen. Spleen: Normal size. Pancreas: Normal size. No surrounding inflammation. Adrenals: Unremarkable Kidneys: No urolithiasis. No hydronephrosis. Bladder: Unremarkable Reproductive Organs: I suspect an enlarged right ovary. Correlation with ultrasound recommended. Bowel: Mild degree of sigmoid diverticulosis. Appendix: Unremarkable Lymph nodes: Unremarkable. Vasculature: The abdominal aorta and IVC contours are normal. Noncontrast technique limits evaluation. Peritoneum / Retroperitoneum: Unremarkable Bones: Unremarkable CT/Abdomen/Pelvis without Cont IMPRESSION: I suspect an enlarged right ovary. Correlation ultrasound recommended. Reading Location: [facility] CC: Dr. Lawrence Finnegan DO; No Primary Care Physician ~ [employer] Engineer: Signed [facility]06-18-2025 Discharge summary Author Lawrence Finnegan [facility] Note Date/Time May 15, 2025 3:14 pm [facility] Medical Records Department [address] [place] [address] Emergency Department Summary 05/15/25 MR#: [id number] Acct: [id number] Name: ADRIANA GREGG Rep #:[id number] : 2005 19 From: Lawrence Finnegan DO PCP: Care Physician,No Primary Status :REG ER Location: ED HPI History of Present Illness Chief Complaint: Complaint Detail of Chief Complaint: Abdominal pain and dysuria Informant: patient Narrative Narrative: Patient presents to the emergency department complaint of abdominal pain that started 2 days ago while having intercourse with her fianc?. She describes painto the right side of her abdomen. She denies vaginal bleeding associated with this. She denies abnormal vaginal discharge. Patient states that she had similar episode last October and went to the ER and was told that maybe her ovaries had twisted and she remembers having a CAT scan at that time. She did not require any type of intervention or surgery. Patient states that she has had 4 miscarriages and is currently trying to get . Her last menstrual period was May 02 through . No history of kidney stones. She does describe some dysuria. She has been having nausea and vomiting x 2 today. [facility] Medical History (Updated 05/15/25 @ 15:[address] Remus Ungur, DO) Miscarriage Ovarian torsion Allergy/AdvReac Type Severity Reaction Status Date / Time lavender (Lavandula Allergy Anaphylaxis Verified 05/15/25 12:21 angustifolia) Social History Smoking Status: Unknown if ever smoked ROS ROS ED Review of Systems ROS Unobtainable: other Constitutional Constitutional ED: Reports lethargy; Denies chills, fever(s), sweats or weight loss Eyes Eyes: Denies blurry vision, change in vision or diplopia ENT ENT ED: Denies rhinorrhea or sore throat Cardiovascular Cardiovascular: Denies chest pain, orthopnea or racing heartbeat Respiratory/Chest Respiratory/Chest: Denies cough, dyspnea, dyspnea on exertion, orthopnea or sputum Gastrointestinal Gastrointestinal: Reports abdominal pain, nausea and vomiting; Denies diarrhea Genitourinary Genitourinary ED: Reports dysuria; Denies hematuria or urinary frequency Musculoskeletal Musculoskeletal: Denies arthralgias, back pain, myalgias or neck pain Integumentary Denies abscess, Abrasions or rash Neurologic Neurologic: Denies headache(s) or weakness Psychiatric Psychiatric: Denies anxiety, depression or suicidal thoughts Endocrine Endocrinology: Denies polydipsia, polyphagia or polyuria Hematologic/Lymphatic Hematologic/Lymphatic: Denies easy bleeding, easy bruising or lymphadenopathy Allergic/Immunologic Allergic/Immunologic ED: Denies mouth swelling, tongue swelling or urticaria EXAM Physical Exam Const Vital Signs: 05/15/25 12:20 Temperature 98 F Temperature Source Temporal Pulse Rate 106 H Respiratory Rate 14 Blood Pressure 133/92 H Blood Pressure Mean 105 Pulse Ox 98 Oxygen Delivery Method Room Air Positive well nourished and well developed General Appearance ED: well developed and NAD HEENT Reports TM's clear and moist mucous membranes normocephalic and atraumatic; Negative for trauma or tenderness Tympanic Membrane ED: Yes TM's clear Eyes PERRL and EOMs intact bilaterally General Eye ED: Negative for pale conjunctiva or scleral icterus Neck no lymphadenopathy, supple and no JVD General: Negative for tenderness Chest Wall inspection of chest normal and palpation of chest normal Chest: Negative for tenderness Resp normal respiratory effort and clear to auscultation bilaterally Effort and Inspection: Negative for respiratory distress or pain with movement Auscultation: Negative for rhonchi, wheezes or diminished lung sounds Cardio regular rate, regular rhythm, S1 normal heart sound, S2 normal heart sound and no murmurs Peripheral Pulses: pulses 2+ throughout GI normal to inspection, nondistended, normoactive bowel sounds, soft to palpation,non-distended and no masses GI Narrative: Tenderness palpation over the right lower quadrant and suprapubic region. Thereare some mild guarding. There is no rebound or rigidity. No masses palpated. Back/Spine no CVA tenderness and no thoracic nor lumbar tenderness Extremity normal to inspection General Extremety ED: Negative for edema General Extremity: Negative for edema Neuro oriented x3, CN's II-XII intact bilaterally, no sensory deficits noted and gait normal Sensorium / Orientation: awake, alert, oriented to person, oriented to place andoriented to time Motor Exam: strength 5/5 throughout and strength abnormal Psych mental status grossly normal Skin no rashes or lesions noted and no wounds MDM MDM MDM Narrative Medical decision making narrative: Patient presents with right-sided abdominal pain after intercourse. Similar pain in the past and was told she might have torsion and apparently. She statesshe did not require any surgery. Clinically she looks well. IV line established. CBC with differential obtained showing a 7.0 with hemoglobin 11.2 and platelet count of 290. Chemistries unremarkable. LFTs were normal. hCG was negative. Urinalysis was normal. CT scan of the abdomen pelvis showed an enlarged right ovary otherwise nothing acute and they recommended obtaining ultrasound. I did order an ultrasound of the pelvis and discussed results with technologist which did show a right ovarian cyst with no evidence of torsion. Discussed results with patient. Will refer to [employer] on- call. Patient will useibuprofen for discomfort as she had good pain relief here with Toradol. Lab Data Attestation: I reviewed the patient's lab results. Labs: Laboratory Results - last 24 hr 05/15/25 05/15/25 13:02 13:41 WBC 7.0 RBC 3.83 L Hgb 11.2 L Hct 33.7 L MCV 88.0 MCH 29.2 MCHC 33.2 RDW Std Deviation 45.6 H RDW Coeff of Edu 14.2 Plt Count 290 MPV 9.6 Immature Gran % (Auto) 0.300 Neut % (Auto) 56.3 Lymph % (Auto) 34.2 [place] % (Auto) 7.8 Eos % (Auto) 1.0 Baso % (Auto) 0.4 Absolute Neuts (auto) 3.9 Absolute Lymphs (auto) 2.38 Nucleated RBC % 0 Sodium 139 Potassium 3.8 Chloride 104 Carbon Dioxide 23.9 Anion Gap 11 BUN 11 Creatinine 0.59 L Estim Creat Clear Calc 156.94 Est GFR (MDRD) Non-Af 132 BUN/Creatinine Ratio 17.8 Glucose 93 Lactic Acid 1.0 Calcium 9.1 Total Bilirubin 0.38 AST 15 ALT 11 Alkaline Phosphatase 70 Total Protein 7.1 Albumin 4.1 Globulin 3.0 Albumin/Globulin Ratio 1.4 Serum , Qual NEGATIVE Urine Color Yellow Urine Clarity Clear Urine pH 7.0 Ur Specific [place] 1.010 Urine Protein Negative Urine Glucose (UA) Normal Urine Ketones Negative Urine Occult Blood Negative Urine Nitrite Negative Urine Bilirubin Negative Urine Urobilinogen Normal Ur Leukocyte Esterase 100 H Urine RBC 0 SEEN Urine WBC 0-5 SEEN Ur Squamous Epith Cells 0-5 SEEN Urine Bacteria RARE Urine Mucus 0 SEEN Radiography Diagnostic Testing: Clinical Impression(s) from Imaging Studies Abdomen/Pelvis CT 05/15/25 13:40 IMPRESSION: I suspect an enlarged right ovary. Correlation ultrasound recommended. Reading Location: [place] [address] Discharge Plan Triage Chief Complaint: Complaint ED Provider: Lawrence Finnegan Dx/Rx/DC Orders Clinical Impression: Cyst of right ovary Instructions: ED Ovarian Cyst Primary Care Provider: Care Physician,No Primary Referrals: Alba Hadley MD [Med Staff - Active Staff] - 3-5 Days Care Physician,No Primary [Primary Care Provider] - Print Language: Kenyan Disposition Disposition: Home, Self Care What to do if you have Problems For any increased pain, shortness of breath, bleeding, nausea or vomiting, chestpain, or any unexpected problems, contact your Primary Care Provider. Call [facility] ([phone]) or report to the closest Emergency Room. Call 911 if necessary. 05/15/25 1514 <Electronically signed by Lawrence Finnegan DO> Cosigner Signature (if applicable): CC: No Primary Care Physician ~ Signed [facility] Work Phone: 1(651) 498-635204-15-2025 NoteHNO ID: [id number] Author: ZOFIA SMITH PA Service: ? Author Type: Physician Hospice Home Care Coordinator Type: Progress Notes Filed: 03/12/2025 18:40 Note Text: [employer] [facility] Subjective Adriana Gregg is a 19 year old female. Patient presents with: Vomiting: Nausea x 1 week HPI 19-year-old female presents for nausea and vomiting x 1 week. Patient states she is been nauseous and had vomiting on and off for the past week. Last episode of vomiting was this afternoon. She has had 2 episodes of vomiting total today. She denies any GERD symptoms or indigestion. No diarrhea. No abdominal pain. She is still passing gas and having normal BMs. States she recently started a second job, unsure if the nausea/vomiting is from stress and overworking. She has no sick contacts at home. Did not eat anything out of the ordinary prior to symptoms starting. She has not had fevers, cough or congestion. She is still able to keep down fluids. She has not taken anything for symptoms. She has no dysuria or hematuria. LMP was last month sometime, patient thinks around 02/18. She is unsure if any concern for . No other complaint. No past medical history on file. No past surgical history on file. ALLERGIES Lavender (Lavandula Angustifolia) MEDICATIONS No prescriptions on file. No family history on file. Social History Tobacco Use Smoking status: Never Smokeless tobacco: Never Vaping Use Vaping status: current everyday user Substances: Nicotine Substance Use Topics Alcohol use: Yes Review of Systems Constitutional: Negative for chills and fever. HENT: Negative for congestion, ear pain and sore throat. Respiratory: Negative for cough and shortness of breath. Cardiovascular: Negative for chest pain. Gastrointestinal: Positive for nausea and vomiting. Negative for abdominal pain, blood in stool, constipation and diarrhea. Objective BP 118/72 Pulse 105 Temp 36.9 ?C (98.4 ?F) (Tympanic) Resp 14 Wt 91.2 kg (201 lb 1 oz) LMP 02/18/2025 (Approximate) SpO2 99% BMI 35.06 kg/m? Physical Exam Vitals and nursing note reviewed. Constitutional: General: She is not in acute distress. Appearance: Normal appearance. She is not toxic-appearing. HENT: Nose: Nose normal. Mouth/Throat: Mouth: Mucous membranes are moist. Eyes: Conjunctiva/sclera: Conjunctivae normal. Cardiovascular: Rate and Rhythm: Normal rate and regular rhythm. Pulmonary: Effort: Pulmonary effort is normal. Breath sounds: Normal breath sounds. Abdominal: General: Abdomen is flat. Palpations: Abdomen is soft. Tenderness: There is no abdominal tenderness. There is no guarding or rebound. Skin: General: Skin is warm and dry. Neurological: Mental Status: She is alert. {ASSESSMENT/PLAN: 1. Nausea and vomiting, unspecified vomiting type - ICD9: 787.01, ICD10: R11.2 - UA DIP,URINE HCG (POC)- negative - Rx for Zofran -Broome diet, follow-up with PCP for persistent symptoms Diagnosis and treatment plan were discussed and questions were answered to the patient's satisfaction. Pt acknowledged understanding of concepts and follow up plan. Specific signs and symptoms that would indicate the need for higher level of care were discussed in detail warranting prompt ER evaluation. OH Valadez History and Record Review External record(s) reviewed: prior outpatient record. Differential Diagnoses - Nausea/vomiting is more likely for the following reason(s): suggested by HANDP - is less likely for the following reason(s): laboratory studies not suggestive - Acute surgical abdomen is less likely for the following reason(s): HANDP not suggestive Disposition The patient was [facility]. [facility] of Present illness Narrative* Zofai Smith PA - 03/12/2025 6:27 PM EDT [facility] Subjective Adriana Gregg is a 19 year old female. Patient presents with: Vomiting: Nausea x 1 week HPI 19-year-old female presents for nausea and vomiting x 1 week. Patient states she is been nauseous and had vomiting on and off for the past week. Last episode of vomiting was this afternoon. She has had 2 episodes of vomiting total today. She denies any GERD symptoms or indigestion. No diarrhea.No abdominal pain. She is still passing gas and having normal BMs. States she recently started a second job, unsure if the nausea/vomiting is from stress and overworking. She has no sick contacts at home. Did not eat anything out of the ordinary prior to symptoms starting. She has not had fevers, cough or congestion. She is still able to keep down fluids. She has not taken anything for symptoms. She has no dysuria or hematuria. LMP was last month sometime, patient thinks around 02/18. She is unsure if any concern for . No other complaint. No past medical history on file. No past surgical history on file. ALLERGIES Lavender (Lavandula Angustifolia) MEDICATIONS No prescriptions on file. No family history on file. Social History Tobacco Use Smoking status: Never Smokeless tobacco: Never Vaping Use Vaping status: current everyday user Substances: Nicotine Substance Use Topics Alcohol use: Yes Review of Systems Constitutional: Negative for chills and fever. HENT: Negative for congestion, ear pain and sore throat. Respiratory: Negative for cough and shortness of breath. Cardiovascular: Negative for chest pain. Gastrointestinal: Positive for nausea and vomiting. Negative for abdominal pain, blood in stool, constipation and diarrhea. Objective BP 118/72 Pulse 105 Temp 36.9 C (98.4 F) (Tympanic) Resp 14 Wt 91.2 kg (201 lb 1 oz) LMP 02/18/2025 (Approximate) SpO2 99% BMI 35.06 kg/m Physical Exam Vitals and nursing note reviewed. Constitutional: General: She is not in acute distress. Appearance: Normal appearance. She is not toxic-appearing. HENT: Nose: Nose normal. Mouth/Throat: Mouth: Mucous membranes are moist. Eyes: Conjunctiva/sclera: Conjunctivae normal. Cardiovascular: Rate and Rhythm: Normal rate and regular rhythm. Pulmonary: Effort: Pulmonary effort is normal. Breath sounds: Normal breath sounds. Abdominal: General: Abdomen is flat. Palpations: Abdomen is soft. Tenderness: There is no abdominal tenderness. There is no guarding or rebound. Skin: General: Skin is warm and dry. Neurological: Mental Status: She is alert. {ASSESSMENT/PLAN: 1. Nausea and vomiting, unspecified vomiting type - ICD9: 787.01, ICD10: R11.2 - UA DIP,URINE HCG (POC)- negative - Rx for Zofran -Broome diet, follow-up with PCP for persistent symptoms Diagnosis and treatment plan were discussed and questions were answered to the patient's satisfaction. Pt acknowledged understanding of concepts and follow up plan. Specific signs and symptoms that would indicate the need for higher level of care were discussed in detail warranting prompt ER evaluation. OH Valadez History and Record Review External record(s) reviewed: prior outpatient record. Differential Diagnoses - Nausea/vomiting is more likely for the following reason(s): suggested by H&P - is less likely for the following reason(s): laboratory studies not suggestive - Acute surgical abdomen is less likely for the following reason(s): H&P not suggestive Disposition The patient was discharged. [facility] Telephone encounter Note * Telephone Encounter - Kassandra Bryant MA - 01/08/2025 12:48 PM EST Patient did call back in since she received a letter in the mail. I gave her the results and also told her a med at that time was sent to the pharmacy but I was unsure if the pharmacy would still have it. She was going to call the pharmacy. Kassandra Bryant MA [facility]02-11-[facility]25 Miscellaneous Notes* Telephone Encounter - Kassandra Bryant MA - 01/08/2025 12:48 PM EST Patient did call back in since she received a letter in the mail. I gave her the results and also told her a med at that time was sent to the pharmacy but I was unsure if the pharmacy would still have it. She was going to call the pharmacy. Kassandra Bryant MA documented in this encounterW[facility] Telephone encounter Note * Telephone Encounter - Yvette Clements APRN.CNP - 12/28/2024 12:44 PM EST Please let the patient know her urine culture shows a small amount of E.Coli bacterial growth. Keflex has been sent to [facility] in [facility] for treatment. Begin taking as prescribed and follow up with PCP if symptoms persist. [facility]01-[facility] Miscellaneous Notes* Telephone Encounter - Yvette Clements APRN.CNP - 12/28/2024 12:44 PM EST Please let the patient know her urine culture shows a small amount of E.Coli bacterial growth. Sophia has been sent to [facility] in [facility] for treatment. Begin taking as prescribed and follow up with PCP if symptoms persist. documented in this encounterW[facility]-29-[facility] Instructions* Patient Instructions* Clara Singh APRN.CNP - 12/26/2024 8:57 AM EST -If you start having more vomiting - go to Emergency Department -Your urine test completed at [facility] [place] today is Negative -Local [employer] office with [facility] is [phone] documented in this encounterW[facility]01-29-2025 NoteHNO ID: [id number] Author: CLARA SINGH APRN.CNP Service: ? Author Type: Nurse Practitioner Type: Progress Notes Filed: 12/26/2024 09:05 Note Text: December 26, 2024 Subjective Chief Complaint: test request (Pt is requesting a test for . Pt vomited this morning and it had blood in it and slight vaginal blood. Pt has concern for miscarriage ) HPI: Adriana Gregg is a 19 year old female who presents today for concern for . Patient states she has abnormal menses and has her period every other week. States she was supposed to start her period on November 27 but didn't. States she took 3 home tests. Two were faint positive but the one yesterday was definetly positive. Reports that she has had morning sickness. Today, started having vaginal bleeding. Concern for miscarriage. 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 No fever. No cold/flu like symptoms. History reviewed. No pertinent past medical history. History reviewed. No pertinent surgical history. History reviewed. No pertinent family history. Social History Tobacco Use Smoking status: Never Smokeless tobacco: Never Vaping Use Vaping status: current everyday user Substances: Nicotine Substance Use Topics Alcohol use: Yes ALLERGIES Allergen Reactions Lavender (Lavandula* Hives There is no immunization history on file for this patient. Current Medications: cephALEXin (KEFLEX) 500 mg capsule Take 1 capsule by mouth three times a day. (Patient not taking: Reported on 12/26/2024) doxycycline monohydrate 100 mg tablet Take 1 tablet by mouth two times a day. (Patient not taking: Reported on 12/26/2024) Review of Systems Constitutional: Negative. HENT: Negative. Eyes: Negative. Respiratory: Negative. Cardiovascular: Negative. Gastrointestinal: Positive for vomiting. Negative for abdominal pain and diarrhea. Genitourinary: +vaginal bleeding Skin: Negative. Objective BP 123/83 Pulse 117 Temp (Src) 98.3 (Oral) Resp 14 Wt 198 lb 6.6 oz (90.0kg) SpO2 97% LMP 11/27/2024 Physical Exam Vitals reviewed. Constitutional: General: She is not in acute distress. Appearance: Normal appearance. She is obese. She is not ill-appearing, toxic-appearing or diaphoretic. HENT: Head: Normocephalic and atraumatic. Cardiovascular: Rate and Rhythm: Regular rhythm. Tachycardia present. Heart sounds: Normal heart sounds. No murmur heard. No friction rub. No gallop. Pulmonary: Effort: Pulmonary effort is normal. No respiratory distress. Breath sounds: Normal breath sounds. No stridor. No wheezing, rhonchi or rales. Chest: Chest wall: No tenderness. Skin: General: Skin is warm and dry. Capillary Refill: Capillary refill takes less than 2 seconds. Neurological: Mental Status: She is alert and oriented to person, place, and time. Psychiatric: Mood and Affect: Affect is tearful. ASSESSMENT/PLAN: 1. Vaginal bleeding - ICD9: 623.8, ICD10: N93.9 -If you start having more vomiting - go to Emergency Department -Your urine test completed at [facility] [place] today is Negative -Local [employer] [facility] is [phone] - UA DIP,URINE HCG (POC) - UA DIP, URINE (POC) - BACTERIAL CULTURE, URINE Clara Singh APRN.CARLOS The above reflects my independent exam and review of the patient's medical record. I saw and examined the patient myself personally. Parts of the HPI, ROS, exam, impression/plan, and testing results may have been copied from the current or previous clinical notes and remain pertinent to today's visit. Current changes have been made and documented today. Other parts or data may have been deleted if not relevant for today. Plan as outlined above. Patient advised if symptoms do not improve or if symptoms worsen sooner, to contact their primary care physician. Potential red flag symptoms discussed with the patient. Reviewed appropriate action plan to take if red flag symptoms occur. Patient agreeable to treatment plan. Voice recognition software utilized. Minor grammatical and/or spelling errors may exist. Portions of this note have been entered by ancillary staff. I have reviewed and when necessary edited, so that they are an adequate record of my encounter with this patient.[id number] History of Present illness Narrative* Clara Singh APRN.SUPERVISOR [employer] - 12/26/2024 8:49 AM EST December 26, 2024 Subjective Chief Complaint: test request (Pt is requesting a test for . Pt vomited this morning and it had blood in it and slight vaginal blood. Pt has concern for miscarriage ) HPI: Adriana Gregg is a 19 year old female who presents today for concern for . Patient states she has abnormal menses and has her period every other week. States she was supposed to starther period on November 27 but didn't. States she took 3 home tests. Two were faint positive but the one yesterday was definetly positive. Reports that she has had morning sickness. Today, started having vaginal bleeding. Concern for miscarriage. States she has had 3 other miscarriagesin the past. No fever. No cold/flu like symptoms. History reviewed. No pertinent past medical history. History reviewed. No pertinent surgical history. History reviewed. No pertinent family history. Social History Tobacco Use Smoking status: Never Smokeless tobacco: Never Vaping Use Vaping status: current everyday user Substances: Nicotine Substance Use Topics Alcohol use: Yes ALLERGIES Allergen Reactions Lavender (Lavandula* Hives There is no immunization history on file for this patient. Current Medications: cephALEXin (KEFLEX) 500 mg capsule Take 1 capsule by mouth three times a day. (Patient not taking: Reported on 12/26/2024) doxycycline monohydrate 100 mg tablet Take 1 tablet by mouth two times a day. (Patient not taking: Reported on 12/26/2024) Review of Systems Constitutional: Negative. HENT: Negative. Eyes: Negative. Respiratory: Negative. Cardiovascular: Negative. Gastrointestinal: Positive for vomiting. Negative for abdominal pain and diarrhea. Genitourinary: +vaginal bleeding Skin: Negative. Objective BP 123/83 Pulse 117 Temp (Src) 98.3 (Oral) Resp 14 Wt 198 lb 6.6 oz (90.0kg) SpO2 97% LMP 11/27/2024 Physical Exam Vitals reviewed. Constitutional: General: She is not in acute distress. Appearance: Normal appearance. She is obese. She is not ill-appearing, toxic- appearing or diaphoretic. HENT: Head: Normocephalic and atraumatic. Cardiovascular: Rate and Rhythm: Regular rhythm. Tachycardia present. Heart sounds: Normal heart sounds. No murmur heard. No friction rub. No gallop. Pulmonary: Effort: Pulmonary effort is normal. No respiratory distress. Breath sounds: Normal breath sounds. No stridor. No wheezing, rhonchi or rales. Chest: Chest wall: No tenderness. Skin: General: Skin is warm and dry. Capillary Refill: Capillary refill takes less than 2 seconds. Neurological: Mental Status: She is alert and oriented to person, place, and time. Psychiatric: Mood and Affect: Affect is tearful. ASSESSMENT/PLAN: 1. Vaginal bleeding - ICD9: 623.8, ICD10: N93.9 -If you start having more vomiting - go to Emergency Department -Your urine test completed at [facility] [place] today is Negative -Local [employer] office with [facility] is [phone] - UA DIP,URINE HCG (POC) - UA DIP, URINE (POC) - BACTERIAL CULTURE, URINE Clara Singh APRN.SUPERVISOR [employer] The above reflects my independent exam and review of the patient's medical record. I saw and examined the patient myself personally. Parts of the HPI, ROS, exam, impression/plan, and testing results may have been copied from the current or previous clinical notes and remain pertinent to today's visit. Current changes have been made and documented today. Other parts or data may have been deleted if not relevant for today. Plan as outlined above. Patient advised if symptoms do not improve or if symptoms worsen sooner, to contact their primary care physician. Potential red flag symptoms discussed with the patient. Reviewed appropriate action plan to take if red flag symptoms occur. Patient agreeable to treatment plan. Voice recognition software utilized. Minor grammatical and/or spelling errors may exist. Portions of this note have been entered by ancillary staff. I have reviewed and when necessary edited, so that they are an adequate record of my encounter with this patient. documented in this encounterW[facility]10-13-2024 NoteHNO ID: [id number] Author: NICKY CAMPOS RT(R) Service: ? Author Type: Technologist Type: Progress Notes Filed: 09/09/2024 20:28 Note Text: Radiology Service Progress Note PATIENT NAME: Adriana Gregg DATE OF SERVICE: September 09, 2024 TIME: 8:28 PM PATIENT IDENTITY VERIFICATION COMPLETED USING TWO (2) IDENTIFIERS: Name and Date of confirmed by patient verbally. FALL SCREENING: Has the patient had 2 falls in the last year or 1 fall with injury or currently using an Ambulatory Assistive Device (Walker, Cane, Wheelchair, Crutches, etc.)? Emergency Room Patient: Screened in ED PATIENT GENDER DATA: Female. status: : No status: NO. PATIENT RELEVANT IMPLANT DATA REVIEWED: Not Applicable PATIENT PRESENTS WITH AN IMPLANTABLE OR ATTACHED PRODUCTION MANAGER: No RADIOLOGY DEPARTMENT: General X-ray: Exam(s) Completed: Rib X-Ray: Left PERIPHERAL IV DATA: Not applicable SIGNED BY: RT Morgan(R) September 09, 2024 8:[address] [place] [place], [id number] Evaluation note Includes: Assessments for all patient encounters Findings Encounter Date Assessment of BMI Percentile = 5% to < 85% for age Z68.52 Medical Established Patient with Keisha CASIANO-Nilsa 12/02/2021 Assessment of visit for: maciel veillance of injectable contraceptive Medical Established Patient with Keisha CASIANO-C 12/02/2021 E55.9 - Vitamin D deficiency , unspecified Medical Established Patient with Keisha Hattendorf PA-C 12/02/2021 Encounter for Immunization Medical Estab lished Patient with Keisha Hattendorf PA-C 12/02/2021 No cough Medical Established Patient with Keisha Hattendorf PA-C 12/02/2021 Moderate recurrent major depression E stablished Patient with Maribel Banegas CYBER ENGINEER 10/16/2021 Assessment of BMI Percentile = 85% to < 95% for age Z68.53 Medical Established Patient with Keisha Hattendorf PA-C 10/16/2021 R10.2 - Pelvic and perineal pain Medical Established Patient with Keisha Hattendorf PA-C 10/16/2021 R19.7 - Diarrhea, unspecified Medical Es tablished Patient with Keisha Hattendorf PA-C 10/16/2021 Assessment of visit for: maciel veillance of injectable contraceptive Medical Established Patient with Keisha Violadorf PA-C 09/03/2021 H66.92 - Otitis media, unspe cified, left ear Medical Established Patient with Keisha Rebecatendorf PA-C 09/03/2021 No cough Medical Established Patient with Keisha Hattendorf PA-C 09/03/2021 R30.0 - Dysuria Medical Established Patient with Keisha Hattendorf PA-C 09/03/2021 Allergic contact dermatitis [facility] with Keisha Rebecatendorf PA-C 06/03/2021 Assessment of BMI Percentile = 85% to < 95% for age Z68.53 [facility] with Keisha Rebecatendorf PA-C 06/03/2021 Assessment of visit for: maciel veillance of injectable contraceptive [facility] with Keisha Rebecatendorf PA-C 06/03/2021 Moderate recurrent major depression E stablished Patient with Hawa White CYBER ENGINEER 05/12/2021 Post-traumatic stress disorder Establ ished Patient with Hawa White CYBER ENGINEER 05/12/2021 Assessment of BMI Percentile => 95% for age Z68.54 Medical Established Patient with Keisha Rebecatendorf PA-C 05/12/2021 Assessment of visit for: maciel veillance of injectable contraceptive Medical Established Patient with Keisha Rebecatendorf PA-C 05/12/2021 Z11.3 - Encounter for screen ing for infections with a predominantly sexual mode of transmission Medical Established Patient with Keisha Hattendorf PA-C 05/12/2021 Mood disorders, NOS Established Patie nt with Maribel BOSS 03/02/2021 Post-traumatic stress disorder Establ ished Patient with Maribelraji CHENEYW 03/02/2021 Assessment of BMI Percentile = 85% to < 95% for age Z68.53 was 38.6 Medical Established Patient with Keisha Hattendorf PA-C 03/02/2021 Assessment of visit for: maciel veillance of injectable contraceptive Medical Established Patient with Keisha Hattendorf PA-C 03/02/2021 Flank pain Medical Established Patient with Keisha Hattendorf PA-C 03/02/2021 K59.00 - Constipation, unspecified Medic al Established Patient with Keisha Hattendorf PA-C 03/02/2021 Routine adolescent history a nd physical (12 - 17 yrs) Medical Established Patient with Keisha Hattendorf PA-C 03/02/2021 N76.0 - Acute vaginitis Chart Update wit h Keisha Hattendorf PA-C 12/12/2020 Assessment of BMI Percentile => 95% for age Z68.54 Medical Established Patient with Keisha Hattendorf PA-C 12/10/2020 Depression Medical Established Patient with Keisha Hattendorf PA-C 12/10/2020 N94.89 - Other specified con ditions associated with female genital organs and menstrual cycle Medical Established Patient with Keisha Hattendorf PA-C 12/10/2020 Post-traumatic stress disorder Medical E stablished Patient with Keisha Hattendorf PA-C 12/10/2020 Assessment of BMI Percentile => 95% for age Z68.54 Medical Established Patient with Keisha Hattendorf PA-C 11/26/2020 Flank pain Medical Established Patient with Keisha Hattendorf PA-C 11/26/2020 K21.9 - Gastro-esophageal re flux disease without esophagitis Medical Established Patient with Keisha Hattendorf PA-C 11/26/2020 Post-traumatic stress disorder Medical E stablished Patient with Keisha Hattendorf PA-C 11/26/2020 Hematuria Chart Update with Souleymane rodriguez Hattendorf PA-C 11/13/2020 M54.9 - Dorsalgia, unspecified Chart Upd ate with Keisha Hattendorf PA-C 11/13/2020 Mood disorders, NOS Established Patie nt with Lynsey Lala CYBER ENGINEER 11/10/2020 Assessment of BMI Percentile => 95% for age Z68.54 Medical Established Patient with Keisha Hattendorf PA-C 11/10/2020 N10 - Acute pyelonephritis Medical Estab lished Patient with Keisha Hattendorf PA-C 11/10/2020 Renal backache Medical Established Patient with Keisha Hattendorf PA-C 11/10/2020 Exposure to SARS-CoV-2 Telemedicine Esta blisted Patient with Idalmis Dong PNP 10/28/2020 Episodic mood disorders Established P atient with Maribelraji Banegas CYBER ENGINEER 09/17/2020 Assessment of BMI Percentile => 95% for age Z68.54 Medical Established Patient with Keisha Hattendorf PA-C 09/17/2020 Z30.42 - Encounter for surve illance of injectable contraceptive Medical Established Patient with Keisha Hattendorf PA-C 09/17/2020 Exposure to a viral disease Telemedicine Establisted Patient with Paula Cathryn 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 No cough Telemedicine Establi sted Patient with Paula [place] 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 No fever Telemedicine Establi sted Patient with Paula Cathryn 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 COVID-19 Telemedicine Establi sted Patient with Keisha Hattendorf PA-C 08/15/2020 R05 - Cough Telemedicine Establi sted Patient with Keisha Hattendorf PA-C 08/15/2020 R19.7 - Diarrhea, unspecified Telemedici ne Establisted Patient with Keisha Hattendorf PA-C 08/15/2020 Major depression, recurrent Establish ed Patient with Maribel Banegas CYBER ENGINEER 06/26/2020 Post-traumatic stress disorder Establ ished Patient with Maribel Banegas CYBER ENGINEER 06/26/2020 Assessment of BMI Percentile => 95% for age Z68.54 Medical Established Patient with Keisha Hattendorf PA-C 06/26/2020 Menorrhagia Medical Established Patient with Keisha Hattendorf PA-C 06/26/2020 Assessment of BMI Percentile => 95% for age Z68.54 Telemedicine with Siva Rincon MD 05/08/2020 Lactose intolerance Telemedicine with Siva kovacs MD 05/08/2020 Body mass index Telemedicine with Siva Rincon MD 04/07/2020 Depression Telemedicine with Siva Rincon MD 04/07/2020 Lactose intolerance Telemedicine with Siva kovacs MD 04/07/2020 Obesity due to excess calories Telemedicine with Siva Rincon MD 04/07/2020 Post-traumatic stress disorder Telemedicine with Siva Rincon MD 04/07/2020 PLAN Telemedicine with Maximo kraft MD 04/01/2020 E73.9 - Lactose intolerance, unspecified Telemedicine with Maximo Franco MD 04/01/2020 Obesity due to excess calories Telemedicine with Maximo Franco MD 04/01/2020 Z68.34 - Body mass index (BM I) 34.0-34.9, adult Telemedicine with Maximo Franco MD 04/01/2020 PLAN Telemedicine with Maximo kraft MD 03/18/2020 E73.9 - Lactose intolerance, unspecified Telemedicine with Maximo Franco MD 03/18/2020 Obesity due to excess calories Telemedicine with Maximo Franco MD 03/18/2020 Z68.34 - Body mass index (BM I) 34.0-34.9, adult Telemedicine with Maximo Franco MD 03/18/2020 Major depression, recurrent , per records from [facility] Established Patient with Maribel BOSS 02/28/2020 PHQ-9: total score was 0 02/28/2020 Es tablished Patient with Maribel BOSS 02/28/2020 Post-traumatic stress disord er , per records from [facility] Established Patient with Maribel BOSS 02/28/2020 RAAPS Score was 0 02/28/2020 Establish ed Patient with Maribel BOSS 02/28/2020 Assessment of BMI Percentile => 95% for age Z68.54 Medical New Patient with Siva Rincon MD 02/28/2020 Depression Medical New Patient with Siva Rincon MD 02/28/2020 Post-traumatic stress disorder Medical N ew Patient with Siva Rincon MD 02/28/2020 Routine adolescent history a nd physical (12 - 17 yrs) Medical New Patient with Siva Rincon MD 02/28/2020 [facility] Work Phone: 1(907) [phone] Evaluation note Includes: Assessments for all patient encounters Findings Encounter Date Moderate recurrent major depression E stablished Patient with Maribel BOSS 10/16/2021 Assessment of BMI Percentile = 85% to < 95% for age Z68.53 Medical Established Patient with Keisha Hattendorf PA-C 10/16/2021 R10.2 - Pelvic and perineal pain Medical Established Patient with Keisha Hattendorf PA-C 10/16/2021 R19.7 - Diarrhea, unspecified Medical Es tablished Patient with Keisha Hattendorf PA-C 10/16/2021 Assessment of visit for: maciel veillance of injectable contraceptive Medical Established Patient with Keisha Hattendorf PA-C 09/03/2021 H66.92 - Otitis media, unspe cified, left ear Medical Established Patient with Keisha Hattendorf PA-C 09/03/2021 No cough Medical Established Patient with Keisha Hattendorf PA-C 09/03/2021 R30.0 - Dysuria Medical Established Patient with Keisha Hattendorf PA-C 09/03/2021 Allergic contact dermatitis [facility] th with Keisha Hattendorf PA-C 06/03/2021 Assessment of BMI Percentile = 85% to < 95% for age Z68.53 [facility] with Keisha Hattendorf PA-C 06/03/2021 Assessment of visit for: maciel veillance of injectable contraceptive [facility] with Keisha Rebecatendorf PA-C 06/03/2021 Moderate recurrent major depression E stablished Patient with Hawa White CYBER ENGINEER 05/12/2021 Post-traumatic stress disorder Establ ished Patient with Hawa White CYBER ENGINEER 05/12/2021 Assessment of BMI Percentile => 95% for age Z68.54 Medical Established Patient with Keisha Hattendorf PA-C 05/12/2021 Assessment of visit for: maciel veillance of injectable contraceptive Medical Established Patient with Keisha Hattendorf PA-C 05/12/2021 Z11.3 - Encounter for screen ing for infections with a predominantly sexual mode of transmission Medical Established Patient with Keisha Hattendorf PA-C 05/12/2021 Mood disorders, NOS Established Patie nt with Maribelraji CHENEYW 03/02/2021 Post-traumatic stress disorder Establ ished Patient with Maribel Banegas CYBER ENGINEER 03/02/2021 Assessment of BMI Percentile = 85% to < 95% for age Z68.53 was 38.6 Medical Established Patient with Keisha Hattendorf PA-C 03/02/2021 Assessment of visit for: maciel veillance of injectable contraceptive Medical Established Patient with Keisha Hattendorf PA-C 03/02/2021 Flank pain Medical Established Patient with Keisha Hattendorf PA-C 03/02/2021 K59.00 - Constipation, unspecified Medic al Established Patient with Keisha Hattendorf PA-C 03/02/2021 Routine adolescent history a nd physical (12 - 17 yrs) Medical Established Patient with Keisha Hattendorf PA-C 03/02/2021 N76.0 - Acute vaginitis Chart Update wit h Keisha Rebecatendorf PA-C 12/12/2020 Assessment of BMI Percentile => 95% for age Z68.54 Medical Established Patient with Keisha Hattendorf PA-C 12/10/2020 Depression Medical Established Patient with Keisha Hattendorf PA-C 12/10/2020 N94.89 - Other specified con ditions associated with female genital organs and menstrual cycle Medical Established Patient with Keisha Hattendorf PA-C 12/10/2020 Post-traumatic stress disorder Medical E stablished Patient with Keisha Hattendorf PA-C 12/10/2020 Assessment of BMI Percentile => 95% for age Z68.54 Medical Established Patient with Keisha Hattendorf PA-C 11/26/2020 Flank pain Medical Established Patient with Keisha Hattendorf PA-C 11/26/2020 K21.9 - Gastro-esophageal re flux disease without esophagitis Medical Established Patient with Keisha Hattendorf PA-C 11/26/2020 Post-traumatic stress disorder Medical E stablished Patient with Keisha Hattendorf PA-C 11/26/2020 Hematuria Chart Update with Sy jennifer Hattendorf PA-C 11/13/2020 M54.9 - Dorsalgia, unspecified Chart Upd ate with Keisha Hattendorf PA-C 11/13/2020 Mood disorders, NOS BH Established Patie nt with Lynsey BOSS 11/10/2020 Assessment of BMI Percentile => 95% for age Z68.54 Medical Established Patient with Keisha Hattendorf PA-C 11/10/2020 N10 - Acute pyelonephritis Medical Estab lished Patient with Keisha Hattendorf PA-C 11/10/2020 Renal backache Medical Established Patient with Keisha Hattendorf PA-C 11/10/2020 Exposure to SARS-CoV-2 Telemedicine Esta blisted Patient with Idalmis Dong PNP 10/28/2020 Episodic mood disorders BH Established P atient with Maribelraji Banegas CYBER ENGINEER 09/17/2020 Assessment of BMI Percentile => 95% for age Z68.54 Medical Established Patient with Keisha Nylarf PA-C 09/17/2020 Z30.42 - Encounter for surve illance of injectable contraceptive Medical Established Patient with Keisha Rebecatendorf PA-C 09/17/2020 Exposure to a viral disease Telemedicine Establisted Patient with Paula [place] 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 No cough Telemedicine Establi sted Patient with Paula [place] 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 No fever Telemedicine Establi sted Patient with Paula [place] 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 COVID-19 Telemedicine Establi sted Patient with Keisha Nylarf PA-C 08/15/2020 R05 - Cough Telemedicine Establi sted Patient with Keisha Rebecatendorf PA-C 08/15/2020 R19.7 - Diarrhea, unspecified Telemedici ne Establisted Patient with Keisha Rebecatendorf PA-C 08/15/2020 Major depression, recurrent BH Establish ed Patient with Maribelraji Banegas CYBER ENGINEER 06/26/2020 Post-traumatic stress disorder Establ ished Patient with Maribelraji Banegas CYBER ENGINEER 06/26/2020 Assessment of BMI Percentile => 95% for age Z68.54 Medical Established Patient with Keisha Violadorf PA-C 06/26/2020 Menorrhagia Medical Established Patient with Keisha Rebecatendorf PA-C 06/26/2020 Assessment of BMI Percentile => 95% for age Z68.54 Telemedicine with Siva Rincon MD 05/08/2020 Lactose intolerance Telemedicine with Siva kovacs MD 05/08/2020 Body mass index Telemedicine with Siva Rincon MD 04/07/2020 Depression Telemedicine with Siva Rincon MD 04/07/2020 Lactose intolerance Telemedicine with Siva kovacs MD 04/07/2020 Obesity due to excess calories Telemedicine with Siva Rincon MD 04/07/2020 Post-traumatic stress disorder Telemedicine with Siva Rincon MD 04/07/2020 PLAN Telemedicine with Maximo kraft MD 04/01/2020 E73.9 - Lactose intolerance, unspecified Telemedicine with Maximo Franco MD 04/01/2020 Obesity due to excess calories Telemedicine with Maximo Franco MD 04/01/2020 Z68.34 - Body mass index (BM I) 34.0-34.9, adult Telemedicine with Maximo Franco MD 04/01/2020 PLAN Telemedicine with Maximo kraft MD 03/18/2020 E73.9 - Lactose intolerance, unspecified Telemedicine with Maximo Franco MD 03/18/2020 Obesity due to excess calories Telemedicine with Maximo Franco MD 03/18/2020 Z68.34 - Body mass index (BM I) 34.0-34.9, adult Telemedicine with Maximo Franco MD 03/18/2020 Major depression, recurrent , per records from [facility] Established Patient with Maribel BOSS 02/28/2020 PHQ-9: total score was 0 02/28/2020 Es tablished Patient with Maribel BOSS 02/28/2020 Post-traumatic stress disord er , per records from [facility] Established Patient with Maribel BOSS 02/28/2020 RAAPS Score was 0 02/28/2020 Establish ed Patient with Maribel BOSS 02/28/2020 Assessment of BMI Percentile => 95% for age Z68.54 Medical New Patient with Siva Rincon MD 02/28/2020 Depression Medical New Patient with Siva Rincon MD 02/28/2020 Post-traumatic stress disorder Medical N ew Patient with Siva Rincon MD 02/28/2020 Routine adolescent history a nd physical (12 - 17 yrs) Medical New Patient with Siva Rincon MD 02/28/2020 [facility] Work Phone: 1([phone]) 211-891810-07-2021 Evaluation note Includes: Assessments for all patient encounters Findings Encounter Date Assessment of visit for: maciel veillance of injectable contraceptive Medical Established Patient with Keisha Tapia PA-C 09/03/2021 H66.92 - Otitis media, unspe cified, left ear Medical Established Patient with Keisha CASIANO-C 09/03/2021 No cough Medical Established Patient with Keisha Tapia PA-C 09/03/2021 R30.0 - Dysuria Medical Established Patient with Keisha CASIANO-C 09/03/2021 Allergic contact dermatitis [facility] with Keisha Tapia PA-C 06/03/2021 Assessment of BMI Percentile = 85% to < 95% for age Z68.53 [facility] with Keisha Rebecatendorf PA-C 06/03/2021 Assessment of visit for: maciel veillance of injectable contraceptive [facility] with Keisha Hattendorf PA-C 06/03/2021 Moderate recurrent major depression E stablished Patient with Hawa White CYBER ENGINEER 05/12/2021 Post-traumatic stress disorder Establ ished Patient with Hawa White CYBER ENGINEER 05/12/2021 Assessment of BMI Percentile => 95% for age Z68.54 Medical Established Patient with Keisha Hattendorf PA-C 05/12/2021 Assessment of visit for: maciel veillance of injectable contraceptive Medical Established Patient with Keisha Hattendorf PA-C 05/12/2021 Z11.3 - Encounter for screen ing for infections with a predominantly sexual mode of transmission Medical Established Patient with Keisha Hattendorf PA-C 05/12/2021 Mood disorders, NOS Established Patie nt with Maribel Banegas CYBER ENGINEER 03/02/2021 Post-traumatic stress disorder Establ ished Patient with Maribel Banegas CYBER ENGINEER 03/02/2021 Assessment of BMI Percentile = 85% to < 95% for age Z68.53 was 38.6 Medical Established Patient with Keisha Hattendorf PA-C 03/02/2021 Assessment of visit for: maciel veillance of injectable contraceptive Medical Established Patient with Keisha Hattendorf PA-C 03/02/2021 Flank pain Medical Established Patient with Keisha Hattendorf PA-C 03/02/2021 K59.00 - Constipation, unspecified Medic al Established Patient with Keisha Hattendorf PA-C 03/02/2021 Routine adolescent history a nd physical (12 - 17 yrs) Medical Established Patient with Keisha Hattendorf PA-C 03/02/2021 N76.0 - Acute vaginitis Chart Update wit h Keisha Hattendorf PA-C 12/12/2020 Assessment of BMI Percentile => 95% for age Z68.54 Medical Established Patient with Keisha Hattendorf PA-C 12/10/2020 Depression Medical Established Patient with Keisha Hattendorf PA-C 12/10/2020 N94.89 - Other specified con ditions associated with female genital organs and menstrual cycle Medical Established Patient with Keisha Rebecatendorf PA-C 12/10/2020 Post-traumatic stress disorder Medical E stablished Patient with Keisha Hattendorf PA-C 12/10/2020 Assessment of BMI Percentile => 95% for age Z68.54 Medical Established Patient with Keisha Rebecatendorf PA-C 11/26/2020 Flank pain Medical Established Patient with Keisha Rebecatendorf PA-C 11/26/2020 K21.9 - Gastro-esophageal re flux disease without esophagitis Medical Established Patient with Keisha Rebecatendorf PA-C 11/26/2020 Post-traumatic stress disorder Medical E stablished Patient with Keisha Hattendorf PA-C 11/26/2020 Hematuria Chart Update with Souleymane boswellvinh Redmondrf PA-C 11/13/2020 M54.9 - Dorsalgia, unspecified Chart Upd ate with Keisha Rebecatendorf PA-C 11/13/2020 Mood disorders, NOS Established Patie nt with Lynsey BOSS 11/10/2020 Assessment of BMI Percentile => 95% for age Z68.54 Medical Established Patient with Keisha Violadorf PA-C 11/10/2020 N10 - Acute pyelonephritis Medical Estab lished Patient with Keisha Rebecatendorf PA-C 11/10/2020 Renal backache Medical Established Patient with Keisha Violadorf PA-C 11/10/2020 Exposure to SARS-CoV-2 Telemedicine Esta blisted Patient with Idalmis Dong PNP 10/28/2020 Episodic mood disorders Established P atient with Maribel BOSS 09/17/2020 Assessment of BMI Percentile => 95% for age Z68.54 Medical Established Patient with Keisha Violadorf PA-C 09/17/2020 Z30.42 - Encounter for surve illance of injectable contraceptive Medical Established Patient with Keisha Rebecatendorf PA-C 09/17/2020 Exposure to a viral disease Telemedicine Establisted Patient with Paula [place] 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 No cough Telemedicine Establi sted Patient with Paula [place] 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 No fever Telemedicine Establi sted Patient with Paula Cathryn 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 COVID-19 Telemedicine Establi sted Patient with Keisha Violadorf PA-C 08/15/2020 R05 - Cough Telemedicine Establi sted Patient with Keisha Violadorf PA-C 08/15/2020 R19.7 - Diarrhea, unspecified Telemedici ne Establisted Patient with Keisha Tapia PA-C 08/15/2020 Major depression, recurrent Establish ed Patient with Maribel BOSS 06/26/2020 Post-traumatic stress disorder Establ ished Patient with Maribel BOSS 06/26/2020 Assessment of BMI Percentile => 95% for age Z68.54 Medical Established Patient with Keisha Josetenamy PA-C 06/26/2020 Menorrhagia Medical Established Patient with Keisha Hattendoara PA-C 06/26/2020 Assessment of BMI Percentile => 95% for age Z68.54 Telemedicine with Siva Rincon MD 05/08/2020 Lactose intolerance Telemedicine with Siva kovacs MD 05/08/2020 Body mass index Telemedicine with Siva Rincon MD 04/07/2020 Depression Telemedicine with Siva Rincon MD 04/07/2020 Lactose intolerance Telemedicine with Siva kovacs MD 04/07/2020 Obesity due to excess calories Telemedicine with Siva Rincon MD 04/07/2020 Post-traumatic stress disorder Telemedicine with Siva Rincon MD 04/07/2020 PLAN Telemedicine with Maximo kraft MD 04/01/2020 E73.9 - Lactose intolerance, unspecified Telemedicine with Maximo Franco MD 04/01/2020 Obesity due to excess calories Telemedicine with Maximo Franco MD 04/01/2020 Z68.34 - Body mass index (BM I) 34.0-34.9, adult Telemedicine with Maximo Franco MD 04/01/2020 PLAN Telemedicine with Maximo kraft MD 03/18/2020 E73.9 - Lactose intolerance, unspecified Telemedicine with Maximo Franco MD 03/18/2020 Obesity due to excess calories Telemedicine with Maximo Franco MD 03/18/2020 Z68.34 - Body mass index (BM I) 34.0-34.9, adult Telemedicine with Maximo Franco MD 03/18/2020 Major depression, recurrent , per records from [facility] Established Patient with Maribel BOSS 02/28/2020 PHQ-9: total score was 0 02/28/2020 Es tablished Patient with Maribel BOSS 02/28/2020 Post-traumatic stress disord er , per records from [facility] Established Patient with Maribel BOSS 02/28/2020 RAAPS Score was 0 02/28/2020 Establish ed Patient with Maribel BOSS 02/28/2020 Assessment of BMI Percentile => 95% for age Z68.54 Medical New Patient with Siva Rincon MD 02/28/2020 Depression Medical New Patient with Siva Rincon MD 02/28/2020 Post-traumatic stress disorder Medical N ew Patient with Siva Rincon MD 02/28/2020 Routine adolescent history a nd physical (12 - 17 yrs) Medical New Patient with Siva Rincon MD 02/28/2020 [facility] Work Phone: 1(170) [phone] Evaluation note Includes: Assessments for all patient encounters Findings Encounter Date Assessment of BMI Percentile => 95% for age Z68.54 Medical Established Patient with Keisha Hattendorf PA-C 05/12/2021 Assessment of visit for: maciel veillance of injectable contraceptive Medical Established Patient with Keisha Hattendorf PA-C 05/12/2021 Z11.3 - Encounter for screen ing for infections with a predominantly sexual mode of transmission Medical Established Patient with Keisha Hattendorf PA-C 05/12/2021 Mood disorders, NOS Established Patie nt with Maribel BOSS 03/02/2021 Post-traumatic stress disorder Establ ished Patient with Maribelraji Banegas CYBER ENGINEER 03/02/2021 Assessment of BMI Percentile = 85% to < 95% for age Z68.53 was 38.6 Medical Established Patient with Keisha Hattendorf PA-C 03/02/2021 Assessment of visit for: maciel veillance of injectable contraceptive Medical Established Patient with Keisha Hattendorf PA-C 03/02/2021 Flank pain Medical Established Patient with Keisha Hattendorf PA-C 03/02/2021 K59.00 - Constipation, unspecified Medic al Established Patient with Keisha Hattendorf PA-C 03/02/2021 Routine adolescent history a nd physical (12 - 17 yrs) Medical Established Patient with Keisha Hattendorf PA-C 03/02/2021 N76.0 - Acute vaginitis Chart Update wit h Keisha Rebecatendorf PA-C 12/12/2020 Assessment of BMI Percentile => 95% for age Z68.54 Medical Established Patient with Keisha Hattendorf PA-C 12/10/2020 Depression Medical Established Patient with Keisha Rebecatendorf PA-C 12/10/2020 N94.89 - Other specified con ditions associated with female genital organs and menstrual cycle Medical Established Patient with Keisha Violadorf PA-C 12/10/2020 Post-traumatic stress disorder Medical E stablished Patient with Keisha Violadorf PA-C 12/10/2020 Assessment of BMI Percentile => 95% for age Z68.54 Medical Established Patient with Keisha Violadorf PA-C 11/26/2020 Flank pain Medical Established Patient with Keisha Rebecatendorf PA-C 11/26/2020 K21.9 - Gastro-esophageal re flux disease without esophagitis Medical Established Patient with Keisha Violadorf PA-C 11/26/2020 Post-traumatic stress disorder Medical E stablished Patient with Keisha Violadorf PA-C 11/26/2020 Hematuria Chart Update with Souleymane boswellvinh Tapia PA-C 11/13/2020 M54.9 - Dorsalgia, unspecified Chart Upd ate with Keisha Redmondrf PA-C 11/13/2020 Mood disorders, NOS Established Patie nt with Lynsey BOSS 11/10/2020 Assessment of BMI Percentile => 95% for age Z68.54 Medical Established Patient with Keisha Nylarf PA-C 11/10/2020 N10 - Acute pyelonephritis Medical Estab lished Patient with Keisha Violadorf PA-C 11/10/2020 Renal backache Medical Established Patient with Keisha Nylarf PA-C 11/10/2020 Exposure to SARS-CoV-2 Telemedicine Esta blisted Patient with Idalmis Dong PNP 10/28/2020 Episodic mood disorders Established P atient with Maribel Banegas CYBER ENGINEER 09/17/2020 Assessment of BMI Percentile => 95% for age Z68.54 Medical Established Patient with Keisha Redmondrf PA-C 09/17/2020 Z30.42 - Encounter for surve illance of injectable contraceptive Medical Established Patient with Keisha Violadorf PA-C 09/17/2020 Exposure to a viral disease Telemedicine Establisted Patient with Paula [place] 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 No cough Telemedicine Establi sted Patient with Paula Cathryn 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 No fever Telemedicine Establi sted Patient with Paula Cathryn 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 COVID-19 Telemedicine Establi sted Patient with Keisha Hattendorf PA-C 08/15/2020 R05 - Cough Telemedicine Establi sted Patient with Keisha Hattendorf PA-C 08/15/2020 R19.7 - Diarrhea, unspecified Telemedici ne Establisted Patient with Keisha Hattendorf PA-C 08/15/2020 Major depression, recurrent BH Establish ed Patient with Maribelraji CHENEYW 06/26/2020 Post-traumatic stress disorder Establ ished Patient with Maribel Baneags CYBER ENGINEER 06/26/2020 Assessment of BMI Percentile => 95% for age Z68.54 Medical Established Patient with Keisha Hattendorf PA-C 06/26/2020 Menorrhagia Medical Established Patient with Keisha Hattendorf PA-C 06/26/2020 Assessment of BMI Percentile => 95% for age Z68.54 Telemedicine with Siva Rincon MD 05/08/2020 Lactose intolerance Telemedicine with Siva kovacs MD 05/08/2020 Body mass index Telemedicine with Siva Rincon MD 04/07/2020 Depression Telemedicine with Siva Rincon MD 04/07/2020 Lactose intolerance Telemedicine with Siva kovacs MD 04/07/2020 Obesity due to excess calories Telemedicine with Siva Rincon MD 04/07/2020 Post-traumatic stress disorder Telemedicine with Siva Rincon MD 04/07/2020 PLAN Telemedicine with Maximo kraft MD 04/01/2020 E73.9 - Lactose intolerance, unspecified Telemedicine with Maximo Franco MD 04/01/2020 Obesity due to excess calories Telemedicine with Maximo Franco MD 04/01/2020 Z68.34 - Body mass index (BM I) 34.0-34.9, adult Telemedicine with Maximo Franco MD 04/01/2020 PLAN Telemedicine with Maximo kraft MD 03/18/2020 E73.9 - Lactose intolerance, unspecified Telemedicine with Maximo Franco MD 03/18/2020 Obesity due to excess calories Telemedicine with Maximo Franco MD 03/18/2020 Z68.34 - Body mass index (BM I) 34.0-34.9, adult Telemedicine with Maximo Franco MD 03/18/2020 Major depression, recurrent , per records from [facility] Established Patient with Maribel BOSS 02/28/2020 PHQ-9: total score was 0 02/28/2020 Es tablished Patient with Maribel BOSS 02/28/2020 Post-traumatic stress disord er , per records from foster home Established Patient with Maribel BOSS 02/28/2020 RAAPS Score was 0 02/28/2020 Establish ed Patient with Maribelraji CHENEYW 02/28/2020 Assessment of BMI Percentile => 95% for age Z68.54 Medical New Patient with Siva Rincon MD 02/28/2020 Depression Medical New Patient with Siva Rincon MD 02/28/2020 Post-traumatic stress disorder Medical N ew Patient with Siva Rincon MD 02/28/2020 Routine adolescent history a nd physical (12 - 17 yrs) Medical New Patient with Siva Rincon MD 02/28/2020 [facility] Work Phone: 1(610) 462-180206-15-2021 Evaluation note Includes: Assessments for all patient encounters Findings Encounter Date Moderate recurrent major depression E stablished Patient with Hawa BOSS 05/12/2021 Post-traumatic stress disorder Establ ished Patient with Hawa Mi CYBER ENGINEER 05/12/2021 Assessment of BMI Percentile => 95% for age Z68.54 Medical Established Patient with Keisha Hattendorf PA-C 05/12/2021 Assessment of visit for: maciel veillance of injectable contraceptive Medical Established Patient with Keisha Hattendorf PA-C 05/12/2021 Z11.3 - Encounter for screen ing for infections with a predominantly sexual mode of transmission Medical Established Patient with Keisha Hattendorf PA-C 05/12/2021 Mood disorders, NOS Established Patie nt with Maribelraji CHENEYW 03/02/2021 Post-traumatic stress disorder Establ ished Patient with Maribel Banegas CYBER ENGINEER 03/02/2021 Assessment of BMI Percentile = 85% to < 95% for age Z68.53 was 38.6 Medical Established Patient with Keisha Hattendorf PA-C 03/02/2021 Assessment of visit for: maciel veillance of injectable contraceptive Medical Established Patient with Keisha Hattendorf PA-C 03/02/2021 Flank pain Medical Established Patient with Keisha Rebecatendorf PA-C 03/02/2021 K59.00 - Constipation, unspecified Medic al Established Patient with Keisha Hattendorf PA-C 03/02/2021 Routine adolescent history a nd physical (12 - 17 yrs) Medical Established Patient with Keisha Hattendorf PA-C 03/02/2021 N76.0 - Acute vaginitis Chart Update wit h Keisha Violadorf PA-C 12/12/2020 Assessment of BMI Percentile => 95% for age Z68.54 Medical Established Patient with Keisha Hattendorf PA-C 12/10/2020 Depression Medical Established Patient with Keisha Hattendorf PA-C 12/10/2020 N94.89 - Other specified con ditions associated with female genital organs and menstrual cycle Medical Established Patient with Keisha Hattendorf PA-C 12/10/2020 Post-traumatic stress disorder Medical E stablished Patient with Keisha Hattendorf PA-C 12/10/2020 Assessment of BMI Percentile => 95% for age Z68.54 Medical Established Patient with Keisha Hattendorf PA-C 11/26/2020 Flank pain Medical Established Patient with Keisha Rebecatendorf PA-C 11/26/2020 K21.9 - Gastro-esophageal re flux disease without esophagitis Medical Established Patient with Keisha Hattendorf PA-C 11/26/2020 Post-traumatic stress disorder Medical E stablished Patient with Keisha Hattendorf PA-C 11/26/2020 Hematuria Chart Update with Souleymane rodriguez Violadorf PA-C 11/13/2020 M54.9 - Dorsalgia, unspecified Chart Upd ate with Keisha Hattendorf PA-C 11/13/2020 Mood disorders, NOS Established Patie nt with Lynsey BOSS 11/10/2020 Assessment of BMI Percentile => 95% for age Z68.54 Medical Established Patient with Keisha Rebecatendorf PA-C 11/10/2020 N10 - Acute pyelonephritis Medical Estab lished Patient with Keisha Hattendorf PA-C 11/10/2020 Renal backache Medical Established Patient with Keisha Hattendorf PA-C 11/10/2020 Exposure to SARS-CoV-2 Telemedicine Esta blisted Patient with Idalmis Dong PNP 10/28/2020 Episodic mood disorders Established P atient with Maribel BOSS 09/17/2020 Assessment of BMI Percentile => 95% for age Z68.54 Medical Established Patient with Keisha Hattendorf PA-C 09/17/2020 Z30.42 - Encounter for surve illance of injectable contraceptive Medical Established Patient with Keisha Hattendorf PA-C 09/17/2020 Exposure to a viral disease Telemedicine Establisted Patient with Paula Cathryn 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 No cough Telemedicine Establi sted Patient with Paula [place] 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 No fever Telemedicine Establi sted Patient with Paula Cathryn 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 COVID-19 Telemedicine Establi sted Patient with Keisha Hattendorf PA-C 08/15/2020 R05 - Cough Telemedicine Establi sted Patient with Keisha Hattendorf PA-C 08/15/2020 R19.7 - Diarrhea, unspecified Telemedici ne Establisted Patient with Keisha Hattendorf PA-C 08/15/2020 Major depression, recurrent BH Establish ed Patient with Maribel BOSS 06/26/2020 Post-traumatic stress disorder Establ ished Patient with Maribelraji BOSS 06/26/2020 Assessment of BMI Percentile => 95% for age Z68.54 Medical Established Patient with Keisha Hattendorf PA-C 06/26/2020 Menorrhagia Medical Established Patient with Keisha Hattendorf PA-C 06/26/2020 Assessment of BMI Percentile => 95% for age Z68.54 Telemedicine with Siva Rincon MD 05/08/2020 Lactose intolerance Telemedicine with Siva kovacs MD 05/08/2020 Body mass index Telemedicine with Siva Rincon MD 04/07/2020 Depression Telemedicine with Siva Rincon MD 04/07/2020 Lactose intolerance Telemedicine with Siva kovacs MD 04/07/2020 Obesity due to excess calories Telemedicine with Siva Rincon MD 04/07/2020 Post-traumatic stress disorder Telemedicine with Siva Rincon MD 04/07/2020 PLAN Telemedicine with Maximo kraft MD 04/01/2020 E73.9 - Lactose intolerance, unspecified Telemedicine with Maximo Franco MD 04/01/2020 Obesity due to excess calories Telemedicine with Maximo Franco MD 04/01/2020 Z68.34 - Body mass index (BM I) 34.0-34.9, adult Telemedicine with Maximo Franco MD 04/01/2020 PLAN Telemedicine with Maximo kraft MD 03/18/2020 E73.9 - Lactose intolerance, unspecified Telemedicine with Maximo Franco MD 03/18/2020 Obesity due to excess calories Telemedicine with Maximo Franco MD 03/18/2020 Z68.34 - Body mass index (BM I) 34.0-34.9, adult Telemedicine with Maximo Franco MD 03/18/2020 Major depression, recurrent , per records from foster [facility] Established Patient with Maribel BOSS 02/28/2020 PHQ-9: total score was 0 02/28/2020 Es tablished Patient with Maribel BOSS 02/28/2020 Post-traumatic stress disord er , per records from [facility] Established Patient with Maribel BOSS 02/28/2020 RAAPS Score was 0 02/28/2020 Establish ed Patient with Maribel BOSS 02/28/2020 Assessment of BMI Percentile => 95% for age Z68.54 Medical New Patient with Siva Rincon MD 02/28/2020 Depression Medical New Patient with Siva Rincon MD 02/28/2020 Post-traumatic stress disorder Medical N ew Patient with Siva Rincon MD 02/28/2020 Routine adolescent history a nd physical (12 - 17 yrs) Medical New Patient with Siva Rincon MD 02/28/2020 [facility] Work Phone: 1(278) 961-118506-15-2021 History general Narrative - Reported Includes: Medical History in patient's chart Description Last Updated An HIV test was not performed 05/12/2021 05/12/2021 Contraception: 05/12/2021 Depo provera IM 05/12/2021 Exposure to STD 05/12/2021 0 05/12/2021 Para 0 05/12/2021 History of pyelonephritis 11/10/2020 No diagnosis of history of nephrolithias is 11/10/2020 No previous hospitalizations 11/10/2020 History of renal disorder kidney infect ion on 10/2010/28/2020 Not taking vitamin supplements 0 History of attention-deficit hyperactivi ty disorder 09/17/2020 No recent change in medical history 03/28 Intolerance to milk products 04/01/2020 Intolerance to milk products used as a f iller in pills 04/01/2020 Taking medication 02/28/2020 Past medical history PTSD,Ma kevyn Depressive Disorder,Severe Psychotic Features 02/28/2020 A recent immunization for flu 02/28/2020 [facility] Work Phone: [phone]) 161-279306-15-2021 History general Narrative - Reported Includes: Medical History in patient's chart Description Last Updated History of attention-deficit hyperactivi ty disorder 05/12/2021 History of pyelonephritis 05/12/2021 History of renal disorder kidney infect ion on 10/2005/12/2021 Intolerance to milk products 05/12/2021 Intolerance to milk products used as a f iller in pills 05/12/2021 No diagnosis of history of nephrolithias is 05/12/2021 No previous hospitalizations 05/12/2021 No recent change in medical history 04/28 Not taking vitamin supplements Past medical history PTSD,Ma kevyn Depressive Disorder,Severe Psychotic Features 05/12/2021 Recent immunization for flu 05/12/2021 Taking medication 05/12/2021 An HIV test was not performed 05/12/2021 05/12/2021 Contraception: 05/12/2021 Depo provera IM 05/12/2021 Exposure to STD 05/12/2021 0 05/12/2021 Para 0 05/12/2021 [facility] Work Phone: Evaluation note Includes: Assessments for all patient encounters Findings Encounter Date Assessment of visit for: maciel veillance of injectable contraceptive Medical Established Patient with Keisha Willie PA-C 09/03/2021 R30.0 - Dysuria Medical [facility] 09/03/2021 Allergic contact dermatitis [facility] 06/03/2021 Assessment of BMI Percentile = 85% to < 95% for age Z68.53 [facility] PA-C 06/03/2021 Assessment of visit for: maciel veillance of injectable contraceptive [facility] 06/03/2021 Moderate recurrent major depression BH E stablished Patient with Hawa White CYBER ENGINEER 05/12/2021 Post-traumatic stress disorder BH Establ ished Patient with Hawa White CYBER ENGINEER 05/12/2021 Assessment of BMI Percentile => 95% for age Z68.54 Medical Established Patient with Keisha Hattendorf PA-C 05/12/2021 Assessment of visit for: maciel veillance of injectable contraceptive Medical Established Patient with Keisha Hattendorf PA-C 05/12/2021 Z11.3 - Encounter for screen ing for infections with a predominantly sexual mode of transmission Medical Established Patient with Keisha Hattendorf PA-C 05/12/2021 Mood disorders, NOS Established Patie nt with Maribel Banegas CYBER ENGINEER 03/02/2021 Post-traumatic stress disorder Establ ished Patient with Maribel Banegas CYBER ENGINEER 03/02/2021 Assessment of BMI Percentile = 85% to < 95% for age Z68.53 was 38.6 Medical Established Patient with Keisha Hattendorf PA-C 03/02/2021 Assessment of visit for: maciel veillance of injectable contraceptive Medical Established Patient with Keisha Hattendorf PA-C 03/02/2021 Flank pain Medical Established Patient with Keisha Hattendorf PA-C 03/02/2021 K59.00 - Constipation, unspecified Medic al Established Patient with Keisha Hattendorf PA-C 03/02/2021 Routine adolescent history a nd physical (12 - 17 yrs) Medical Established Patient with Keisha Hattendorf PA-C 03/02/2021 N76.0 - Acute vaginitis Chart Update wit h Keisha Hattendorf PA-C 12/12/2020 Assessment of BMI Percentile => 95% for age Z68.54 Medical Established Patient with Keisha Hattendorf PA-C 12/10/2020 Depression Medical Established Patient with Keisha Hattendorf PA-C 12/10/2020 N94.89 - Other specified con ditions associated with female genital organs and menstrual cycle Medical Established Patient with Keisha Hattendorf PA-C 12/10/2020 Post-traumatic stress disorder Medical E stablished Patient with Keisha Hattendorf PA-C 12/10/2020 Assessment of BMI Percentile => 95% for age Z68.54 Medical Established Patient with Keisha Hattendorf PA-C 11/26/2020 Flank pain Medical Established Patient with Keisha Hattendorf PA-C 11/26/2020 K21.9 - Gastro-esophageal re flux disease without esophagitis Medical Established Patient with Keisha Hattendorf PA-C 11/26/2020 Post-traumatic stress disorder Medical E stablished Patient with Keisha Hattendorf PA-C 11/26/2020 Hematuria Chart Update with Souleymane jennifer Hatyungdorf PA-C 11/13/2020 M54.9 - Dorsalgia, unspecified Chart Upd ate with Keisha Hattendorf PA-C 11/13/2020 Mood disorders, NOS Established Patie nt with Lynsey BOSS 11/10/2020 Assessment of BMI Percentile => 95% for age Z68.54 Medical Established Patient with Keisha Hattendorf PA-C 11/10/2020 N10 - Acute pyelonephritis Medical Estab lished Patient with Keisha Hattendorf PA-C 11/10/2020 Renal backache Medical Established Patient with Keisha Hattendorf PA-C 11/10/2020 Exposure to SARS-CoV-2 Telemedicine Esta blisted Patient with Idalmis Dong PNP 10/28/2020 Episodic mood disorders Established P atient with Maribel BOSS 09/17/2020 Assessment of BMI Percentile => 95% for age Z68.54 Medical Established Patient with Keisha Hattendorf PA-C 09/17/2020 Z30.42 - Encounter for surve illance of injectable contraceptive Medical Established Patient with Keisha Hattendorf PA-C 09/17/2020 Exposure to a viral disease Telemedicine Establisted Patient with Paula [place] 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 No cough Telemedicine Establi sted Patient with Paula [place] 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 No fever Telemedicine Establi sted Patient with Paula [place] 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 COVID-19 Telemedicine Establi sted Patient with Keisha Hattendorf PA-C 08/15/2020 R05 - Cough Telemedicine Establi sted Patient with Keisha Hattendorf PA-C 08/15/2020 R19.7 - Diarrhea, unspecified Telemedici ne Establisted Patient with Keisha Hattendorf PA-C 08/15/2020 Major depression, recurrent Establish ed Patient with Maribel Bassam CYBER ENGINEER 06/26/2020 Post-traumatic stress disorder Establ ished Patient with Maribel Banegas CYBER ENGINEER 06/26/2020 Assessment of BMI Percentile => 95% for age Z68.54 Medical Established Patient with Keisha Hattendorf PA-C 06/26/2020 Menorrhagia Medical Established Patient with Keisha Hattendorf PA-C 06/26/2020 Assessment of BMI Percentile => 95% for age Z68.54 Telemedicine with Siva Rincon MD 05/08/2020 Lactose intolerance Telemedicine with Siva kovacs MD 05/08/2020 Body mass index Telemedicine with Siva Rincon MD 04/07/2020 Depression Telemedicine with Siva Rincon MD 04/07/2020 Lactose intolerance Telemedicine with Siva kovacs MD 04/07/2020 Obesity due to excess calories Telemedicine with Siva Rincon MD 04/07/2020 Post-traumatic stress disorder Telemedicine with Siva Rincon MD 04/07/2020 PLAN Telemedicine with Maximo kraft MD 04/01/2020 E73.9 - Lactose intolerance, unspecified Telemedicine with Maximo Franco MD 04/01/2020 Obesity due to excess calories Telemedicine with Maximo Franco MD 04/01/2020 Z68.34 - Body mass index (BM I) 34.0-34.9, adult Telemedicine with Maximo Franco MD 04/01/2020 PLAN Telemedicine with Maximo kraft MD 03/18/2020 E73.9 - Lactose intolerance, unspecified Telemedicine with Maximo Franco MD 03/18/2020 Obesity due to excess calories Telemedicine with Maximo Franco MD 03/18/2020 Z68.34 - Body mass index (BM I) 34.0-34.9, adult Telemedicine with Maximo Franco MD 03/18/2020 Major depression, recurrent , per records from foster home Established Patient with Maribel BOSS 02/28/2020 PHQ-9: total score was 0 02/28/2020 Es tablished Patient with Maribel BOSS 02/28/2020 Post-traumatic stress disord er , per records from [facility] Established Patient with Maribel BOSS 02/28/2020 RAAPS Score was 0 02/28/2020 Establish ed Patient with Maribel BOSS 02/28/2020 Assessment of BMI Percentile => 95% for age Z68.54 Medical New Patient with Siva Rincon MD 02/28/2020 Depression Medical New Patient with Siva Rincon MD 02/28/2020 Post-traumatic stress disorder Medical N ew Patient with Siva Rincon MD 02/28/2020 Routine adolescent history a nd physical (12 - 17 yrs) Medical New Patient with Siva Rincon MD 02/28/2020 [facility] Work Phone: Evaluation note* Diagnosis Vaginal discharge Leukorrhea, not specified as infective Urinary frequency documented in this encounter [employer] Phone: evaluation note* Diagnosis Acute vaginitis Vaginitis and vulvovaginitis, unspecified documented in this encounter [employer] Phone: evaluation note* Diagnosis Routine screening for STI (sexually transmitted infection) Screening examination for venereal disease Need for hepatitis C screening test Special screening examination for other specified viral diseases Routine lab draw Laboratory examination ordered as part of a routine general medical examination Vitamin D deficiency Unspecified vitamin D deficiency documented in this encounter [employer] Phone: evalilhgsh note* Diagnosis Routine screening for STI (sexually transmitted infection) Screening examination for venereal disease documented in this encounter [employer] Phone: evaluation note* Diagnosis Eloped from emergency department- Primary documented in this encounter [facility] [employer] note* Diagnosis Vaginal bleeding- Primary Other specified noninflammatory disorder of vagina [facility] Diagnosis Nausea and vomiting, unspecified vomiting type- Primary documented in this encounter [facility] noteNo assessment [facility] Work Phone: History of Present illness Narrative History of Present Illness not supported for this document type No History of Present Illness [facility] Work Phone: Instructions Instructions not supported for this document type No Instructions [facility] Work Phone: Patient problem outcome Narrative Includes: Evaluations & Outcomes for active Goals No Outcomes [facility] Work Phone: Reason for referral (narrative)No [facility]: Reason for referral (narrative)No reason for referral information [facility] Work Phone: Review of systems Narrative - Reported Review of Systems not supported for this document type No [facility] Work Phone: Summary Purpose Family History Description Last Updated Family history unchanged 02/28/2020 Description Last Updated Family history unchanged 05/12/2021 Advance Directives Documents on File Type Date 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 No May 15, 2025 12:38pm Advance Directive Response Recorded Date/ Time Do you have a Healthcare Power of Director Alumni Relations? No May 15, 2025 12:38pm Do you have a Healthcare Power of Director Alumni Relations? No July 30, 2025 3:59pm Reason for Referral No Reason for Referral RecordedNo Reason for Referral RecordedNo Reason for Referral RecordedNo Reason for Referral RecordedNo Reason for Referral Recorded No Reason for Referral RecordedNo Reason for Referral RecordedNo Reason for Referral RecordedNo Reason for Referral RecordedNo Reason for Referral Recorded No Reason for Referral RecordedNo Reason for Referral RecordedNo Reason for Referral RecordedNo Reason for Referral RecordedNo Reason for Referral Recorded No Reason for Referral RecordedNo Reason for Referral RecordedNo Reason for Referral RecordedNo Reason for Referral RecordedNo Reason for Referral Recorded No Reason for Referral Recorded Assessments Note No prior surgery or no signi ficant history Findings Encounter Date Mood disorders, NOS Established Patie nt with Maribel BOSS 03/02/2021 Post-traumatic stress disorder BH Establ ished Patient with Maribel BOSS 03/02/2021 Assessment of BMI Percentile = 85% to < 95% for age Z68.53 was 38.6 Medical Established Patient with Keisha Willie PA-C 03/02/2021 Assessment of visit for: maciel veillance of injectable contraceptive Medical Established Patient with Keisha Tapia PA-C 03/02/2021 Flank pain Medical Established Patient with Keisha Willie PA-C 03/02/2021 K59.00 - Constipation, unspecified Medic al Established Patient with Keisha Willie PA-C 03/02/2021 Routine adolescent history a nd physical (12 - 17 yrs) Medical Established Patient with Keisha Tapia PA-C 03/02/2021 N76.0 - Acute vaginitis Chart Update wit h Keisha Hattendorf PA-C 12/12/2020 Assessment of BMI Percentile => 95% for age Z68.54 Medical Established Patient with Keisha Hattendorf PA-C 12/10/2020 Depression Medical Established Patient with Keisha Hattendorf PA-C 12/10/2020 N94.89 - Other specified con ditions associated with female genital organs and menstrual cycle Medical Established Patient with Keisha Hattendorf PA-C 12/10/2020 Post-traumatic stress disorder Medical E stablished Patient with Keisha Hattendorf PA-C 12/10/2020 Assessment of BMI Percentile => 95% for age Z68.54 Medical Established Patient with Keisha Hattendorf PA-C 11/26/2020 Flank pain Medical Established Patient with Keisha Hattendorf PA-C 11/26/2020 K21.9 - Gastro-esophageal re flux disease without esophagitis Medical Established Patient with Keisha Hattendorf PA-C 11/26/2020 Post-traumatic stress disorder Medical E stablished Patient with Keisha Hattendorf PA-C 11/26/2020 Hematuria Chart Update with Souleymane rodriguez Rebecatendorf PA-C 11/13/2020 M54.9 - Dorsalgia, unspecified Chart Upd ate with Keisha Hattendorf PA-C 11/13/2020 Mood disorders, NOS Established Patie nt with Lynsey BOSS 11/10/2020 Assessment of BMI Percentile => 95% for age Z68.54 Medical Established Patient with Keisha Hattendorf PA-C 11/10/2020 N10 - Acute pyelonephritis Medical Estab lished Patient with Keisha Hattendorf PA-C 11/10/2020 Renal backache Medical Established Patient with Keisha Hattendorf PA-C 11/10/2020 Exposure to SARS-CoV-2 Telemedicine Esta blisted Patient with Idalmis Dong PNP 10/28/2020 Episodic mood disorders Established P atient with Maribel BOSS 09/17/2020 Assessment of BMI Percentile => 95% for age Z68.54 Medical Established Patient with Keisha Hattendorf PA-C 09/17/2020 Z30.42 - Encounter for surve illance of injectable contraceptive Medical Established Patient with Keisha Hattendorf PA-C 09/17/2020 Exposure to a viral disease Telemedicine Establisted Patient with Paula Cathryn 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 No cough Telemedicine Establi sted Patient with Paula Cathryn 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 No fever Telemedicine Establi sted Patient with Paula [place] 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 COVID-19 Telemedicine Establi sted Patient with Keisha Hattendorf PA-C 08/15/2020 R05 - Cough Telemedicine Establi sted Patient with Keisha Hattendorf PA-C 08/15/2020 R19.7 - Diarrhea, unspecified Telemedici ne Establisted Patient with Keisha Hattendorf PA-C 08/15/2020 Major depression, recurrent BH Establish ed Patient with Maribelraji CHENEYW 06/26/2020 Post-traumatic stress disorder Establ ished Patient with Maribel Banegas CYBER ENGINEER 06/26/2020 Assessment of BMI Percentile => 95% for age Z68.54 Medical Established Patient with Keisha Hattendorf PA-C 06/26/2020 Menorrhagia Medical Established Patient with Keisha Hattendorf PA-C 06/26/2020 Assessment of BMI Percentile => 95% for age Z68.54 Telemedicine with Siva Rincon MD 05/08/2020 Lactose intolerance Telemedicine with Siva kovacs MD 05/08/2020 Body mass index Telemedicine with Siva Rincon MD 04/07/2020 Depression Telemedicine with Siva Rincon MD 04/07/2020 Lactose intolerance Telemedicine with Siva kovacs MD 04/07/2020 Obesity due to excess calories Telemedicine with Siva Rincon MD 04/07/2020 Post-traumatic stress disorder Telemedicine with Siva Rincon MD 04/07/2020 PLAN Telemedicine with Maximo kraft MD 04/01/2020 E73.9 - Lactose intolerance, unspecified Telemedicine with Maximo Franco MD 04/01/2020 Obesity due to excess calories Telemedicine with Maximo Franco MD 04/01/2020 Z68.34 - Body mass index (BM I) 34.0-34.9, adult Telemedicine with Maximo Franco MD 04/01/2020 PLAN Telemedicine with Maximo kraft MD 03/18/2020 E73.9 - Lactose intolerance, unspecified Telemedicine with Maximo Franco MD 03/18/2020 Obesity due to excess calories Telemedicine with Maximo Franco MD 03/18/2020 Z68.34 - Body mass index (BM I) 34.0-34.9, adult Telemedicine with Maximo Franco MD 03/18/2020 Major depression, recurrent , per records from foster home Established Patient with Maribel Banegaskathy CHENEYW 02/28/2020 PHQ-9: total score was 0 02/28/2020 Es tablished Patient with Maribel CHENEYW 02/28/2020 Post-traumatic stress disord er , per records from foster [facility] Established Patient with Maribel Banegaskathy CHENEYW 02/28/2020 RAAPS Score was 0 02/28/2020 Establish ed Patient with Maribel Banegaskathy CHENEYW 02/28/2020 Assessment of BMI Percentile => 95% for age Z68.54 Medical New Patient with Siva Rincon MD 02/28/2020 Depression Medical New Patient with Siva Rincon MD 02/28/2020 Post-traumatic stress disorder Medical N ew Patient with Siva Rincon MD 02/28/2020 Routine adolescent history a nd physical (12 - 17 yrs) Medical New Patient with Siva Rincon MD 02/28/2020 Findings Encounter Date N76.0 - Acute vaginitis Chart Update wit h Keisha Josetendorf PA-C 12/12/2020 Assessment of BMI Percentile => 95% for age Z68.54 Medical Established Patient with Keisha Hattendorf PA-C 12/10/2020 Depression Medical Established Patient with Keisha Hattendorf PA-C 12/10/2020 N94.89 - Other specified con ditions associated with female genital organs and menstrual cycle Medical Established Patient with Keisha Hattendorf PA-C 12/10/2020 Post-traumatic stress disorder Medical E stablished Patient with Keisha Hattendorf PA-C 12/10/2020 Assessment of BMI Percentile => 95% for age Z68.54 Medical Established Patient with Keisha Hattendorf PA-C 11/26/2020 Flank pain Medical Established Patient with Keisha Hattendorf PA-C 11/26/2020 K21.9 - Gastro-esophageal re flux disease without esophagitis Medical Established Patient with Keisha Hattendorf PA-C 11/26/2020 Post-traumatic stress disorder Medical E stablished Patient with Keisha Hattendorf PA-C 11/26/2020 Hematuria Chart Update with Souleymane Josetendorf PA-C 11/13/2020 M54.9 - Dorsalgia, unspecified Chart Upd ate with Keisha Hattendorf PA-C 11/13/2020 Mood disorders, NOS Established Patie nt with Lynsey CHENEYW 11/10/2020 Assessment of BMI Percentile => 95% for age Z68.54 Medical Established Patient with Keisha Hattendorf PA-C 11/10/2020 N10 - Acute pyelonephritis Medical Estab lished Patient with Keisha Hattendorf PA-C 11/10/2020 Renal backache Medical Established Patient with Keisha Hattendorf PA-C 11/10/2020 Exposure to SARS-CoV-2 Telemedicine Esta blisted Patient with Idalmis Dong PNP 10/28/2020 Episodic mood disorders Established P atient with Maribel Bassam CYBER ENGINEER 09/17/2020 Assessment of BMI Percentile => 95% for age Z68.54 Medical Established Patient with Keisha Hattendorf PA-C 09/17/2020 Z30.42 - Encounter for surve illance of injectable contraceptive Medical Established Patient with Keisha Hattendorf PA-C 09/17/2020 Exposure to a viral disease Telemedicine Establisted Patient with Paula [place] 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 No cough Telemedicine Establi sted Patient with Paula [place] 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 No fever Telemedicine Establi sted Patient with Paula Cathryn 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 COVID-19 Telemedicine Establi sted Patient with Keisha Hattendorf PA-C 08/15/2020 R05 - Cough Telemedicine Establi sted Patient with Keisha Hattendorf PA-C 08/15/2020 R19.7 - Diarrhea, unspecified Telemedici ne Establisted Patient with Keisha Hattendorf PA-C 08/15/2020 Major depression, recurrent Establish ed Patient with Mairbel Banegas CYBER ENGINEER 06/26/2020 Post-traumatic stress disorder Establ ished Patient with Maribel Banegas CYBER ENGINEER 06/26/2020 Assessment of BMI Percentile => 95% for age Z68.54 Medical Established Patient with Keisha Hattendorf PA-C 06/26/2020 Menorrhagia Medical Established Patient with Keisha Hattendorf PA-C 06/26/2020 Assessment of BMI Percentile => 95% for age Z68.54 Telemedicine with Siva Rincon MD 05/08/2020 Lactose intolerance Telemedicine with Siva kovacs MD 05/08/2020 Body mass index Telemedicine with Siva Rincon MD 04/07/2020 Depression Telemedicine with Siva Rincon MD 04/07/2020 Lactose intolerance Telemedicine with Siva kovacs MD 04/07/2020 Obesity due to excess calories Telemedicine with Siva Rincon MD 04/07/2020 Post-traumatic stress disorder Telemedicine with Siva Rincon MD 04/07/2020 PLAN Telemedicine with Maximo kraft MD 04/01/2020 E73.9 - Lactose intolerance, unspecified Telemedicine with Maximo Franco MD 04/01/2020 Obesity due to excess calories Telemedicine with Maximo Franco MD 04/01/2020 Z68.34 - Body mass index (BM I) 34.0-34.9, adult Telemedicine with Maximo Franco MD 04/01/2020 PLAN Telemedicine with Maximo kraft MD 03/18/2020 E73.9 - Lactose intolerance, unspecified Telemedicine with Maximo Franco MD 03/18/2020 Obesity due to excess calories Telemedicine with Maximo Franco MD 03/18/2020 Z68.34 - Body mass index (BM I) 34.0-34.9, adult Telemedicine with Maximo Franco MD 03/18/2020 Major depression, recurrent , per records from [facility] Established Patient with Maribel BOSS 02/28/2020 PHQ-9: total score was 0 02/28/2020 Es tablished Patient with Maribel BOSS 02/28/2020 Post-traumatic stress disord er , per records from [facility] Established Patient with Maribel BOSS 02/28/2020 RAAPS Score was 0 02/28/2020 Establish ed Patient with Maribel BOSS 02/28/2020 Assessment of BMI Percentile => 95% for age Z68.54 Medical New Patient with Siva Rincon MD 02/28/2020 Depression Medical New Patient with Siva Rincon MD 02/28/2020 Post-traumatic stress disorder Medical N ew Patient with Siva Rincon MD 02/28/2020 Routine adolescent history a nd physical (12 - 17 yrs) Medical New Patient with Siva Rincon MD 02/28/2020 Findings Encounter Date Assessment of BMI Percentile => 95% for age Z68.54 Medical Established Patient with Keisha CASIANO 11/26/2020 Flank pain Medical Established Patient with Keisha CASIANO 11/26/2020 K21.9 - Gastro-esophageal re flux disease without esophagitis Medical Established Patient with Keisha Hattendorf PA 11/26/2020 Post-traumatic stress disorder Medical E stablished Patient with Keisha Hattendorf PA 11/26/2020 Hematuria Chart Update with Souleymane jennifer Hattendorf PA 11/13/2020 M54.9 - Dorsalgia, unspecified Chart Upd ate with Keisha Hattendorf PA 11/13/2020 Mood disorders, NOS Established Patie nt with Lynsey Lala CYBER ENGINEER 11/10/2020 Assessment of BMI Percentile => 95% for age Z68.54 Medical Established Patient with Keisha Hattendorf PA 11/10/2020 N10 - Acute pyelonephritis Medical Estab lished Patient with Keisha Hattendorf PA 11/10/2020 Renal backache Medical Established Patient with Keisha Hattendorf PA 11/10/2020 Exposure to SARS-CoV-2 Telemedicine Esta blisted Patient with Idalmis Dong PNP 10/28/2020 Episodic mood disorders Established P atient with Maribel Bassam CYBER ENGINEER 09/17/2020 Assessment of BMI Percentile => 95% for age Z68.54 Medical Established Patient with Keisha Hattendorf PA 09/17/2020 Z30.42 - Encounter for surve illance of injectable contraceptive Medical Established Patient with Keisha Hattendorf PA 09/17/2020 Exposure to a viral disease Telemedicine Establisted Patient with Paula [place] 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 No cough Telemedicine Establi sted Patient with Paula [place] 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 No fever Telemedicine Establi sted Patient with Paula Cathryn 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 COVID-19 Telemedicine Establi sted Patient with Keisha Hattendorf PA 08/15/2020 R05 - Cough Telemedicine Establi sted Patient with Keisha Hattendorf PA 08/15/2020 R19.7 - Diarrhea, unspecified Telemedici ne Establisted Patient with Keisha Hattendorf PA 08/15/2020 Major depression, recurrent Establish ed Patient with Maribel Banegas CYBER ENGINEER 06/26/2020 Post-traumatic stress disorder Establ ished Patient with Maribel Banegas CYBER ENGINEER 06/26/2020 Assessment of BMI Percentile => 95% for age Z68.54 Medical Established Patient with Keisha Hattendorf PA 06/26/2020 Menorrhagia Medical Established Patient with Keisha Hattendorf PA 06/26/2020 Assessment of BMI Percentile => 95% for age Z68.54 Telemedicine with Siva Rincon MD 05/08/2020 Lactose intolerance Telemedicine with Siva kovacs MD 05/08/2020 Body mass index Telemedicine with Siva Rincon MD 04/07/2020 Depression Telemedicine with Siva Rincon MD 04/07/2020 Lactose intolerance Telemedicine with Siva kovacs MD 04/07/2020 Obesity due to excess calories Telemedicine with Siva Rincon MD 04/07/2020 Post-traumatic stress disorder Telemedicine with Siva Rincon MD 04/07/2020 PLAN Telemedicine with Maximo kraft MD 04/01/2020 E73.9 - Lactose intolerance, unspecified Telemedicine with Maximo Franco MD 04/01/2020 Obesity due to excess calories Telemedicine with Maximo Franco MD 04/01/2020 Z68.34 - Body mass index (BM I) 34.0-34.9, adult Telemedicine with Maximo Franco MD 04/01/2020 PLAN Telemedicine with Maximo kraft MD 03/18/2020 E73.9 - Lactose intolerance, unspecified Telemedicine with Maximo Franco MD 03/18/2020 Obesity due to excess calories Telemedicine with Maximo Franco MD 03/18/2020 Z68.34 - Body mass index (BM I) 34.0-34.9, adult Telemedicine with Maximo Franco MD 03/18/2020 Major depression, recurrent , per records from foster home Established Patient with Maribel BOSS 02/28/2020 PHQ-9: total score was 0 02/28/2020 Es tablished Patient with Maribel BOSS 02/28/2020 Post-traumatic stress disord er , per records from [facility] Established Patient with Maribel BOSS 02/28/2020 RAAPS Score was 0 02/28/2020 Establish ed Patient with Maribel BOSS 02/28/2020 Assessment of BMI Percentile => 95% for age Z68.54 Medical New Patient with Siva Rincon MD 02/28/2020 Depression Medical New Patient with Siva Rincon MD 02/28/2020 Post-traumatic stress disorder Medical N ew Patient with Siva Rincon MD 02/28/2020 Routine adolescent history a nd physical (12 - 17 yrs) Medical New Patient with Siva Rincon MD 02/28/2020 Findings Encounter Date Hematuria Chart Update with Souleymane CASIANO 11/13/2020 M54.9 - Dorsalgia, unspecified Chart Upd ate with Keisha Hattendorf PA 11/13/2020 Mood disorders, NOS Established Patie nt with Lynsey BOSS 11/10/2020 Assessment of BMI Percentile => 95% for age Z68.54 Medical Established Patient with Keisha Hattendorf PA 11/10/2020 N10 - Acute pyelonephritis Medical Estab lished Patient with Keisha Hattendorf PA 11/10/2020 Renal backache Medical Established Patient with Keisha Hattendorf PA 11/10/2020 Exposure to SARS-CoV-2 Telemedicine Esta blisted Patient with Idalmis Dong PNP 10/28/2020 Episodic mood disorders Established P atient with Maribelraji Banegas CYBER ENGINEER 09/17/2020 Assessment of BMI Percentile => 95% for age Z68.54 Medical Established Patient with Keisha Violadorf PA 09/17/2020 Z30.42 - Encounter for surve illance of injectable contraceptive Medical Established Patient with Keisha Violadorf PA 09/17/2020 Exposure to a viral disease Telemedicine Establisted Patient with Paula Cathryn 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 No cough Telemedicine Establi sted Patient with Paula [place] 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 No fever Telemedicine Establi sted Patient with Paula [place] 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 COVID-19 Telemedicine Establi sted Patient with Keisha Violadorf PA 08/15/2020 R05 - Cough Telemedicine Establi sted Patient with Keisha Hattendorf PA 08/15/2020 R19.7 - Diarrhea, unspecified Telemedici ne Establisted Patient with Keisha Hattendorf PA 08/15/2020 Major depression, recurrent Establish ed Patient with Maribel Banegas CYBER ENGINEER 06/26/2020 Post-traumatic stress disorder Establ ished Patient with Maribel Banegas CYBER ENGINEER 06/26/2020 Assessment of BMI Percentile => 95% for age Z68.54 Medical Established Patient with Keisha Hattendorf PA 06/26/2020 Menorrhagia Medical Established Patient with Keisha Hattendorf PA 06/26/2020 Assessment of BMI Percentile => 95% for age Z68.54 Telemedicine with Siva Rincon MD 05/08/2020 Lactose intolerance Telemedicine with Siva kovacs MD 05/08/2020 Body mass index Telemedicine with Siva Rincon MD 04/07/2020 Depression Telemedicine with Siva Rincon MD 04/07/2020 Lactose intolerance Telemedicine with Siva kovacs MD 04/07/2020 Obesity due to excess calories Telemedicine with Siva Rincon MD 04/07/2020 Post-traumatic stress disorder Telemedicine with Siva Rincon MD 04/07/2020 PLAN Telemedicine with Maximo kraft MD 04/01/2020 E73.9 - Lactose intolerance, unspecified Telemedicine with Maximo Franco MD 04/01/2020 Obesity due to excess calories Telemedicine with Maximo Franco MD 04/01/2020 Z68.34 - Body mass index (BM I) 34.0-34.9, adult Telemedicine with Maximo Franco MD 04/01/2020 PLAN Telemedicine with Maximo kraft MD 03/18/2020 E73.9 - Lactose intolerance, unspecified Telemedicine with Maximo Franco MD 03/18/2020 Obesity due to excess calories Telemedicine with Maximo Franco MD 03/18/2020 Z68.34 - Body mass index (BM I) 34.0-34.9, adult Telemedicine with Maximo Franco MD 03/18/2020 Major depression, recurrent , per records from foster home Established Patient with Maribel BOSS 02/28/2020 PHQ-9: total score was 0 02/28/2020 Es tablished Patient with Maribel BOSS 02/28/2020 Post-traumatic stress disord er , per records from [facility] Established Patient with Maribel BOSS 02/28/2020 RAAPS Score was 0 02/28/2020 Establish ed Patient with Maribel BOSS 02/28/2020 Assessment of BMI Percentile => 95% for age Z68.54 Medical New Patient with Siva Rincon MD 02/28/2020 Depression Medical New Patient with Siva Rincon MD 02/28/2020 Post-traumatic stress disorder Medical N ew Patient with Siva Rincon MD 02/28/2020 Routine adolescent history a nd physical (12 - 17 yrs) Medical New Patient with Siva Rincon MD 02/28/2020 Findings Encounter Date Mood disorders, NOS Established Patie nt with Lynsey BOSS 11/10/2020 Assessment of BMI Percentile => 95% for age Z68.54 Medical Established Patient with Keisha CASIANO 11/10/2020 N10 - Acute pyelonephritis Medical Estab lished Patient with Keisha Hattendorf PA 11/10/2020 Renal backache Medical Established Patient with Keisha Hattendorf PA 11/10/2020 Exposure to SARS-CoV-2 Telemedicine Esta blisted Patient with Idalmis Dong PNP 10/28/2020 Episodic mood disorders BH Established P atient with Maribelraji Banegas CYBER ENGINEER 09/17/2020 Assessment of BMI Percentile => 95% for age Z68.54 Medical Established Patient with Keisha Violadorf PA 09/17/2020 Z30.42 - Encounter for surve illance of injectable contraceptive Medical Established Patient with Keisha Hattendorf PA 09/17/2020 Exposure to a viral disease Telemedicine Establisted Patient with Paula Cathryn 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 No cough Telemedicine Establi sted Patient with Paula Cathryn 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 No fever Telemedicine Establi sted Patient with Paula [place] 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 COVID-19 Telemedicine Establi sted Patient with Keisha Violadorf PA 08/15/2020 R05 - Cough Telemedicine Establi sted Patient with Keisha Hattendorf PA 08/15/2020 R19.7 - Diarrhea, unspecified Telemedici ne Establisted Patient with Keisha Hattendorf PA 08/15/2020 Major depression, recurrent BH Establish ed Patient with Maribelraji Banegas CYBER ENGINEER 06/26/2020 Post-traumatic stress disorder BH Establ ished Patient with Maribel Banegas CYBER ENGINEER 06/26/2020 Assessment of BMI Percentile => 95% for age Z68.54 Medical Established Patient with Keisha Hattendorf PA 06/26/2020 Menorrhagia Medical Established Patient with Keisha Hattendorf PA 06/26/2020 Assessment of BMI Percentile => 95% for age Z68.54 Telemedicine with Siva Rincon MD 05/08/2020 Lactose intolerance Telemedicine with Siva kovacs MD 05/08/2020 Body mass index Telemedicine with Siva Rincon MD 04/07/2020 Depression Telemedicine with Siva Rincon MD 04/07/2020 Lactose intolerance Telemedicine with Siva kovacs MD 04/07/2020 Obesity due to excess calories Telemedicine with Siva Rincon MD 04/07/2020 Post-traumatic stress disorder Telemedicine with Siva Rincon MD 04/07/2020 PLAN Telemedicine with Maximo kraft MD 04/01/2020 E73.9 - Lactose intolerance, unspecified Telemedicine with Maximo Franco MD 04/01/2020 Obesity due to excess calories Telemedicine with Maximo Franco MD 04/01/2020 Z68.34 - Body mass index (BM I) 34.0-34.9, adult Telemedicine with Maximo Franco MD 04/01/2020 PLAN Telemedicine with Maximo kraft MD 03/18/2020 E73.9 - Lactose intolerance, unspecified Telemedicine with Maximo Franco MD 03/18/2020 Obesity due to excess calories Telemedicine with Maximo Franco MD 03/18/2020 Z68.34 - Body mass index (BM I) 34.0-34.9, adult Telemedicine with Maximo Franco MD 03/18/2020 Major depression, recurrent , per records from [facility] Established Patient with Maribel BOSS 02/28/2020 PHQ-9: total score was 0 02/28/2020 Es tablished Patient with Maribel BOSS 02/28/2020 Post-traumatic stress disord er , per records from [facility] Established Patient with Maribel BOSS 02/28/2020 RAAPS Score was 0 02/28/2020 Establish ed Patient with Maribel BOSS 02/28/2020 Assessment of BMI Percentile => 95% for age Z68.54 Medical New Patient with Siva Rincon MD 02/28/2020 Depression Medical New Patient with Siva Rincon MD 02/28/2020 Post-traumatic stress disorder Medical N ew Patient with Siva Rincon MD 02/28/2020 Routine adolescent history a nd physical (12 - 17 yrs) Medical New Patient with Siva Rincon MD 02/28/2020 Findings Encounter Date Major depression, recurrent , per records from [facility] Established Patient with Maribel BOSS 02/28/2020 PHQ-9: total score was 0 02/28/2020 Es tablished Patient with Maribel BOSS 02/28/2020 Post-traumatic stress disord er , per records from [facility] Established Patient with Maribel BOSS 02/28/2020 RAAPS Score was 0 02/28/2020 Establish ed Patient with Maribel BOSS 02/28/2020 Assessment of BMI Percentile => 95% for age Z68.54 Medical New Patient with Siva Rincon MD 02/28/2020 Depression Medical New Patient with Siva Rincon MD 02/28/2020 Post-traumatic stress disorder Medical N ew Patient with Siva Rincon MD 02/28/2020 Routine adolescent history a nd physical (12 - 17 yrs) Medical New Patient with Siva Rincon MD 02/28/2020 Findings Encounter Date PLAN Telemedicine with Maximo kraft MD 04/01/2020 E73.9 - Lactose intolerance, unspecified Telemedicine with Maximo Franco MD 04/01/2020 Obesity due to excess calories Telemedicine with Maximo Franco MD 04/01/2020 Z68.34 - Body mass index (BM I) 34.0-34.9, adult Telemedicine with Maximo Franco MD 04/01/2020 PLAN Telemedicine with Maximo kraft MD 03/18/2020 E73.9 - Lactose intolerance, unspecified Telemedicine with Maximo Franco MD 03/18/2020 Obesity due to excess calories Telemedicine with Maximo Franco MD 03/18/2020 Z68.34 - Body mass index (BM I) 34.0-34.9, adult Telemedicine with Maximo Franco MD 03/18/2020 Major depression, recurrent , per records from foster home Established Patient with Maribel BOSS 02/28/2020 PHQ-9: total score was 0 02/28/2020 Es tablished Patient with Maribel BOSS 02/28/2020 Post-traumatic stress disord er , per records from [facility] Established Patient with Maribel BOSS 02/28/2020 RAAPS Score was 0 02/28/2020 Establish ed Patient with Maribel BOSS 02/28/2020 Assessment of BMI Percentile => 95% for age Z68.54 Medical New Patient with Siva Rincon MD 02/28/2020 Depression Medical New Patient with Siva Rincon MD 02/28/2020 Post-traumatic stress disorder Medical N ew Patient with Siva Rincon MD 02/28/2020 Routine adolescent history a nd physical (12 - 17 yrs) Medical New Patient with Siva Rincon MD 02/28/2020 Findings Encounter Date Body mass index Telemedicine with Siva Rincon MD 04/07/2020 Depression Telemedicine with Siva Rincon MD 04/07/2020 Lactose intolerance Telemedicine with Siva kovacs MD 04/07/2020 Obesity due to excess calories Telemedicine with Siva Rincon MD 04/07/2020 Post-traumatic stress disorder Telemedicine with Siva Rincon MD 04/07/2020 PLAN Telemedicine with Maximo kraft MD 04/01/2020 E73.9 - Lactose intolerance, unspecified Telemedicine with Maximo Franco MD 04/01/2020 Obesity due to excess calories Telemedicine with Maximo Franco MD 04/01/2020 Z68.34 - Body mass index (BM I) 34.0-34.9, adult Telemedicine with Maximo Franco MD 04/01/2020 PLAN Telemedicine with Maximo kraft MD 03/18/2020 E73.9 - Lactose intolerance, unspecified Telemedicine with Maximo Franco MD 03/18/2020 Obesity due to excess calories Telemedicine with Maximo Franco MD 03/18/2020 Z68.34 - Body mass index (BM I) 34.0-34.9, adult Telemedicine with Maximo Franco MD 03/18/2020 Major depression, recurrent , per records from [facility] Established Patient with Maribel BOSS 02/28/2020 PHQ-9: total score was 0 02/28/2020 Es tablished Patient with Maribel BOSS 02/28/2020 Post-traumatic stress disord er , per records from [facility] Established Patient with Maribel BOSS 02/28/2020 RAAPS Score was 0 02/28/2020 Establish ed Patient with Maribel BOSS 02/28/2020 Assessment of BMI Percentile => 95% for age Z68.54 Medical New Patient with Siva Rincon MD 02/28/2020 Depression Medical New Patient with Siva Rincon MD 02/28/2020 Post-traumatic stress disorder Medical N ew Patient with Siva Rincon MD 02/28/2020 Routine adolescent history a nd physical (12 - 17 yrs) Medical New Patient with Siva Rincon MD 02/28/2020 Findings Encounter Date Assessment of BMI Percentile => 95% for age Z68.54 Telemedicine with Siva Rincon MD 05/08/2020 Lactose intolerance Telemedicine with Siva kovacs MD 05/08/2020 Body mass index Telemedicine with Siva Rincon MD 04/07/2020 Depression Telemedicine with Siva Rincon MD 04/07/2020 Lactose intolerance Telemedicine with Siva kovacs MD 04/07/2020 Obesity due to excess calories Telemedicine with Siva Rincon MD 04/07/2020 Post-traumatic stress disorder Telemedicine with Siva Rincon MD 04/07/2020 PLAN Telemedicine with Maximo kraft MD 04/01/2020 E73.9 - Lactose intolerance, unspecified Telemedicine with Maximo Franco MD 04/01/2020 Obesity due to excess calories Telemedicine with Maximo Franco MD 04/01/2020 Z68.34 - Body mass index (BM I) 34.0-34.9, adult Telemedicine with Maximo Franco MD 04/01/2020 PLAN Telemedicine with Maximo kraft MD 03/18/2020 E73.9 - Lactose intolerance, unspecified Telemedicine with Maximo Franco MD 03/18/2020 Obesity due to excess calories Telemedicine with Maximo Franco MD 03/18/2020 Z68.34 - Body mass index (BM I) 34.0-34.9, adult Telemedicine with Maximo Franco MD 03/18/2020 Major depression, recurrent , per records from [facility] Established Patient with Maribel BOSS 02/28/2020 PHQ-9: total score was 0 02/28/2020 Es tablished Patient with Maribel BOSS 02/28/2020 Post-traumatic stress disord er , per records from [facility] Established Patient with Maribel BOSS 02/28/2020 RAAPS Score was 0 02/28/2020 Establish ed Patient with Maribel BOSS 02/28/2020 Assessment of BMI Percentile => 95% for age Z68.54 Medical New Patient with Siva Rincon MD 02/28/2020 Depression Medical New Patient with Siva Rincon MD 02/28/2020 Post-traumatic stress disorder Medical N ew Patient with Siva Rincon MD 02/28/2020 Routine adolescent history a nd physical (12 - 17 yrs) Medical New Patient with Siva Rincon MD 02/28/2020 Findings Encounter Date COVID-19 Telemedicine Establi sted Patient with Keisha Hattendorf PA 08/15/2020 R05 - Cough Telemedicine Establi sted Patient with Keisha Hattendorf PA 08/15/2020 R19.7 - Diarrhea, unspecified Telemedici ne Establisted Patient with Keisha Hattendorf PA 08/15/2020 Major depression, recurrent Establish ed Patient with Maribel BOSS 06/26/2020 Post-traumatic stress disorder Establ ished Patient with Maribelraji BOSS 06/26/2020 Assessment of BMI Percentile => 95% for age Z68.54 Medical Established Patient with Keisha Rebecatendorf PA 06/26/2020 Menorrhagia Medical Established Patient with Keisha Tapia PA 06/26/2020 Assessment of BMI Percentile => 95% for age Z68.54 Telemedicine with Siva Rincon MD 05/08/2020 Lactose intolerance Telemedicine with Siva kovacs MD 05/08/2020 Body mass index Telemedicine with Siva Rincon MD 04/07/2020 Depression Telemedicine with Siva Rincon MD 04/07/2020 Lactose intolerance Telemedicine with Siva kovacs MD 04/07/2020 Obesity due to excess calories Telemedicine with Siva Rincon MD 04/07/2020 Post-traumatic stress disorder Telemedicine with Siva Rincon MD 04/07/2020 PLAN Telemedicine with Maximo kraft MD 04/01/2020 E73.9 - Lactose intolerance, unspecified Telemedicine with Maximo Franco MD 04/01/2020 Obesity due to excess calories Telemedicine with Maximo Franco MD 04/01/2020 Z68.34 - Body mass index (BM I) 34.0-34.9, adult Telemedicine with Maximo Franco MD 04/01/2020 PLAN Telemedicine with Maximo kraft MD 03/18/2020 E73.9 - Lactose intolerance, unspecified Telemedicine with Maximo Franco MD 03/18/2020 Obesity due to excess calories Telemedicine with Maximo Franco MD 03/18/2020 Z68.34 - Body mass index (BM I) 34.0-34.9, adult Telemedicine with Maximo Franco MD 03/18/2020 Major depression, recurrent , per records from foster home Established Patient with Maribel BOSS 02/28/2020 PHQ-9: total score was 0 02/28/2020 Es tablished Patient with Maribel BOSS 02/28/2020 Post-traumatic stress disord er , per records from [facility] Established Patient with Maribel BOSS 02/28/2020 RAAPS Score was 0 02/28/2020 Establish ed Patient with Maribel BOSS 02/28/2020 Assessment of BMI Percentile => 95% for age Z68.54 Medical New Patient with Siva Rincon MD 02/28/2020 Depression Medical New Patient with Siva Rincon MD 02/28/2020 Post-traumatic stress disorder Medical N ew Patient with Siva Rincon MD 02/28/2020 Routine adolescent history a nd physical (12 - 17 yrs) Medical New Patient with Siva Rincon MD 02/28/2020 Findings Encounter Date Exposure to a viral disease Telemedicine Establisted Patient with Paula Cathryn 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 No cough Telemedicine Establi sted Patient with Paula Cathryn 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 No fever Telemedicine Establi sted Patient with Paula Cathryn 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 COVID-19 Telemedicine Establi sted Patient with Keisha Hattendorf PA 08/15/2020 R05 - Cough Telemedicine Establi sted Patient with Keisha Hattendorf PA 08/15/2020 R19.7 - Diarrhea, unspecified Telemedici ne Establisted Patient with Keisha Hattendorf PA 08/15/2020 Major depression, recurrent BH Establish ed Patient with Maribel Banegas CYBER ENGINEER 06/26/2020 Post-traumatic stress disorder BH Establ ished Patient with Maribel Banegas CYBER ENGINEER 06/26/2020 Assessment of BMI Percentile => 95% for age Z68.54 Medical Established Patient with Keisha Hattendorf PA 06/26/2020 Menorrhagia Medical Established Patient with Keisha Hattendorf PA 06/26/2020 Assessment of BMI Percentile => 95% for age Z68.54 Telemedicine with Siva Rincon MD 05/08/2020 Lactose intolerance Telemedicine with Siva kovacs MD 05/08/2020 Body mass index Telemedicine with Siva Rincon MD 04/07/2020 Depression Telemedicine with Siva Rincon MD 04/07/2020 Lactose intolerance Telemedicine with Siva kovacs MD 04/07/2020 Obesity due to excess calories Telemedicine with Siva Rincon MD 04/07/2020 Post-traumatic stress disorder Telemedicine with Siva Rincon MD 04/07/2020 PLAN Telemedicine with Maximo kraft MD 04/01/2020 E73.9 - Lactose intolerance, unspecified Telemedicine with Maximo Franco MD 04/01/2020 Obesity due to excess calories Telemedicine with Maximo Franco MD 04/01/2020 Z68.34 - Body mass index (BM I) 34.0-34.9, adult Telemedicine with Maximo Franco MD 04/01/2020 PLAN Telemedicine with Maximo kraft MD 03/18/2020 E73.9 - Lactose intolerance, unspecified Telemedicine with Maximo Franco MD 03/18/2020 Obesity due to excess calories Telemedicine with Maximo Franco MD 03/18/2020 Z68.34 - Body mass index (BM I) 34.0-34.9, adult Telemedicine with Maximo Franco MD 03/18/2020 Major depression, recurrent , per records from foster home Established Patient with Maribelraji BOSS 02/28/2020 PHQ-9: total score was 0 02/28/2020 Es tablished Patient with Maribelraji BOSS 02/28/2020 Post-traumatic stress disord er , per records from foster home Established Patient with Maribel BOSS 02/28/2020 RAAPS Score was 0 02/28/2020 Establish ed Patient with Maribelraji BOSS 02/28/2020 Assessment of BMI Percentile => 95% for age Z68.54 Medical New Patient with Siva Rincon MD 02/28/2020 Depression Medical New Patient with Siva Rincon MD 02/28/2020 Post-traumatic stress disorder Medical N ew Patient with Siva Rincon MD 02/28/2020 Routine adolescent history a nd physical (12 - 17 yrs) Medical New Patient with Siva Rincon MD 02/28/2020 Findings Encounter Date Episodic mood disorders Established P atient with Maribel Banegas CYBER ENGINEER 09/17/2020 Assessment of BMI Percentile => 95% for age Z68.54 Medical Established Patient with Keisha Willie PA 09/17/2020 Z30.42 - Encounter for surve illance of injectable contraceptive Medical Established Patient with Keisha Hattenamy PA 09/17/2020 Exposure to a viral disease Telemedicine Establisted Patient with Paulanain Tiwarine 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 No cough Telemedicine Establi sted Patient with Paula [place] 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 No fever Telemedicine Establi sted Patient with Paula Cathryn 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 COVID-19 Telemedicine Establi sted Patient with Keisha Hattendorf PA 08/15/2020 R05 - Cough Telemedicine Establi sted Patient with Keisha Hattendorf PA 08/15/2020 R19.7 - Diarrhea, unspecified Telemedici ne Establisted Patient with Keisha Hattendoara PA 08/15/2020 Major depression, recurrent Establish ed Patient with Maribelraji CHENEYW 06/26/2020 Post-traumatic stress disorder Establ ished Patient with Maribelraji Banegas CYBER ENGINEER 06/26/2020 Assessment of BMI Percentile => 95% for age Z68.54 Medical Established Patient with Keisha CASIANO 06/26/2020 Menorrhagia Medical Established Patient with Keisha CASIANO 06/26/2020 Assessment of BMI Percentile => 95% for age Z68.54 Telemedicine with Siva Rincon MD 05/08/2020 Lactose intolerance Telemedicine with Siva kovacs MD 05/08/2020 Body mass index Telemedicine with Siva Rincon MD 04/07/2020 Depression Telemedicine with Siva Rincon MD 04/07/2020 Lactose intolerance Telemedicine with Siva kovacs MD 04/07/2020 Obesity due to excess calories Telemedicine with Siva Rincon MD 04/07/2020 Post-traumatic stress disorder Telemedicine with Siva Rincon MD 04/07/2020 PLAN Telemedicine with Maximo kraft MD 04/01/2020 E73.9 - Lactose intolerance, unspecified Telemedicine with Maximo Franco MD 04/01/2020 Obesity due to excess calories Telemedicine with Maximo Franco MD 04/01/2020 Z68.34 - Body mass index (BM I) 34.0-34.9, adult Telemedicine with Maximo Franco MD 04/01/2020 PLAN Telemedicine with Maximo kraft MD 03/18/2020 E73.9 - Lactose intolerance, unspecified Telemedicine with Maximo Franco MD 03/18/2020 Obesity due to excess calories Telemedicine with Maximo Franco MD 03/18/2020 Z68.34 - Body mass index (BM I) 34.0-34.9, adult Telemedicine with Maximo Franco MD 03/18/2020 Major depression, recurrent , per records from foster home Established Patient with Maribel BOSS 02/28/2020 PHQ-9: total score was 0 02/28/2020 Es tablished Patient with Maribel BOSS 02/28/2020 Post-traumatic stress disord er , per records from [facility] Established Patient with Maribel BOSS 02/28/2020 RAAPS Score was 0 02/28/2020 Establish ed Patient with Maribel BOSS 02/28/2020 Assessment of BMI Percentile => 95% for age Z68.54 Medical New Patient with Siva Rincon MD 02/28/2020 Depression Medical New Patient with Siva Rincon MD 02/28/2020 Post-traumatic stress disorder Medical N ew Patient with Siva Rincon MD 02/28/2020 Routine adolescent history a nd physical (12 - 17 yrs) Medical New Patient with Siva Rincon MD 02/28/2020 Findings Encounter Date Assessment of BMI Percentile => 95% for age Z68.54 Medical Established Patient with Keisha Hattendorf PA-C 12/10/2020 Depression Medical Established Patient with Keisha Hattendorf PA-C 12/10/2020 N94.89 - Other specified con ditions associated with female genital organs and menstrual cycle Medical Established Patient with Keisha Hattendorf PA-C 12/10/2020 Post-traumatic stress disorder Medical E stablished Patient with Keisha Hattendorf PA-C 12/10/2020 Assessment of BMI Percentile => 95% for age Z68.54 Medical Established Patient with Keisha Hattendorf PA-C 11/26/2020 Flank pain Medical Established Patient with Keisha Hattendorf PA-C 11/26/2020 K21.9 - Gastro-esophageal re flux disease without esophagitis Medical Established Patient with Keisha Hattendorf PA-C 11/26/2020 Post-traumatic stress disorder Medical E stablished Patient with Keisha Hattendorf PA-C 11/26/2020 Hematuria Chart Update with Souleymane rodriguez Hattendorf PA-C 11/13/2020 M54.9 - Dorsalgia, unspecified Chart Upd ate with Keisha Hattendorf PA-C 11/13/2020 Mood disorders, NOS Established Patie nt with Lynsey BOSS 11/10/2020 Assessment of BMI Percentile => 95% for age Z68.54 Medical Established Patient with Keisha Hattendorf PA-C 11/10/2020 N10 - Acute pyelonephritis Medical Estab lished Patient with Keisha Hattendorf PA-C 11/10/2020 Renal backache Medical Established Patient with Keisha Hattendorf PA-C 11/10/2020 Exposure to SARS-CoV-2 Telemedicine Esta blisted Patient with Idalmis Dong PNP 10/28/2020 Episodic mood disorders Established P atient with Maribel BOSS 09/17/2020 Assessment of BMI Percentile => 95% for age Z68.54 Medical Established Patient with Keisha Hattendorf PA-C 09/17/2020 Z30.42 - Encounter for surve illance of injectable contraceptive Medical Established Patient with Keisha Hattendorf PA-C 09/17/2020 Exposure to a viral disease Telemedicine Establisted Patient with Paula [place] 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 No cough Telemedicine Establi sted Patient with Paula [place] 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 No fever Telemedicine Establi sted Patient with Paula [place] 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 COVID-19 Telemedicine Establi sted Patient with Keisha Hattendorf PA-C 08/15/2020 R05 - Cough Telemedicine Establi sted Patient with Keisha Hattendorf PA-C 08/15/2020 R19.7 - Diarrhea, unspecified Telemedici ne Establisted Patient with Keisha Hattendorf PA-C 08/15/2020 Major depression, recurrent BH Establish ed Patient with Maribelraji CHENEYW 06/26/2020 Post-traumatic stress disorder Establ ished Patient with Maribel Banegas CYBER ENGINEER 06/26/2020 Assessment of BMI Percentile => 95% for age Z68.54 Medical Established Patient with Keisha Hattendorf PA-C 06/26/2020 Menorrhagia Medical Established Patient with Keisha Hattendorf PA-C 06/26/2020 Assessment of BMI Percentile => 95% for age Z68.54 Telemedicine with Siva Rincon MD 05/08/2020 Lactose intolerance Telemedicine with Siva kovacs MD 05/08/2020 Body mass index Telemedicine with Siva Rincon MD 04/07/2020 Depression Telemedicine with Siva Rincon MD 04/07/2020 Lactose intolerance Telemedicine with Siva kovacs MD 04/07/2020 Obesity due to excess calories Telemedicine with Siva Rincon MD 04/07/2020 Post-traumatic stress disorder Telemedicine with Siva Rincon MD 04/07/2020 PLAN Telemedicine with Maximo kraft MD 04/01/2020 E73.9 - Lactose intolerance, unspecified Telemedicine with Maximo Franco MD 04/01/2020 Obesity due to excess calories Telemedicine with Maximo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 and content) Reason Comments Mental Health Problem Pt states took 1 u nknown pill unknown time, superficial cuts noted to left arm, pt denies SI/HI complaints. Pt states a lot of increased stress. Pt states want to go home Reason Comments test request Pt is requesting a test for . Pt vomited this morning and it had blood in it and slight vaginal blood. Pt has concern for miscarriage Reason Comments Results Reason Comments Vomiting Nausea x 1 week Source Comments (unrecognize d section and content) In the event this informatio n is protected by the Federal Confidentiality of Alcohol and Drug Abuse Patient Records regulations: The Federal rules restrict any use of the information to criminally investigate or prosecute any alcohol or drug abuse patient.[facility] the event this information is protected by the Federal Confidentiality of Alcohol and Drug Abuse Patient Records regulations: The Federal rules restrict any use of the information to criminally investigate or prosecute any alcohol or drug abuse patient.[facility] the event this information is protected by the Federal Confidentiality of Alcohol and Drug Abuse Patient Records regulations: The Federal rules restrict any use of the information to criminally investigate or prosecute any alcohol or drug abuse patient.[facility] the event this information is protected by the Federal Confidentiality of Alcohol and Drug Abuse Patient Records regulations: The Federal rules restrict any use of the information to criminally investigate or prosecute any alcohol or drug abuse patient.[facility] Goals (unrecognized section and content) Goals may be documented in a n alternate section FOR RECORDS PERTAINING TO PATIENTS WHO ARE OR HAVE BEEN ENROLLED IN A CHEMICAL DEPENDENCY/SUBSTANCEABUSE PROGRAM, SOME INFORMATION MAY BE OMITTED. This clinical summary was aggregated from multiple sources. Caution should be exercised in using it in the provision of clinical care. This summary normalizes information from multiple sources, and as a consequence, information in this document may materially change the coding, format and clinical context of patient data. In addition, data may be omitted in some cases. CLINICAL DECISIONS SHOULD BE BASED ON THE PRIMARY CLINICAL RECORDS. [facility] [facility]. provides no warranty or guarantee of the accuracy or completeness of information in this document.
== END 2025-07-30 17:59 | disposition home or self-care (01) ==
PROVIDERS: Emergency Provider Emergency Medicine; Visit Provider Emergency Medicine
DX: J45.901 Unspecified asthma with (acute) exacerbation (principal); J06.9 Acute upper respiratory infection, unspecified; R05.9 Cough, unspecified; F17.210 Nicotine dependence, cigarettes, uncomplicated; F17.290 Nicotine dependence, other tobacco product, uncomplicated
CPT/HCPCS: 87631; 99284

== ENCOUNTER 2025-09-23 10:16 | Emergency (ER) | payer MEDICAID, SELFPAY ==
[2025-09-23 10:17] VITALS: BP 135/93; PULSE 96; RESP 18; TEMP 36.6; O2SAT 99; BMI 39.2
--- NOTE | 2025-09-23 10:46 | EX.ED.DYSGE1 ---
HPI History of Present Illness Chief Complaint: Other, Pain/Inj Detail of Chief Complaint: L breast pain Informant: patient Narrative Narrative: Patient is a 20-year-old female with a history of asthma presenting with left breast pain and swelling. - Reports onset of left breast pain and swelling 1-2 weeks ago. - Describes a palpable knot in the breast, with significant increase in size and pain since yesterday. - Pain exacerbated by lying on the affected side. - No drainage noted, but reports bruising. No pain in or around nipple, no discharge, no known injury. - Denies fever or systemic symptoms. - Family history of breast cancer, with grandmother recently surviving stage 4 breast cancer. - Attempted massage with her boyfriend to alleviate symptoms without improvement. - Denies history of DM or other medical problems except for asthma. 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) Family History other other (mult mother's side w/ breast ca) Social History Smoking Status: Current every day smoker tobacco type: cigarettes and e-cigarettes Smokeless tobacco user: other alcohol intake: current alcohol intake frequency: other Alcohol type: hard liquor ROS ROS ED Constitutional Constitutional ED: Denies chills or fever(s) Cardiovascular Cardiovascular: Denies chest pain Respiratory/Chest Respiratory/Chest: Reports other Details: left lateral breast pain ; Denies dyspnea Gastrointestinal Gastrointestinal: Denies abdominal pain Musculoskeletal Musculoskeletal: Denies back pain or neck pain Integumentary Denies abscess, rash or wounds Neurologic Neurologic: Denies headache(s), paresthesias or weakness EXAM Physical Exam Const Vital Signs: 09/23/25 10:17 09/23/25 10:44 Temperature 98 F Temperature Source Oral Pulse Rate 96 Respiratory Rate 18 Respiratory Effort Normal Blood Pressure 135/93 H Blood Pressure Mean 107 Pulse Ox 99 Oxygen Delivery Method Room Air Positive well nourished and well developed General Appearance ED: well developed and NAD HEENT Reports moist mucous membranes Eyes PERRL and EOMs intact bilaterally Chest Wall Chest Narrative: Left breast examined with nurse insurance producer. Large left breast is normal-appearing and feeling I cannot feel I am not or a mass that the patient refers to, the entire left lateral aspect of the breast is tender, but normal-appearing there are no dimples divots or peau d'orange appearance the areola and nipple are normal there is no discharge expressible and there are no rashes or wounds. Resp normal respiratory effort Extremity normal to inspection Neuro oriented x3, CN's II-XII intact bilaterally and no sensory deficits noted Motor Exam: strength 5/5 throughout Psych mental status grossly normal Skin no rashes or lesions noted, no wounds and skin turgor normal MDM MDM MDM Narrative Medical decision making narrative: Assessment: The patient is a 20-year-old female presenting for left breast pain and swelling for 1?2 weeks. Exam shows tender, large pendulous left breast without palpable mass, skin dimpling, nipple discharge, or peau d?orange; exam limited by breast size. Given benign findings and lack of systemic symptoms, infection or abscess is unlikely. Most likely diagnosis is mastodynia; concern for malignancy is driven by significant family history of breast cancer. Plan: - Bedside breast examination completed; no acute intervention required. - Discussed benign findings, need for prompt outpatient breast imaging, and red-flag return precautions. - Arranged surgical follow-up with Dr. Ramírez and placed referral to Dr. Cruz for ongoing care. - Discharged home in stable condition. Consultations: - Dr. Ramírez (surgery) ? will follow the patient as outpatient after imaging, recommends mammogram and ultrasound both Discharge Plan Triage Chief Complaint: Other, Pain/Inj ED Provider: Alexis Mejia Dx/Rx/DC Orders Clinical Impression: Mastodynia of left breast, Family history of breast cancer Instructions: Breast Pain (Mastalgia) Prescriptions: No Action albuterol sulfate [Ventolin HFA] 90 mcg/actuation HFA aerosol inhaler 1 - 2 puff inhalation Q4H PRN PRN (Reason: Wheezing) Qty: 1 0RF Other Ambulatory Orders: Breast Limited Unilateral (Routine) Timeframe: 3 Days Facility: [facility] - [facility] Ordered By: Dr. Alexis LOGANG MAMM W/CAD, BILAT (Routine) Timeframe: 3 Days Facility: [facility] - Location: [facility] Ordered By: Dr. Alexis Mejia Primary Care Provider: Care Physician,No Primary Referrals: Shara Flores MD [Med Staff - Fabrication Supervisor, Internal Medicine - [facility]] Referral Note: for primary care Shahriar Ramírez MD [Med Staff - Active Staff, General Surgery] - As soon as possible Referral Note: appt after imaging test obtained Print Language: Faroese Disposition Disposition: Home, Self Care
[2025-09-23 11:28] VITALS: BP 127/87; PULSE 87; RESP 18; TEMP 36.8; O2SAT 100
== END 2025-09-23 11:28 | disposition home or self-care (01) ==
LOC: ED 11:21
PROVIDERS: Emergency Provider Emergency Medicine; Visit Provider Emergency Medicine
DX: N64.4 Mastodynia (principal); F17.210 Nicotine dependence, cigarettes, uncomplicated; F17.290 Nicotine dependence, other tobacco product, uncomplicated; Z80.3 Family history of malignant neoplasm of breast
CPT/HCPCS: 99282